=== PATIENT | male | born 1940 | race Caucasian/White ===

== ENCOUNTER 2023-01-06 08:43 | Emergency (ER) | payer MEDICARE, OTHER, SELFPAY ==
[2023-01-06 08:49] VITALS: BP 135/84; PULSE 101; RESP 18; TEMP 36.6; O2SAT 98; BMI 39.2
--- NOTE | 2023-01-06 08:53 | ED.MALEGU1 ---
HPI - Male Genitourinary General Chief complaint: Urogenital-Male Stated complaint: URINARY RETENTION Time Seen by Provider: 01/06/23 08:49 History of Present Illness HPI Narrative: 82-year-old male presents because he could not urinate. He hasn't urinated he states in two days. He has a history of prostate enlargement and has had to have a catheter previously. He has the urge to urinate but cannot. No fever or back pain or vomiting. Related Data Home Medications Medication Instructions Recorded Confirmed cefdinir 300 mg capsule 300 mg PO Q12H 01/06/23 01/06/23 lisinopril 20 1 tab PO Q24H 01/06/23 01/06/23 mg-hydrochlorothiazide 25 mg tablet simvastatin 40 mg tablet 40 mg PO Q24H 01/06/23 01/06/23 trospium 60 mg capsule,extended 60 mg PO Q24H 01/06/23 01/06/23 release 24 hr Previous Rx's Medication Instructions Recorded cefdinir 300 mg capsule 300 mg PO BID 10 days #20 caps 01/06/23 Allergies Allergy/AdvReac Type Severity Reaction Status Date / Time No Known Drug Allergies Allergy Verified 01/06/23 08:48 Review of Systems ROS Narrative A ten point review of systems is negative except as noted above. PFSH PFSH Social History Smoking status: Never smoker Exam Narrative Exam Narrative: Nurses note and vital signs reviewed and patient is not hypoxic. General: The patient sitting on the edge of the cart and he appears uncomfortable Skin: Warm, dry, no pallor noted. There is no rash noted. Head: Normocephalic, atraumatic Eye: Normal conjunctiva, no drainage Ears, Nose, Mouth, and Throat: oral mucosa is moist. Nares patent. Cardiovascular: Regular Rate and Rhythm Respiratory: Patient is in no distress, no accessory muscle use, lungs , no CVA tenderness bilaterally to percussion. GI: minimally tender on palpation Musculoskeletal: The patient has no evidence of calf tenderness, no pitting edema, symmetrical pulses noted bilaterally Neurological: A&O, normal speech, hard of hearing Psychiatric: Cooperative Constitutional Vital Signs, click to edit/add: Last Vital Signs Temp 97.8 F 01/06/23 08:49 Pulse 86 01/06/23 09:41 Resp 18 01/06/23 09:41 BP 130/80 01/06/23 09:41 Pulse Ox 96 01/06/23 09:41 O2 Del Method Room Air 01/06/23 08:49 Course Vital Signs Vital signs: Vital Signs Temperature 97.8 F 01/06/23 08:49 Pulse Rate 101 H 01/06/23 08:49 Respiratory Rate 18 01/06/23 08:49 Blood Pressure 135/84 01/06/23 08:49 Pulse Oximetry 98 01/06/23 08:49 Oxygen Delivery Method Room Air 01/06/23 08:49 Temperature 97.8 F 01/06/23 08:49 Pulse Rate 86 01/06/23 09:41 Respiratory Rate 18 01/06/23 09:41 Blood Pressure 130/80 01/06/23 09:41 Pulse Oximetry 96 01/06/23 09:41 Oxygen Delivery Method Room Air 01/06/23 08:49 MDM - Male Genitourinary MDM Narrative Medical decision making narrative: blood work and urinalysis are negative. He's been having trouble urinating at home and sees a urologist. We'll leave the catheter in place until he sees the urologist and was placed on subsequent antibiotic. Treatment diagnosis and follow-up were discussed with the patient. Differential Diagnosis Differential diagnosis: Likely urinary tract infection, acute retention of urine and other (enlarged prostate) Lab Data Attestation: I reviewed the patient's lab results. Labs: Lab Results 01/06/23 01/06/23 Range/Units 09:04 09:16 WBC 7.6 (4.0-11.0) 10^3/uL RBC 4.33 L (4.70-6.10) 10^6/uL Hgb 13.9 L (14.0-18.0) g/dL Hct 40.4 L (42.0-54.0) % MCV 93.3 (80.0-94.0) fL MCH 32.1 (25.9-34.0) pg MCHC 34.4 (29.9-35.2) g/dL RDW 13.7 (11.0-15.0) % Plt Count 306 (150-450) 10^3/uL MPV 9.4 L (9.5-13.5) fL Neut % (Auto) 69.4 (43.0-75.0) % Lymph % (Auto) 18.0 L (20.5-60.0) % [place] % (Auto) 10.1 (1.7-12.0) % Eos % (Auto) 0.9 (0.9-7.0) % Baso % (Auto) 0.4 (0.2-2.0) % Neut # (Auto) 5.3 (1.4-6.5) 10^3/uL Lymph # (Auto) 1.4 (1.2-3.8) 10^3/uL [place] # (Auto) 0.8 (0.3-0.8) 10^3/uL Eos # (Auto) 0.1 (0.0-0.7) 10^3/uL Baso # (Auto) 0.0 (0.0-0.1) 10^3/uL Abs Immat Gran (auto) 0.09 H (0.00-0.03) 10^3/uL Imm/Tot Granulo (auto) 1.2 H (0.0-0.5) % Sodium 126 L (136-145) mmol/L Potassium 3.4 L (3.5-5.1) mmol/L Chloride 90 L (98-107) mmol/L Carbon Dioxide 25.3 (21.0-32.0) mmol/L Anion Gap 14.1 BUN 8.0 (7.0-18.0) mg/dL Creatinine 0.81 (0.70-1.30) mg/dL Est GFR ( Amer) >60 (>=60) Est GFR (Non-Af Amer) >60 (>=60) BUN/Creatinine Ratio 9.9 Glucose 118 H (74-106) mg/dL Calcium 8.7 (8.5-10.1) mg/dL Urine Color Yellow (YELLOW) Urine Clarity Clear (CLEAR) Urine pH 6.0 (5.0-9.0) Ur Specific [place] 1.020 (1.005-1.025) Urine Protein Trace (NEG/TRACE) mg/dL Urine Glucose (UA) Negative (NEGATIVE) mg/dL Urine Ketones Trace A (NEGATIVE) mg/dL Urine Occult Blood Small A (NEGATIVE) Urine Nitrite Negative (NEGATIVE) Urine Bilirubin Negative (NEGATIVE) Urine Urobilinogen 0.2 (0.2-1.0) EU/dL Ur Leukocyte Esterase Negative (NEGATIVE) Urine RBC 2-5 A (0-2) #/HPF Urine WBC 0-2 A (NONE SEEN) #/HPF Ur Squamous Epith Cells Rare (NONE/RARE) #/LPF Urine Crystals None seen (None Seen) #/HPF Urine Bacteria None seen (NONE SEEN) #/HPF Urine Casts Seen A (NONE SEEN) #/LPF Hyaline Casts Rare Urine Mucus Trace A (NONE SEEN) Ur Culture Indicated? No Discharge Plan Discharge Chief Complaint: Urogenital-Male Clinical Impression: Difficulty urinating Patient Disposition: Home, Self-Care Time of Disposition Decision: 10:06 Condition: Good Mode of Transportation: Private Vehicle Prescriptions / Home Meds: New cefdinir 300 mg capsule 300 mg PO BID 10 Days Qty: 20 0RF No Action cefdinir 300 mg capsule 300 mg PO Q12H lisinopril-hydrochlorothiazide 20-25 mg tablet 1 tab PO Q24H simvastatin 40 mg tablet 40 mg PO Q24H trospium 60 mg capsule,extended release 24hr 60 mg PO Q24H Instructions: Enlarged Prostate (BPH) (ED), Urinary Urgency and Frequency (DC) Additional Instructions: Follow-up with your urologist in 2-3 days Stand Alone Forms: Portal Instructions Referrals: ALEX LYMAN [Primary Care Provider] - 1 week
[2023-01-06 09:15] LABS: Basophils Percent Auto 0.4 % (0.2-2.0); Eosinophils Absolute Auto 0.1 10^3/uL (0.0-0.7); Eosinophils Percent Auto 0.9 % (0.9-7.0); Hematocrit 40.4 % (42.0-54.0); Hemoglobin 13.9 g/dL (14.0-18.0); Immature Granulocytes Abs Auto 0.09 10^3/uL (0.00-0.03); Immature Granulocytes Pct Auto 1.2 % (0.0-0.5); Lymphocytes Absolute Auto 1.4 10^3/uL (1.2-3.8); Mean Corpuscular HGB Conc 34.4 g/dL (29.9-35.2); Mean Corpuscular Hemoglobin 32.1 pg (25.9-34.0); Mean Corpuscular Volume 93.3 fL (80.0-94.0); Mean Platelet Volume 9.4 fL (9.5-13.5); Monocytes Absolute Auto 0.8 10^3/uL (0.3-0.8); Monocytes Percent Auto 10.1 % (1.7-12.0); Neutrophils Absolute Auto 5.3 10^3/uL (1.4-6.5); Neutrophils Percent Auto 69.4 % (43.0-75.0); Platelet Count 306 10^3/uL (150-450); Red Blood Count 4.33 10^6/uL (4.70-6.10); Red Cell Distribution Width 13.7 % (11.0-15.0); White Blood Count 7.6 10^3/uL (4.0-11.0)
[2023-01-06] MEDS: LIDOCAINE 2% JELLY 10 ML UR (09:15)
[2023-01-06 09:27] LABS: Anion Gap 14.1; BUN Creatinine Ratio 9.9; Calcium 8.7 mg/dL (8.5-10.1); Carbon Dioxide 25.3 mmol/L (21.0-32.0); Chloride 90 mmol/L (98-107); Estimated GFR (African America >60 (>=60); Estimated GFR (Non-African Ame >60 (>=60); Glucose 118 mg/dL (74-106); Potassium 3.4 mmol/L (3.5-5.1); Sodium 126 mmol/L (136-145)
[2023-01-06 09:32] LABS: Bilirubin Urine NEGATIVE (NEGATIVE); Blood Urine SMALL (NEGATIVE); Clarity Urine CLEAR (CLEAR); Color Urine YELLOW (YELLOW); Glucose Urine UA NEGATIVE (NEGATIVE); Ketones Urine TRACE mg/dL (NEGATIVE); Leukocyte Esterase Urine NEGATIVE (NEGATIVE); Nitrite Urine NEGATIVE (NEGATIVE); Protein Urine TRACE mg/dL (NEG/TRACE); Urobilinogen Urine 0.2 EU/dL (0.2-1.0)
[2023-01-06 09:41] VITALS: BP 130/80; PULSE 86; RESP 18; O2SAT 96
[2023-01-06 09:43] LABS: Mucus Urine TRACE (NONE SEEN); Squamous Epithelial Cell Urine RARE #/LPF (NONE/RARE); WBC Urine 0-2 #/HPF (NONE SEEN)
[2023-01-06 09:44] LABS: Bacteria Urine NONE SEEN #/HPF (NONE SEEN); Cast Seen? SEEN #/LPF (NONE SEEN); Crystals Seen? None Seen #/HPF (None Seen); Hyaline Casts Urine RARE; Urine Culture Indicated NO
== END 2023-01-06 10:39 | disposition home or self-care (01) ==
PROVIDERS: Emergency Provider Emergency Medicine; PCP Internal Medicine
DX: R39.198 Other difficulties with micturition (principal); Z79.899 Other long term (current) drug therapy
CPT/HCPCS: 36415; 51702; 80048; 81001; 85025; 99284

== ENCOUNTER 2023-01-09 01:41 | Emergency (ER) | payer MEDICARE, OTHER, SELFPAY ==
[2023-01-09 01:50] VITALS: BP 140/80; PULSE 88; RESP 20; TEMP 36.9; O2SAT 97; BMI 39.2
--- NOTE | 2023-01-09 01:54 | ED_ITS ---
HPI - Male Genitourinary General Chief complaint: Urogenital-Male Stated complaint: bleeding Time Seen by Provider: 01/09/23 01:50 Source: patient Mode of arrival: walk-in History of Present Illness HPI Narrative: the patient presents with blood in his oh catheter bag. He came to the ED the other day for urinary retention and a oh cathter was placed. He is supposed to see the Urologist next week. He denied any trauma to the area - said that he woke up tonight and had the bleeding in the bag. He denied any suprapubic abdominal pain. He said that the oh is uncomfortable and he thinks it should be removed. He repeatedly says he sees Dr Baires in [place] - I believe he means the PA with the [facility] that includes Grace Flor, Juvenal, Nick. Related Data Home Medications Medication Instructions Recorded Confirmed cefdinir 300 mg capsule 300 mg PO Q12H 01/06/23 01/06/23 lisinopril 20 1 tab PO Q24H 01/06/23 01/06/23 mg-hydrochlorothiazide 25 mg tablet simvastatin 40 mg tablet 40 mg PO Q24H 01/06/23 01/06/23 trospium 60 mg capsule,extended 60 mg PO Q24H 01/06/23 01/06/23 release 24 hr Previous Rx's Medication Instructions Recorded cefdinir 300 mg capsule 300 mg PO BID 10 days #20 caps 01/06/23 hyoscyamine sulfate 0.125 mg 0.125 mg PO Q6H PRN bladder phillips 01/09/23 sublingual tablet (Levsin/SL) #20 tabs Allergies Allergy/AdvReac Type Severity Reaction Status Date / Time No Known Drug Allergies Allergy Verified 01/06/23 08:48 PFSH PFS Social History Smoking status: Never smoker Exam Narrative Exam Narrative: Nurses notes and vital signs reviewed and patient is not hypoxic. afebrile General: Well-appearing and in no apparent distress. Skin: Warm, dry, no pallor noted. No rash. Cardiovascular: Regular Rate and Rhythm without murmur, gallop or rub. Respiratory: No accessory muscle use or respiratory distress. Lungs are clear to auscultation, no wheezing, rales or rhonchi Chest Wall: no tenderness Back: No CVA tenderness Musculoskeletal: normal ROM GI: Abdomen is soft, non-distended. Normal bowel sounds. No masses appreciated. No tenderness to palpation. No rebound, guarding, or rigidity noted. genital: blood in the oh catheter bag. No blood at the urethral meatus. No leakage around the catheter. There is clear yellow urine in the catheter tubing Neurological: A&O x4. No cranial nerve dysfunction observed. No truncal ataxia. Moves all extremities. Sensation intact. Psychiatric: Cooperative and interactive. Normal mood and affect. Constitutional Vital Signs, click to edit/add: Last Vital Signs Temp 98.5 F 01/09/23 01:50 Pulse 88 01/09/23 01:50 Resp 20 01/09/23 01:50 BP 140/80 01/09/23 01:50 Pulse Ox 97 01/09/23 01:50 O2 Del Method Room Air 01/09/23 01:50 Course Vital Signs Vital signs: Vital Signs Temperature 98.5 F 01/09/23 01:50 Pulse Rate 88 01/09/23 01:50 Respiratory Rate 20 01/09/23 01:50 Blood Pressure 140/80 01/09/23 01:50 Pulse Oximetry 97 01/09/23 01:50 Oxygen Delivery Method Room Air 01/09/23 01:50 Temperature 98.5 F 01/09/23 01:50 Pulse Rate 88 01/09/23 01:50 Respiratory Rate 20 01/09/23 01:50 Blood Pressure 140/80 01/09/23 01:50 Pulse Oximetry 97 01/09/23 01:50 Oxygen Delivery Method Room Air 01/09/23 01:50 MDM - Male Genitourinary MDM Narrative Medical decision making narrative: Oh is draining clear yellow urine now. There is some blood-tinged/light red urine in the bag. No leakage. No suprapubic mass or tenderness. Oh was flushed by the ED nurse and he drained urine that was slightly cloudy and had a faint pink tinge but it was thin and flowed easily. Sample sent for urine culture. Patient given Levsin and discharged home with prescription for more. He is scheduled to be seen in the urology office next week - I told him to keep that appointment. I am not going to remove the catheter - he needs to see the urologist. Discharge Plan Discharge Chief Complaint: Urogenital-Male Clinical Impression: History of urinary retention, Hematuria, Complication of Oh catheter Patient Disposition: Home, Self-Care Time of Disposition Decision: 02:12 Prescriptions / Home Meds: New hyoscyamine sulfate [Levsin/SL] 0.125 mg tablet, sublingual 0.125 mg PO Q6H PRN (Reason: bladder phillips) Qty: 20 0RF No Action cefdinir 300 mg capsule 300 mg PO Q12H lisinopril-hydrochlorothiazide 20-25 mg tablet 1 tab PO Q24H simvastatin 40 mg tablet 40 mg PO Q24H trospium 60 mg capsule,extended release 24hr 60 mg PO Q24H cefdinir 300 mg capsule 300 mg PO BID 10 Days Qty: 20 0RF Instructions: Oh Catheter Placement and Care (ED), Hematuria (ED) Stand Alone Forms: Portal Instructions Referrals: Gianna Romero MD [Physician] - As soon as possible Discharge Date/Time: 01/09/23 03:05
--- NOTE | 2023-01-09 02:36 | PC.NURSE ---
Cornejo cath flushed at this time, no blood clots noted. Pt tolerated well.
[2023-01-09] MEDS: HYOSCYAMINE SULFATE 0.125 MG TAB.SUBL SL (02:42)
== END 2023-01-09 03:05 | disposition home or self-care (01) ==
PROVIDERS: Emergency Provider Emergency Medicine; PCP Internal Medicine
DX: R31.9 Hematuria, unspecified (principal); R33.9 Retention of urine, unspecified; T83.9XXA Unspecified complication of genitourinary prosthetic device, implant and graft, initial encounter; Z79.899 Other long term (current) drug therapy
CPT/HCPCS: 87086; 99283

== ENCOUNTER 2023-01-14 13:17 | Emergency (ER) | payer MEDICARE, OTHER, SELFPAY ==
[2023-01-14 13:23] VITALS: BP 138/71; PULSE 85; RESP 24; TEMP 36.4; O2SAT 98; BMI 40.7
--- NOTE | 2023-01-14 14:01 | ED.MALEGU1 ---
HPI - Male Genitourinary General Chief complaint: Urogenital-Male Stated complaint: URINARY RETENTION Time Seen by Provider: 01/14/23 13:20 Source: patient Mode of arrival: walk-in Limitations: no limitations History of Present Illness HPI Narrative: Patient wants his urinary catheter put back in. He had a catheter placed last week and then saw Dr Romero this morning around 1145am and had the catheter removed. he now comes to the ED with the sensation that his bladder is full and wants the catheter put back in. He has tried to urinate but can't. No other complaints. He said that he called the office and they told him to go to the ER and get another oh put in. Related Data Home Medications Medication Instructions Recorded Confirmed cefdinir 300 mg capsule 300 mg PO Q12H 01/06/23 01/06/23 lisinopril 20 1 tab PO Q24H 01/06/23 01/06/23 mg-hydrochlorothiazide 25 mg tablet simvastatin 40 mg tablet 40 mg PO Q24H 01/06/23 01/06/23 trospium 60 mg capsule,extended 60 mg PO Q24H 01/06/23 01/06/23 release 24 hr Previous Rx's Medication Instructions Recorded cefdinir 300 mg capsule 300 mg PO BID 10 days #20 caps 01/06/23 hyoscyamine sulfate 0.125 mg 0.125 mg PO Q6H PRN bladder phillips 01/09/23 sublingual tablet (Levsin/SL) #20 tabs Allergies Allergy/AdvReac Type Severity Reaction Status Date / Time No Known Drug Allergies Allergy Verified 01/06/23 08:48 PFSH PFSH Social History Smoking status: Never smoker Exam Narrative Exam Narrative: Nurses notes and vital signs reviewed and patient is not hypoxic. afebrile General: Well-appearing and in no apparent distress. Skin: Warm, dry, no pallor noted. Cardiovascular: Regular Rate and Rhythm without murmur, gallop or rub. Respiratory: No accessory muscle use or respiratory distress. Lungs are clear to auscultation, no wheezing, rales or rhonchi Back: No CVA tenderness Musculoskeletal: normal ROM GI: Abdomen is soft, non-distended. Normal bowel sounds. Suprapubic tenderness to palpation. No rebound, guarding, or rigidity noted. Neurological: A&O x4. No cranial nerve dysfunction observed. No truncal ataxia. Moves all extremities. Sensation intact. Psychiatric: Cooperative and interactive. Normal mood and affect. Constitutional Vital Signs, click to edit/add: Last Vital Signs Temp 97.6 F 01/14/23 13:23 Pulse 85 01/14/23 13:23 Resp 24 01/14/23 13:23 BP 138/71 01/14/23 13:23 Pulse Ox 98 01/14/23 13:23 O2 Del Method Room Air 01/14/23 13:23 Course Vital Signs Vital signs: Vital Signs Temperature 97.6 F 01/14/23 13:23 Pulse Rate 85 01/14/23 13:23 Respiratory Rate 24 01/14/23 13:23 Blood Pressure 138/71 01/14/23 13:23 Pulse Oximetry 98 01/14/23 13:23 Oxygen Delivery Method Room Air 01/14/23 13:23 Temperature 97.6 F 01/14/23 13:23 Pulse Rate 85 01/14/23 13:23 Respiratory Rate 24 01/14/23 13:23 Blood Pressure 138/71 01/14/23 13:23 Pulse Oximetry 98 01/14/23 13:23 Oxygen Delivery Method Room Air 01/14/23 13:23 MDM - Male Genitourinary MDM Narrative Medical decision making narrative: Bladder scanner showed only 15mL of urine. Patient vehement about being unable to urinate. ED nurse placed a urethral catheter. Patient referred back to his urologist for follow up Discharge Plan Discharge Chief Complaint: Urogenital-Male Clinical Impression: History of urinary retention, Difficulty urinating Patient Disposition: Home, Self-Care Time of Disposition Decision: 14:05 Prescriptions / Home Meds: No Action hyoscyamine sulfate [Levsin/SL] 0.125 mg tablet, sublingual 0.125 mg PO Q6H PRN (Reason: bladder phillips) Qty: 20 0RF cefdinir 300 mg capsule 300 mg PO Q12H lisinopril-hydrochlorothiazide 20-25 mg tablet 1 tab PO Q24H simvastatin 40 mg tablet 40 mg PO Q24H trospium 60 mg capsule,extended release 24hr 60 mg PO Q24H cefdinir 300 mg capsule 300 mg PO BID 10 Days Qty: 20 0RF Instructions: Urinary Retention in Men (ED) Stand Alone Forms: Portal Instructions Referrals: Gianna Romero MD [Physician] - As soon as possible
== END 2023-01-14 14:28 | disposition home or self-care (01) ==
PROVIDERS: Emergency Provider Emergency Medicine; PCP Internal Medicine
DX: R39.198 Other difficulties with micturition (principal); Z79.899 Other long term (current) drug therapy
CPT/HCPCS: 99284

== ENCOUNTER 2023-01-27 10:15 | Observation (INO) | payer MEDICARE, OTHER, SELFPAY ==
[2023-01-27 10:42] VITALS: BP 127/65; PULSE 56; RESP 22; TEMP 36.6; O2SAT 97; BMI 43.3
--- NOTE | 2023-01-27 12:11 | US_ITS ---
[address] [address] Patient Name: SALVADOR BARRIENTOS MRN: [id number] date: 1940 Sex: M Assigned Patient Location: ER Current Patient Location: ER Accession/Order Number: [id number] Exam Date: 01/27/2023 12:20 Report Date: 01/27/2023 13:10 At the request of: LAZARO ESCALERA Procedure: US scrotum SCROTAL ULTRASOUND: 01/27/2023 10:05 AM PST HISTORY: right testicular pain and mass. TECHNIQUE: Real-time sonography through the scrotum were performed. Color and spectral Doppler waveform analysis were used to evaluate vascularity of scrotal contents. Arterial blood inflow and venous blood outflow were evaluated. COMPARISON: CT abdomen/pelvis 04/01/2018 FINDINGS: RIGHT SCROTUM: RIGHT TESTICLE: Echogenicity: Homogeneous echotexture. No focal solid lesion. Measurements: 3.8 x 2.7 x 2.5 cm. Volume: 13.3 mL. Size: Normal. Hydrocele: Medium-sized septated hydrocele. Varicocele: No varicocele. Testicular vascular exam: Diffuse testicular hyperemia. Arterial and venous spectral waveforms are present. RIGHT EPIDIDYMIS: Diffuse hyperemia and diffuse increased size. LEFT SCROTUM: LEFT TESTICLE: Echogenicity: Homogeneous echotexture. No focal solid lesion. Measurements: 2.8 x 2.1 x 2.4 cm. Volume: 7.1 mL. Size: Normal. Hydrocele: No hydrocele. Varicocele: Present. Testicular vascular exam: Color Doppler and pulse Doppler exam demonstrates normal arterial blood inflow and venous outflow waveforms. LEFT EPIDIDYMIS: Normal in size and position. Color Doppler is normal. SCROTAL WALL: Thickening of the right scrotal wall. US/US scrotum IMPRESSION: Right-sided epididymoorchitis with reactive hydrocele. Electronically authenticated by: JAQUAN PEARSON Date: 01/27/2023 13:10
--- NOTE | 2023-01-27 12:13 | ED_ITS ---
HPI - Male Genitourinary General Chief complaint: Urogenital-Male Stated complaint: GROIN PAIN Time Seen by Provider: 01/27/23 12:03 Source: patient Mode of arrival: walk-in Limitations: no limitations History of Present Illness HPI Narrative: this patient's here complaining of pain in his groin area. He is an extremely poor historian. He does indicate that he's never had any problems with his prostate or procedures on the prostate. He thinks been developing over several days but less than a week. He says his drove him to the hospital and then went back home, she is not here to confirm this information. He's not had any trauma or injury. He says he's not been voiding very much recently. He denies any abdominal pain vomiting or diarrhea. Related Data Home Medications Medication Instructions Recorded Confirmed cefdinir 300 mg capsule 300 mg PO Q12H 01/06/23 01/06/23 lisinopril 20 1 tab PO Q24H 01/06/23 01/27/23 mg-hydrochlorothiazide 25 mg tablet simvastatin 40 mg tablet 40 mg PO Q24H 01/06/23 01/27/23 trospium 60 mg capsule,extended 60 mg PO Q24H 01/06/23 01/06/23 release 24 hr Previous Rx's Medication Instructions Recorded cefdinir 300 mg capsule 300 mg PO BID 10 days #20 caps 01/06/23 hyoscyamine sulfate 0.125 mg 0.125 mg PO Q6H PRN bladder phillips 01/09/23 sublingual tablet (Levsin/SL) #20 tabs Allergies Allergy/AdvReac Type Severity Reaction Status Date / Time No Known Drug Allergies Allergy Verified 01/27/23 10:42 PFSH PFSH Social History Smoking status: Never smoker Exam Narrative Exam Narrative: patient's awake and alert I enter the room he sitting in a chair at the bedside. He is here by himself. He states his brought him here but nurses could not confirm that follows all simple commands. His vital signs are as noted. He is afebrile this time. In the spine position I was able to examine him. The him the scrotum is erythematous and swollen bilaterally with more obvvious swelling of the right testicular area. The left testicle is nontender to palpation but he has some sensitivities palpation the right testicular area. There is no abscesses are noted in the skin but there is definite erythema and swelling of the both the penile skin and the scrotum skin. There is no drainage or purulence. The per irectal area is normal. Otherwise his skin and integument were normal with no petechia purpura. He's not clammy or diaphoretic. He has no respiratory distress his lungs are clear. Constitutional Vital Signs, click to edit/add: Last Vital Signs Temp 97.8 F 01/27/23 10:42 Pulse 56 L 01/27/23 10:42 Resp 22 01/27/23 10:42 BP 127/65 01/27/23 10:42 Pulse Ox 97 01/27/23 10:42 O2 Del Method Room Air 01/27/23 10:42 Course Vital Signs Vital signs: Vital Signs Temperature 97.8 F 01/27/23 10:42 Pulse Rate 56 L 01/27/23 10:42 Respiratory Rate 22 01/27/23 10:42 Blood Pressure 127/65 01/27/23 10:42 Pulse Oximetry 97 01/27/23 10:42 Oxygen Delivery Method Room Air 01/27/23 10:42 Temperature 97.8 F 01/27/23 10:42 Pulse Rate 56 L 01/27/23 10:42 Respiratory Rate 22 01/27/23 10:42 Blood Pressure 127/65 01/27/23 10:42 Pulse Oximetry 97 01/27/23 10:42 Oxygen Delivery Method Room Air 01/27/23 10:42 MDM - Male Genitourinary MDM Narrative Medical decision making narrative: a Corne[place] catheter was placed easily by the nursing staff with no resistance. The urinalysis does show 10-20 WBCs and a few rbc's. His white blood cell count is modestly elevated but there is a left shift. An ultrasound shows hydrocele of the right testicle but no abscess, mass and no evidence of torsion or compromised vascular flow. I believe he does have an infection of this area in his perineum. We will start him on antibiotics and I've discussed the case with the hospitalist for admission. Lab Data Labs: Lab Results 01/27/23 01/27/23 Range/Units 12:20 13:10 WBC 13.0 H (4.0-11.0) 10^3/uL RBC 3.88 L (4.70-6.10) 10^6/uL Hgb 12.4 L (14.0-18.0) g/dL Hct 37.6 L (42.0-54.0) % MCV 96.9 H (80.0-94.0) fL MCH 32.0 (25.9-34.0) pg MCHC 33.0 (29.9-35.2) g/dL RDW 14.5 (11.0-15.0) % Plt Count 335 (150-450) 10^3/uL MPV 9.7 (9.5-13.5) fL Neut % (Auto) 79.8 H (43.0-75.0) % Lymph % (Auto) 8.4 L (20.5-60.0) % [place] % (Auto) 9.6 (1.7-12.0) % Eos % (Auto) 0.9 (0.9-7.0) % Baso % (Auto) 0.3 (0.2-2.0) % Neut # (Auto) 10.3 H (1.4-6.5) 10^3/uL Lymph # (Auto) 1.1 L (1.2-3.8) 10^3/uL [place] # (Auto) 1.3 H (0.3-0.8) 10^3/uL Eos # (Auto) 0.1 (0.0-0.7) 10^3/uL Baso # (Auto) 0.0 (0.0-0.1) 10^3/uL Abs Immat Gran (auto) 0.13 H (0.00-0.03) 10^3/uL Imm/Tot Granulo (auto) 1.0 H (0.0-0.5) % Sodium 133 L (136-145) mmol/L Potassium 3.9 (3.5-5.1) mmol/L Chloride 96 L (98-107) mmol/L Carbon Dioxide 30.8 (21.0-32.0) mmol/L Anion Gap 10.1 BUN 11.0 (7.0-18.0) mg/dL Creatinine 0.90 (0.70-1.30) mg/dL Est GFR ( Amer) >60 (>=60) Est GFR (Non-Af Amer) >60 (>=60) BUN/Creatinine Ratio 12.2 Glucose 99 (74-106) mg/dL Calcium 8.7 (8.5-10.1) mg/dL Total Bilirubin 0.5 (0.2-1.0) mg/dL AST 17 (15-37) U/L ALT 27 (16-63) U/L Alkaline Phosphatase 82 (46-116) U/L NT-Pro-B Natriuret Pep 298.0 (<=1800.0) pg/mL Total Protein 7.0 (6.4-8.2) g/dL Albumin 2.9 L (3.4-5.0) g/dL Globulin 4.1 g/dL Albumin/Globulin Ratio 0.7 Urine Color Lt. yellow (YELLOW) Urine Clarity Clear (CLEAR) Urine pH 6.0 (5.0-9.0) Ur Specific [place] 1.020 (1.005-1.025) Urine Protein Trace (NEG/TRACE) mg/dL Urine Glucose (UA) Negative (NEGATIVE) mg/dL Urine Ketones Negative (NEGATIVE) mg/dL Urine Occult Blood Small A (NEGATIVE) Urine Nitrite Negative (NEGATIVE) Urine Bilirubin Negative (NEGATIVE) Urine Urobilinogen 0.2 (0.2-1.0) EU/dL Ur Leukocyte Esterase Small A (NEGATIVE) Urine RBC 2-5 A (0-2) #/HPF Urine WBC 10-20 A (NONE SEEN) #/HPF Ur Squamous Epith Cells Rare (NONE/RARE) #/LPF Urine Crystals None seen (None Seen) #/HPF Urine Bacteria Trace A (NONE SEEN) #/HPF Urine Casts None seen (NONE SEEN) #/LPF Urine Mucus Trace A (NONE SEEN) Ur Culture Indicated? Yes Discharge Plan Discharge Chief Complaint: Urogenital-Male Clinical Impression: Urinary tract infection Patient Disposition: Admitted as Observation Time of Disposition Decision: 14:51 Prescriptions / Home Meds: No Action hyoscyamine sulfate [Levsin/SL] 0.125 mg tablet, sublingual 0.125 mg PO Q6H PRN (Reason: bladder phillips) Qty: 20 0RF cefdinir 300 mg capsule 300 mg PO Q12H lisinopril-hydrochlorothiazide 20-25 mg tablet 1 tab PO Q24H simvastatin 40 mg tablet 40 mg PO Q24H trospium 60 mg capsule,extended release 24hr 60 mg PO Q24H cefdinir 300 mg capsule 300 mg PO BID 10 Days Qty: 20 0RF Referrals: ALEX LYMAN [Primary Care Provider] - 1 week
[2023-01-27 12:32] LABS: Bilirubin Urine NEGATIVE (NEGATIVE); Blood Urine SMALL (NEGATIVE); Clarity Urine CLEAR (CLEAR); Color Urine LT. YELLOW (YELLOW); Glucose Urine UA NEGATIVE (NEGATIVE); Ketones Urine NEGATIVE (NEGATIVE); Leukocyte Esterase Urine SMALL (NEGATIVE); Nitrite Urine NEGATIVE (NEGATIVE); Protein Urine TRACE mg/dL (NEG/TRACE); Urobilinogen Urine 0.2 EU/dL (0.2-1.0)
[2023-01-27 12:35] LABS: Urine Microscopic Indicated YES
[2023-01-27 12:45] LABS: Bacteria Urine TRACE #/HPF (NONE SEEN); Mucus Urine TRACE (NONE SEEN)
[2023-01-27 12:46] LABS: Cast Seen? NONE SEEN #/LPF (NONE SEEN); Crystals Seen? None Seen #/HPF (None Seen); Squamous Epithelial Cell Urine RARE #/LPF (NONE/RARE); Urine Culture Indicated YES
[2023-01-27 13:27] LABS: Basophils Percent Auto 0.3 % (0.2-2.0); Eosinophils Absolute Auto 0.1 10^3/uL (0.0-0.7); Eosinophils Percent Auto 0.9 % (0.9-7.0); Hematocrit 37.6 % (42.0-54.0); Hemoglobin 12.4 g/dL (14.0-18.0); Immature Granulocytes Abs Auto 0.13 10^3/uL (0.00-0.03); Lymphocytes Absolute Auto 1.1 10^3/uL (1.2-3.8); Lymphocytes Percent Auto 8.4 % (20.5-60.0); Mean Corpuscular Volume 96.9 fL (80.0-94.0); Mean Platelet Volume 9.7 fL (9.5-13.5); Monocytes Absolute Auto 1.3 10^3/uL (0.3-0.8); Monocytes Percent Auto 9.6 % (1.7-12.0); Neutrophils Absolute Auto 10.3 10^3/uL (1.4-6.5); Neutrophils Percent Auto 79.8 % (43.0-75.0); Platelet Count 335 10^3/uL (150-450); Red Blood Count 3.88 10^6/uL (4.70-6.10); Red Cell Distribution Width 14.5 % (11.0-15.0)
[2023-01-27 13:42] LABS: Alanine Aminotransferase 27 U/L (16-63); Albumin Globulin Ratio 0.7; Albumin Level 2.9 g/dL (3.4-5.0); Alkaline Phosphatase 82 U/L (46-116); Anion Gap 10.1; Aspartate Amino Transferase 17 U/L (15-37); BUN Creatinine Ratio 12.2; Bilirubin Total 0.5 mg/dL (0.2-1.0); Calcium 8.7 mg/dL (8.5-10.1); Carbon Dioxide 30.8 mmol/L (21.0-32.0); Chloride 96 mmol/L (98-107); Estimated GFR (African America >60 (>=60); Estimated GFR (Non-African Ame >60 (>=60); Globulin 4.1 g/dL; Glucose 99 mg/dL (74-106); Potassium 3.9 mmol/L (3.5-5.1); Sodium 133 mmol/L (136-145)
--- NOTE | 2023-01-27 15:14 | P.HP_ITS ---
Patient was not seen on 01/27 by me. Chart reviewed, clinical care/decision making d/w DENIS Etienne in detail. Agree with her findings and treatment plan Patient admitted for IV abx, scrotal swelling/pain associated mild dehydration. Associated UTI based on UA. F/u cultures. Scrotal support/elevation H&P: HPI History of Present Illness Chief complaint: GROIN PAIN Narrative: Date/time of exam: 01/27/23 1810 This is an 82-year-old male patient with a past medical history as outlined below including urinary retention recently placed on tamsulosin per urology, OAB, HTN, hyperlipidemia; who presented to the ED complaining of acute scrotal pain. The patient is a very poor historian and is unable to clearly describe when his pain began or any associated symptoms. Apparently onset of symptoms was 2 to 3 days ago without associated fever or difficulty urinating. He denies chest pain, N/V/D, abdominal pain or other acute symptoms. He does complain of mild shortness of breath that he associates with poor sleep but is not in any respiratory distress and his sats are stable in the ED. Work-up in the ED revealed leukocytosis, UTI, and epididymoorchitis per US of the scrotum. No abscess, mass, or torsion was noted on the US. The patient is being admitted to observation by the hospitalist service for IV antibiotic administration. At the time of my exam the patient is resting comfortably on the cart in the ED. He again is unable to clearly describe onset of his symptoms are give any clear history. He notes tenderness with examination of the scrotum but otherwise denies significant complaints. Review of Systems ROS Status of ROS 10 or more systems reviewed and unremarkable except as noted in history and below [facility] Medical History (Updated 01/27/23 @ 15:26 by Jaimie Nugent NP) Difficulty urinating ?R39.198 - Other difficulties with micturition (ICD-10) Hematuria ?R31.9 - Hematuria, unspecified (ICD-10) History of urinary retention ?Z87.898 - Personal history of other specified conditions (ICD-10) Hyperlipidemia ?E78.5 - Hyperlipidemia, unspecified (ICD-10) OAB (overactive bladder) ?N32.81 - Overactive bladder (ICD-10) Surgical History (Updated 01/27/23 @ 15:29 by Therese Cardenas LPN) History of knee surgery ?Z98.890 - Other specified postprocedural states (ICD-10) Social History (Updated 01/27/23 @ 15:30 by Therese Cardenas LPN) Smoking status: Never smoker Second hand tobacco smoke exposure: No Non-prescribed substance use: denies use 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 Known occupational exposures/hazards: No Highest level of school completed/degree received: high school graduate Do you want help with school or training: No Are you now , , , , never or living with a partner: In a typical week, how many times do you talk on the telephone with family, friends, or neighbors: twice per week How often do you get together with friends or relatives: twice per week How often do you attend jehovah's witness or druze services: never Do you belong to any clubs or organizations such as jehovah's witness groups unions, [employer] or athletic groups, or school groups: no Total score: 2 Score interpretation: A score of greater than or equal to 2 indicates the lowest level of social isolation. Little interest or pleasure in doing things: not at all Feeling down, depressed, or hopeless: not at all Feel stressed/tense/nervous/anxious/difficulty sleeping: not at all Due to disability, difficulty making decisions: No Do you think of yourself as: straight/heterosexual Gender Identity: male Meds Home Medications and Allergies Home Medications Medication Instructions Recorded Confirmed Type lisinopril 20 1 tab PO Q24H 01/06/23 01/27/23 History mg-hydrochlorothiazide 25 mg tablet simvastatin 40 mg tablet 40 mg PO Q24H 01/06/23 01/27/23 History trospium 60 mg capsule,extended 60 mg PO Q24H 01/06/23 01/27/23 History release 24 hr tamsulosin 0.4 mg capsule 0.4 mg PO Q24H 01/27/23 01/27/23 History Allergies Allergy/AdvReac Type Severity Reaction Status Date / Time No Known Drug Allergies Allergy Verified 01/27/23 10:42 Exam Constitutional Vital Signs, click to edit/add: Last Vital Signs Temp 97.8 F 01/27/23 10:42 Pulse 56 L 01/27/23 10:42 Resp 22 01/27/23 10:42 BP 127/65 01/27/23 10:42 Pulse Ox 97 01/27/23 10:42 O2 Del Method Room Air 01/27/23 10:42 Common normals: no apparent distress, oriented x3, alert and well nourished General appearance: cooperative Orientation/consciousness: Yes awake HENMT Common normals: normocephalic, head/scalp atraumatic, external nose normal and moist oral mucous membranes Other: Hard of hearing Eye Common normals: PERRL, EOMs intact bilaterally, conjunctivae normal and no scleral icterus Alignment: alignment normal Chest Common normals: inspection of chest normal Chest: symmetrical chest wall rise Respiratory Common normals: normal respiratory effort, no retractions, no use of accessory muscles and clear to auscultation bilaterally Effort & inspection: able to speak in complete sentences Cardio Common normals: no JVD, regular rate, regular rhythm, S1 normal heart sound, S2 normal heart sound, no gallops, no clicks, no murmurs, no rub and peripheral pulses 2+ throughout Heart sounds: other (Diminished HT) GI Common normals: Normal to inspection, nondistended, normoactive bowel sounds present, soft to palpation, non-tender, no hepatosplenomegaly, no masses and no bruits Bladder/kidney exam: bladder normal to palpation Scrotum: tenderness (w/ erythema, swelling. Greatest on R) Testes: testicular tenderness Testicular tenderness laterality: right Extremity Common normals: normal capillary refill and no pedal edema General: normal exam except as noted; no clubbing and no cyanosis Neuro Raúl Coma Scale: GCS not evaluated Common normals: oriented x3, CN's II-XII intact bilaterally, moves all e xtremities, no focal motor deficits and no sensory deficits noted Speech: speech normal Psych Common normals: mental status grossly normal, thought process normal, affect normal and activity/motor behavior normal Results Labs Labs: Short CBC 01/27/23 Range/Units 13:10 WBC 13.0 H (4.0-11.0) 10^3/uL Hgb 12.4 L (14.0-18.0) g/dL Hct 37.6 L (42.0-54.0) % Plt Count 335 (150-450) 10^3/uL BMP 01/27/23 13:10 Sodium 133 L Potassium 3.9 Chloride 96 L Carbon Dioxide 30.8 BUN 11.0 Creatinine 0.90 Glucose 99 Calcium 8.7 Liver Function 01/27/23 Range/Units 13:10 Total Bilirubin 0.5 (0.2-1.0) mg/dL AST 17 (15-37) U/L ALT 27 (16-63) U/L Alkaline Phosphatase 82 (46-116) U/L Albumin 2.9 L (3.4-5.0) g/dL Urine 01/27/23 Range/Units 12:20 Urine Color Lt. yellow (YELLOW) Urine Clarity Clear (CLEAR) Urine pH 6.0 (5.0-9.0) Ur Specific [place] 1.020 (1.005-1.025) Urine Protein Trace (NEG/TRACE) mg/dL Urine Glucose (UA) Negative (NEGATIVE) mg/dL Pulse Oximetry Attestation: I have reviewed the pertinent pulse oximetry results. Imaging US Scrotum: Attestation: I have reviewed the pertinent imaging results. Radiologist's impression: IMPRESSION: Right-sided epididymoorchitis with reactive hydrocele. Assessment and Plan Assessment and Plan (1) Acute epididymo-orchitis: Assessment and Plan: ACUTE * Adm observation * IVPB Levaquin for broad empiric coverage - Plan 10 day course, d/c on PO Levaquin * No evidence of abscess, mass, or torsion on US Scrotum * Leukocytosis but no clinical concern for sepsis at this time * Oh catheter placed in ED to ensure patency w/ significant edema/hydrocele * Consider urology consult pending clinical course * CBC daily (2) Urinary tract infection: Assessment and Plan: ACUTE * Levaquin as above * Urine cx pending (3) History of urinary retention: Assessment and Plan: CHRONIC * Continue home tamsulosin * Current oh catheter placed in ED (4) Hyperlipidemia: Assessment and Plan: CHRONIC * Continue home statin (5) OAB (overactive bladder): Assessment and Plan: CHRONIC * Hold home trospium for now
[2023-01-27 15:30] VITALS: BP 109/63; PULSE 69; RESP 20; TEMP 36.5; O2SAT 93; BMI 39.4
[2023-01-27] MEDS: CEFTRIAXONE 1,000 MG in 0.9 % SODIUM CHLORIDE 50 ML 100 MG IV (16:37)
[2023-01-27] MEDS: LEVOFLOXACIN IN DEXTROSE 5 % 750 MG/150 ML IV.SOLN 100 MG IV (16:38)
[2023-01-27] MEDS: 0.9 % SODIUM CHLORIDE 250 ML 10 ML IV (16:40)
[2023-01-27] MEDS: ENOXAPARIN SODIUM 40 MG/0.4 ML SYRINGE SUBQ (17:54)
[2023-01-27 20:00] VITALS: PULSE 56; RESP 20
[2023-01-27 21:59] VITALS: BP 102/58; PULSE 75; RESP 18; TEMP 36.8; O2SAT 91
[2023-01-28 05:38] LABS: Basophils Percent Auto 0.4 % (0.2-2.0); Eosinophils Absolute Auto 0.2 10^3/uL (0.0-0.7); Eosinophils Percent Auto 1.5 % (0.9-7.0); Hematocrit 35.2 % (42.0-54.0); Hemoglobin 11.4 g/dL (14.0-18.0); Immature Granulocytes Abs Auto 0.15 10^3/uL (0.00-0.03); Immature Granulocytes Pct Auto 1.5 % (0.0-0.5); Lymphocytes Absolute Auto 1.4 10^3/uL (1.2-3.8); Lymphocytes Percent Auto 14.5 % (20.5-60.0); Mean Corpuscular HGB Conc 32.4 g/dL (29.9-35.2); Mean Corpuscular Hemoglobin 31.3 pg (25.9-34.0); Mean Corpuscular Volume 96.7 fL (80.0-94.0); Mean Platelet Volume 9.9 fL (9.5-13.5); Monocytes Absolute Auto 1.3 10^3/uL (0.3-0.8); Monocytes Percent Auto 12.7 % (1.7-12.0); Neutrophils Absolute Auto 6.9 10^3/uL (1.4-6.5); Neutrophils Percent Auto 69.4 % (43.0-75.0); Platelet Count 328 10^3/uL (150-450); Red Blood Count 3.64 10^6/uL (4.70-6.10); Red Cell Distribution Width 14.4 % (11.0-15.0)
[2023-01-28 05:51] VITALS: BP 127/82; PULSE 74; RESP 18; TEMP 36.4; O2SAT 93
[2023-01-28 06:11] LABS: Alanine Aminotransferase 15 U/L (16-63); Albumin Globulin Ratio 0.7; Albumin Level 2.7 g/dL (3.4-5.0); Alkaline Phosphatase 71 U/L (46-116); Anion Gap 10.1; Aspartate Amino Transferase 16 U/L (15-37); BUN Creatinine Ratio 11.5; Bilirubin Total 0.4 mg/dL (0.2-1.0); Calcium 8.8 mg/dL (8.5-10.1); Carbon Dioxide 27.6 mmol/L (21.0-32.0); Chloride 97 mmol/L (98-107); Estimated GFR (African America >60 (>=60); Estimated GFR (Non-African Ame >60 (>=60); Globulin 3.9 g/dL; Glucose 96 mg/dL (74-106); Potassium 3.7 mmol/L (3.5-5.1); Sodium 131 mmol/L (136-145); Total Protein 6.6 g/dL (6.4-8.2)
--- NOTE | 2023-01-28 10:35 | P.DS_ITS ---
Seen and examine today. Chart reviewed. Case dw Jaimie. Agree with her findings, treatment plan. Exam: Laying in bed comfortable CTA b/l no wheezing NT, ND, Bowel sounds are audible. No hernia. Scrotal swelling improved, skin is still red and indurated but sig improved from before. Assessment and Plan UTI Epididymoorchitis. BPH Improved overnight with IV levaquin, scrotal elevation. Catheter removed. Patient voided w/o difficulty. Outpatient fu with urolgoy. Dc on oral Levaquin, c/w scrotal elevation/support. Outpatient f/u with PCP and Urology. Fu urine cx. DS: Providers Provider Date of admission: 01/27/23 15:00 Primary care physician: ALEX OAKLEY Consults: 01/27/23 14:45 Occupational Therapy Eval and Treat Routine Reason for consultation: Ambulatory dysfunction/weakness Physical Therapy Eval and Treat Routine Reason for consultation: Ambulatory dysfunction/weakness Discharging clinician: Jaimie Nugent DS: Diagnosis Discharge Diagnosis (1) Acute epididymo-orchitis: (2) Urinary tract infection: (3) History of urinary retention: (4) Hyperlipidemia: (5) OAB (overactive bladder): DS: Summary Hospital Course Hospital Course: The patient was admitted to observation with acute epididymoorchitis. He was treated with IVPB Levaquin and the localized tenderness, erythema, and swelling had all improved in 24 hours. A Cornejo catheter had been placed in the ED to ensure urethral patency due to significant swelling. This was discontinued on the day of discharge and the patient demonstrated he was able to urinate after Cornejo discontinuation. He is being discharged home in stable condition with a prescription for p.o. Levaquin to complete a 10-day course. The pt reports that he frequently develops severe diarrhea when on antibiotics. We recommend a short course of probiotics while on antibiotic therapy. He should follow-up with his PCP within 5 to [address] Romero, urologist, in 1 to 2 weeks. Status at Discharge Overall status at discharge: patient is progressing back to baseline Time Spent with Patient Time attestation: Total time spent providing and/or coordinating discharge services: Time spent: greater than 30 minutes Specific discharge activities: Physical exam, discussion of discharge plan, questions answered. Exam Constitutional Vital Signs, click to edit/add: Last Vital Signs Temp 97.5 F L 01/28/23 05:51 Pulse 74 01/28/23 05:51 Resp 18 01/28/23 05:51 BP 127/82 01/28/23 05:51 Pulse Ox 93 L 01/28/23 05:51 O2 Del Method Room Air 01/28/23 05:51 Common normals: no apparent distress and alert General appearance: cooperative Orientation/consciousness: Yes awake HENMT Common normals: normocephalic and head/scalp atraumatic General ear: hearing grossly impaired Eye Common normals: PERRL, EOMs intact bilaterally, conjunctivae normal and no scleral icterus Neck & C-Spine Common normals: no JVD Respiratory Common normals: normal respiratory effort and no use of accessory muscles Effort & inspection: able to speak in complete sentences and symmetric chest movement Auscultation: wheezes (Faint, scattered, EI on R) Cardio Common normals: no JVD, regular rate, S1 normal heart sound, S2 normal heart sound, no murmurs and peripheral pulses 2+ throughout Rhythm: abnormal rhythm with ectopic beats GI Common normals: Normal to inspection, nondistended, normoactive bowel sounds present, soft to palpation and non-tender Bladder/kidney exam: bladder normal to palpation Penis: edematous (Improving) Scrotum: tenderness (Resolving) and scrotal swelling (Mild, improving) Scrotal swelling laterality: right Scrotal swelling consistent with: hydrocele Extremity Common normals: normal to inspection, full ROM and normal capillary refill General: no clubbing and no cyanosis Neuro Common normals: moves all extremities, no focal motor deficits and no sensory deficits noted Psych Common normals: mental status grossly normal and activity/motor behavior normal Memory/cognition: memory grossly impaired Insight: fair Judgement: fair DS: Data Data Completed and Pending Labs on day of discharge: Labs from last 24 hours 01/28/23 01/27/23 01/27/23 04:29 13:10 12:20 WBC 10.0 13.0 H RBC 3.64 L 3.88 L Hgb 11.4 L 12.4 L Hct 35.2 L 37.6 L MCV 96.7 H 96.9 H MCH 31.3 32.0 MCHC 32.4 33.0 RDW 14.4 14.5 Plt Count 328 335 MPV 9.9 9.7 Neut % (Auto) 69.4 79.8 H Lymph % (Auto) 14.5 L 8.4 L [place] % (Auto) 12.7 H 9.6 Eos % (Auto) 1.5 0.9 Baso % (Auto) 0.4 0.3 Neut # (Auto) 6.9 H 10.3 H Lymph # (Auto) 1.4 1.1 L [place] # (Auto) 1.3 H 1.3 H Eos # (Auto) 0.2 0.1 Baso # (Auto) 0.0 0.0 Abs Immat Gran (auto) 0.15 H 0.13 H Imm/Tot Granulo (auto) 1.5 H 1.0 H Sodium 131 L 133 L Potassium 3.7 3.9 Chloride 97 L 96 L Carbon Dioxide 27.6 30.8 Anion Gap 10.1 10.1 BUN 10.0 11.0 Creatinine 0.87 0.90 Est GFR ( Amer) >60 >60 Est GFR (Non-Af Amer) >60 >60 BUN/Creatinine Ratio 11.5 12.2 Glucose 96 99 Calcium 8.8 8.7 Total Bilirubin 0.4 0.5 AST 16 17 ALT 15 L 27 Alkaline Phosphatase 71 82 NT-Pro-B Natriuret Pep 298.0 Total Protein 6.6 7.0 Albumin 2.7 L 2.9 L Globulin 3.9 4.1 Albumin/Globulin Ratio 0.7 0.7 Urine Color Lt. yellow Urine Clarity Clear Urine pH 6.0 Ur Specific [place] 1.020 Urine Protein Trace Urine Glucose (UA) Negative Urine Ketones Negative Urine Occult Blood Small A Urine Nitrite Negative Urine Bilirubin Negative Urine Urobilinogen 0.2 Ur Leukocyte Esterase Small A Urine RBC 2-5 A Urine WBC 10-20 A Ur Squamous Epith Cells Rare Urine Crystals None seen Urine Bacteria Trace A Urine Casts None seen Urine Mucus Trace A Ur Culture Indicated? Yes Discharge Plan Discharge Disposition: Home, Self-Care Discharge Medications: New levofloxacin 500 mg tablet 500 mg PO DAILY 9 Days Qty: 9 0RF L.acidoph,saliva-B.bif-S.therm [Acidophilus Probiotic Blend] 175 mg capsule 1 cap PO BID 15 Days Qty: 30 0RF Continued tamsulosin 0.4 mg capsule 0.4 mg PO Q24H lisinopril-hydrochlorothiazide 20-25 mg tablet 1 tab PO Q24H simvastatin 40 mg tablet 40 mg PO Q24H trospium 60 mg capsule,extended release 24hr 60 mg PO Q24H Activity: increase activity as tolerated Diet: advance to your usual diet Patient Instructions: Levofloxacin (By mouth), Probiotic (By mouth) (Acidophilus Probiotic Blend, Culturelle,..., Epididymo-Orchitis (GEN), Urinary Tract Infection in Men (GEN) Forms: Portal Instructions Follow Up Appointments: - Follow up appt. with Dr. Oakley on @ 11:30am Office #: [phone] - Follow up appt. with Dr. Romero on @ 9:30am [facility], [address] Soha Ozuna Office #: [phone]
[2023-01-28 10:47] VITALS: BP 133/68
[2023-01-28] MEDS: HYDROCHLOROTHIAZIDE 25 MG TABLET PO (10:47)
[2023-01-28] MEDS: LISINOPRIL 20 MG TABLET PO (10:47)
[2023-01-28] MEDS: TAMSULOSIN HCL 0.4 MG CAPSULE PO (10:47)
--- NOTE | 2023-01-28 11:09 | CM.NOTE ---
Medicare Outpatient Observation notice discussed with pt, pt verbalizes understanding and signs paper.
--- NOTE | 2023-01-28 11:18 | CM.NOTE ---
Rounding with Dr. Mitchell and Nurse Yulissa was asked to come to bedside. Dr. Mitchell wanted catheter removed to evaluate if patient can urinate after. Continue to eval for possible discharge needs. Pt. extremely hard of hearing.
== END 2023-01-28 13:45 | disposition home or self-care (01) ==
LOC: ER 14:51 → MS 15:02
PROVIDERS: Admitting Provider Internal Medicine; Emergency Provider Emergency Medicine Emergency Medical Services; PCP Internal Medicine; Visit Provider Internal Medicine
DX: N45.3 Epididymo-orchitis (principal); N39.0 Urinary tract infection, site not specified; N40.0 Benign prostatic hyperplasia without lower urinary tract symptoms; E86.0 Dehydration; I10 Essential (primary) hypertension; E78.5 Hyperlipidemia, unspecified; R06.02 Shortness of breath; N32.81 Overactive bladder; Z79.899 Other long term (current) drug therapy; Z87.898 Personal history of other specified conditions; Z98.890 Other specified postprocedural states
CPT/HCPCS: 36415; 51702; 76870; 80053; 81001; 83880; 85025; 87086; 96365; 96366; 96368; 96372; 99285; G0378

== ENCOUNTER 2023-09-15 22:29 | Emergency (ER) | payer MEDICARE, OTHER, SELFPAY ==
[2023-09-15 22:37] VITALS: BP 158/90; PULSE 97; TEMP 36.6; O2SAT 95; BMI 494.2
--- OUTSIDE RECORDS SUMMARY | 2023-09-15 22:41 | XMS_ITS ---
Patient Summarization (C-CDA 2.1 CCD) Created on: September 15, 2023 SALVADOR BARRIENTOS : 1940 Sex: Male Author Organization Sample organization Care Team Providers Care Hand Former Helper Name Role Phone PHYSICIAN, DEFAULT Unavailable Unavailable PHYSICIAN, DEFAULT Unavailable Unavailable PHYSICIAN, DEFAULT Unavailable Unavailable PHYSICIAN, DEFAULT Unavailable Unavailable ESMER, DR JOHNSON Primary Care Unavailable LALI, DR LAZARO Reyes Admitting Unavailabl e LALI, DR LAZARO Reyes Attending Unavailabl e LALI, DR LAZARO Reyes Consulting Unavailabl e DEANNA BRITO Consulting Unavailable ALEX OAKLEY Primary Care Physician [phone] HAIDER JAMA Attending Unavailable ALEX OAKLEY Attending Unavailable ALEX OAKLEY Attending Unavailable ALEX OAKLEY Attending Unavailable THERON, THERESE E Attending Unavailable THERON, THERESE E Admitting Unavailable Lue, Gianna M. Attending Unavailable THERON, THERESE E Attending Unavailable Lue, Gianna M. Attending Unavailable THERON, THERESE E Attending Unavailable Lue, Gianna M. Referring Unavailable Lue, Gianna M. Attending Unavailable THERON, THERESE E Attending Unavailable Lue, Gianna M. Admitting Unavailable Lue, Gianna M. Referring Unavailable Lue, Gianna M. Attending Unavailable Lue, Gianna M. Attending Unavailable Lue, Gianna M. Admitting Unavailable Lue, Gianna M. Attending Unavailable Lue, Gianna M. Attending Unavailable Lue, Gianna M. Referring Unavailable Lue, Gianna M. Admitting Unavailable Encounters Encounter Date Encounter Type Care Provider Facility Start: 09-30-2023 ambulatory Gianna M. Lue Facility:[facility] Start: 09-14-2023 ambulatory Gianna M. Lue Facility:[facility] Start: 09-14-2023 End: 09-14-2023 Patient encounter procedure Gianna Romero [facility] Start: 08-26-2023 End: 08-26-2023 ambulatory Gianna Carmelina. Lue [place] Start: 08-26-2023 End: 08-26-2023 Lab Drop off Gianna Romero [facility] Start: 08-26-2023 End: 08-26-2023 ambulatory Gianna Cosme. Lue Facility:[facility] Start: 08-26-2023 End: 08-26-2023 Patient encounter procedure Gianna Romero [facility] Start: 07-01-2023 End: 07-01-2023 ambulatory ALEX White OAKLEY Not Available Start: 06-15-2023 End: 06-15-2023 ambulatory ALEX B OAKLEY Not Available Start: 06-09-2023 End: 06-09-2023 ambulatory HAIDER A WILEY Not Available Start: 02-24-2023 End: 02-24-2023 ambulatory THERESE CRUMP Facility:[facility] Start: 02-24-2023 End: 02-24-2023 Patient encounter procedure THERESE WYLIERY [facility] Start: 02-11-2023 End: 02-11-2023 ambulatory ALEX B OAKLEY Not Available Start: 02-10-2023 End: 02-10-2023 ambulatory THERESE Armani THERON Facility:[facility] Start: 02-10-2023 End: 02-10-2023 Patient encounter procedure THERESE E THERON [facility] Start: 01-26-2023 End: 01-26-2023 ambulatory Gianna CarmelinaMarta Seemae [place] Start: 01-26-2023 End: 01-26-2023 Patient encounter procedure Gianna Cosme. Seemae [facility] Start: 01-21-2023 ambulatory Gianna Romero Facility:[facility] Start: 01-14-2023 End: 01-14-2023 ambulatory Gianna Cosme. Lue Facility:[facility] Start: 01-14-2023 End: 01-14-2023 Patient encounter procedure Gianna Romero [facility] Start: 12-23-2022 End: 12-23-2022 Lab Drop off THERESE CRUMP [facility] Start: 12-23-2022 End: 12-23-2022 ambulatory THERESE CRUMP [place] [place]: 12-23-2022 End: 12-23-2022 Patient encounter procedure THERESE CRUMP [facility] Start: 07-06-2022 End: 07-06-[address] ALEX OAKLEY Facility: Start: 08-25-2017 End: 08-26-2017 Ambulatory DEFAULT PHYSICIAN Facility:[facility] Start: 08-19-2017 End: 08-20-2017 Ambulatory DEFAULT PHYSICIAN Facility:[facility] Immunizations Immunization Date Immunization Notes Care Provider Fa cili 12-29-2022 influenza virus vaccine, unspecified formulation Gianna Romero [facility] 12-02-2021 influenza virus vaccine, unspecified formulation Gianna Nick [facility] 12-02-2021 SARS-CoV-2 (COVID-19 ) [id number] Gianna Romero [facility] 07-11-2021 zoster vaccine recombinant Gianna Nick [facility] 06-20-2021 SARS-CoV-2 mRNA (tujdawooqub-jgce-lkszc se) vaccine Gianna Lue [facility] 04-09-2021 zoster vaccine recombinant Gianna Lue [facility] 01-30-2021 influenza virus vaccine, unspecified formulation Gianna Lue [facility] 12-15-2020 SARS-CoV-2 (COVID-19 ) mRNA BNT-162b2 vax Gianna Lue [facility] Comment on above: Result Comment: 2022: [id number] 05-15-2020 SARS-CoV-2 (COVID-19 ) mRNA BNT-162b2 vax Gianna Lue [facility] Comment on above: Result Comment: 2022: [id number] 04-24-2020 SARS-CoV-2 (COVID-19 ) mRNA BNT-162b2 vax THERESE CRUMP [facility] 01-04-2020 influenza virus vaccine, unspecified formulation Gianna Lue [facility] 01-25-2019 influenza virus vaccine, unspecified formulation Gianna Lue [facility] 12-21-2018 influenza virus vaccine, live, attenuated, for intranasal use THERESE WYLIERY [facility] 01-11-2018 influenza virus vaccine, unspecified formulation Gianna Lue [facility] 12-11-2016 influenza virus vaccine, unspecified formulation Gianna Romero [facility] 05-24-2015 pneumococcal conjuga te vaccine, 13 valent Gianna Nick [facility] Medications Current Medications Medication Drug Class(es) Dates Sig (Normalized) Sig (Original) aspirin 81 mg oral tablet (9 sources) Platelet Aggregation Inhibitor, Nonsteroidal Anti-inflammatory Drug Start: 12-17-2018 take 81 mg by mouth once daily aspirin 81 mg, Oral, Daily, Refills(s) 0 Start Date: 12/17/18 Status: Ordered cefdinir 300 mg oral capsule (1 source) Cephalosporin Antibacterial Start: 01-14-2023 cefdinir 300 mg Cap Refills(s) 0 Start Date: 01/14/23 Status: Ordered ciprofloxacin 500 mg oral tablet (2 sources) Quinolone Antimicrobial Start: 08-26-2023 End: 08-29-2023 Cipro 500 mg Tab 500 mg = 1 tab(s), Oral, BID, start one day prior to procedure, X 3 day(s), # 6 tab(s), Refills(s) 0, Pharmacy: [facility]/pharmacy #[id number], 172, cm, 08/26/23 10:06:00 EDT, Height/Length Dosing, 120, kg, 08/26/23 10:06:00 EDT, Weight Dosing Start Date: 08/26/23 Stop Date: 08/29/23 Status: Ordered hydroCHLOROthiazide 25 mg / lisinopril 20 mg oral tablet (9 sources) Thiazide Diuretic, Angiotensin Converting Enzyme Inhibitor Start: 12-23-2022 hydrochlorothiaz troy-lisinopril 25 mg-20 mg Tab Refill(s) 0 Start Date: 12/23/22 Status: Ordered hyoscyamine sulfate 0.125 mg sublingual tablet (3 sources) Start: 01-14-2023 hyoscyamine 0.125 mg sublingual Tab Refills(s) 0 Start Date: 01/14/23 Status: Ordered levoFLOXacin 500 mg oral tablet (1 source) Quinolone Antimicrobial Start: 01-26-2023 End: 02-05-2023 take 1 tablet by mouth every twenty-four hours Levaquin 500 mg Tab 500 mg = 1 tab(s), Oral, q24hr, X 10 day(s), # 10 tab(s), Refills(s) 0, Pharmacy: [facility]/pharmacy #[id number], 172, cecil, 01/26/23 11:20:00 EST, Height/Length Dosing, 120, kg, 01/14/23 10:39:00 EDT, Weight Dosing Start Date: 01/26/23 Stop Date: 02/05/23 Status: Ordered Multi Vitamin+ (9 sources) Start: 03-29-2019 take 1 tablet by mouth once daily Multi Vitamin+ one tab, Oral, Daily, Refill(s) 0 Start Date: 03/29/19 Status: Ordered simvastatin 40 mg oral tablet (9 sources) HMG-CoA Reductase Inhibitor Start: 09-20-2013 take 1 tablet by mouth once daily at bedtime simvastatin 40 mg Tab 40 mg = 1 tab(s), Oral, Once a day (at bedtime), Refills(s) 0, High cholesterol Start Date: 09/20/13 Status: Ordered tamsulosin hydrochloride 0.4 mg oral capsule (3 sources) alpha-Adrenergic Richie Start: 01-14-2023 take 1 capsule by mouth once daily in the evening tamsulosin 0.4 mg Cap 0.4 mg = 1 cap(s), Oral, qPM, # 30 cap(s), Refills(s) 11, Pharmacy: [facility]/pharmacy #[id number], 172, cecil, 01/14/23 10:39:00 EDT, Height/Length Dosing, 120, kg, 01/14/23 10:39:00 EDT, Weight Dosing Start Date: 01/14/23 Status: Ordered 24 hr trospium chloride 60 mg extended release oral capsule (2 sources) Cholinergic Muscarinic Antagonist Start: 12-23-2022 End: 12-18-2023 take 1 capsule by mouth once daily in the morning trospium 60 mg oral capsule, extended release 60 mg = 1 cap(s), Oral, qAM, X 30 day(s), # 30 cap(s), Refills(s) 11, Pharmacy: [facility]/pharmacy #[id number], 172, cecil, 12/23/22 14:24:00 EDT, Height/Length Dosing, 120, kg, 12/23/22 14:24:00 EDT, Weight Dosing Start Date: 12/23/22 Stop Date: 12/18/23 Status: Ordered Payers Date Payer Category Payer Medicare [id number] 1959 Unknown [id number] 1940 Unknown [id number] 2.16.84 [id number] 1940 Unknown [id number] 2.16.84 0.1.876980.3.579.2.1259 1940 Unknown [id number] 2.16.84 0.1.813753.3.579.2.125 1940 Unknown [id number] 2.16.84 0.1.290760.3.579.2.1259 1940 Unknown [id number] 2.16.840 .1.783422.3.579.2.1258 1940 Unknown [id number] 2.16.8 40.1.406087.3.579.2.72 1940 Unknown [id number] 2.16.8 40.1.524329.3.579.2.72 1940 Unknown [id number] 2.16.8 40.1.647365.3.579.2.72 1940 Unknown [id number] 2.16.8 40.1.741841.3.579.2.72 1940 Unknown [id number] 2.16.8 40.1.114177.3.579.2.72 1940 Unknown [id number] 2.16.8 40.1.153531.3.579.2.72 1940 Unknown [id number] 2.16.8 40.1.356093.3.579.2.72 1940 Unknown [id number] 2.16.8 40.1.045131.3.579.2.72 1940 Unknown [id number] 2.16.8 40.1.824167.3.579.2.727 1940 Unknown [id number] 2.16.8 40.1.313574.3.579.2.727 1940 Unknown [id number] 2.16.8 40.1.036438.3.579.2.727 Unknown Problems Active Problems Problem Classification Problem Date Documented Date Episodic/Chronic Abdominal hernia (9 sources) Hernia of anterior abdominal wall 09-20-2013 Episodic Disorders of lipid metabolism (10 sources) Pure hypercholesterolemia, unspecified; Translations: [Hypercholesterolemia ] Onset: 07-08-2022 09-20-2013 Chronic Essential hypertension (10 sources) Essential (primary) hypertension; Translations: [Hypertensive disorder] Onset: 07-08-2022 09-20-2013 Chronic Genitourinary symptoms and ill-defined conditions (15 sources) Post-micturition incontinence ; Translations: [Urge incontinence of urine] 06-28-2019 Chronic Genitourinary symptoms and ill-defined conditions (20 sources) Microscopic hematuria; Translations: [Other microscopic hematuria] Onset: 12-22-2022 Episodic Hyperplasia of prostate (20 sources) Benign prostatic hypertrophy without outflow obstruction; Translations: [Benign prostatic hyperplasia without lower urinary tract symptoms] Onset: 12-23-2022 Chronic Inflammatory conditions of male genital organs (16 sources) Prostatitis; Translations: [Orchitis] Onset: 01-26-2023 03-27-2020 Episodic Osteoarthritis (1 source) Primary osteoarthritis, left wrist; Translations: [PRIMARY OSTEOARTHRITIS LEFT WRIST] Onset: 07-08-2022 Chronic Other aftercare (1 source) Other 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; Translations: [OTH HEARING SPECIALIST CURRENT DRUG THERAPY] Onset: 07-08-2022 Episodic Other diseases of bladder and urethra (2 sources) Detrusor overactivity; Translations: [Overactive bladder] Onset: 01-26-2023 Chronic Other injuries and conditions due to external causes (3 sources) Unspecified injury of left wrist, hand and finger(s), initial encounter; Translations: [UNS INJ LT WRIST HAND FINGERS INIT] Onset: 07-06-2022 Episodic Other male genital disorders (2 sources) Hydrocele of testis; Translations: [Hydrocele, unspecified] Onset: 02-24-2023 Episodic Other male genital disorders (4 sources) Disorder of male genital organ 02-24-2023 Episodic Other nutritional; endocrine; and metabolic disorders (9 sources) Body mass index 40+ - severely obese 10-26-2018 Chronic Residual codes; unclassified (9 sources) H/O: anticoagulant therapy 04-19-2019 Episodic Past or Other Problems Problem Classification Problem Date Documented Da te Episodic/Chronic Unclassified (9 sources) Entire ethmoid sinus (body structure) 09-20-2013 Comment on above: MASS OF Procedures Date Procedure Procedure Detail Performing Clinician Start: 01-26-2023 Transurethral cystoscopy THERESE CRUMP Start: 01-26-2023 Urodynamic studies CANDE CRUMP Start: 05-21-2020 Transurethral prostatectomy THERESE CRUMP Start: 04-05-2020 Cystourethroscopy wi th dilation of urethral stricture THERESE CRUMP Start: 05-25-2019 Transurethral prostatectomy THERESE CRUMP Start: 04-28-2019 Cystourethroscopy wi th dilation of urethral stricture THERESE CRUMP Start: 05-20-2018 Endoscopic transuret hral fulguration of prostate THERESE CRUMP Start: 04-15-2018 Cystoscopy THERESE Katey PATEL Start: 09-29-2013 Ethmoid sinusectomy NORMAN CRUMP Comment on above: Right anterior. Hernia repair THERESE CRUMP Comment on above: BILATERAL INGUINAL A ND REVISION WITH MESH, UMBILICAL AND VENTRAL REPAIRS Results Test Name Value Interpretation Reference Range Facility Consent for Procedure/Surger yon 09-14-2023 Consent for Procedure/Surgery [id number] TIFF Normal [facility] Consent for Treatmenton 08-22 Consent for Treatment [id number] IFF Normal [facility] Inpatient Patient Summaryon 09-14-2023 Inpatient Patient Summary [address] [address] Clinical Summary Person Information Name: SALVADOR BARRIENTOS Age: 83 Years : 1940 Sex: Male PCP: ALEX OAKLEY MD Marital Status: Race: White Ethnicity: Non- or Language: Mexican Visit Id: Visit Reason: NOCTURIA, OAB, BPH WITH URINARY OBSTRUCTION Speciality: Acuity: Enc Type: Outpatient Med Service: Surgery Arrival: 09/14/2023 08:54:46 Discharge: Dispo Type: Address: [address] [place] [address] [id number] Provider Notes: Diagnosis: BPH without obstruction/lower urinary tract symptoms; OAB (overactive bladder) Problems Active Hydrocele Epididymo-orchitis Retention of urine Gross hematuria Urinary retention UTI symptoms BPH without obstruction/lower urinary tract symptoms Nocturia Weak urine stream BPH with urinary obstruction Prostatitis Urinary frequency Urinary urgency Dysuria Post-void dribbling Hx of detention use of blood thinners Microhematuria BMI 40.0-44.9, adult Hernia, ventral Hypercholesterolemia Smoking Status: Functional Status: Sensory Deficits: History of Falls: Mobility Assistance Prior to Admission: ADLs: Current Level of Assistance for Self-Care/Mobility: Cognitive Status: Allergies No Known Allergies Laboratory or Other Results This Visit (last charted value for your 09/14/2023 visit) No Laboratory or Other Results This Visit Measurements: Height: 172 cm Weight: 120 kg Blood Pressure: Not Valued / Not Valued BMI: 40.56 kg/m2 Procedures No Procedures Documented Immunizations No Immunizations Documented This Visit Final Med List: aspirin 81 Milligram By Mouth every day. hydrochlorothiazide-lis inopril (hydrochlorothiazide-li sinopril 25 mg-20 mg Tab) multivitamin (Multi Vitamin+) one tab By Mouth every day. simvastatin (simvastatin 40 mg Tab) 1 Tablets By Mouth once a day (at bedtime). Care Team Members: Attending Physician: Gianna Romero MD Consulting Physician: Referring Physician: Gianna Romero MD Follow up: With: Address: When: Gianna Romero Comments: Office to schedule follow up in 2 weeks with PVR Patient Education Information: EU - Cystoscopy with Botox Injection Discharge Instructions (CUSTOM) [facility] IntraOperative Documentson 0 09-14-2023 IntraOperative Documents [id number] TIFF [facility] Main OR Intraoperative Recor don 09-14-2023 Main OR Intraoperative Record IntraOp Document Type FTURO Summary Primary Physician: Gianna Romero MD Finalized Date/Time: 09/14/23 10:53:09 Pt. Name: FLOYD SALVADOR Garcia/Sex: 1940 Male Med Rec #: [id number] Physician: Gianna Romero MD Financial #: [id number] Pt. Type: O Room/Bed: / Admit/Disch: 09/14/23 08:54:46 - Institution: Case Times FTURO Entry 1 Patient Times In Room 09/14/23 10:36:00 Out Room 09/14/23 10:52:00 Procedure Times Start 09/14/23 10:43:00 Stop 09/14/23 10:46:00 Anesthesia Times Last Modified By: Rowan Lino 09/14/23 10:52:32 General Comments: BOTOX EXP: AND LOT: [id number] 100 UNITS.CARL ALFARO. Case Attendance FTURO Entry 1 Entry 2 Entry 3 Case Attendee Gianna Romero MD, Kelsie E McClain CST, Kimberly A Role Performed Surgeon - Primary Industrial Engineering Technician - Primary Scrub - Primary Time In 09/14/23 10:36:00 09/14/23 10:36:00 09/14/23 10:36:00 Time Out 09/14/23 10:52:00 09/14/23 10:52:00 09/14/23 10:52:00 Procedure CYSTOSCOPY LOCAL BOTOX CYSTOSCOPY LOCAL BOTOX CYSTOSCOPY LOCAL BOTOX INJECTION(.) INJECTION(.) INJECTION(.) Comments Last Modified By: Rowan Lino Kelsie E Burgderfer, Kelsie E 09/14/23 10:52:33 09/14/23 10:52:33 09/14/23 10:52:33 Surgical Procedures FTURO Entry 1 Procedure Description Procedure CYSTOSCOPY LOCAL BOTOX Modifiers . INJECTION Surgeon Description CYSTO BOTOX 100 UNITS Primary Procedure Yes Primary Surgeon Gianna Romero MD Start 09/14/23 10:43:00 Stop 09/14/23 10:46:00 Anesthesia Type Local Surgical Service Urology Wound Class 2 - Clean-Contaminated Last Modified By: Rowan Lino 09/14/23 10:52:34 General Case Data FTURO Pre-Care Text: Classifies surgical wound, implements aseptic technique, initiates traffic control Entry 1 Case Information OR URO 1 FT Case Level None Wound Class 2 - Clean-Contaminated Specialty Urology Preop Diagnosis NOCTURIA, OAB, BPH WITH Postop Same As Preop Yes URINARY OBSTRUCTION Postop Diagnosis NOCTURIA, OAB, BPH WITH Outcomes Met? Yes URINARY OBSTRUCTION Last Modified By: Rowan Lino 09/14/23 10:34:12 Post-Care Text: The patient is free from signs and symptoms of infection EU IntraOp - FTURO Pre-Care Text: Implements protective measures prior to operative or invasive procedure, confirms identity before the operative or invasive procedure, verifies operative procedure, surgical site, and laterality Entry 1 EU Perioperative Protocols Procedure(s) CYSTOSCOPY LOCAL BOTOX Patient Identity Birthday, ID Band INJECTION(.) Verified (select at Check, Patient least 2): Participation Consents / H and P HandP, Surgery/Procedure Operative Site N/A Verified Consent Marking Verified Surgical Site Yes Laterality Verified n/a Verified Procedure Verified Yes Correct Patient Yes Position Verified Availability Equipment, Medication Time Out Gianna Romero MD, Verified (If Participants Rowan Lino, Applicable) Denise Jordan CST Time Out Complete 09/14/23 10:42:00 Allergies Reviewed? Yes Allergies Reviewed Self/Patient With Body Position Low Lithotomy Prep Area PENIS Prep Agents Betadine Solution Skin. Condition Unable to Visualize Description N/A Additional None Specimens Comment N/A Specimens Collected Vitals - EU Blood Pressure 190/85 Pulse 80 bpm Respirations 20 br/min SPO2 94 % EBL 0 IandO - EU Total Intake 0 mL Total Output 0 mL Outcomes Met? Yes Last Modified By: Rowan Lino 09/14/23 10:45:56 Post-Care Text: The patient is free from signs and symptoms of injury caused by extraneous objects Sign Out FTURO Entry 1 Before Patient Leaves OR Nurse verbally Yes Nurse verbally n/a confirms with the confirms with the team the name of team that the procedure(s) instrument, sponge, recorded and needle counts are correct (or N/A) Nurse verbally n/a Nurse verbally Yes confirms with the confirms with the team how the team whether there specimen is labeled are any equipment (including patient problems to be name), if applicable addressed Sign Out Complete 09/14/23 10:46:00 Last Modified By: Rowan Lino 09/14/23 10:46:58 Case Comments Finalized By: Rowan Lino Document Signatures Signed By: Rowan Lino 09/14/23 10:53 Rowan Lino 09/14/23 10:52 Rowan Lino 09/14/23 10:52 Rowan Lino 09/14/23 10:53 Normal [facility] Main OR Preoperative Recordo n 09-14-2023 Main OR Preoperative Record Holding Area Document Type FTURO Summary Primary Physician: Gianna Romero MD Finalized Date/Time: 09/14/23 10:27:41 Pt. Name: SALVADOR BARRIENTOS/Sex: 1940 Male Med Rec #: [id number] Physician: Gianna Romero MD Financial #: [id number] Pt. Type: O Room/Bed: / Admit/Disch: 09/14/23 08:54:46 - Institution: Case Times Holding FTURO Pre-Care Text: Verifies consent for planned procedure, identifies individual values and wishes concerning care, includes family members in perioperative teaching Secures patient's records' belongings, and valuables, maintains patient's dignity and privacy, and maintains patient confidentiality Entry 1 In Holding 09/14/23 09:46:00 Outcomes Met? Yes Last Modified By: Lisa Booth LPN 09/14/23 09:46:36 Post-Care Text: The patient participates in decisions affecting his or her perioperative plan of care The patient's right to privacy is maintained Surgery Checklist FTURO Entry 1 Patient Birthday, Patient Procedure History and Physical, Identification: Participation Verification: Surgical Consent, With Patient NPO after Midnight: n/a Personal Items: Dentures, Glasses Limitations: up ad laquita Complaints of Pain: No Skin Integrity Intact, Cartwright, Warm, & Dry Vitals - EU Blood Pressure 190/85 Pulse 80 bpm Respirations 20 br/min SPO2 94 % Additional Other (See Comment) Specimens Comment UA obtained Specimens Collected RN Reviewed Yes Last Modified By: Rowan Lino 09/14/23 10:27:37 Finalized By: Rowan Lino Document Signatures Signed By: Lisa Booth LPN 09/14/23 09:49 Rowan Lino 09/14/23 10:27 Rowan Lino 09/14/23 10:27 Normal [facility] Outpatient Surgery Discharge Instructionon 09-14-2023 Outpatient Surgery Discharge Instruction [place] [id number] Patient Discharge Instructions PERSON INFORMATION Name: SALVADOR BARRIENTOS Date of : 1940 Current Date: 09/14/2023 10:49:36 PHYSICIANS Admitting Physician: Gianna Romero MD Comment: Discharge Diagnosis: BPH without obstruction/lower urinary tract symptoms; OAB (overactive bladder) SALVADOR BARRIENTOS has been given the following list of follow-up instructions, prescriptions, and patient education materials: IF UNABLE TO CONTACT YOUR PHYSICIAN AND YOU FEEL IT IS AN EMERGENCY, GO TO THE NEAREST EMERGENCY ROOM OR CALL 911 Follow up: With: Address: When: Gianna Romero Comments: Office to schedule follow up in 2 weeks with PVR Comment: PATIENT EDUCATION INFORMATION Instructions: Cystoscopy with Botox injection ? Voiding after the procedure: there may be some pain, burning, urgency, frequency and blood tinged urine following the procedure. These symptoms usually resolve within 2-5 days. Drink the amount of fluid it takes to keep the urine pink to yellow or clear in color. Drinking enough water and fluids will help to ease any discomfort after your procedure. ? It may take a few days to a week to notice a gradual improvement in the overactive bladder symptoms. ? If you are having problems that seem out of the ordinary, please call. ? If unable to contact your physician and you feel it is an emergency, go to the nearest emergency room or call 911 ? Do not lift more than fifteen pounds for 1-2 days. If you see a lot of blood, you probably did too much. ? Diet ? you may resume your normal diet. ? Pain control ? You may take extra strength Tylenol or Motrin for discomfort. ? Call if you have a fever over 100 degrees. IFLOYD DAVID P, have received the attached patient education materials/instructions and have verbalized understanding: May we do a follow up call? Yes No I was present when discharge instructions were given Patient Signature Date Clinican/Nurse Signature _ Date You may receive a survey from Miranda Miller asking you to rate your care experience. Your feedback is important and will help us understand what we do well and how we can improve the quality of care we provide to you, your loved ones and our community. It?s an honor to serve you. Thank you for choosing [facility] Normal [facility] Outpatient Surgery Discharge Instruction [id number] TIFF Normal [facility] Progress Note-Physicianon Progress Note-Physician Patient: SALVADOR BARRIENTOS Age: 83 years Sex: Male : 1940 Associated Diagnoses: None Author: Nick VASQUEZ, Gianna Johnson Procedure Operative Information Details: Date/ Time: 09/14/2023 10:50:00. Pre-Op Dx: OAB (overactive bladder) ([id number] N32.81, Discharge, Medical). Post-Op Dx: Same. Anesthesia Type: Local. Procedure: Local Cystoscopy with botox injection. Complications: None. Risks/Benefits/Informed Consent: Surgical risks, benefits, details of the procedure have been explained to the patient, Full informed consent has been obtained. Intraoperative Information Prepped: Patient is brought back to the endoscopy suite, Male Prep (Patient is placed in supine position, 10 cc 2% Xylocaine Jelly is placed per Urethra, Straight cath inserted to obtain urine specimen, 60 cc 2% Xylocaine liquid inserted into bladder, 10 additional cc 2% Xylocaine Jelly is placed per Urethra, Penile clamp applied for 20 min dwell prior to procedure with patient in sitting position, Placed in modified dorso/lithotomy position for procedure), Urine Specimen Results Negative for infection, Patient prepped in the usual fashion with Betadine solution, After waiting several minutes the Cystoscope is introduced. Procedure: The trigone was identified and evaluated. The bladder was instilled with enough saline to achieve adequate visualization for the injections. The needle was inserted approximately 2 mm into the detrusor. A total of 11 injections with 1 ml volume was delivered at each site, total 100 units including 1 ml saline flush at the end, evenly spaced out throughout the bladder taking care to avoid the ureteral orficies. Difficulty injecting dome due to body habitus, 2 near trigone, away from UOs. There was excellent hemostasis at the end of the procedure. The cystoscope was removed and the patient tolerated the procedure well without immediate complications. . Postoperative Information Discharge: Patient is discharged home with antibiotic coverage, Follow up arranged, Follow up in 2 weeks with PVR. [facility] Comment on above: Result Comment: Elec tronically Signed By: Nick VASQUEZ, Gianna Johnson\.br\Date and Time Signed: 09/14/23 10:51 EDT C Urineon 08-28-2023 Bacteria identified Cx Nom (U) Microbiology PROCEDURE: Urine Culture [R1] SOURCE: U CleanCatch BODY SITE: COLLECTED DATE/TIME: 08/26/2023 11:55 EDT RECEIVED DATE/TIME: 08/26/2023 20:33 EDT START DATE/TIME: 08/26/2023 20:33 EDT FREE TEXT SOURCE: Nick VASQUEZ, Gianna Romero MD, Gianna Johnson FINAL REPORTS Final Report [] Verified Date/Time: 08/28/2023 13:04 EDT <10,000 cfu/ml Mixed skin contaminants Performing Locations R1: This test was performed at: [facility], [address] [place] [address], [facility] , , [facility] Comment on above: Performed By: #### [id number] #### [facility] [address] [place] [id number] Screenson 08-28-2023 Screens [id number] IFF [facility] Screens [id number] IFF [facility] Patient Educationon 08-26-19 Patient Education Urology Botulinum Toxin Bladder Injection A botulinum toxin bladder injection is a procedure to treat an overactive bladder. During the procedure, a drug called botulinum toxin is injected into the bladder through a long, thin needle. This drug relaxes the bladder muscles and reduces overactivity. You may need this procedure if your medicines are not working or you cannot take them. The procedure may be repeated as needed. The treatment is done once and it usually lasts for 6 months. Your health care provider will monitor you to see how well you respond. Tell a health care provider about: ? Any allergies you have. ? All medicines you are taking, including vitamins, herbs, eye drops, creams, and ghaf-hdw-hqfbnyr medicines. ? Any problems you or family members have had with anesthetic medicines. ? Any bleeding problems you have. ? Any surgeries you have had. ? Any medical conditions you have. ? Any previous reactions to a botulinum toxin injection. ? Any symptoms of urinary tract infection. These include chills, fever, a burning feeling when passing urine, and needing to pass urine often. ? Whether you are or may be . What are the risks? Generally this is a safe procedure. However, problems may occur, including: ? Not being able to pass urine. If this happens, you may need to have your bladder emptied with a thin tube (urinary catheter). ? Bleeding. ? Urinary tract infection. ? Allergic reaction to the botulinum toxin. ? Pain or burning when passing urine. ? Damage to nearby structures or organs. What happens before the procedure? When to stop eating and drinking Follow instructions from your health care provider about what you may eat and drink before your procedure. These may include: ? 8 hours before the procedure ? Stop eating most foods. Do not eat meat, fried foods, or fatty foods. ? Eat only light foods, such as toast or crackers. ? All liquids are okay except energy drinks and alcohol. ? 6 hours before the procedure ? Stop eating. ? Drink only clear liquids, such as water, clear fruit juice, black coffee, plain tea, and sports drinks. ? Do not drink energy drinks or alcohol. ? 2 hours before the procedure ? Stop drinking all liquids. ? You may be allowed to take medicines with small sips of water. If you do not follow your health care provider's instructions, your procedure may be delayed or canceled. Medicines Ask your health care provider about: ? Changing or stopping your regular medicines. This is especially important if you are taking diabetes medicines or blood thinners. ? Taking medicines such as aspirin and ibuprofen. These medicines can thin your blood. Do not take these medicines unless your health care provider tells you to take them. ? Taking fkrs-wlq-uuurnsj medicines, vitamins, herbs, and supplements. General instructions ? Ask your health care provider what steps will be taken to help prevent infection. These steps may include: ? Removing hair at the procedure site. ? Washing skin with a germ-killing soap. ? Taking antibiotic medicine. ? If you will be going home right after the procedure, plan to have a responsible adult: ? Take you home from the hospital or clinic. You will not be allowed to drive. ? Care for you for the time you are told. What happens during the procedure? ? You will be asked to empty your bladder. ? An IV will be inserted into one of your veins. ? You will be given one or more of the following: ? A medicine to help you relax (sedative). ? A medicine to numb the area (local anesthetic). ? A medicine to make you fall asleep (general anesthetic). ? A long, thin scope called a cystoscope will be passed into your bladder through the part of the body that carries urine from your bladder (urethra). ? The cystoscope will be used to fill your bladder with water. ? A long needle will be passed through the cystoscope and into the bladder. ? The botulinum toxin will be injected into your bladder. It may be injected into multiple areas of your bladder. ? The cystoscope will be removed and your bladder will be emptied with a urinary catheter. The procedure may vary among health care providers and hospitals. What can I expect after the procedure? After your procedure, it is common to have: ? Blood-tinged urine. ? Burning or soreness when you pass urine. Follow these instructions at home: Medicines ? Take ybvr-kbw-lngxfpr and prescription medicines only as told by your health care provider. ? If you were prescribed an antibiotic medicine, take it as told by your health care provider. Do not stop using the antibiotic even if you start to feel better. General instructions ? If you were given a sedative during the procedure, it can affect you for several hours. Do not drive or operate machinery until your health ca (more content not included)... [facility] Urology Office/Clinic Noteon 08-26-2023 Urology Office/Clinic Note Chief Complaint 6 month F/U with PVR HPI Staff Pt is here for 6 month F/U with PVR PVR last OV (22) Previous DX: BPH, Epididymo-orchitis Pt has been on Trospium or Tamsulosin but could not tolerate them IPSS 18 KRISTIE 4 PVR 45 Dysuria: _denies Incomplete bladder emptying: yes Hematuria: denies visible blood Frequency: every couple hours Urgency: denies Nocturia: 6-8 x nightly Stream: denies hesitation, normal stream Leaking: denies Post void dripping: denies Wearing pads/ Depends: denies Urge incontinence: denies Stress incontinence: denies Incontinence without Sensory Awareness: denies Abdominal pain: denies Flank pain: denies Sexual complaints: denies History of Present Illness Tests reviewed: reviewed UA, PVR I have reviewed the previous health record information and history for this patient from [facility]. I have reviewed and verified the staff HPI to be accurate for this encounter. Review of Systems PHQ Score Initial Depression Screen Score: 0 SCORE ROS - Provider Constitutional: denies weight loss, denies hot flashes. Eyes: denies eye problems. Gastrointestinal: denies nausea, denies vomiting. Cardiovascular: denies chest pain or angina. Integumentary: no dryness Musculoskeletal: denies musculoskeletal symptoms. ENMT: denies otolaryngeal symptoms. Respiratory: no shortness of breath. Heme/Lymph: denies easy bleeding tendency, denies easy bruising tendency. Psychiatric: no confusion, no anxiety. Genitourinary: See HPI. Physical Exam Vitals & Measurements T: 36.5 ?C(Temporal Artery) HR: 88(Peripheral) BP: 130/84 HT: 68 in HT: 172 cm WT: 120 kg WT: 264 lb BMI: 40.56 General Appearance: alert, no distress, well nourished, well developed male. Assessment/Plan KRISTIE 4. 1. OAB (overactive bladder) (N32.81: Overactive bladder) S/p Urodynamics 01/26/23 - Small bladder capacity at 100 cc, early sensations. Spasms during filling while undergoing cysto. PVR (cc): 12/23/22 - 01/14/23 - 75 02/24/23 - 08/26/23 - 45 Pt did not tolerate Trospium or Tamsulosin. Reports both gave him diarrhea, unsure if it improved urinary sxs. IPSS 18. Not currently taking any prostate or bladder meds. Gets up several times per night (not reported previously) but attributes this to fluid intake/beer. Voids q4hrs during the day. Does not feel daytime sxs are bothersome. Discussed pt is a candidate for Botox based on urodynamics testing. Risks/benefits/procedur al details discussed. Pt is hesitant in proceeding with Botox due to possibility of catheter placement -pt clearly understood this is a known risk. Assured pt Botox does not have to be repeated if he does not like the results. Pt feels benefits outweigh risks for Botox at this time. -Recommended pt to limit fluids 2hrs prior to bedtime. -Increase water intake during the day -Will schedule Botox under local. The procedural risks, benefits, details, and treatment alternatives have been discussed with the patient. These include bleeding, infection, continued problems with overactive bladder, inability to empty the bladder which could require an indwelling catheter or need for in/out catheterization to empty the bladder, and need for repeat procedures over time (usually lasts up to six months), as well as fatigue and insomnia, -Send UA for culture today. -Pre procedure abx sent Ordered: Urology Procedure Order 2. Nocturia (R35.1: Nocturia) See #1 -Recommended pt to limit fluids 2hrs prior to bedtime. Ordered: Urology Procedure Order 3. BPH with urinary obstruction (N40.1: Benign prostatic hyperplasia with lower urinary tract symptoms) S/p Rezum 05/20/[address] Ness. S/p TURP 05/25/19 and 05/21/[address] Ness. S/p Cysto 01/26/23 - unobstructed due to prior TURP/Rezum. Widely patent prostatic urethra and bladder neck. Catheter inflammation around posterior and inferior wall. Spasm while filling. PVR 45 See #1. Not in retention 4. Epididymo-orchitis (N45.3: Epididymo-orchitis) Presented to [facility] ER 01/27/23 due to pain in groin area. Pt was given cefdinir 300mg bid x10d due to having an infection as UA showed small blood and small leuks. Scrotal US 01/27/23 TB - thickening of R scrotal wall. R epididymoorchitis with reactive medium septated hydrocele. [1] No longer has pain or bother. -Cont sx monitoring 5. Hydrocele (N43.3: Hydrocele, unspecified) Scrotal US 01/27/23 TBH - R epididymoorchitis with reactive medium septated hydrocele. -Denies bother, cont sx monitoring 6. Microhematuria (R31.29: Other microscopic hematuria) S/p Cysto 01/26/23. UA today shows small blood. Denies gross hematuria. -Urine sample to be sent for cx for botox -Cont sx monitoring and routine UAs. Pt to notify the office if he were to experience gross hematuria or clots. Orders: ciprofloxacin, 500 mg = 1 tab(s), Oral, BID, start one day prior to procedure, X 3 day(s), # 6 tab(s), Refills(s) 0, Pharma (more content not included)... [facility] Comment on above: Result Comment: Elec tronically Signed By: Nick VASQUEZ, Gianna Johnson\.br\Date and Time Signed: 08/26/23 11:32 EDT\.br\Electronically Co-Signed By: Dot Oakley\.br\Date and Time Co-Signed: 08/26/23 11:15 EDT ED Note-Physicianon 02-26-20 23 ED Note-Physician [id number] IFF [facility] RAD - Ultrasound Reporton RAD - Ultrasound Report [id number]#1.00T IFF [facility] Ambulatory Visit Summaryon 1 04-27-2022 Ambulatory Visit Summary SALVADOR BARRIENTOS :1940 Visit Date:02/24/2023 Ambulatory Visit Instructions Your Diagnosis BPH with urinary obstruction Epididymo-orchitis Hydrocele Tests Performed Urnls Dip Stick Auto w/o Microscopy POC [id number] Your Care Team Attending Physician - THERON NASCIMENTO, THERESE Pardo Primary Care Physician - ESMER VASQUEZ, ALEX White This Is Your Medications List Contact prescribing physician if questions or concerns aspirin hydrochlorothiazide-lis inopril (hydrochlorothiazide-li sinopril 25 mg-20 mg Tab) multivitamin (Multi Vitamin+) simvastatin (simvastatin 40 mg Tab) Procedures Performed Cystoscopy (01/26/2023), Urodynamics (01/26/2023), TURP - Transurethral resection of prostate (05/21/2020), Cystourethroscopy with dilation of urethral stricture (04/05/2020), TURP - Transurethral resection of prostate (05/25/2019), Cystourethroscopy with dilation of urethral stricture (04/28/2019), Endoscopic transurethral electrovaporization of prostate (05/20/2018), Cystoscopy (04/15/2018), Ethmoidectomy (09/29/2013), Hernia repair. Discharge Vitals Heart Rate (Peripheral) 80 Blood Pressure 138/84 Height 172 cm Height 68 in Weight 120 kg Weight 264 lb BMI 40.56 What to do next Scheduled Follow-Up Appointments Thursday 10:00 AM EDT With: Gianna Romero MD Where: [facility] Patient Educationon 02-25-20 Patient Education Urology Benign Prostatic Hyperplasia Benign prostatic hyperplasia (BPH) is an enlarged prostate gland that is caused by the normal aging process. The prostate may get bigger as a man gets older. The condition is not caused by cancer. The prostate is a walnut-sized gland that is involved in the production of semen. It is located in front of the rectum and below the bladder. The bladder stores urine. The urethra carries stored urine out of the body. An enlarged prostate can press on the urethra. This can make it harder to pass urine. The buildup of urine in the bladder can cause infection. Back pressure and infection may progress to bladder damage and kidney (renal) failure. What are the causes? This condition is part of the normal aging process. However, not all men develop problems from this condition. If the prostate enlarges away from the urethra, urine flow will not be blocked. If it enlarges toward the urethra and compresses it, there will be problems passing urine. What increases the risk? This condition is more likely to develop in men older than 50 years. What are the signs or symptoms? Symptoms of this condition include: ? Getting up often during the night to urinate. ? Needing to urinate frequently during the day. ? Difficulty starting urine flow. ? Decrease in size and strength of your urine stream. ? Leaking (dribbling) after urinating. ? Inability to pass urine. This needs immediate treatment. ? Inability to completely empty your bladder. ? Pain when you pass urine. This is more common if there is also an infection. ? Urinary tract infection (UTI). How is this diagnosed? This condition is diagnosed based on your medical history, a physical exam, and your symptoms. Tests will also be done, such as: ? A post-void bladder scan. This measures any amount of urine that may remain in your bladder after you finish urinating. ? A digital rectal exam. In a rectal exam, your health care provider checks your prostate by putting a lubricated, gloved finger into your rectum to feel the back of your prostate gland. This exam detects the size of your gland and any abnormal lumps or growths. ? An exam of your urine (urinalysis). ? A prostate specific antigen (PSA) screening. This is a blood test used to screen for prostate cancer. ? An ultrasound. This test uses sound waves to electronically produce a picture of your prostate gland. Your health care provider may refer you to a specialist in kidney and prostate diseases (urologist). How is this treated? Once symptoms begin, your health care provider will monitor your condition (active surveillance or watchful waiting). Treatment for this condition will depend on the severity of your condition. Treatment may include: ? Observation and yearly exams. This may be the only treatment needed if your condition and symptoms are mild. ? Medicines to relieve your symptoms, including: ? Medicines to shrink the prostate. ? Medicines to relax the muscle of the prostate. ? Surgery in severe cases. Surgery may include: ? Prostatectomy. In this procedure, the prostate tissue is removed completely through an open incision or with a laparoscope or robotics. ? Transurethral resection of the prostate (TURP). In this procedure, a tool is inserted through the opening at the tip of the penis (urethra). It is used to cut away tissue of the inner core of the prostate. The pieces are removed through the same opening of the penis. This removes the blockage. ? Transurethral incision (TUIP). In this procedure, small cuts are made in the prostate. This lessens the prostate's pressure on the urethra. ? Transurethral microwave thermotherapy (TUMT). This procedure uses microwaves to create heat. The heat destroys and removes a small amount of prostate tissue. ? Transurethral needle ablation (TUNA). This procedure uses radio frequencies to destroy and remove a small amount of prostate tissue. ? Interstitial laser coagulation (ILC). This procedure uses a laser to destroy and remove a small amount of prostate tissue. ? Transurethral electrovaporization (TUVP). This procedure uses electrodes to destroy and remove a small amount of prostate tissue. ? Prostatic urethral lift. This procedure inserts an implant to push the lobes of the prostate away from the urethra. Follow these instructions at home: ? Take otmb-sxu-kgeafoi and prescription medicines only as told by your health care provider. ? Monitor your symptoms for any changes. Contact your health care provider with any changes. ? Avoid drinking large amounts of liquid before going to bed or out in public. ? Avoid or reduce how much caffeine or alcohol you drink. ? Give yourself time when you urinate. ? Keep all follow-up visits. This is important. Contact a health care provider if: ? You have unexplained back pain. ? Your symptoms do not get better with treatment. ? You develop side effects from the medicine (more content not included)... [facility] Urology Office/Clinic Noteon 02-24-2023 Urology Office/Clinic Note Chief Complaint 1m PVR HPI Staff KM pt S/P Cysto & Uro's 01/26/23 *Pt originally started on Trospium therapy, caused difficulty urinating & diarrhea. KML then switched him to Tamsulosin, pt called our office 01/29/23 c/o the med causing dizziness. Then called again on 02/19/23 c/o Tamsulosin causing diarrhea. Pt stated he was no longer going to it. At time of Cysto KML prescribed Levaquin [id number] due to orchitis. Denies pain/burning & blood. Feels empty after voiding. Denies frequency during the day. Does get up at night to void. Not sure how often. Stream is fine. [facility] ER 01/27/23 due to swollen testicle. Pt thinks it was the Rt side. PVR 22ml History of Present Illness staff HPI reviewed and agree. Review of Systems PHQ Score Initial Depression Screen Score: 0 SCORE no fever, chills, malaise, myalgia. no rash/lesions. no chest pain, palpitations, or SOB. no abdominal pain, nausea, vomiting. no unilateral calf swelling, redness, pain Physical Exam Vitals & Measurements HR: 80(Peripheral) BP: 138/84 HT: 68 in HT: 172 cm WT: 120 kg WT: 264 lb BMI: 40.56 General: nontoxic, NAD Mouth: moist mucosa Lungs: normal respiratory effort Cardio: regular rate, good distal perfusion Abdomen: nondistended, no suprapubic distention or tenderness, no CVA tenderness Neurologic: Grossly normal Skin: No rashes or suspicious lesions Assessment/Plan Dr. Romero pt 1. BPH with urinary obstruction (N40.1: Benign prostatic hyperplasia with lower urinary tract symptoms) S/p Rezum 05/20/[address] Ness. S/p TURP 05/25/19 and 05/21/[address] Ness. S/p Cysto 01/26/[address] Romero - unobstructed due to prior TURP/Rezum. Widely patent prostatic urethra and bladder neck. Catheter inflammation around posterior and inferior wall. Spasm while filling. Pt did not tolerate Trospium or Tamsulosin. PVR (cc): 12/23/22 - 38 01/14/23 - 02/24/23 - Honestly this is a confusing one... Pt repeatedly says I need my bladder fixed. But when you ask him what his bothersome sx are, he really can't say. He can hold his urine 2+ hrs during the day and doesn't get up over night. He has some urgency at times, but no leaking. Denies hesitancy, intermittency, straining. Reports weak stream but unobstructed on recent cysto. He seems mostly upset that when he gets the urge to void, only a small volume comes out. We talked about proper hydration - Reports he drinks 50-60oz of water per day. We talked about his good PVRs indicating that he empties well. He doesn't seem convinced. He seems to think there is something wrong w his bladder but again, I see no concrete sx to treat at this time so we will hold off on any changes and reassess in the spring. -6 mos w/ PVR 2. Epididymo-orchitis (N45.3: Epididymo-orchitis) Presented to [facility] ER 01/27/23 due to pain in groin area. Pt was given cefdinir 300mg bid x10d due to having an infection as UA showed small blood and small leuks. Scrotal US 01/27/23 TBH - thickening of R scrotal wall. R epididymoorchitis with reactive medium septated hydrocele. Reports the swelling has improved and is no longer bothersome. Denies scrotal pain. No indication for tx at this time. 3. Hydrocele (N43.3: Hydrocele, unspecified) See #2. Follow-up With When Contact Information Nick VASQUEZ, Gianna Johnson, URL, URO [address], [place] [address]- [phone] Additional Instructions: 6 mos w/ PVR Patient Education Benign Prostatic Hyperplasia Documentation recorded by the pearl Oakley accurately reflects the services(s) I performed and decisions made by me. Authenticated by Therese Crump PA-C on 02/24/2023 13:55:40. I, Dot Oakley, personally scribed for Therese Crump PA-C on 02/24/2023 13:32:18. . Problem List/Past Medical History Ongoing BMI 40.0-44.9, adult BPH with urinary obstruction BPH without obstruction/lower urinary tract symptoms Dysuria Epididymo-orchitis Gross hematuria Hernia, ventral Hx of detention use of blood thinners Hydrocele Hypercholesterolemia Microhematuria Nocturia Post-void dribbling Prostatitis Retention of urine Urge incontinence Urinary frequency Urinary retention Urinary urgency UTI symptoms Weak urine stream Historical Ethmoid sinus HTN - Hypertension Procedure/Surgical History Cystoscopy (01/26/2023), Urodynamics (01/26/2023), TURP - Transurethral resection of prostate (05/21/2020), Cystourethroscopy with dilation of urethral stricture (04/05/2020), TURP - Transurethral resection of prostate (05/25/2019), Cystourethroscopy with dilation of urethral stricture (04/28/2019), Endoscopic transurethral electrovaporization of prostate (05/20/2018), Cystoscopy (04/15/2018), Ethmoidectomy (09/29/2013), Hernia repair. Medications aspirin, 81 mg, Oral, Daily hydrochlorothiazide-lis inopril 25 mg-20 mg Tab Multi Vitamin+, one tab, Oral, Daily simvastatin 40 mg Tab, 40 mg= 1 tab(s), (more content not included)... Normal [facility] Comment on above: Result Comment: Elec tronically Signed By: THERESE CRUMP PA-C\.br\Date and Time Signed: 02/24/23 14:00 EST\.br\Electronically Co-Signed By: Dot Oakley\.br\Date and Time Co-Signed: 02/24/23 13:32 EST Consent for Procedure/Surger yon 01-26-2023 Consent for Procedure/Surgery [id number]#[id number] TIFF [facility] Consent for Treatmenton Consent for Treatment [id number] IFF [facility] Inpatient Patient Summaryon 01-26-2023 Inpatient Patient Summary [place] [id number] Clinical Summary Person Information Name: SALVADOR BARRIENTOS Age: 82 Years : 1940 Sex: Male PCP: ALEX OAKLEY MD Marital Status: Race: White Ethnicity: Non- or Language: Mexican Visit Id: Visit Reason: URINARY RETENTION, URINARY FREQUENCY, BPH WITH LUTS Speciality: Acuity: Enc Type: Outpatient Med Service: Surgery Arrival: 01/26/2023 09:27:18 Discharge: Dispo Type: Address: [address] [place] [address] [id number] Provider Notes: Diagnosis: Acute orchitis; OAB (overactive bladder) Problems Active Retention of urine Gross hematuria Urinary retention UTI symptoms BPH without obstruction/lower urinary tract symptoms Nocturia Weak urine stream BPH with urinary obstruction Prostatitis Urinary frequency Urinary urgency Dysuria Post-void dribbling 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 Microhematuria BMI 40.0-44.9, adult Urge incontinence Hernia, ventral Hypercholesterolemia Smoking Status: Functional Status: Sensory Deficits: History of Falls: Mobility Assistance Prior to Admission: ADLs: Current Level of Assistance for Self-Care/Mobility: Cognitive Status: Allergies No Known Allergies Laboratory or Other Results This Visit (last charted value for your 01/26/2023 visit) No Laboratory or Other Results This Visit Measurements: Height: 172 cm Weight: Blood Pressure: Not Valued / Not Valued BMI: Procedures No Procedures Documented Immunizations No Immunizations Documented This Visit Final Med List: aspirin 81 Milligram By Mouth every day. hydrochlorothiazide-lis inopril (hydrochlorothiazide-li sinopril 25 mg-20 mg Tab) hyoscyamine (hyoscyamine 0.125 mg sublingual Tab) levofloxacin (Levaquin 500 mg Tab) 1 Tablets By Mouth every 24 hours for 10 Days. Refills: 0. multivitamin (Multi Vitamin+) one tab By Mouth every day. simvastatin (simvastatin 40 mg Tab) 1 Tablets By Mouth once a day (at bedtime). tamsulosin (tamsulosin 0.4 mg Cap) 1 Capsules By Mouth once a day (in the evening). Refills: 11. Care Team Members: Attending Physician: Gianna Romero MD Consulting Physician: Referring Physician: Gianna Romero MD Follow up: With: Address: When: Gianna Romero Comments: Office schedule follow up in 2-3 weeks with PVR Type Location Start Finish State [place] [facility] [place] 02/24/2023 1:00 PM 02/24/2023 1:15 PM Confirmed Patient Education Information: EU - Cystoscopy Discharge Instructions (CUSTOM) [facility] IntraOperative Documentson 1 03-28-2022 IntraOperative Documents [id number]#[id number] TIFF [facility] Main OR Preoperative Recordo n 01-26-2023 Main OR Preoperative Record Holding Area Document Type FTURO Summary Primary Physician: Gianna Romero MD Finalized Date/Time: 01/26/23 11:57:44 Pt. Name: SALVADOR BARRIENTOS/Sex: 1940 Male Med Rec #: [id number] Physician: Gianna Romero MD Financial #: [id number] Pt. Type: O Room/Bed: / Admit/Disch: 01/26/23 09:27:18 - Institution: Case Times Holding FTURO Pre-Care Text: Verifies consent for planned procedure, identifies individual values and wishes concerning care, includes family members in perioperative teaching Secures patient's records' belongings, and valuables, maintains patient's dignity and privacy, and maintains patient confidentiality Entry 1 In Holding 01/26/23 11:11:00 Outcomes Met? Yes Last Modified By: Hilda Montilla LPN 01/26/23 11:11:05 Post-Care Text: The patient participates in decisions affecting his or her perioperative plan of care The patient's right to privacy is maintained Surgery Checklist FTURO Entry 1 Patient Birthday, ID Band Procedure History and Physical, Identification: Check, Patient Verification: Surgical Consent, With Participation Patient NPO after Midnight: n/a Date/Time: 01/26/23 11:11:00 Personal Items: Dentures, Glasses, Personal Items glasses, bilat lens Jewelry Comment: implants, upper and lower full dentures, wedding band Limitations: up ad laquita Complaints of Pain: No Skin Integrity Intact, Cartwright, Warm, & Dry Vitals - EU Blood Pressure 116/75 Pulse 98 bpm Respirations 24 br/min SPO2 98 % RN Reviewed Yes Last Modified By: JERED Fields RN, Ruthann 01/26/23 11:57:42 General Comments: Temp 36.4 , patient states he is having problems bleeding Finalized By: JERED Fields RN, Ruthann Document Signatures Signed By: Hilda Montilla LPN 01/26/23 11:17 JERED Fields RN, Ruthann 01/26/23 11:57 Normal [facility] Operative Reporton 3 Operative Report Patient: SALVADOR BARRIENTOS Age: 82 years Sex: Male : 1940 Associated Diagnoses: None Author: Gianna Romero MD Procedure Operative Information Details: Date/ Time: 01/26/2023 12:17:00. Pre-Op Dx: Feeling of incomplete bladder emptying (WVU56-EI R39.14, Billing Diagnosis, Medical), OAB (overactive bladder) (WNH61-VD N32.81, Discharge, Medical). Post-Op Dx: Same. Anesthesia Type: Local. Procedure: Local Cystoscopy. Complications: None. Risks/Benefits/Informed Consent: Surgical risks, benefits, details of the procedure have been explained to the patient, Full informed consent has been obtained. Intraoperative Information Prepped: Patient is brought back to the endoscopy suite, Patient is placed in supine position, Patient prepped in the usual fashion with Betadine solution, 2% Xylocaine Jelly is placed per Urethra, After waiting several minutes the Cystoscope is introduced. The Urethra is: Normal. The Prostatic Urethra is: Unobstructed, Prior TURP/Rezum defect, widely patent prostatic urethra and bladder neck. The Bladder is: Trabeculated Moderate (2), No bladder tumors, lesions, stones or foreign bodies. Catheter inflammation around posterior and inferior wall. , Spasming while filling . The ureteral orifices: Show efflux of clear urine. Devices Implanted: None. Removal: Cystoscope is removed, The patient tolerated it well. Postoperative Information Discharge: Follow up arranged, No evidence of outlet obstruction. See separate clinic note for further details. Patient has a difficult time understanding his overactive bladder without retention. Due to his prior trial of trospium and his anxiety that he is in retention, would not recommend a retrial at this time. Discussed how indwelling catheter is not needed given his lack of retention and now orchitis. -Timed voids every 3-4 hours. Present to the ER if he is unable to void after 6 hours (not 1 hour as he did in the past with only urine output of 15 mL) -Follow-up in 2 to 3 weeks after orchitis treatment to ensure resolved. . Normal [facility] Comment on above: Result Comment: Elec tronically Signed By: Nick VASQUEZ, Gianna Johnson\.raisa\Date and Time Signed: 01/26/23 12:23 EST Outpatient Surgery Discharge Instructionon 01-26-2023 Outpatient Surgery Discharge Instruction [place] [id number] Patient Discharge Instructions PERSON INFORMATION Name: SALVADOR BARRIENTOS Date of : 1940 Current Date: 01/26/2023 12:14:27 PHYSICIANS Admitting Physician: Gianna Romero MD Comment: Discharge Diagnosis: Acute orchitis; OAB (overactive bladder) SALVADOR BARRIENTOS has been given the following list of follow-up instructions, prescriptions, and patient education materials: IF UNABLE TO CONTACT YOUR PHYSICIAN AND YOU FEEL IT IS AN EMERGENCY, GO TO THE NEAREST EMERGENCY ROOM OR CALL 911 Follow up: With: Address: When: Gianna Romero Comments: Office schedule follow up in 2-3 weeks with PVR Type Location Start [facility] Office Visit [facility] 02/24/2023 1:00 PM 02/24/2023 1:15 PM Confirmed Comment: PATIENT EDUCATION INFORMATION Instructions: Cystoscopy ? Voiding after the procedure: there may be some pain, burning, urgency, frequency and blood tinged urine following the procedure. These symptoms usually resolve within 2-5 days. Drink the amount of fluid it takes to keep the urine pink to yellow or clear in color. Drinking enough water and fluids will help to ease any discomfort after your procedure. ? If you are having problems that seem out of the ordinary, please call. ? If unable to contact your physician and you feel it is an emergency, go to the nearest emergency room or call 911 ? Diet ? you may resume your normal diet. ? Activity ? you may resume your normal activities ? Call if you have a fever over 100 degrees. IFLOYD DAVID P, have received the attached patient education materials/instructions and have verbalized understanding: May we do a follow up call? Yes No I was present when discharge instructions were given Patient Signature Date Clinican/Nurse Signature _ Date You may receive a survey from [employer] asking you to rate your care experience. Your feedback is important and will help us understand what we do well and how we can improve the quality of care we provide to you, your loved ones and our community. It?s an honor to serve you. Thank you for choosing [facility] Normal [facility] Outpatient Surgery Discharge Instruction [id number]#[id number] TIFF Normal [facility] Progress Note-Physicianon Progress Note-Physician Patient: SALVADOR BARRIENTOS Age: 82 years Sex: Male : 1940 Associated Diagnoses: None Author: Nick VASQUEZ, Gianna Johnson Health Status Allergies: Allergic Reactions (Selected) No Known Allergies, Allergies (1) Active Reaction No Known Allergies None Documented Current medications: (Selected) Prescriptions Prescribed Levaquin 500 mg Tab: 500 mg = 1 tab(s), Oral, q24hr, X 10 day(s), # 10 tab(s), Refills(s) 0, Pharmacy: [facility]/pharmacy #[id number], 172, cm, 01/26/23 11:20:00 EST, Height/Length Dosing, 120, kg, 01/14/23 10:39:00 EDT, Weight Dosing tamsulosin 0.4 mg Cap: 0.4 mg = 1 cap(s), Oral, qPM, # 30 cap(s), Refills(s) 11, Pharmacy: [facility]/pharmacy #[id number], 172, cm, 01/14/23 10:39:00 EDT, Height/Length Dosing, 120, kg, 01/14/23 10:39:00 EDT, Weight Dosing Documented Medications Documented Multi Vitamin+: one tab, Oral, Daily, Refill(s) 0 aspirin: 81 mg, Oral, Daily, Refills(s) 0 hydrochlorothiazide-lis inopril 25 mg-20 mg Tab: Refill(s) 0 hyoscyamine 0.125 mg sublingual Tab: Refills(s) 0 simvastatin 40 mg Tab: 40 mg = 1 tab(s), Oral, Once a day (at bedtime), Refills(s) 0, High cholesterol Results Review Urodynamics 01/30/2023 -patient with severe detrusor overactivity, early sensations at 23 mL, and endorsed sensation every 20 ml. Capacity of 100 ml. No leakage. Able to void in toilet. Unable to do so with UDS machine Impression and Plan Assessment and Plan: Diagnosis: Acute orchitis ([id number]-GW N45.2, Discharge, Medical), Feeling of incomplete bladder emptying (VCC84-PD R39.14, Billing Diagnosis, Medical), OAB (overactive bladder) (DWC52-ZL N32.81, Discharge, Medical). [address] Ness pt for hx BPH with LUTS here for follow up after urinary retention, found to have feeling of a healing bladder emptying, overactive bladder and acute orchitis S/p Rezum 05/20/[address] Ness. S/p TURP 05/25/19 and 05/21/[address] Ness. Last visit-successful voiding trial, PVR 75 mL. Went to the ER due to inability to void however only 15 mL output. Discussed that patient has overactive bladder and how he has very small amounts to void, does not need catheter. He feels safer with this. Again tried to thoroughly discussed the disconnect between his sensation and retention. He has a hard time comprehending this. Discussed how he is voiding and has been able to empty his bladder, despite his sensation. Trospium made the sensation worse and he therefore went to the ER. There is no evidence of obstruction today from the prostatic urethra. Patient also notes acute right orchitis that started with swelling and pain today. Right testicle is swollen, firm, mildly tender to palpation. Left testicle unremarkable. Scrotum is mildly erythematous, soft. Discussed how this was likely caused by catheter being in place. Again discussed how he has not been in retention does not need this catheter. Discussed risk and benefits of treatment for orchitis. He insisted on going to the ER for IV antibiotics because he has a history of diarrhea with antibiotics however discussed with patient this may not be needed if he takes his oral antibiotics outpatient, Levaquin has a low risk of diarrhea. Of course if he develops fever, chills or worsening of the swelling he should present to the ER. -Timed voids every 3 hours. Patient to present to the ER if he cannot void after 6 hours, not 1 hour like he has in the past. -Levaquin for 10 days prescribed to pharmacy on file for orchitis. Scrotal support, anti-inflammatories. -Follow-up in 2 to 3 weeks for recheck. 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 Risk of retention given his inappropriate sensations. [facility] Comment on above: Result Comment: Elec tronically Signed By: Nick VASQUEZ, Gianna Mustafa.br\Date and Time Signed: 01/26/23 12:31 EST ED Note-Physicianon 01-22-20 ED Note-Physician [id number]#1.00T IFF [facility] Consultation Noteon 01-16-20 Consultation Note [id number]#1.0 0TIFF [facility] Screenson 01-15-2023 Screens [id number]#1.00TI FF [facility] Screens [id number]#1.0 0TIFF [facility] ED Note-Physicianon 01-15-20 ED Note-Physician [id number]#1.00T IFF [facility] Lab Reportson 01-14-2023 Lab Reports [id number]#1.00T IFF [facility] Urology Office/Clinic Noteon 01-14-2023 Urology Office/Clinic Note Chief Complaint ER F/U HPI Staff Former DLS pt was last seen IO by NAVEEN on 12/23/22 due to Urinary Frequency, BPH, and Microhematuria. Pt was to start Trospium 60mg ER qAM per prior OV. Pt states this medication caused him diarrhea and that is when he started experiencing difficulty urinating. +UACS sent at time of last encounter 12/23/22 *0.3 RBC's & 50k Pseudomonas Pt was given Cefdinir 300mg BID [id number]. Pt is a poor historian. Unsure what medications he has taken/finished. Several messages in pt's chart stating that pt had called c/o inability to Urinate Pt then went to [facility] ER visit on 01/06/23 due to difficulty urinating, pt stated he had not been able to void for 2 days, cath was placed. BUN 8, Crea 0.81. Pt then returned to [facility] ER 01/09/23 due to blood in oh bag. Catheter was flushed. NEG C&S 01/09/23. Pt DC'd home with Levsin. Thanks there may have been a speck of blood in catheter bag since last ER visit. Denies current pain. S/P Rezum 05/20/18 & S/P TURP 05/25/19 & 05/21/20 Last Cysto 04/11/20 Last PSA 10/31/22- 1.16 History of Present Illness Tests reviewed: reviewed UA and External Records. I have reviewed the previous health record information and history for this patient from Therese Crump PA-C and External Provider. I have reviewed and verified the staff HPI to be accurate for this encounter. There have been no associated fever, chills, flank pain, or blood in the urine. Review of Systems PHQ Score Initial Depression Screen Score: 0 ROS - Provider Constitutional: denies weight loss, denies hot flashes. Eyes: denies eye problems. Gastrointestinal: denies nausea, denies vomiting. Cardiovascular: denies chest pain or angina. Integumentary: no dryness Musculoskeletal: denies musculoskeletal symptoms. ENMT: denies otolaryngeal symptoms. Respiratory: no shortness of breath. Heme/Lymph: denies easy bleeding tendency, denies easy bruising tendency. Psychiatric: no confusion, no anxiety. Genitourinary: See HPI. Physical Exam Vitals & Measurements HR: 68(Peripheral) RR: 16 BP: 130/80 HT: 68 in HT: 172 cm WT: 120 kg WT: 264 lb BMI: 40.56 General Appearance: alert, no distress, well nourished, well developed male. Obese, excess suprapubic fat pad, buried phallus, easily retractible foreskin Assessment/Plan [address] Ness pt for hx BPH with LUTS here for follow up after urinary retention 1. Retention of urine (R33.9: Retention of urine, unspecified) Several messages in pt's chart stating that pt had called c/o inability to Urinate after starting trospium Pt then went to [facility] ER visit on 01/06/23 due to difficulty urinating, pt stated he had not been able to void for 2 days, cath was placed, BUN 8, Crea 0.81. (output unknown). Pt then returned to [facility] ER 01/09/23 due to blood in oh bag, Catheter was flushed, NEG C&S 01/09/23, Pt DC'd home with Levsin. Thinks there may have been a speck of blood in catheter bag since last ER visit. Retention secondary to trospium +/- UTI. -Fill/pull voiding trial today, 300cc filled, PVR 75 ml. -Stay off trospium -Start tamsulosin. Risks/benefits discussed -Follow up 1-2 weeks for nursing visit for PVR 2. Urinary frequency (R35.0: Frequency of micturition) States he voids at least every hour. Denies drinking any caffeinated drinks, mostly water. No tea or coffee or dark zina. Does have occasional beer, maybe 2-3 at a time, a few times per week. Denies taking any diuretics. PVR was 38mL. Pt was to begin Trospium 60mg ER. Pt states this medication caused him diarrhea and that is when he started experiencing difficulty urinating. Advised pt to not start the Trospium again b/c this is what could have been causing his urinary sxs listed in #2. -D/c Trospium -Timed voids 3. BPH without obstruction/lower urinary tract symptoms (N40.0: Benign prostatic hyperplasia without lower urinary tract symptoms) S/p Rezum 05/20/[address] Ness. S/p TURP 05/25/19 and 05/21/[address] Ness. IPSS 34(27). Not currently taking any BPH medications. UTI last visit, started on trospium Pt states that after his previous OV, he was able to void regularly, and then after a couple days, he could not void anymore. Advised pt that since he has stopped taking the Trospium, he should be able to void properly on his own. Pt states that he has spams every time he voids. Advised pt that we could do a fill and pull today to determine if he can void on his own. Pt states that he had no urinary sxs after he healed from his second TURP. Pt denies any perineal pain or burning while voiding. Discussed starting Tamsulosin 0.4mg QD if he has a hard time voiding after the fill and pull today. Stopped checking PSA due to stability and advancing age. Most recent PSA done 10/31/22 is 1.16 (per PCP). All questions/concerns were discussed. Pt to call the office if he encounters any issues prior. Pt acknowledges understanding. -See #1 -Start tamsulosin -Timed voids. -PVR 1- (more content not included)... Normal [facility] Comment on above: Result Comment: Elec tronically Signed By: Gianna Romero MD\.br\Date and Time Signed: 01/14/23 12:23 EDT\.br\Electronically Co-Signed By: Rupa Soto\.br\Date and Time Co-Signed: 01/14/23 11:29 EDT C Urineon 12-27-2022 Bacteria identified Cx Nom (U) Microbiology PROCEDURE: Urine Culture [R1] SOURCE: U CleanCatch BODY SITE: COLLECTED DATE/TIME: 12/23/2022 14:55 EDT RECEIVED DATE/TIME: 12/24/2022 07:00 EDT START DATE/TIME: 12/24/2022 07:00 EDT FREE TEXT SOURCE: THERESE CRUMP PA-C, PA-C, JENNIFER E FINAL REPORTS Final Report [] Verified Date/Time: 12/27/2022 09:26 EDT 50,000 cfu/ml Pseudomonas aeruginosa 25,000 cfu/ml Mixed skin contaminants Mixed jo (multiple species present) SUSCEPTIBILITY RESULTS ____ LEGEND: S=Susceptible, N/R=Not Reported, Blank=Data not available, or drug not advisable or tested, I=Intermediate, ESBL=Extended spectrum beta-lactamase, R=Resistant, TFG=Thymidine-dependent strain, ROSALBA=Beta-lactamase positive, ROBERT=mcg/m;(mg/L), S*=Predicted susceptible interp, R*=Predicted resistant interp ___ PA Antibiotic ROBERT Dilutn ROBERT Interp Amikacin <=16 S Aztreonam 8 S Cefepime 8 S Ceftazidime 4 S Ceftazidime/ <=8 S Avibactam Ciprofloxacin 2 I Gentamicin <=4 S Levofloxacin 4 I Meropenem <=1 S Piperacillin/ <=16 S Tazobactam Tobramycin <=4 S Performing Locations R1: This test was performed at: [facility], [address] [place] [address], [id number]- , , [facility] Comment on above: Performed By: #### [id number] #### [facility] [address] [place] [id number] Lab Reportson 12-24-2022 Lab Reports [id number]#1.00 CD:127 Normal [facility] Lab Reports [id number]#1.00 CD:127 Normal [facility] Screenson 12-24-2022 Screens [id number] D:127 Normal [facility] Ambulatory Visit Summaryon 1 Ambulatory Visit Summary SALVADOR BARRIENTOS :1940 Visit Date:12/23/2022 Ambulatory Visit Instructions Your Diagnosis Urinary frequency BPH without obstruction/lower urinary tract symptoms Microhematuria Tests Performed Urnls Dip Stick Auto w/o Microscopy POC [id number] Your Care Team Attending Physician - THERESE CRUMP PA-C Primary Care Physician - ALEX OAKLEY MD This Is Your Medications List trospium (trospium 60 mg oral capsule, extended release) Contact prescribing physician if questions or concerns aspirin hydrochlorothiazide-lis inopril (hydrochlorothiazide-li sinopril 25 mg-20 mg Tab) multivitamin (Multi Vitamin+) simvastatin (simvastatin 40 mg Tab) Procedures Performed TURP - Transurethral resection of prostate (05/21/2020), TURP - Transurethral resection of prostate (05/25/2019), Endoscopic transurethral electrovaporization of prostate (05/20/2018), Cystoscopy (04/15/2018), Ethmoidectomy (09/29/2013), Hernia repair. Discharge Vitals Heart Rate (Peripheral) 69 Respiratory Rate 16 Blood Pressure 128/79 Height 172 cm Height 68 in Weight 120 kg Weight 264 lb BMI 40.56 What to do next Scheduled Follow-Up Appointments Thursday 1:00 PM EST With: THERESE CRUMP PA-C Where: [facility] Patient Educationon 12-24-19 23 Patient Education Urology Urinary Frequency, Adult Urinary frequency means urinating more often than usual. You may urinate every 1?2 hours even though you drink a normal amount of fluid and do not have a bladder infection or condition. Although you urinate more often than normal, the total amount of urine produced in a day is normal. With urinary frequency, you may have an urgent need to urinate often. The stress and anxiety of needing to find a bathroom quickly can make this urge worse. This condition may go away on its own, or you may need treatment at home. Home treatment may include bladder training, exercises, taking medicines, or making changes to your diet. Follow these instructions at home: Bladder health Your health care provider will tell you what to do to improve bladder health. You may be told to: ? Keep a bladder diary. Keep track of: ? What you eat and drink. ? How often you urinate. ? How much you urinate. ? Follow a bladder training program. This may include: ? Learning to delay going to the bathroom. ? Double urinating, also called voiding. This helps if you are not completely emptying your bladder. ? Scheduled voiding. ? Do Kegel exercises. Kegel exercises strengthen the muscles that help control urination, which may help the condition. Eating and drinking Follow instructions from your health care provider about eating or drinking restrictions. You may be told to: ? Avoid caffeine. ? Drink fewer fluids, especially alcohol. ? Avoid drinking in the evening. ? Avoid foods or drinks that may irritate the bladder. These include coffee, tea, soda, artificial sweeteners, citrus, tomato-based foods, and chocolate. ? Eat foods that help prevent or treat constipation. Constipation can make urinary frequency worse. You may need to take these actions to prevent or treat constipation: ? Drink enough fluid to keep your urine pale yellow. ? Take ganz-dtv-tvuonor or prescription medicines. ? Eat foods that are high in fiber, such as beans, whole grains, and fresh fruits and vegetables. ? Limit foods that are high in fat and processed sugars, such as fried or sweet foods. General instructions ? Take wokk-ozw-klfhina and prescription medicines only as told by your health care provider. ? Keep all follow-up visits. This is important. Contact a health care provider if: ? You start urinating more often. ? You feel pain or irritation when you urinate. ? You notice blood in your urine. ? Your urine looks cloudy. ? You develop a fever. ? You begin vomiting. Get help right away if: ? You are unable to urinate. Summary ? Urinary frequency means urinating more often than usual. With urinary frequency, you may urinate every 1?2 hours even though you drink a normal amount of fluid and do not have a bladder infection or other bladder condition. ? Your health care provider may recommend that you keep a bladder diary, follow a bladder training program, or make dietary changes. ? If told by your health care provider, do Kegel exercises to strengthen the muscles that help control urination. ? Take ladd-lgk-txkyayc and prescription medicines only as told by your health care provider. ? Contact a health care provider if your symptoms do not improve or get worse. This information is not intended to replace advice given to you by your health care provider. Make sure you discuss any questions you have with your health care provider. Document Revised: 10/12/2020 Document Reviewed: 10/12/2020 [employer] Patient Education ? 2022 [employer] Normal [facility] URINALYSISOrdered By: Jhon Flores on 12-23-2022 Bacteria LM Ql (Urine sed) Trace /HPF Normal Trace/HPF [facility] UA Auto SS Bilirubin Ql (U) Negative (12/23/22 2:54 PM) Normal Negative [facility] UA Auto SS Clarity (U) Clear (12/23/22 2:54 PM) Normal Clear [facility] UA Auto SS Color (U) Yellow (12/23/22 2:54 PM) Normal Yellow [facility] UA Auto SS Epithelial cells.squamous LM.HPF (Urine sed) [#/Area] 0-2 /HPF Normal 0-2/HPF [facility] UA Auto SS Glucose Test strip (U) [Mass/Vol] Negative (12/23/22 2:54 PM) Normal Negative [facility] UA Auto SS Hemoglobin Ql (U) Trace *ABN* (12/23/22 2:54 PM) Invalid Interpretation Code Negative [facility] UA Auto SS Ketones (U) [Mass/Vol] Negative (12/23/22 2:54 PM) Normal Negative [facility] UA Auto SS [place].plasma/Lithiu m.RBC (Bld) [Mass ratio] 0-3 /HPF Normal 0-3/HPF [facility] UA Auto SS Nitrite Ql (U) Positive *ABN* (12/23/22 2:54 PM) Invalid Interpretation Code Negative [facility] UA Auto SS pH (U) 7.0 *NA* (12/23/22 2:54 PM) Invalid Interpretation Code 5.0 - 9.0 [facility] [place] Auto SS Protein (U) [Mass/Vol] Negative (12/23/22 2:54 PM) Normal Negative [facility] [place] Auto SS Specific gravity (U) [Rel density] 1.010 *NA* (12/23/22 2:54 PM) Invalid Interpretation Code 1.005 - 1.030 [facility] [place] Auto SS UA Spec Desc Random Urine (12/23/22 2:54 PM) Normal [facility] Auto SS Urobilinogen Qn (U) [id number] {Pb'U}/dL Normal 0.0 - 1.0 EU/dL [facility] Auto SS WBC Auto Ql (U) Negative (12/23/22 2:54 PM) Normal Negative [facility] Auto SS WBC LM.HPF (Urine sed) [#/Area] 0-5 /HPF Normal 0-5/HPF [facility] [place] Auto SS Urinalysison 12-23-2022 Bacteria LM Ql (Urine sed) TRACE Normal Trace [facility] Comment on above: Performed By: #### 1 [id number] ####[facility] [address] [place] [address] Bilirubin Ql (U) Negative Normal Negative [facility] Comment on above: Performed By: #### 1 [id number] ####[facility] [address] [place] [address] Clarity (U) CLEAR Normal Clear [facility] Comment on above: Performed By: #### 1 [id number] ####[facility] [address] [place] [address] Color (U) YELLOW Normal Yellow [facility] Comment on above: Performed By: #### 1 [id number] ####[facility] [address] [place] [address] Epithelial cells.squamous LM.HPF (Urine sed) [#/Area] 0-2 Normal 0-2 [facility] Comment on above: Performed By: #### 1 [id number] ####[facility] [address] [place] [address] Glucose Test strip (U) [Mass/Vol] Negative Normal Negative [facility] Comment on above: Performed By: #### 1 [id number] ####[facility] [address] [place] [address] Hemoglobin Ql (U) TRACE Abnormal Negative [facility] Comment on above: Performed By: #### 1 [id number] ####[facility] [address] [place] [address] Ketones (U) [Mass/Vol] Negative Normal Negative [facility] Comment on above: Performed By: #### 1 [id number] ####[facility] [address] [place] [address] [place].plasma/Lithiu m.RBC (Bld) [Mass ratio] 0-3 Normal 0-3 [facility] Comment on above: Performed By: #### 1 [id number] ####[address] [address] Nitrite Ql (U) Positive Abnormal Negative [facility] Comment on above: Performed By: #### 1 [id number] ####[address] [address] pH (U) 7.0 [pH] Invalid Interpretation Code 5.0-9.0 [facility] Comment on above: Performed By: #### 1 [id number] ####[address] [address] Protein (U) [Mass/Vol] Negative Normal Negative [facility] Comment on above: Performed By: #### 1 [id number] ####[address] [address] Specific gravity (U) [Rel density] 1.010 Invalid Interpretation Code 1.005-1.030 [facility] Comment on above: Performed By: #### 1 [id number] ####[address] [address] Type of Urine collection method Random Urine Normal [facility] Comment on above: Performed By: #### 1 [id number] ####[address] [address] Urobilinogen Qn (U) 0.2 {Pb'U}/dL Normal 0.0-1.0 [facility] Comment on above: Performed By: #### 1 [id number] ####[facility] [address] [place] [address] WBC Auto Ql (U) Negative Normal Negative [facility] Comment on above: Performed By: #### 1 [id number] ####[facility] [address] [place] [address] WBC LM.HPF (Urine sed) [#/Area] 0-5 Normal 0-5 [facility] Comment on above: Performed By: #### 1 [id number] ####[facility] [address] [place] [address] Urology Office/Clinic Noteon 12-23-2022 Urology Office/Clinic Note Chief Complaint 2yr PVR HPI Staff 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 Plan was to return in 1yr w/PVR, Office RS'd 3x, then pt cancelled appt. S/P TURP 06/06/20 & 05/25/19 & Rezum 05/20/18 Per last encounter will no longer check PSA due to PSA stability & advancing age. PSA 08/21/14- 3.01 PSA 05/24/19- 2.300 PSA 07/16/20- 1.740 Last PSA (ordered by PCP) 10/31/22- 1.16 CMP 10/31/22 Pt is here today due to Frequency. (No longer taking water pill) Little amounts at a time. Voiding [id number]. Getting up q1hr through the night. No trouble getting stream started, denies slow stream, just concerned with the little amount of urine. Denies pain/burning and visible blood in urine. Moderate urgency. Denies leaking. PVR 38ml History of Present Illness staff HPI reviewed and agree. Review of Systems PHQ Score Initial Depression Screen Score: 0 no fever, chills, malaise, myalgia. no rash/lesions. no chest pain, palpitations, or SOB. no abdominal pain, nausea, vomiting. no unilateral calf swelling, redness, pain Physical Exam Vitals & Measurements HR: 69(Peripheral) RR: 16 BP: 128/79 HT: 68 in HT: 172 cm WT: 120 kg WT: 264 lb BMI: 40.56 General: nontoxic, NAD Mouth: moist mucosa Lungs: normal respiratory effort Cardio: regular rate, good distal perfusion Abdomen: nondistended, no suprapubic distention or tenderness, no CVA tenderness Neurologic: Grossly normal Skin: No rashes or suspicious lesions Assessment/Plan Salvador is a [address] Ness pt here for frequency. CMP 10/31/22 - Cr 0.74, eGFR 60, BUN 12. 1. Urinary frequency (R35.0: Frequency of micturition) States he voids at least every hour. Denies drinking any caffeinated drinks, mostly water. No tea or coffee or dark zina. Does have occasional beer, maybe 2-3 at a time, a few times per week. Denies taking any diuretics. PVR today 38mL. Discussed tx options for bothersome urinary sx including oral medications, Botox, SNM. Medication management includes anticholinergics and beta-3 agonists. Beta-3's (Myrbetriq/Gemtesa) are often preferable due to lower side effect profile, but most insurances won't cover without trying anticholinergics first. Therefore we will start with Sanctura/trospium. Pt will start with lowest daily dose and slowly titrate up as pt tolerates. I explained the most common side effects are dry mouth, dry eyes, and constipation. We discussed OTC options to help with these side effects. Pt will stop medication and call office if side effects become intolerable. We did discuss that there is a documented potential side effect of mental status changes/confusion in the elderly, but that this risk is quite low. Pt and I agree that potential benefit outweigh risk at this time. If fails Sanctura/trospium, we can try a second anticholinergic or consider Mrybetriq. If fails Myrbetriq, we cannot get it covered, or we get it covered but it's a cost-prohibitive co-pay then we will consider next steps which could include cysto, urodynamics, Botox, SNM. Brief discussion today regarding Botox/SNM but did not go into elaborate detail, would address full risks/benefits/details of procedure prior to scheduling. -Pt begin Trospium 60mg ER. Discussed the medication side effects, and the patient will monitor closely for these, as well as for symptom improvement. If severe side effects occur, the medication should be stopped and the office notified. Ordered: E&M of Est. Patient Moderate 30-39 Min 25527 Urinalysis Urine Culture 2. BPH without obstruction/lower urinary tract symptoms (N40.0: Benign prostatic hyperplasia without lower urinary tract symptoms) S/p Rezum 05/20/[address] Ness. S/p TURP 05/25/19 and 05/21/[address] Ness. IPSS 27. Not currently taking any BPH medications. biggest complaints are frequency, urgency, and nocturia. much less bothered by obstructive sx. will start w above plan. may need to repeat cysto if no major improvements w anticholinergic or if PVR increases. Stopped checking PSA due to stability and advancing age. Most recent PSA done 10/31/22 is 1.16 (per PCP). Ordered: E&M of Est. Patient Moderate 30-39 Min 96972 3. Microhematuria (R31.29: Other microscopic hematuria) UA today shows trace-intact blood and trace leukocytes. Denies dysuria or gross hematuria. if shows significant microhematuria and completely negative cx, then we will need to proceed with hematuria eval. hematuria eval components were not discussed in depth during today's visit. if + will need phone call or o.v. to discuss at length. if micro negative then no additional action needed at this time - pt aware that no news is good news in this regard. -Urine sent for micro and culture Orders: trospium, 60 mg = 1 cap(s), Oral, qAM, X 30 day(s), # 30 cap(s), Refills(s) 11, Pharmacy: [facility]/pharmacy #[id number], 172, cm, 12/23/22 14:24:00 EDT, Height/Length Dosing, 120, kg, 12/23/22 14:24:00 EDT, Weight (more content not included)... Normal [facility] Comment on above: Result Comment: Elec tronically Signed By: THERON NASCIMENTO, THERESE Pardo\.br\Date and Time Signed: 12/23/22 15:03 EDT\.br\Electronically Co-Signed By: Dot Oakley\.raisa\Date and Time Co-Signed: 12/23/22 14:57 EDT Social History Date Type Detail Facility Start: 12-23-2022 End: 08-26-2023 Tobacco smoking status Never smoked tobacco (finding) [facility] Tobacco smoking status Never [facility] Sex Assigned At Male [facility] Vital Signs Date Time Vital Sign Value Performing Clinician Facmichelle litradha 08-26-2023 10:05-0400 Blood Pressure Location Gianna Lue [facility] 08-26-2023 10:05-0400 Body temperature 97.7 [degF] Gianna Lue [facility] 08-26-2023 10:05-0400 Diastolic blood pressure 84 mm[Hg] Gianna Lue [facility] 08-26-2023 10:05-0400 Heart rate 88 /min Gianna Lue [facility] 08-26-2023 10:05-0400 Systolic blood pressure 130 mm[Hg] Gianna Lue [facility] 02-24-2023 12:51-0500 Blood Pressure Location THERESE THERON [facility] 02-24-2023 12:51-0500 Diastolic blood pressure 84 mm[Hg] THERESE THERON [facility] 02-24-2023 12:51-0500 Heart rate 80 /min THERESE THERON [facility] 02-24-2023 12:51-0500 Systolic blood pressure 138 mm[Hg] THERESE THERON [facility] 01-14-2023 10:37-0400 Blood Pressure Location Gianna Lue [facility] 01-14-2023 10:37-0400 Diastolic blood pressure 80 mm[Hg] Gianna Lue [facility] 01-14-2023 10:37-0400 Heart rate 68 /min Gianna Lue [facility] 01-14-2023 10:37-0400 Respiratory rate 16 /min Gianna Lue [facility] 01-14-2023 10:37-0400 Systolic blood pressure 130 mm[Hg] Gianna Lue [facility] 12-23-2022 14:21-0400 Blood Pressure Location THERSEE THERON [facility] 12-23-2022 14:21-0400 Diastolic blood pressure 79 mm[Hg] THERESE THERON [facility] 12-23-2022 14:21-0400 Heart rate 69 /min THERESE THERON [facility] 12-23-2022 14:21-0400 Respiratory rate 16 /min THERESE THERON [facility] 12-23-2022 14:21-0400 Systolic blood pressure 128 mm[Hg] THERESE THERON [facility] Functional Status Date Assessment Result Facility 09-14-2023 Functional Status N/A [facility] 08-26-2023 Functional Status N/A [facility] 02-24-2023 Functional Status N/A [facility] 01-26-2023 Functional Status N/A [facility] 01-14-2023 Functional Status N/A [facility] 12-23-2022 Functional Status N/A [facility] Clinical Notes 07-06-2022 to 09-14-2023 Note Date & Type Note Facility 09-14-2023 Hospital Discharge instructions Patient Education 09/14/2023 10:49:34 [facility] - Cystoscopy with Botox Injection Discharge Instructions (CUSTOM) Cystoscopy with Botox injection Voiding after the procedure: there may be some pain, burning, urgency, frequency and blood tinged urine following the procedure. These symptoms usually resolve within 2-5 days. Drink the amount of fluid it takes to keep the urine pink to yellow or clear in color. Drinking enough water and fluids will help to ease any discomfort after your procedure. It may take a few days to a week to notice a gradual improvement in the overactive bladder symptoms. If you are having problems that seem out of the ordinary, please call. If unable to contact your physician and you feel it is an emergency, go to the nearest emergency room or call 911 Do not lift more than fifteen pounds for 1-2 days. If you see a lot of blood, you probably did too much. Diet you may resume your normal diet. Pain control You may take extra strength Tylenol or Motrin for discomfort. Call if you have a fever over 100 degrees. Follow Up Care 08/26/2023 11:22:19 With:Gianna Romero Address:Unknown When: Unknown Comments:Office to schedule follow up in 2 weeks with PVR [facility] 09-14-2023 Note [id number] [facility] 09-14-2023 Note Cystoscopy with Boto x injection ? Voiding after the procedure: there may be some pain, burning, urgency, frequency and blood tinged urine following the procedure. These symptoms usually resolve within 2-5 days. Drink the amount of fluid it takes to keep the urine pink to yellow or clear in color. Drinking enough water and fluids will help to ease any discomfort after your procedure. ? It may take a few days to a week to notice a gradual improvement in the overactive bladder symptoms. ? If you are having problems that seem out of the ordinary, please call. ? If unable to contact your physician and you feel it is an emergency, go to the nearest emergency room or call 911 ? Do not lift more than fifteen pounds for 1-2 days. If you see a lot of blood, you probably did too much. ? Diet ? you may resume your normal diet. ? Pain control ? You may take extra strength Tylenol or Motrin for discomfort. ? Call if you have a fever over 100 degrees. [facility] 08-26-2023 Hospital Discharge instructions Patient Education 08/26/2023 11:13:23 Botulinum Toxin Bladder Injection Botulinum Toxin Bladder Injection A botulinum toxin bladder injection is a procedure to treat an overactive bladder. During the procedure, a drug called botulinum toxin is injected into the bladder through a long, thin needle. This drug relaxes the bladder muscles and reduces overactivity. You may need this procedure if your medicines are not working or you cannot take them. The procedure may be repeated as needed. The treatment is done once and it usually lasts for 6 months. Your health care provider will monitor you to see how well you respond. Tell a health care provider about: Any allergies you have. All medicines you are taking, including vitamins, herbs, eye drops, creams, and rkky-kad-smvtlvi medicines. Any problems you or family members have had with anesthetic medicines. Any bleeding problems you have. Any surgeries you have had. Any medical conditions you have. Any previous reactions to a botulinum toxin injection. Any symptoms of urinary tract infection. These include chills, fever, a burning feeling when passing urine, and needing to pass urine often. Whether you are or may be . What are the risks? Generally this is a safe procedure. However, problems may occur, including: Not being able to pass urine. If this happens, you may need to have your bladder emptied with a thin tube (urinary catheter). Bleeding. Urinary tract infection. Allergic reaction to the botulinum toxin. Pain or burning when passing urine. Damage to nearby structures or organs. What happens before the procedure? When to stop eating and drinking Follow instructions from your health care provider about what you may eat and drink before your procedure. These may include: 8 hours before the procedure ?Stop eating most foods. Do not eat meat, fried foods, or fatty foods. ?Eat only light foods, such as toast or crackers. ?All liquids are okay except energy drinks and alcohol. 6 hours before the procedure ?Stop eating. ?Drink only clear liquids, such as water, clear fruit juice, black coffee, plain tea, and sports drinks. ?Do not drink energy drinks or alcohol. 2 hours before the procedure ?Stop drinking all liquids. ?You may be allowed to take medicines with small sips of water. If you do not follow your health care provider's instructions, your procedure may be delayed or canceled. Medicines Ask your health care provider about: Changing or stopping your regular medicines. This is especially important if you are taking diabetes medicines or blood thinners. Taking medicines such as aspirin and ibuprofen. These medicines can thin your blood. Do not take these medicines unless your health care provider tells you to take them. Taking gaqj-xag-wtfcpfy medicines, vitamins, herbs, and supplements. General instructions Ask your health care provider what steps will be taken to help prevent infection. These steps may include: ?Removing hair at the procedure site. ?Washing skin with a germ-killing soap. ?Taking antibiotic medicine. If you will be going home right after the procedure, plan to have a responsible adult: ?Take you home from the hospital or clinic. You will not be allowed to drive. ?Care for you for the time you are told. What happens during the procedure? You will be asked to empty your bladder. An IV will be inserted into one of your veins. You will be given one or more of the following: ?A medicine to help you relax (sedative). ?A medicine to numb the area (local anesthetic). ?A medicine to make you fall asleep (general anesthetic). A long, thin scope called a cystoscope will be passed into your bladder through the part of the body that carries urine from your bladder (urethra). The cystoscope will be used to fill your bladder with water. A long needle will be passed through the cystoscope and into the bladder. The botulinum toxin will be injected into your bladder. It may be injected into multiple areas of your bladder. The cystoscope will be removed and your bladder will be emptied with a urinary catheter. The procedure may vary among health care providers and hospitals. What can I expect after the procedure? After your procedure, it is common to have: Blood-tinged urine. Burning or soreness when you pass urine. Follow these instructions at home: Medicines Take cvzh-nrw-pwyvymn and prescription medicines only as told by your health care provider. If you were prescribed an antibiotic medicine, take it as told by your health care provider. Do not stop using the antibiotic even if you start to feel better. General instructions If you were given a sedative during the procedure, it can affect you for several hours. Do not drive or operate machinery until your health care provider says that it is safe. Drink enough fluid to keep your urine pale yellow. Return to your normal activities as told by your health care provider. Ask your health care provider what activities are safe for you. Keep all follow-up visits. Contact a health care provider if you have: A fever or chills. Blood-tinged urine for more than one day after your procedure. Worsening pain or burning when you pass urine. Pain or burning when passing urine for more than two days after your procedure. Trouble emptying your bladder. Get help right away if you: Have bright red blood in your urine. Are unable to pass urine. Summary A botulinum toxin bladder injection is a procedure to treat an overactive bladder. This is generally a safe procedure. However, problems may occur, including not being able to pass urine, bleeding, infection, pain, and an allergic reaction to the botulinum toxin. You will be told when to stop eating and drinking, and what medicines to change or stop. Follow instructions carefully. After the procedure, it is common to have blood in your urine and to have soreness or burning when passing urine. Contact a health care provider if you have a fever, blood in your urine for more than a few days, or trouble passing urine. Get help right away if you have bright red blood in your urine, or if you are unable to pass urine. This information is not intended to replace advice given to you by your health care provider. Make sure you discuss any questions you have with your health care provider. Document Revised: 09/13/2021 Document Reviewed: 09/13/2021 [employer] Patient Education 2022 [employer]. Follow Up Care 02/24/2023 13:31:49 With:Gianna Romero MD, URL, URO Address: [address] [place] [address] [phone] When: Unknown [facility] [email or web address] 02-25-2023 Note [id number] [facility] 02-24-2023 Hospital Discharge instructions Patient Education 02/24/2023 13:25:26 Benign Prostatic Hyperplasia Benign Prostatic Hyperplasia Benign prostatic hyperplasia (BPH) is an enlarged prostate gland that is caused by the normal aging process. The prostate may get bigger as a man gets older. The condition is not caused by cancer. The prostate is a walnut-sized gland that is involved in the production of semen. It is located in front of the rectum and below the bladder. The bladder stores urine. The urethra carries stored urine out of the body. An enlarged prostate can press on the urethra. This can make it harder to pass urine. The buildup of urine in the bladder can cause infection. Back pressure and infection may progress to bladder damage and kidney (renal) failure. What are the causes? This condition is part of the normal aging process. However, not all men develop problems from this condition. If the prostate enlarges away from the urethra, urine flow will not be blocked. If it enlarges toward the urethra and compresses it, there will be problems passing urine. What increases the risk? This condition is more likely to develop in men older than 50 years. What are the signs or symptoms? Symptoms of this condition include: Getting up often during the night to urinate. Needing to urinate frequently during the day. Difficulty starting urine flow. Decrease in size and strength of your urine stream. Leaking (dribbling) after urinating. Inability to pass urine. This needs immediate treatment. Inability to completely empty your bladder. Pain when you pass urine. This is more common if there is also an infection. Urinary tract infection (UTI). How is this diagnosed? This condition is diagnosed based on your medical history, a physical exam, and your symptoms. Tests will also be done, such as: A post-void bladder scan. This measures any amount of urine that may remain in your bladder after you finish urinating. A digital rectal exam. In a rectal exam, your health care provider checks your prostate by putting a lubricated, gloved finger into your rectum to feel the back of your prostate gland. This exam detects the size of your gland and any abnormal lumps or growths. An exam of your urine (urinalysis). A prostate specific antigen (PSA) screening. This is a blood test used to screen for prostate cancer. An ultrasound. This test uses sound waves to electronically produce a picture of your prostate gland. Your health care provider may refer you to a specialist in kidney and prostate diseases (urologist). How is this treated? Once symptoms begin, your health care provider will monitor your condition (active surveillance or watchful waiting). Treatment for this condition will depend on the severity of your condition. Treatment may include: Observation and yearly exams. This may be the only treatment needed if your condition and symptoms are mild. Medicines to relieve your symptoms, including: ?Medicines to shrink the prostate. ?Medicines to relax the muscle of the prostate. Surgery in severe cases. Surgery may include: ?Prostatectomy. In this procedure, the prostate tissue is removed completely through an open incision or with a laparoscope or robotics. ?Transurethral resection of the prostate (TURP). In this procedure, a tool is inserted through the opening at the tip of the penis (urethra). It is used to cut away tissue of the inner core of the prostate. The pieces are removed through the same opening of the penis. This removes the blockage. ?Transurethral incision (TUIP). In this procedure, small cuts are made in the prostate. This lessens the prostate's pressure on the urethra. ?Transurethral microwave thermotherapy (TUMT). This procedure uses microwaves to create heat. The heat destroys and removes a small amount of prostate tissue. ?Transurethral needle ablation (TUNA). This procedure uses radio frequencies to destroy and remove a small amount of prostate tissue. ?Interstitial laser coagulation (ILC). This procedure uses a laser to destroy and remove a small amount of prostate tissue. ?Transurethral electrovaporization (TUVP). This procedure uses electrodes to destroy and remove a small amount of prostate tissue. ?Prostatic urethral lift. This procedure inserts an implant to push the lobes of the prostate away from the urethra. Follow these instructions at home: Take nhwc-cph-coxvxtk and prescription medicines only as told by your health care provider. Monitor your symptoms for any changes. Contact your health care provider with any changes. Avoid drinking large amounts of liquid before going to bed or out in public. Avoid or reduce how much caffeine or alcohol you drink. Give yourself time when you urinate. Keep all follow-up visits. This is important. Contact a health care provider if: You have unexplained back pain. Your symptoms do not get better with treatment. You develop side effects from the medicine you are taking. Your urine becomes very dark or has a bad smell. Your lower abdomen becomes distended and you have trouble passing urine. Get help right away if: You have a fever or chills. You suddenly cannot urinate. You feel light-headed or very dizzy, or you faint. There are large amounts of blood or clots in your urine. Your urinary problems become hard to manage. You develop moderate to severe low back or flank pain. The flank is the side of your body between the ribs and the hip. These symptoms may be an emergency. Get help right away. Call 911. Do not wait to see if the symptoms will go away. Do not drive yourself to the hospital. Summary Benign prostatic hyperplasia (BPH) is an enlarged prostate that is caused by the normal aging process. It is not caused by cancer. An enlarged prostate can press on the urethra. This can make it hard to pass urine. This condition is more likely to develop in men older than 50 years. Get help right away if you suddenly cannot urinate. This information is not intended to replace advice given to you by your health care provider. Make sure you discuss any questions you have with your health care provider. Document Revised: 09/25/2021 Document Reviewed: 09/25/2021 [employer] Patient Education 2022 [employer]. Follow Up Care 12/23/2022 14:53:34 With:Nick VASQUEZ, BLANK Garza, URO Address: [address] [place] [phone] When: Unknown Comments:6 mos w/ PVR [facility] 01-26-2023 Hospital Discharge instructions Patient Education 01/26/2023 12:14:26 EU - Cystoscopy Discharge Instructions (CUSTOM) Cystoscopy Voiding after the procedure: there may be some pain, burning, urgency, frequency and blood tinged urine following the procedure. These symptoms usually resolve within 2-5 days. Drink the amount of fluid it takes to keep the urine pink to yellow or clear in color. Drinking enough water and fluids will help to ease any discomfort after your procedure. If you are having problems that seem out of the ordinary, please call. If unable to contact your physician and you feel it is an emergency, go to the nearest emergency room or call 911 Diet you may resume your normal diet. Activity you may resume your normal activities Call if you have a fever over 100 degrees. Follow Up Care 01/21/2023 11:18:28 With:Gianna Romero Address:Unknown When: Unknown Comments:Office schedule follow up in 2-3 weeks with PVR [facility] 01-26-2023 Evaluation + Plan note Extrac tomy from: Title:EU - Clinic HOPD Note Author:Gianna Romero MD. Date:01/26/23 Impression and Plan Assessment and Plan: Diagnosis: Acute orchitis ([id number] N45.2, Discharge, Medical), Feeling of incomplete bladder emptying ([id number] R39.14, Billing Diagnosis, Medical), OAB (overactive bladder) ([id number] N32.81, Discharge, Medical). [address] Ness pt for hx BPH with LUTS here for follow up after urinary retention, found to have feeling of a healing bladder emptying, overactive bladder and acute orchitis S/p Rezum 05/20/[address] Ness. S/p TURP 05/25/19 and 05/21/[address] Ness. Last visit-successful voiding trial, PVR 75 mL. Went to the ER due to inability to void however only 15 mL output. Discussed that patient has overactive bladder and how he has very small amounts to void, does not need catheter. He feels safer with this. Again tried to thoroughly discussed the disconnect between his sensation and retention. He has a hard time comprehending this. Discussed how he is voiding and has been able to empty his bladder, despite his sensation. Trospium made the sensation worse and he therefore went to the ER. There is no evidence of obstruction today from the prostatic urethra. Patient also notes acute right orchitis that started with swelling and pain today. Right testicle is swollen, firm, mildly tender to palpation. Left testicle unremarkable. Scrotum is mildly erythematous, soft. Discussed how this was likely caused by catheter being in place. Again discussed how he has not been in retention does not need this catheter. Discussed risk and benefits of treatment for orchitis. He insisted on going to the ER for IV antibiotics because he has a history of diarrhea with antibiotics however discussed with patient this may not be needed if he takes his oral antibiotics outpatient, Levaquin has a low risk of diarrhea. Of course if he develops fever, chills or worsening of the swelling he should present to the ER. -Timed voids every 3 hours. Patient to present to the ER if he cannot void after 6 hours, not 1 hour like he has in the past. -Levaquin for 10 days prescribed to pharmacy on file for orchitis. Scrotal support, anti-inflammatories. -Follow-up in 2 to 3 weeks for recheck. 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 Risk of retention given his inappropriate sensations. Future Appointments Appointment Date:02/10/2023 09:30:00 AM Scheduled Provider:THERESE CRUMP PA-C Location:[facility] Appointment Type:URO Office Visit Appointment Date:02/24/2023 01:00:00 PM Scheduled Provider:THERESE CRUMP PA-C Location:[facility] Appointment Type:URO Office Visit [facility]11-06-2023 Note [id number] 01-26-2023 NoteCystoscopy ? Voiding after the procedure: there may be some pain, burning, urgency, frequency and blood tingedurine following the procedure. These symptoms usually resolve within 2-5 days. Drink the amount of fluid it takes to keep the urine pink to yellow or clear in color. Drinking enough water and fluids will help to ease any discomfort after your procedure. ? If you are having problems that seem out of the ordinary, please call. ? If unable to contact your physician and you feel it is an emergency, go to the nearest emergency room or call 911 ? Diet ? you may resume your normal diet. ? Activity ? you may resume your normal activities ? Call if you have a fever over 100 degrees.[facility] 01-07-2023 Hospital Discharge instructions Follow Up Care 01/07/2023 08:28:45 With:Nick VASQUEZ, BLANK Garza, URO Address: When:Within 1 Month(s) Comments:pending fill and pull.f/u with KMAdelaide or NAVEEN [facility] [place] 10-03-2023 Hospital Discharge instructions Patient Education 12/23/2022 14:57:18 Urinary Frequency, Adult Urinary Frequency, Adult Urinary frequency means urinating more often than usual. You may urinate every 1 2 hours even though you drink a normal amount of fluid and do not have a bladder infection or condition. Although you urinate more often than normal, the total amount of urine produced in a day is normal. With urinary frequency, you may have an urgent need to urinate often. The stress and anxiety of needing to find a bathroom quickly can make this urge worse. This condition may go away on its own, or you may need treatment at home. Home treatment may include bladder training, exercises, taking medicines, or making changes to your diet. Follow these instructions at home: Bladder health Your health care provider will tell you what to do to improve bladder health. You may be told to: Keep a bladder diary. Keep track of: ?What you eat and drink. ?How often you urinate. ?How much you urinate. Follow a bladder training program. This may include: ?Learning to delay going to the bathroom. ?Double urinating, also called voiding. This helps if you are not completely emptying your bladder. ?Scheduled voiding. Do Kegel exercises. Kegel exercises strengthen the muscles that help control urination, which may help the condition. Eating and drinking Follow instructions from your health care provider about eating or drinking restrictions. You may be told to: Avoid caffeine. Drink fewer fluids, especially alcohol. Avoid drinking in the evening. Avoid foods or drinks that may irritate the bladder. These include coffee, tea, soda, artificial sweeteners, citrus, tomato-based foods, and chocolate. Eat foods that help prevent or treat constipation. Constipation can make urinary frequency worse. You may need to take these actions to prevent or treat constipation: ?Drink enough fluid to keep your urine pale yellow. ?Take erap-sgo-wbwsihu or prescription medicines. ?Eat foods that are high in fiber, such as beans, whole grains, and fresh fruits and vegetables. ?Limit foods that are high in fat and processed sugars, such as fried or sweet foods. General instructions Take zdot-xdb-menovxr and prescription medicines only as told by your health care provider. Keep all follow-up visits. This is important. Contact a health care provider if: You start urinating more often. You feel pain or irritation when you urinate. You notice blood in your urine. Your urine looks cloudy. You develop a fever. You begin vomiting. Get help right away if: You are unable to urinate. Summary Urinary frequency means urinating more often than usual. With urinary frequency, you may urinate every 1 2 hours even though you drink a normal amount of fluid and do not have a bladder infection or other bladder condition. Your health care provider may recommend that you keep a bladder diary, follow a bladder training program, or make dietary changes. If told by your health care provider, do Kegel exercises to strengthen the muscles that help control urination. Take hepn-lnt-awbwtiy and prescription medicines only as told by your health care provider. Contact a health care provider if your symptoms do not improve or get worse. This information is not intended to replace advice given to you by your health care provider. Make sure you discuss any questions you have with your health care provider. Document Revised: 10/12/2020 Document Reviewed: 10/12/2020 [employer] Patient Education 2022 [employer]. Follow Up Care 12/15/2022 09:46:05 With:THERESE CRUMP PA-C, URL Address: [address] [place] [address] [phone] When: Unknown [facility] 04-16-2023 NotePROCEDURE: XR WRIST LT MIN 3 V DATE: 07/06/2022 8:54 AM CDT COMPARISONS: None CLINICAL INDICATION: Traumatic injury FINDINGS: There is no evidence of fractures or other acute osseous abnormalities. There is bone demineralization. There is marked first carpometacarpal degenerative change. There is moderate carpal-carpal degenerative change radial aspect of the wrist. There are scattered cystic changes of the carpal bones. Soft tissue swelling is noted about the wrist. IMPRESSION: 1. No acute osseous abnormalities 2. Prominent degenerative changes as discussed above.. Electronically authenticated by: DEANNA BRITO Date: 2022-07-06 10:44[facility]ments Appointment Date:02/24/2023 01:00:00 PM Scheduled Provider:THERESE CRUMP PA-C Location:[facility] Appointment Type:URO Office Visit [facility] evaluation + Plan note Future Appointments Appointment Date:02/24/2023 01:00:00 PM Scheduled Provider:THERESE CRUMP PA-C Location:[facility] Appointment Type:URO Office Visit Diagnostic Tests Pending * [facility] App[facility]ments Appointment Date:01/21/2023 11:00:00 AM Scheduled Provider: Location:[facility] Appointment Type:URO Nurse Visit Appointment Date:02/24/2023 01:00:00 PM Scheduled Provider:THERESE CRUMP PA-C Location:[facility] Appointment Type:URO Office Visit [facility] evaluation + Plan note Future Appointments Appointment Date:08/26/2023 10:00:00 AM Scheduled Provider:Gianna Romero MD Location:[facility] Appointment Type:URO Office Visit [facility] evaluation + Plan note Future Appointments Appointment Date:09/10/2023 10:30:00 AM Scheduled Provider: Location:[facility] Appointment Type:Urology CALL PAT FT Appointment Date:09/14/2023 11:15:00 AM Scheduled Provider: Location:[facility] Appointment Type:Urology FT [facility] evaluation + Plan note Future Appointments Appointment Date:09/10/2023 10:30:00 AM Scheduled Provider: Location:[facility] Appointment Type:Urology CALL PAT FT Appointment Date:09/14/2023 11:15:00 AM Scheduled Provider: Location:[facility] Appointment Type:Urology FT Diagnostic Tests Pending * [facility] Future App[facility]ments Appointment Date:09/30/2023 09:30:00 AM Scheduled Provider:Gianna Romero MD Location:[facility]ment [facility]O [facility] Narrative No data available for this section [facility] Hospital Discharge instructions No data available for this section [facility] No data available for this section [facility] Summary Purpose Family History No Family History Records FoundNo Family History Records Found No data available for this section No data available for this section No data available for this section No data available for this section No data available for this section No data available for this section No Family History Records Found No data available for this section No data available for this section No Family History Records FoundNo Family History Records FoundNo Family History Records Found No data available for this section Advance Directives No Advanced Directives Records FoundNo Advanced Directives Records FoundNo Advanced Directives Records FoundNo Advanced Directives Records FoundNo Advanced Directives Records FoundNo Advanced Directives Records Found Additional Source Comments (unrecognized sect ion and content) No Status Records FoundNo Status Records FoundNo Status Records FoundNo Status Records FoundNo Status Records FoundNo Status Records Found INFORMATION SOURCE (unrecogn ized section and content) DATE CREATED AUTHOR 09/08/2017 [facility] DATE CREATED AUTHOR AUTHOR'S ORGANIZ ATION 07/09/2022 [facility] DATE CREATED AUTHOR AUTHOR'S ORGANIZ ATION 07/02/2023 [facility] DATE CREATED AUTHOR AUTHOR'S ORGANIZ ATION 08/30/2023 [facility] DATE CREATED AUTHOR AUTHOR'S ORGANIZ ATION 09/14/2023 [facility] Patient Care team informatio n (unrecognized section and content) Personnel Name: ALEX OAKLEY MD Address: Address: [address] [place] [address] Personnel Name: ALEX OAKLEY MD Address: Address: [address] [place] [address] Personnel Name: ALEX OAKLEY MD Address: Address: [address] [place] [address] Personnel Name: ALEX OAKLEY MD Address: Address: [address] [place] [address] Personnel Name: ALEX OAKLEY MD Address: Address: [address] [place] [address] Personnel Name: ALEX OAKLEY MD Address: Address: [address] [place] [address] Personnel Name: ALEX OAKLEY MD Address: Address: [address] [place] [address] Personnel Name: ALEX OAKLEY MD Address: Address: [address] [place] [address] Personnel Name: ALEX OAKLEY MD Address: Address: [address] [place] [address] FOR RECORDS PERTAINING TO PATIENTS WHO ARE OR HAVE BEEN ENROLLED IN A CHEMICAL DEPENDENCY/SUBSTANCEABUSE PROGRAM, SOME INFORMATION MAY BE OMITTED. This clinical summary was aggregated from multiple sources. Caution should be exercised in using it in the provision of clinical care. This summary normalizes information from multiple sources, and as a consequence, information in this document may materially change the coding, format and clinical context of patient data. In addition, data may be omitted in some cases. CLINICAL DECISIONS SHOULD BE BASED ON THE PRIMARY CLINICAL RECORDS. [employer] [facility]. provides no warranty or guarantee of the accuracy or completeness of information in this document.
--- NOTE | 2023-09-15 22:52 | PC.NURSE ---
Patient reports having urological procedure done yesterday and has not been able to void since 400 PM today. Denies any discomfort or feeling urge to void. Bladder scan performed with result of ml.
--- NOTE | 2023-09-15 22:58 | ED_ITS ---
HPI - Male Genitourinary General Chief complaint: Urogenital-Male Stated complaint: I cannot pee Time Seen by Provider: 09/15/23 22:31 Source: patient Mode of arrival: walk-in Limitations: no limitations History of Present Illness HPI Narrative: This 83-year-old male with a history of urinary retention requiring indwelling Cornejo catheters in the past who underwent a cystoscopy and Botox procedure with Dr. Jang at [facility] yesterday morning presents for evaluation of urinary retention. The patient states he was urinating fine until around 4 PM and has not been able to urinate since that time. He denies any abdominal pain or back pain. He states he has been drinking plenty of water but has not urinated. He denies any constipation of stool stating he had a bowel movement prior to coming to the emergency department. He has not had any fever and when he was last urinating there was no blood or dysuria. Related Data Home Medications ?Medication ?Instructions ?Recorded ?Confirmed lisinopril 20 1 tab PO Q24H 01/06/23 09/15/23 mg-hydrochlorothiazide 25 mg tablet simvastatin 40 mg tablet 40 mg PO Q24H 01/06/23 09/15/23 trospium 60 mg capsule,extended 60 mg PO Q24H 01/06/23 01/27/23 release 24 hr tamsulosin 0.4 mg capsule 0.4 mg PO Q24H 01/27/23 01/27/23 Previous Rx's ?Medication ?Instructions ?Recorded L.acidophil,salivari-Bifido 1 cap PO BID 15 days #30 caps 01/28/23 bifidum-Strep thermoph 175 mg capsule (Acidophilus Probiotic Blend) levofloxacin 500 mg tablet 500 mg PO DAILY 9 days #9 tabs 01/28/23 Allergies Allergy/AdvReac Type Severity Reaction Status Date / Time No Known Drug Allergies Allergy Verified 09/15/23 22:36 Review of Systems ROS Status of ROS 10 or more systems reviewed and unremark able except as noted in history and below [facility] Medical History (Updated 09/16/23 @ 00:23 by Christel Mcclain MD) OAB (overactive bladder) ?N32.81 - Overactive bladder (ICD-10) Hyperlipidemia ?E78.5 - Hyperlipidemia, unspecified (ICD-10) Hematuria ?R31.9 - Hematuria, unspecified (ICD-10) History of urinary retention ?Z87.898 - Personal history of other specified conditions (ICD-10) Difficulty urinating ?R39.198 - Other difficulties with micturition (ICD-10) Surgical History (Updated 01/27/23 @ 15:29 by Therese Cardenas LPN) History of knee surgery ?Z98.890 - Other specified postprocedural states (ICD-10) Social History (Updated 01/27/23 @ 15:30 by Therese Cardenas LPN) Smoking status: Never smoker Second hand tobacco smoke exposure: No Non-prescribed substance use: denies use 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 Known occupational exposures/hazards: No Highest level of school completed/degree received: high school graduate Do you want help with school or training: No Are you now , , , , never or living with a partner: In a typical week, how many times do you talk on the telephone with family, friends, or neighbors: twice per week How often do you get together with friends or relatives: twice per week How often do you attend jainism or baptism services: never Do you belong to any clubs or organizations such as jainism groups unions, [employer] or athletic groups, or school groups: no Total score: 2 Score interpretation: A score of greater than or equal to 2 indicates the lowest level of social isolation. Little interest or pleasure in doing things: not at all Feeling down, depressed, or hopeless: not at all Feel stressed/tense/nervous/anxious/difficulty sleeping: not at all Due to disability, difficulty making decisions: No Do you think of yourself as: straight/heterosexual Gender Identity: male Exam Narrative Exam Narrative: Vital signs and Nursing Notes reviewed: Patient is afebrile with a normal pulse, blood pressure is elevated 158/90, he is not hypoxic with pulse ox of 95% on room air General: Awake, alert, oriented, no acute distress, obese elderly male lying comfortably on the stretcher, no respiratory distress HEENT: Normocephalic atraumatic, mucous membranes are moist and pink, eyes are clear, normal conjunctiva, vision is grossly intact Chest: Lungs are clear to auscultation with good air entry, there is no wheezing rhonchi or rales appreciated no accessory muscle use, patient is speaking in complete sentences-no chest wall tenderness to palpation CVS: Regular rate and rhythm S1-S2, no murmurs rubs or gallops, pulses are brisk and equal bilaterally ABD: Obese, soft, nondistended, nontender, no rebound guarding or rigidity, bladder scan showed 10 cc of retained urine in the bladder Extremities: Moving all extremities, no lower extremity tenderness or swelling noted, negative Homans' sign, pulses are brisk and equal bilaterally Skin: Normal in appearance without rash,pallor, petechiae or purpura Neuro: No focal deficits Constitutional Vital Signs, click to edit/add: Last Vital Signs Temp 97.8 F 09/15/23 22:37 Pulse 97 H 09/15/23 22:37 Resp 18 09/15/23 22:37 BP 158/90 H 09/15/23 22:37 Pulse Ox 95 09/15/23 22:37 O2 Del Method Room Air 09/15/23 22:37 Course Vital Signs Vital signs: Vital Signs Temperature 97.8 F 09/15/23 22:37 Pulse Rate 97 H 09/15/23 22:37 Respiratory Rate 18 09/15/23 22:37 Blood Pressure 158/90 H 09/15/23 22:37 Pulse Oximetry 95 09/15/23 22:37 Oxygen Delivery Method Room Air 09/15/23 22:37 Temperature 97.8 F 09/15/23 22:37 Pulse Rate 97 H 09/15/23 22:37 Respiratory Rate 18 09/15/23 22:37 Blood Pressure 158/90 H 09/15/23 22:37 Pulse Oximetry 95 09/15/23 22:37 Oxygen Delivery Method Room Air 09/15/23 22:37 MDM - Male Genitourinary MDM Narrative Medical decision making narrative: This 83-year-old male who had a cystoscopy yesterday with Botox injection with Dr. Jang at [facility] presents for evaluation of urinary retention. He states he has been drinking plenty of water but has not been able to urinate since 4 PM. He did have a bowel movement earlier in the evening. He denies the possibility that he forgot that he urinated however there is only 10 cc of urine in his bladder upon arrival. He was given oral fluids and was able to urinate twice. The urine was sent to the lab. There is blood but no sign of active infection. Patient is feeling better knowing that he is able to pass urine and will be discharged home at this time. He does not require a Cornejo catheter or straight cath for obtaining urine or passing urine. Lab Data Labs: Lab Results 09/15/23 Range/Units 23:40 Urine Color Lt. yellow (YELLOW) Urine Clarity Clear (CLEAR) Urine pH 6.5 (5.0-9.0) Ur Specific [place] 1.025 (1.005-1.025) Urine Protein Negative (NEG/TRACE) mg/dL Urine Glucose (UA) Negative (NEGATIVE) mg/dL Urine Ketones Negative (NEGATIVE) mg/dL Urine Occult Blood Large A (NEGATIVE) Urine Nitrite Negative (NEGATIVE) Urine Bilirubin Negative (NEGATIVE) Urine Urobilinogen 0.2 (0.2-1.0) EU/dL Ur Leukocyte Esterase Negative (NEGATIVE) Urine RBC 10-20 A (0-2) #/HPF Urine WBC 0-2 A (NONE SEEN) #/HPF Ur Squamous Epith Cells Few A (NONE/RARE) #/LPF Urine Crystals None seen (None Seen) #/HPF Urine Bacteria Small A (NONE SEEN) #/HPF Urine Casts None seen (NONE SEEN) #/LPF Urine Mucus Small A (NONE SEEN) Ur Culture Indicated? Yes Discharge Plan Discharge Stand Alone Forms: Portal Instructions Chief Complaint: Urogenital-Male Clinical Impression: Difficulty urinating Patient Disposition: Home, Self-Care Time of Disposition Decision: 00:23 Condition: Good Prescriptions / Home Meds: No Action tamsulosin 0.4 mg capsule 0.4 mg PO Q24H levofloxacin 500 mg tablet 500 mg PO DAILY 9 Days Qty: 9 0RF L.acidoph,saliva-B.bif-S.therm [Acidophilus Probiotic Blend] 175 mg capsule 1 cap PO BID 15 Days Qty: 30 0RF lisinopril-hydrochlorothiazide 20-25 mg tablet 1 tab PO Q24H simvastatin 40 mg tablet 40 mg PO Q24H trospium 60 mg capsule,extended release 24hr 60 mg PO Q24H Print Language: Tamazight Instructions: Urinary Urgency and Frequency (DC) Referrals: ALEX LYMAN [Primary Care Provider] - 1 week
[2023-09-15 23:50] LABS: Bilirubin Urine NEGATIVE (NEGATIVE); Blood Urine LARGE (NEGATIVE); Clarity Urine CLEAR (CLEAR); Color Urine LT. YELLOW (YELLOW); Glucose Urine UA NEGATIVE (NEGATIVE); Ketones Urine NEGATIVE (NEGATIVE); Leukocyte Esterase Urine NEGATIVE (NEGATIVE); Nitrite Urine NEGATIVE (NEGATIVE); Protein Urine NEGATIVE (NEG/TRACE); Specific Gravity Urine 1.025 (1.005-1.025); Urobilinogen Urine 0.2 EU/dL (0.2-1.0); pH Urine 6.5 (5.0-9.0)
[2023-09-15 23:56] LABS: Bacteria Urine SMALL #/HPF (NONE SEEN); Cast Seen? NONE SEEN #/LPF (NONE SEEN); Crystals Seen? None Seen #/HPF (None Seen); Mucus Urine SMALL (NONE SEEN); Squamous Epithelial Cell Urine FEW #/LPF (NONE/RARE); Urine Culture Indicated YES; WBC Urine 0-2 #/HPF (NONE SEEN)
== END 2023-09-16 00:47 | disposition home or self-care (01) ==
PROVIDERS: Emergency Provider Emergency Medicine; PCP Internal Medicine
DX: R39.198 Other difficulties with micturition (principal)
CPT/HCPCS: 81001; 87086; 99283

== ENCOUNTER 2023-10-20 03:18 | Inpatient (IN) | payer MEDICARE, OTHER, SELFPAY ==
[2023-10-20] VITALS (19 sets, daily range): BP systolic 121–180; BP diastolic 70–112; PULSE 65–106; TEMP 36.4–36.6; O2SAT 90–97; BMI 41.1; BMI 40.6
--- OUTSIDE RECORDS SUMMARY | 2023-10-20 03:24 | XMS_ITS | CCD ---
Author Organization [facility] CliniSymi Care Team Providers Care Supervisor Sheet Manufacturing Name Role Phone PHYSICIAN, DEFAULT Unavailable Unavailable PHYSICIAN, DEFAULT Unavailable Unavailable PHYSICIAN, DEFAULT Unavailable Unavailable PHYSICIAN, DEFAULT Unavailable Unavailable ESMER, DR JOHNSON Primary Care Unavailable LALI, DR LAZARO Reyes Admitting Unavailabl e LALI, DR LAZARO Reyes Attending Unavailabl e LALI, DR LAZARO Reyes Consulting Unavailabl e DEANNA BRITO Consulting Unavailable ALEX OAKLEY Primary Care Physician [phone] HAIDER JAMA Attending Unavailable ALEX OAKLEY Attending Unavailable ALEX OAKLEY Attending Unavailable ALEX OAKLEY Attending Unavailable THERON, THERESE E Attending Unavailable THERON THERESE E Admitting Unavailable Lue, Gianna M. [...] Attending Unavailable Lue, Gianna M. Referring Unavailable Medications Current Medications Medication Drug Class(es) Dates Sig (Normalized) Sig (Original) aspirin 81 mg oral tablet (11 sources) Platelet Aggregation Inhibitor, Nonsteroidal Anti-inflammatory Drug [...] day(s), # 6 tab(s), Refills(s) 0, Pharmacy: [facility]/pharmacy #[id number], 172, cm, 08/26/23 10:06:00 EDT, Height/Length Dosing, 120, kg, 08/26/23 10:06:00 EDT, Weight Dosing Start Date: 08/26/23 Stop Date: 08/29/23 Status: Ordered hydroCHLOROthiazide 25 mg / lisinopril 20 mg oral tablet (11 sources) Thiazide Diuretic, Angiotensin Converting Enzyme Inhibitor [...] day(s), # 10 tab(s), Refills(s) 0, Pharmacy: [facility]/pharmacy #[id number], 172, cm, 01/26/23 11:20:00 EST, Height/Length Dosing, 120, kg, 01/14/23 10:39:00 EDT, Weight Dosing Start Date: 01/26/23 Stop Date: 02/05/23 Status: Ordered Multi Vitamin+ (11 sources) Start: 03-29-2019 take 1 tablet by mouth once daily Multi Vitamin+ one tab, Oral, Daily, Refill(s) 0 Start Date: 03/29/19 Status: Ordered simvastatin 40 mg oral tablet (11 sources) HMG-CoA Reductase Inhibitor Start: 09-20-2013 take [...] qPM, # 30 cap(s), Refills(s) 11, Pharmacy: [facility]/pharmacy #[id number], 172, cm, 01/14/23 10:39:00 EDT, Height/Length [...] day(s), # 30 cap(s), Refills(s) 11, Pharmacy: [facility]/pharmacy #[id number], 172, cm, 12/23/22 14:24:00 EDT, Height/Length Dosing, 120, kg, 12/23/22 14:24:00 EDT, Weight Dosing Start Date: 12/23/22 Stop Date: 12/18/23 Status: Ordered Problems Active Problems Problem Classification Problem Date Documented Date Episodic/Chronic Abdominal hernia (11 sources) Hernia of anterior abdominal wall 09-20-2013 Episodic Disorders of lipid metabolism (12 sources) Pure hypercholesterolemia, unspecified; Translations: [Hypercholesterolemia ] Onset: 07-08-2022 09-20-2013 Chronic Essential hypertension (12 sources) Essential (primary) hypertension; Translations: [Hypertensive disorder] Onset: 07-08-2022 09-20-2013 Chronic Genitourinary symptoms and ill-defined conditions (17 sources) Post-micturition incontinence ; Translations: [Urge incontinence of urine] 06-28-2019 Chronic Genitourinary symptoms and ill-defined conditions (20 sources) Microscopic hematuria; Translations: [Other microscopic hematuria] Onset: 12-22-2022 Episodic Hyperplasia of prostate (20 sources) Benign prostatic hypertrophy without outflow obstruction; Translations: [Benign prostatic hyperplasia without lower urinary tract symptoms] Onset: 12-23-2022 Chronic Inflammatory conditions of male genital organs (20 sources) Prostatitis; Translations: [Orchitis] Onset: 01-26-2023 03-27-2020 Episodic Osteoarthritis (1 source) Primary osteoarthritis, left wrist; Translations: [PRIMARY OSTEOARTHRITIS LEFT WRIST] Onset: 07-08-2022 Chronic Other aftercare (1 source) Other care home (current) drug therapy; Translations: [OTH GRAVE CLEANER CURRENT DRUG THERAPY] Onset: 07-08-2022 Episodic Other diseases of bladder and urethra (3 sources) Detrusor overactivity; Translations: [Overactive bladder] Onset: 01-26-2023 Chronic Other diseases of bladder and urethra (1 source) Overactive bladder 10-01-2023 Chronic Other injuries and conditions due to external causes (3 sources) Unspecified injury of left wrist, hand and finger(s), initial encounter; Translations: [UNS INJ LT WRIST HAND FINGERS INIT] Onset: 07-06-2022 Episodic Other male genital disorders (3 sources) Hydrocele of testis; Translations: [Hydrocele, unspecified] Onset: 02-24-2023 Episodic Other male genital disorders (6 sources) Disorder of male genital organ 02-24-2023 Episodic Other nutritional; endocrine; and metabolic disorders (11 sources) Body mass index 40+ - severely obese 10-26-2018 Chronic Residual codes; unclassified (11 sources) H/O: anticoagulant therapy 04-19-2019 Episodic Past or Other Problems Problem Classification Problem Date Documented Da te Episodic/Chronic Unclassified (11 sources) Entire ethmoid sinus (body structure) 09-20-2013 Comment on above: MASS OF Results Test Name Value Interpretation Reference Range Facility Coding Summary.on 09-15-2023 Coding Summary. XCJCYavx91MPk8lQj+PG hlY WQ+IR8PBKKlP44uyALqtD7v P1VSRKzUDabkGUMLZIiEXsM lpdTtFK5jnBDwAFJc IC8+OS0aHQBlWkrmxTBcb1T 5eDQ2Y14fsd5dTOptwDX8MK OyAtTaysqlm4lykAq6BKvzV mluOyBt HJPglK86DTF4bC62Uh21eVJ etHCsc0yipYp7XyYuXMUkPY O7oNgnLQwxe8RvZRLcR81tt JLhk9T5 EDHobZiohRPrQzLilLE7iE8 zAEybifaow3spfpddCgf2ac 99xIAlr2D9cDL9M9TbfaV3E GJvbGQg GizafPTWnT1vzlbav1jubju kDzGuZROfPOi9OVp4QFKhsY rqEnKgPT78JJR1JEBpwaLxW 2FsLWFs dJpsRmE3p5F7Wq0MT3LNAwu uQ6BRXVCLUUamwYA+PC90cj 54X6LfOgcjCcj5ECTrXQN8h BI2uI3g DCPkYVhvo3G1rBL5P4CoymJ vca3if7mzTJOcEUzrK14xpN Btt0X2MIBcpHV9WXEcyMnhK iBzaG93 Oyc+SPSdtAhfz2HjDjzew1n rw9xhmZp1ZftdIYQzhjFiaC zpVIA7n8NuFr2yKSTtbJD9a FW2yI7b DrSwDwE3TWijU907OmFqyDK pNmxnW59aA9LfmNN+PHRyPj x4OOGyuPxkMN5bW0LjZKWgc mctbGVm bUelTW7eZVQdqeefKSYndJ1 xAPRzB7n3CeDxHyP3TJxaB2 IiBAPnurzvTa64fH3iWjGdW xQ2FOqk C4VwcfN7RGWijHYaTHhjIHW 1F24gg5R7EDTlCCAsBKE3lD Z8yA7twYavirjgkCVerNluk mVydGlj NLpkVGdhK657KDRvaWxfZpV vZGluZyBEYXRlOiAgMDYvMj UvMjAyNDwvdGQ+JLYtGCL9i WxlPSAn sTDvOMkvGk1onGkisGsnLE5 wIZUlrgxfXEQvzT1dPIDojJ GkeMtpDA7wYWHgtfzle648Z iAxMHB0 KBIfzNOiJ2GoiG7eTkWwGUO aTBDmE0CtlVFlIPbvP164RH hiXrY5YJYdmeHvZ4CeLVLav WduOiB0 o9M7In1Vb3OpfvdkN8HedDR zLyYdDojnODu2L2QtMxbqsW I+OE02QUYxMN63TOj6AOF9y WxlPSdi VNDyV5VxrH0wCoBbNXTtPHH kOyc+PHRhYmxlIHdpZHRoPS ogBMMtYgNleGorFW1sNl1jM GVyLWNv qHjllSVbUnZgb7jlPJQnZYz yFO5glWveO5JpfCE9XQCvs7 a0Zb44R77jW1ThrBT+PGNvb PU8nKO8 jY7nSrViMsH5XPqbR017WzO ywAFaZfvkc2tzm3oxkTj1Hv Y8BGOolmVfkOgyJQW6k3TgH x05C97m IHdpZHRoPSIxNSUiIHZhbGl zyk3mjE8oNm7+ZMIizPC6vC E6oB5bKvVcBkG6EBlaE989I nRvcCIv Wgghu5thl9lnrGp0MgClSJH tkkMuwDitETH3z6HtFm28D3 IvjOone2NzMde4ii61cQDvd 2M8tJR2 Q6NoNUGcrtkwxQDaxDmuXN3 uNFOjznqyKVByhF7uQUSrO2 e9EsPfCnS3SXqrN3UbhtR1K GJvbGQg TSKunOHVyF0hcsjad9ffmcn vDpPgHSOuGCf7LDl8LOEsjL poAiSzLTG0DkD9POX8uDOil W7vrWpk rvbroS1eGal+XIM2mJBfoZP DUL4vQjlxoCI+NSYfKRD7oN iaRIyfXOKeeW8oAHOqD3j4Z iAwLjA1 XLndZ8GxlxI6FRVoaAZhPBX lyPTCpQ0fepxjc5mdynqnHj GsSYBbHIy8FHv8CACbxZhaX iBsZWZ0 LvO5ZNB3gXDoeW9nkOwuyfs pfK0tMkq+OyejnKvzBAL4VO o2W0IdGri6PAIfoBdzYS7fn GFkZGlu Qy8kmCflnYumNF5qQAMzyma zt926OyLwc3kbIMExsTBxDF wbTPQ9I78hh8W5FWIlQSRbD PK0tUX5 rH5xzWtdvggfdDNnhUclufL goSirCDqqWLjbE521GRGqwC ydYaXgFGa0M0ViNec7QLBwv VroZJ4b gOIhAPhqKf5tjJtrtAvwBA7 qRUGqgqfpb329HwAnc1bgAY BpxQKoNIzgLGD8B03xr6P9B CMwMDAw TSB4tJJ5mS0gjIedqtxbfSS mdDsgdmVydGljYWwtYWxpZ2 48ICZizChaHtXofPg1I1VqV io2UJGz iIyoNB7tkJThVAfzYz1asYh juLjqRQ8eFHWndkipr877Dl Xlv9arNGHxiBVbBUeiZIX2Y 60zp8Y3 USZeXCTpKLK3qRT7kG1vsNk nbjogbGVmdDsgdmVydGljYW inYQvrZ624NYDnkVbrPkEdx GllbnQg GJfdMBo7X5DgCnpfoYT+PC9 9EAQlGD97xTMmvCGgs0shnY b8XdHzPYYdJOF8oQjmKNuqs 3JkZXIt W98vdESgj2J4KETxfCqhzSZ dXsHlyVM0wW4hOGenfwlxe6 klvlhaImnyj5cssc11qC34Z 29sIHdp ZHRoPSIzMCUiIHZhbGlnbj0 gaF9sJm4+MZXmnHN4oEU5fM 2bFDLeCqG2ELnlN810DvVbb CIvPjxj i1tkl2dygDq3LwA6YQUoddF lqEbcWWG5u5NaBl55K12sMX dpZHRoPSIyMCUiIHZhbGlnb d5dlV4a Ii8+KDHvjOR3zKA4jJ0aXhK zOkK9GIiyI259BfEjoPEbQw ezA06zQ9ThmQT+XKEuSuo5M CBzdHls GU7mjSPgMVnwTq5gPUW7UkL rZxInKCfdS6HoMROintazxc aytXL9MSUxVCFgvL99Ip6xa DogMTBw cFRToO1dyksno5uxdyquNdN lRPLzBZj3AZk7TUIgcGycIe KxITT8RfV9YQX0yDFvzW7ya Glnbjog gE1uT4BkQYQftfhgFn31wM3 sZwNlBhB0SRoeYbr+TEVHRy wgREFWSUQgUDwvdGQ+PHRkI KM9jYfh OEsaCIPxpK5eAOLpC4h1WeR yXaM7KWedY4LkWWTtvoejYg 60aZ7eRwUiMrN4FNmsH3Dpx dN0TNLn lWBiMNnoXYZ1G02qr2O5XQE qHWBrNDV0sOQ3tA6rxYggev ogbGVmdDsgdmVydGljYWwtY RgyK883 RCDxrEbwIvJ0IwM6ExX4HSF 1Z4ImTvd9LNVdhEtrVB2ssK HnLEfuAu7zoHjtjLjuKM3qV TBpbjtw WIPkvB1tEOIivUKvhHxkAG9 qXVXkvogmr315EjQgALD7FU IweCSuS7PipC3jCzEcZXFuO IWeX1Ei zFYzAWofL900WBdsBnD4JAT aykIuP6YjQTXukZexCcV8d8 X6Of92LpYORQYuwgdspFL+P HRkIHN0 vSjyTAgpSUFdnZ9mALVfH2n 0PwLuZsF0YLswV6ZsKMNgok puEl64uY1lObRqCbJ3ZUooL 4UenqJ8 PEIvaDYbHKbqQSJ4W92jz6V 6VZVtKWVsOGY0jVA4aD7amK lnbjogbGVmdDsgdmVydGljY WwtYWxp O888IFTahShcXt6taOO6D3O oDna0ZIBnuKwoDD2qjUTeWC ieKz7rrIjnkLofNA5cMZCbc jtwYWRk bY1hFSSmvFBvgKbrOW4nJHU kvfxkt074KrPkXRB2FKSjzS KfK6CwdW4hFnVeXHRiZPAdL 3RleHQt QOfuV075DBwqHuP6RGHpztA eP1YfEEEemHdqNbW9n9H8Wv 9OtRHvILVmVH54ZL52NT11S 3RyPjwv dGFibGU+PHRhYmxlIHdpZHR vZJrbKAOgPlDeqFanAE8xQj 9yZGVyLWNvbGxhcHNlOiBjb 2xsYXBz IThiBR2xhOypZ0XzkXN8ROE rp5z7Lf21B92sW6WpsBC+PG ZipPP9sPM0tM9pPgMrXaL4K BtbS741 XfTnrHExWkkze6nam4kqfWw 5ZvWaNFItqcBehFokYKM3q4 MyVm84W27pBJirCGFoQOHsE CUiIHZh uHvzcb9ofH4nHw0+PGNvbCB 8fKK9oC8cDaLoSkT9FAkoP6 92PjRkmUMyMbobQ59sL0Ikf XA+PHRy Eeo2RIEjuQhoPU6kpDCgBWs xXa4tPFV3IwXiYvRoXFvuT3 SlIBHogjtbhlucnKA8YORgI DUwaW47 Zb8yjMurIn8gUWWkWCO1PKO xuYLoS5SunE7qBsSqLTEeYU LpY5MdaOVpPQztM554QAefJ mD7FAFx kcQyP0NnSVImlQpsAoU9b2U 0Xb3TsPiqbBSlMM8zHtYzSR h7S6SxVpq3KRUpaZpbDR8gd GFkZGlu Cf6yhOmpdZkzNI8qJVChkur nf018ObKsq8ynXQCzcDIcAD gcKMF4R46je4G8MSKsYGGoN FJ6jHA6 pN5pfOxaknlqdICgvWhbozF klGgyJOcwJHlpL283IACarG uqRnJULck2D1LmMup2KQAxb QcmNC6b nBVjKAuaIa5cbKxcmWjkQF3 lXOEzdibvr024NwUmj4cyKX SvqJZiYMxfPVO3O01tc9E0I CMwMDAw NPD2wFN8bB3vvOcvuqjroDF mdDsgdmVydGljYWwtYWxpZ2 49QVDftJvmSd5IBbt5U7DsK en5UPYv mKatQE9pqMFzRWshYc4dfAm qxGvkLE9jDPClezsfe670Eq Agi3phTIJuhTOcUOkeXUP4Y 13ne9S3 XMCvNKCeZCC1vDI8dW9epMk nbjogbGVmdDsgdmVydGljYW dbZNvgE579ZGTylRuoCbZgn WVyOjwv dGQ+CV50xc17L6UkKjviXup 2TUHxREP9iNS0lD6iARKsCF zmr2W8zEU6S8PapuEltx9yl 2xsYXBz ELloZ69buJUhf (more content not included)... Normal [facility] Consent for Procedure/Surger yon 09-14-2023 Consent for Procedure/Surgery [id number]#1.00 TIFF Normal [facility] Consent for Treatmenton 08-22 Consent for Treatment [id number]#1.00T IFF Normal [facility] Inpatient Patient Summaryon 09-14-2023 Inpatient Patient Summary [place] [id number] Clinical Summary Person Information Name: SALVADOR BARRIENTOS Age: 83 Years : 1940 Sex: Male PCP: ALEX OAKLEY MD Marital Status: Race: White Ethnicity: Non- or Language: Sri Lankan Visit Id: Visit Reason: NOCTURIA, OAB, BPH WITH URINARY OBSTRUCTION Speciality: Acuity: Enc Type: Outpatient Med Service: Surgery Arrival: 09/14/2023 08:54:46 Discharge: Dispo Type: Address: [address] [place] [address] [phone] Provider Notes: Diagnosis: BPH without obstruction/lower urinary tract symptoms; OAB (overactive bladder) Problems Active Hydrocele Epididymo-orchitis Retention of urine Gross hematuria Urinary retention UTI symptoms BPH without obstruction/lower urinary tract symptoms Nocturia Weak urine stream BPH with urinary obstruction Prostatitis Urinary frequency Urinary urgency Dysuria Post-void dribbling Hx of care home use of blood thinners Microhematuria BMI 40.0-44.9, [...] Cystoscopy with Botox Injection Discharge Instructions (CUSTOM) [facility] IntraOperative Documentson 0 09-14-2023 IntraOperative Documents [id number]#[id number] TIFF [facility] Main OR Intraoperative Recor don 09-14-2023 Main OR Intraoperative Record IntraOp Document Type FTURO Summary Primary Physician: Gianna Romero MD Finalized Date/Time: 09/14/23 10:53:09 Pt. Name: SALVADOR BARRIENTOS Katey Garcia/Sex: 1940 Male Med Rec #: [id number] Physician: Gianna Romero MD Financial #: [id number] Pt. Type: O Room/Bed: / Admit/Disch: 09/14/23 08:54:46 - Institution: Case Times FTURO Entry 1 Patient Times In Room 09/14/23 10:36:00 Out Room 09/14/23 10:52:00 Procedure Times Start 09/14/23 10:43:00 Stop 09/14/23 10:46:00 Anesthesia Times Last Modified By: Rowan Lino 09/14/23 10:52:32 General Comments: BOTOX EXP: AND LOT: [id number] 100 UNITS.CARL ALFARO. Case Attendance FTURO Entry 1 Entry 2 Entry 3 Case Attendee Gianna Romero MD, Kelsie E McClain [facility] Role Performed Surgeon - Primary Lining Closer - Primary Scrub - Primary Time In 09/14/23 10:36:00 06/24/24 10:36:00 09/14/23 10:36:00 Time Out 09/14/23 10:52:00 [...] 09/14/23 10:52 Rowan Lino 09/14/23 10:53 Normal [facility] Main OR Preoperative Recordo n 09-14-2023 Main OR Preoperative Record Holding Area Document Type FTURO Summary Primary Physician: Gianna Romero MD Finalized Date/Time: 09/14/23 10:27:41 Pt. Name: SALVADOR BARRIENTOS/Sex: 1940 Male Med Rec #: [id number] Physician: Gianna Romero MD Financial #: [id number] Pt. Type: O Room/Bed: / Admit/Disch: 09/14/23 [...] Complaints of Pain: No Skin Integrity Intact, [place], Warm, & Dry Vitals - EU Blood Pressure 190/85 Pulse 80 bpm Respirations 20 br/min SPO2 94 % Additional Other (See Comment) Specimens Comment UA obtained Specimens Collected RN Reviewed Yes Last Modified By: Rowan Lino 09/14/23 10:27:37 Finalized By: Rowan Lino Document Signatures Signed By: Lisa Booth LPN 09/14/23 09:49 Rowan Lino 09/14/23 10:27 Rowan Lino 09/14/23 10:27 Normal [facility] Outpatient Surgery Discharge Instructionon 09-14-2023 Outpatient Surgery Discharge Instruction [id number] TIFF Normal [facility] Outpatient Surgery Discharge Instruction [address] [address] Patient Discharge Instructions PERSON INFORMATION Name: SALVADOR BARRIENTOS Date of : 1940 Current Date: 09/14/2023 10:49:36 PHYSICIANS Admitting Physician: Nick VASQUEZ, Gianna Johnson Comment: Discharge Diagnosis: BPH without obstruction/lower urinary [...] Date You may receive a survey from [email or web address] asking you to rate your care experience. Your feedback is important and will help us understand what we do well and how we can improve the quality of care we provide to you, your loved ones and our community. It?s an honor to serve you. Thank you for choosing [facility] Normal [facility] Progress Note-Physicianon Progress Note-Physician Patient: SALVADOR BARRIENTOS Age: 83 years Sex: Male : 1940 Associated Diagnoses: None Author: Nick VASQUEZ, Gianna Johnson Procedure Operative Information Details: Date/ Time: 09/14/2023 10:50:00. Pre-Op Dx: OAB (overactive bladder) (UEJ58-BJ N32.81, Discharge, Medical). Post-Op Dx: Same. Anesthesia [...] Follow up in 2 weeks with PVR. [facility] Comment on above: Result Comment: Elec tronically [...] Locations R1: This test was performed at: [facility], [address] [place] [address], [address] , , [facility] Comment on above: Performed By: #### [id number] #### [facility] [address] [place] [id number] Performed By: #### [id number] ####[facility] [address] [place] [address] [place]enson 08-28-2023 Screens [id number]#1.00T IFF Normal [facility] Screens [id number]#1.00T IFF Normal [facility] Patient Educationon 08-26-19 24 Patient Education Urology Botulinum Toxin Bladder Injection [...] including vitamins, herbs, eye drops, creams, and dgsl-cxy-mvktlkg medicines. ? Any problems you or family [...] tells you to take them. ? Taking xbfp-ijo-iyxrofy medicines, vitamins, herbs, and supplements. General instructions [...] these instructions at home: Medicines ? Take efzo-esr-dhqnqoh and prescription medicines only as told by [...] ca (more content not included)... Normal [facility] Urology Office/Clinic Noteon 08-26-2023 Urology Office/Clinic Note [...] while undergoing cysto. PVR (cc): 12/23/22 - 38 01/14/23 - 75 02/24/23 - 08/26/23 - [...] retention 4. Epididymo-orchitis (N45.3: Epididymo-orchitis) Presented to [facility] ER 01/27/23 due to pain in groin area. Pt was given cefdinir 300mg bid x10d due to having an infection as UA showed small blood and small leuks. Scrotal US 01/27/23 [facility] - thickening of R scrotal wall. R epididymoorchitis with reactive medium septated hydrocele. [1] No longer has pain or bother. -Cont sx monitoring 5. Hydrocele (N43.3: Hydrocele, unspecified) Scrotal US 01/27/23 [facility] - R epididymoorchitis with reactive medium septated [...] 0, Pharma (more content not included)... Normal [facility] Comment on above: Result Comment: Elec tronically Signed By: Gianna Romero MD\.br\Date and Time Signed: 08/26/23 11:32 EDT\.br\Electronically Co-Signed By: Dot Oakley\.br\Date and Time Co-Signed: 08/26/23 11:15 EDT ED Note-Physicianon 02-26-20 ED Note-Physician [id number]#1.00T IFF Normal [facility] RAD - Ultrasound Reporton RAD - Ultrasound Report [id number]#1.00T IFF Normal [facility] Ambulatory Visit Summaryon 1 04-27-2022 Ambulatory Visit Summary SALVADOR BARRIENTOS :1940 Visit Date:02/24/2023 Ambulatory Visit Instructions Your Diagnosis BPH with urinary obstruction Epididymo-orchitis Hydrocele Tests Performed Urnls Dip Stick Auto w/o Microscopy POC [id number] Your Care Team Attending Physician - THERESE CRUMP PA-C Primary Care Physician - ALEX OAKLEY MD This Is Your Medications List Contact prescribing [...] Follow-Up Appointments Thursday 10:00 AM EDT With: Nick VASQUEZ, Gianna Johnson Where: [facility] Patient Education 02-25-20 Patient Education Urology Benign Prostatic Hyperplasia [...] Follow these instructions at home: ? Take uwxv-pzh-bhdhnzn and prescription medicines only as told by [...] the medicine (more content not included)... Normal [facility] Urology Office/Clinic Noteon 02-24-2023 Urology Office/Clinic Note Chief Complaint 1m PVR HPI Staff KML pt S/P Cysto & Uro's 01/26/23 *Pt originally started on Trospium therapy, caused difficulty urinating & diarrhea. KMAdelaide then switched him to Tamsulosin, pt called our office 01/29/23 c/o the med causing dizziness. Then called again on 02/19/23 c/o Tamsulosin causing diarrhea. Pt stated he was no longer going to it. At time of Cysto KML prescribed Levaquin [id number] due to orchitis. Denies pain/burning & blood. Feels empty after voiding. Denies frequency during the day. Does get up at night to void. Not sure how often. Stream is fine. [facility] ER 01/27/23 due to swollen testicle. Pt [...] PVR (cc): 12/23/22 - 38 01/14/23 - 75 02/24/23 - Honestly this is a confusing [...] PVR 2. Epididymo-orchitis (N45.3: Epididymo-orchitis) Presented to [facility] ER 01/27/23 due to pain in groin area. Pt was given cefdinir 300mg bid x10d due to having an infection as UA showed small blood and small leuks. Scrotal US 01/27/23 [facility] - thickening of R scrotal wall. R epididymoorchitis with reactive medium septated hydrocele. Reports the swelling has improved and is no longer bothersome. Denies scrotal pain. No indication for tx at this time. 3. Hydrocele (N43.3: Hydrocele, unspecified) See #2. 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 Normal [facility] Comment on above: Result Comment: Elec tronically Signed By: THERESE CRUMP PA-C\.br\Date and Time Signed: 02/24/23 14:00 EST\.br\Electronically Co-Signed By: Dot Oakley\.br\Date and Time Co-Signed: 02/24/23 13:32 EST Consent for Procedure/Surger yon 01-26-2023 Consent for Procedure/Surgery [id number]#1.00 TIFF [facility] Consent for Treatmenton Consent for Treatment [id number]#1.00T IFF [facility] Inpatient Patient Summaryon 01-26-2023 Inpatient Patient Summary [place] [id number] Clinical Summary Person Information Name: SALVADOR BARRIENTOS Age: 82 Years : 1940 Sex: Male PCP: ALEX OAKLEY MD Marital Status: Race: White Ethnicity: Non- or Language: [place]an Visit Id: Visit Reason: URINARY RETENTION, URINARY FREQUENCY, BPH WITH LUTS Speciality: Acuity: Enc Type: Outpatient Med Service: Surgery Arrival: 01/26/2023 09:27:18 Discharge: Dispo Type: Address: [address] [place] [phone] Provider Notes: Diagnosis: Acute orchitis; OAB (overactive bladder) Problems Active Retention of urine Gross hematuria Urinary retention UTI symptoms BPH without obstruction/lower urinary tract symptoms Nocturia Weak urine stream BPH with urinary obstruction Prostatitis Urinary frequency Urinary urgency Dysuria Post-void dribbling Hx of care home use of blood thinners Microhematuria BMI 40.0-44.9, [...] Location Start Finish State [facility]00 PM 02/24/2023 1:15 PM Confirmed Patient Education Information: EU - Cystoscopy Discharge Instructions (CUSTOM) [facility] IntraOperative Documentson 1 03-28-2022 IntraOperative Documents [id number] TIFF Devyn Melara [facility] Main OR Preoperative Recordo n 01-26-2023 Main OR Preoperative Record Holding Area Document Type FTURO Summary Primary Physician: Gianna Romero MD Finalized Date/Time: 01/26/23 11:57:44 Pt. Name: SALVADOR BARRIENTOS Katey Garcia/Sex: 1940 Male Med Rec #: [id number] Physician: Gianna Romero MD Financial #: [id number] Pt. Type: O Room/Bed: / Admit/Disch: 01/26/23 [...] Complaints of Pain: No Skin Integrity Intact, [place], Warm, & Dry Vitals - EU Blood Pressure 116/75 Pulse 98 bpm Respirations 24 br/min SPO2 98 % RN Reviewed Yes Last Modified By: JERED Fields RN, Ruthann 01/26/23 11:57:42 General Comments: Temp 36.4 , patient states he is having problems bleeding Finalized By: JERED Fields RN, Ruthann Document Signatures Signed By: Hilda Montilla LPN 01/26/23 11:17 JERED Fields RN, Ruthann 01/26/23 11:57 [facility] Operative Reporton 3 Operative Report Patient: SALVADOR BARREINTOS Age: 82 years Sex: Male : 1940 Associated Diagnoses: None Author: Gianna Romero MD Procedure Operative Information Details: Date/ Time: 01/26/2023 12:17:00. Pre-Op Dx: Feeling of incomplete bladder emptying ([id number] R39.14, Billing Diagnosis, Medical), OAB (overactive bladder) (PSZ37-UK N32.81, Discharge, Medical). Post-Op Dx: Same. Anesthesia [...] orchitis treatment to ensure resolved. . Normal [facility] Comment on above: Result Comment: Elec tronically Signed By: Gianna Romero MD\.br\Date and Time Signed: 01/26/23 12:23 EST Outpatient Surgery Discharge Instructionon 01-26-2023 Outpatient Surgery Discharge Instruction [id number] TIFF Normal [facility] Outpatient Surgery Discharge Instruction [place] [id number] Patient Discharge Instructions PERSON INFORMATION Name: SALVADOR BARRIENTOS Date of : 1940 Current Date: 01/26/2023 12:14:27 PHYSICIANS Admitting Physician: Gianna Romero MD Comment: Discharge Diagnosis: Acute orchitis; OAB (overactive bladder) SALVADOR BARRIENOTS has been given the following list of follow-up instructions, prescriptions, and patient education materials: IF UNABLE TO CONTACT YOUR PHYSICIAN AND YOU FEEL IT IS AN EMERGENCY, GO TO THE NEAREST EMERGENCY ROOM OR CALL 911 Follow up: With: Address: When: Gianna Romero Comments: Office schedule follow up in 2-3 weeks with PVR Type Location Start [facility] URO Office Visit [facility] [place] 02/24/2023 1:00 PM 02/24/2023 1:15 PM Confirmed [...] Date You may receive a survey from [email or web address] asking you to rate your care experience. Your feedback is important and will help us understand what we do well and how we can improve the quality of care we provide to you, your loved ones and our community. It?s an honor to serve you. Thank you for choosing [facility] Normal [facility] Progress Note-Physicianon Progress Note-Physician Patient: SALVADOR BARRIENTOS [...] day(s), # 10 tab(s), Refills(s) 0, Pharmacy: [facility]/pharmacy #[id number], 172, cm, 01/26/23 11:20:00 EST, Height/Length Dosing, 120, kg, 01/14/23 10:39:00 EDT, Weight Dosing tamsulosin 0.4 mg Cap: 0.4 mg = 1 cap(s), Oral, qPM, # 30 cap(s), Refills(s) 11, Pharmacy: [facility]/pharmacy #[id number], 172, cm, 01/14/23 10:39:00 EDT, Height/Length [...] Plan Assessment and Plan: Diagnosis: Acute orchitis (HFT74-FC N45.2, Discharge, Medical), Feeling of incomplete bladder emptying (MVO05-VP R39.14, Billing Diagnosis, Medical), OAB (overactive bladder) (IBZ30-HZ N32.81, Discharge, Medical). 82 yo M prior [...] Risk of retention given his inappropriate sensations. Normal [facility] Comment on above: Result Comment: Elec tronically Signed By: Nick VASQUEZ, Gianna Mustafa.br\Date and Time Signed: 01/26/23 12:31 EST ED Note-Physicianon 01-22-20 ED Note-Physician [id number]#1.00T IFF Normal [facility] Consultation Noteon 01-16-20 Consultation Note [id number]#1.0 0TIFF [facility] Screenson 01-15-2023 Screens [id number]#1.0 0TIFF [facility] Screens [id number]#1.00TI FF Normal [facility] ED Note-Physicianon 01-15-20 ED Note-Physician [id number]#1.00T IFF Normal [facility] Lab Reportson 01-14-2023 Lab Reports [id number]#1.00T IFF Normal [facility] Urology Office/Clinic Noteon 01-14-2023 Urology Office/Clinic Note [...] Pseudomonas Pt was given Cefdinir 300mg BID g02hrmh. Pt is a poor historian. Unsure what medications he has taken/finished. Several messages in pt's chart stating that pt had called c/o inability to Urinate Pt then went to [facility] ER visit on 01/06/23 due to difficulty urinating, pt stated he had not been able to void for 2 days, cath was placed. BUN 8, Crea 0.81. Pt then returned to [facility] ER 01/09/23 due to blood in [place] [...] after starting trospium Pt then went to [facility] ER visit on 01/06/23 due to difficulty urinating, pt stated he had not been able to void for 2 days, cath was placed, BUN 8, Crea 0.81. (output unknown). Pt then returned to [facility] ER 01/09/23 due to blood in [place] [...] -PVR 1- (more content not included)... Normal [facility] Comment on above: Result Comment: Elec tronically [...] DATE/TIME: 12/24/2022 07:00 EDT FREE TEXT SOURCE: THERON NASCIMENTO, THERESE CRUMP PA-C, THERESE Pardo FINAL REPORTS Final Report [] Verified Date/Time: [...] performed at: [facility], [address] [place] [address], [address] , [place], [facility] Comment on above: Performed By: #### 2 [id number] #### [facility] [address] [place] [address] Lab Reportson 12-24-2022 Lab Reports [id number]#1.00 CD:127 [facility] Lab Reports [id number]#1.00 CD:127 [facility] Screenson 12-24-2022 Screens [id number]#1.00C D:127 [facility] Ambulatory Visit Summaryon 1 Ambulatory Visit Summary YAELSALVADOR Reyes Katey :1940 Visit Date:12/23/2022 Ambulatory Visit Instructions Your Diagnosis Urinary frequency BPH without obstruction/lower urinary tract symptoms Microhematuria Tests Performed Urnls Dip Stick Auto w/o Microscopy POC [id number] Your Care Team Attending Physician - THERESE [...] Follow-Up Appointments Thursday 1:00 PM EST With: THERON NASCIMENTO, THERESE Pardo Where: [facility] [place] Normal [facility] Patient Educationon 12-24-19 23 Patient Education Urology [...] keep your urine pale yellow. ? Take roqb-grq-yyhpleq or prescription medicines. ? Eat foods that are high in fiber, such as beans, whole grains, and fresh fruits and vegetables. ? Limit foods that are high in fat and processed sugars, such as fried or sweet foods. General instructions ? Take ozrc-qto-wrcjjaq and prescription medicines only as told by [...] muscles that help control urination. ? Take ugnt-kij-ldtlurg and prescription medicines only as told by your health care provider. ? Contact a health care provider if your symptoms do not improve or get worse. This information is not intended to replace advice given to you by your health care provider. Make sure you discuss any questions you have with your health care provider. Document Revised: 10/12/2020 Document Reviewed: 10/12/2020 [employer] Patient Education ? 2022 [employer] Normal [facility] URINALYSISOrdered By: Jhon Flores on 12-23-2022 Bacteria [...] PM) Normal Negative [facility] UA Auto SS [place].plasma/Lithiu m.RBC (Bld) [Mass ratio] 0-3 /HPF Normal 0-3/HPF FT UA Auto SS Nitrite Ql (U) Positive *ABN* (12/23/22 2:54 PM) Invalid Interpretation Code Negative [facility] UA Auto SS pH (U) 7.0 *NA* (12/23/22 2:54 PM) Invalid Interpretation Code 5.0 - 9.0 [facility] UA Auto SS Protein (U) [Mass/Vol] Negative (12/23/22 2:54 PM) Normal Negative [facility] UA Auto SS Specific gravity (U) [Rel density] 1.010 *NA* (12/23/22 2:54 PM) Invalid Interpretation Code 1.005 - 1.030 [facility] UA Auto SS UA Spec Desc Random Urine (12/23/22 2:54 PM) Normal [facility] UA Auto SS Urobilinogen Qn (U) 0.3563556 {Pb'U}/dL Normal 0.0 - 1.0 EU/dL [facility] UA Auto SS WBC Auto Ql (U) Negative (12/23/22 2:54 PM) Normal Negative [facility] UA Auto SS WBC LM.HPF (Urine sed) [#/Area] 0-5 /HPF Normal 0-5/HPF [facility] UA Auto SS Urinalysison 12-23-2022 Bacteria LM Ql (Urine sed) TRACE Normal Trace [facility] Comment on above: Performed By: #### 1 [id number] ####[facility] [address] [place] [address] Bilirubin Ql (U) Negative Normal Negative [facility] Comment on above: Performed By: #### 1 [id number] ####[facility] [address] [place] [address] Clarity (U) CLEAR Normal Clear [facility] Comment on above: Performed By: #### 1 [id number] ####[facility] [address] [place] [address] Color (U) YELLOW Normal Yellow [facility] Comment on above: Performed By: #### 1 [id number] ####[facility] [address] [place] [address] Epithelial cells.squamous LM.HPF (Urine sed) [#/Area] 0-2 Normal 0-2 [facility] Comment on above: Performed By: #### 1 [id number] ####[facility] [address] [place] [address] Glucose Test strip (U) [Mass/Vol] Negative Normal Negative [facility] Comment on above: Performed By: #### 1 [id number] ####[facility] [address] [place] [address] Hemoglobin Ql (U) TRACE Abnormal Negative [facility] Comment on above: Performed By: #### 1 [id number] ####[address] [address] Ketones (U) [Mass/Vol] Negative Normal Negative [facility] Comment on above: Performed By: #### 1 [id number] ####[facility] [address] [place] [address] [place].plasma/Lithiu m.RBC (Bld) [Mass ratio] 0-3 Normal 0-3 [facility] Comment on above: Performed By: #### 1 [id number] ####[facility] [address] [place] [address] Nitrite Ql (U) Positive Abnormal Negative [facility] Comment on above: Performed By: #### 1 [id number] ####[facility] [address] [place] [address] pH (U) 7.0 [pH] Invalid Interpretation Code 5.0-9.0 [facility] Comment on above: Performed By: #### 1 [id number] ####[facility] [address] [place] [address] Protein (U) [Mass/Vol] Negative Normal Negative [facility] Comment on above: Performed By: #### 1 [id number] ####[address] [address] Specific gravity (U) [Rel density] 1.010 Invalid Interpretation Code 1.005-1.030 [facility] Comment on above: Performed By: #### 1 [id number] ####[facility] [address] [place] [address] Type of Urine collection method Random Urine Normal [facility] Comment on above: Performed By: #### 1 [id number] ####[facility] [address] [place] [id number] Urobilinogen Qn (U) 0.2 {Pb'U}/dL Normal 0.0-1.0 [facility] Comment on above: Performed By: #### 1 [id number] ####[facility] [address] [place] [address] WBC Auto Ql (U) Negative Normal Negative [facility] Comment on above: Performed By: #### 1 [id number] ####[place] [id number] WBC LM.HPF (Urine sed) [#/Area] 0-5 Normal 0-5 [facility] Comment on above: Performed By: #### 1 [id number] ####[place] [id number] Urology Office/Clinic Noteon 12-23-2022 Urology Office/Clinic Note [...] pill) Little amounts at a time. Voiding h13-14joq. Getting up q1hr through the night. No [...] E&M of Est. Patient Moderate 30-39 Min 00165 Urinalysis Urine Culture 2. BPH without obstruction/lower [...] E&M of Est. Patient Moderate 30-39 Min 32020 3. Microhematuria (R31.29: Other microscopic hematuria) UA [...] day(s), # 30 cap(s), Refills(s) 11, Pharmacy: [facility]/pharmacy #[id number], 172, cm, 12/23/22 14:24:00 EDT, Height/Length Dosing, 120, kg, 12/23/22 14:24:00 EDT, Weight (more content not included)... Normal [facility] Comment on above: Result Comment: Elec tronically Signed By: THERESE CRUMP PA-C\.br\Date and Time Signed: 12/23/22 15:03 EDT\.br\Electronically Co-Signed By: Dot Oakley\.br\Date and Time Co-Signed: 12/23/22 14:57 EDT Vital Signs Date Time Vital Sign Value Performing Clinician Facility 10-01-2023 13:14-0400 Blood Pressure Location [place] [facility] 10-01-2023 13:14-0400 Body temperature 97.88 [degF] Janay Orzech [facility] 10-01-2023 13:14-0400 Diastolic blood pressure 88 mm[Hg] Janay Orzech [facility] 10-01-2023 13:14-0400 Heart rate 83 /min [email or web address] [facility] 10-01-2023 13:14-0400 Respiratory rate 16 /min Janay Orzech [facility] 10-01-2023 13:14-0400 Systolic blood pressure 160 mm[Hg] Janay Orzech [facility] 08-26-2023 10:05-0400 Blood Pressure Location Gianna Romero [facility] 08-26-2023 10:05-0400 Body temperature 97.7 [degF] Gianna Lue [facility] 08-26-2023 10:05-0400 Diastolic blood pressure 84 mm[Hg] Gianna Lue [facility] 08-26-2023 10:05-0400 Heart rate 88 /min Gianna Lue [facility] 08-26-2023 10:05-0400 Systolic blood pressure 130 mm[Hg] Gianna Lue [facility] 02-24-2023 12:51-0500 Blood Pressure Location THERESE THERON [facility] 02-24-2023 12:51-0500 Diastolic blood pressure 84 mm[Hg] THERESE THERON [facility] 02-24-2023 12:51-0500 Heart rate 80 /min THERESE THERON [facility] 02-24-2023 12:51-0500 Systolic blood pressure 138 mm[Hg] THERESE THERON [facility] 01-14-2023 10:37-0400 Blood Pressure Location Gianna Lue [facility] 01-14-2023 10:37-0400 Diastolic blood pressure 80 mm[Hg] Gianna Lue [facility] 01-14-2023 10:37-0400 Heart rate 68 /min Gianna Lue [facility] 01-14-2023 10:37-0400 Respiratory rate 16 /min Gianna Lue [facility] 01-14-2023 10:37-0400 Systolic blood pressure 130 mm[Hg] Gianna Lue [facility] 12-23-2022 14:21-0400 Blood Pressure Location THERESE THERON [facility] 12-23-2022 14:21-0400 Diastolic blood pressure 79 mm[Hg] THERESE THERON [facility] 12-23-2022 14:21-0400 Heart rate 69 /min THERESE THERON [facility] 12-23-2022 14:21-0400 Respiratory rate 16 /min THERESE THERON [facility] 12-23-2022 14:21-0400 Systolic blood pressure 128 mm[Hg] THERESE THERON [facility] Encounters Encounter Date Encounter Type Care Provider Facility Start: 10-01-2023 End: 10-01-2023 Patient encounter procedure Janay X Orzech [facility] Ti Start: 09-30-2023 ambulatory Gianna Romero Facility:[facility] Start: 09-30-2023 End: 09-30-2023 Patient encounter procedure Gianna Romero [facility] Start: 09-14-2023 End: 09-14-2023 ambulatory Gianna Romero Facility:[facility] Start: 09-14-2023 End: 09-14-2023 Patient encounter procedure Gianna Romero [facility] Start: 08-26-2023 End: 08-26-2023 ambulatory Gianna Romero Facility:[facility] Start: 08-26-2023 End: 08-26-2023 Lab Drop off Gianna Romero [facility] Start: 08-26-2023 End: 08-26-2023 ambulatory Gianna Romero Facility:[facility] Start: 08-26-2023 End: 08-26-2023 Patient encounter procedure Gianna Romero [facility] Start: 07-01-2023 End: 07-01-2023 ambulatory ALEX B OAKLEY Not Available Start: 06-15-2023 End: 06-15-2023 ambulatory ALEX B OAKLEY Not Available Start: 06-09-2023 End: 06-09-2023 ambulatory HAIDER A WILEY Not Available Start: 02-24-2023 End: 02-24-2023 ambulatory THERESE CRUMP Facility:[facility] Start: 02-24-2023 End: 02-24-2023 Patient encounter procedure THERESE CRUMP [facility] Start: 02-11-2023 End: 02-11-2023 ambulatory ALEX B OAKLEY Not Available Start: 02-10-2023 End: 02-10-2023 ambulatory THEREES CRUMP Facility:[facility] Start: 02-10-2023 End: 02-10-2023 Patient encounter procedure THERESE CRUMP [facility] Start: 01-26-2023 End: 01-26-2023 ambulatory Gianna Johnson Lue Facility:[facility] Start: 01-26-2023 End: 01-26-2023 Patient encounter procedure Gianna Romero [facility] Start: 01-21-2023 ambulatory Gianna M. Lue Facility:[facility] [place] Start: 01-14-2023 End: 01-14-2023 ambulatory Gianna M. Lue Facility:[facility] [place] Start: 01-14-2023 End: 01-14-2023 Patient encounter procedure [facility] Cosme. Nick [facility] Start: 12-23-2022 End: 12-23-2022 Lab Drop off THERESE CRUMP [facility] Start: 12-23-2022 End: 12-23-2022 ambulatory THERESE CRUMP Facility:[facility] Start: 12-23-2022 End: 12-23-2022 Patient encounter procedure THERESE CRUMP [facility] Start: 07-06-2022 End: 07-06-[address] ALEX OAKLEY Facility: Start: 08-25-2017 End: 08-26-2017 Ambulatory DEFAULT PHYSICIAN Facility:[facility] Start: 08-19-2017 End: 08-20-2017 Ambulatory DEFAULT PHYSICIAN Facility:[facility] Procedures Date Procedure Procedure Detail Performing Clinician Start: 01-26-2023 Transurethral cystoscopy Gianna Romero Start: 01-26-2023 Transurethral cystoscopy THERESE CRUMP Start: 01-26-2023 Urodynamic studies CANDE CRUMP Start: 05-21-2020 Transurethral prostatectomy THERESE CRUMP Start: 04-05-2020 Cystourethroscopy wi th dilation of urethral stricture THERESE CRUMP Start: 05-25-2019 Transurethral prostatectomy THERESE CRUMP Start: 04-28-2019 Cystourethroscopy wi th dilation of urethral stricture Gianna Romero Start: 04-28-2019 Cystourethroscopy wi th dilation of urethral stricture THERESE CRUMP Start: 05-20-2018 Endoscopic transuret hral fulguration of prostate THERESE CRUMP Start: 04-15-2018 Cystoscopy THERESE PATEL Start: 09-29-2013 Ethmoid sinusectomy NORMAN CRUMP Comment on above: Right anterior. Hernia repair THERESE CRUMP Comment on above: BILATERAL INGUINAL A ND REVISION WITH MESH, UMBILICAL AND VENTRAL REPAIRS Immunizations Immunization Date Immunization Notes Care Provider Neda shepard 12-29-2022 influenza virus vaccine, unspecified formulation Gianna Romero [facility] 12-02-2021 influenza virus vaccine, unspecified formulation Gianna Romero [facility] 12-02-2021 SARS-CoV-2 (COVID-19 ) [id number] Gianna Romero [facility] 07-11-2021 zoster vaccine recombinant Gianna Romero [facility] 06-20-2021 SARS-CoV-2 mRNA (wgefvnqvyce-ktmi-sgegm se) vaccine Gianna Romero [facility] 04-09-2021 zoster vaccine recombinant Gianna Lue [facility] 01-30-2021 influenza virus vaccine, unspecified formulation Gianna Lue [facility] 12-15-2020 SARS-CoV-2 (COVID-19 ) mRNA BNT-162b2 vax Gianna Lue [facility] Comment on above: Result Comment: 2022: [id number] 05-15-2020 SARS-CoV-2 (COVID-19 ) mRNA BNT-162b2 vax Gianna Lue [facility] Comment on above: Result Comment: 2022: [id number] 04-24-2020 SARS-CoV-2 (COVID-19 ) mRNA BNT-162b2 vax THERESE CRUMP [facility] 01-04-2020 influenza virus vaccine, unspecified formulation Gianna Lue [facility] 01-25-2019 influenza virus vaccine, unspecified formulation Gianna Lue [facility] 12-21-2018 influenza virus vaccine, live, attenuated, for intranasal use THERESE WYLIERY [facility] 01-11-2018 influenza virus vaccine, unspecified formulation Gianna Lue [facility] 12-11-2016 influenza virus vaccine, unspecified formulation Gianna Lue [facility] 05-24-2015 pneumococcal conjuga te vaccine, 13 valent Gianna Seemaarmani [facility] Payers Date Payer Category Payer Medicare [id number] 1959 Unknown [id number] 1940 Unknown [id number] 2.16.84 [id number] 1940 Unknown [id number] 2.16.84 0.1.664208.3.579.2.1259 1940 Unknown [id number] 2.16.84 0.1.207750.3.579.2.125 1940 Unknown [id number] 2.16.84 0.1.915296.3.579.2.1259 1940 Unknown [id number] 2.16.840 .1.225034.3.579.2.125 1940 Unknown [id number] 2.16.8 40.1.835426.3.579.2.727 1940 Unknown [id number] 2.16.8 40.1.662700.3.579.2.727 1940 Unknown [id number] 2.16.8 40.1.367141.3.579.2.727 1940 Unknown [id number] 2.16.8 40.1.354723.3.579.2.727 1940 Unknown [id number] 2.16.8 40.1.456332.3.579.2.727 1940 Unknown [id number] 2.16.8 40.1.188085.3.579.2.72 1940 Unknown [id number] 2.16.8 40.1.362851.3.579.2.727 1940 Unknown [id number] 2.16.8 40.1.279826.3.579.2.72 1940 Unknown [id number] 2.16.8 40.1.765000.3.579.2.727 1940 Unknown [id number] 2.16.8 40.1.323684.3.579.2.727 1940 Unknown [id number] 2.16.8 40.1.110298.3.579.2.727 Unknown Social History Date Type Detail Facility Start: 12-23-2022 End: 10-01-2023 Tobacco smoking status Never smoked tobacco (finding) [facility] Tobacco smoking status Never [facility] Sex Assigned At Male [facility] Functional Status Date Assessment Result Facility 10-01-2023 Functional Status N/A [facility] 09-14-2023 Functional Status N/A [facility] 08-26-2023 Functional Status N/A [facility] 02-24-2023 Functional Status N/A [facility] 01-26-2023 Functional Status N/A [facility] 01-14-2023 Functional Status N/A [facility] 12-23-2022 Functional Status N/A [facility] Clinical Notes 07-06-2022 to 10-01-2023 Note Date & Type Note Facility 10-01-2023 Hospital Discharge instructions Patient Education 10/01/2023 14:20:31 Overactive Bladder, Adult Overactive Bladder, Adult Overactive bladder is a condition in which a person has a sudden and frequent need to urinate. A person might also leak urine if he or she cannot get to the bathroom fast enough (urinary incontinence). Sometimes, symptoms can interfere with work or social activities. What are the causes? Overactive bladder is associated with poor nerve signals between your bladder and your brain. Your bladder may get the signal to empty before it is full. You may also have very sensitive muscles that make your bladder squeeze too soon. This condition may also be caused by other factors, such as: Medical conditions: ?Urinary tract infection. ?Infection of nearby tissues. ?Prostate enlargement. ?Bladder stones, inflammation, or tumors. ?Diabetes. ?Muscle or nerve weakness, especially from these conditions: ?A spinal cord injury. ?Stroke. ?Multiple sclerosis. ?Parkinson's disease. Other causes: ?Surgery on the uterus or urethra. ?Drinking too much caffeine or alcohol. ?Certain medicines, especially those that eliminate extra fluid in the body (diuretics). ?Constipation. What increases the risk? You may be at greater risk for overactive bladder if you: Are an older adult. Smoke. Are going through menopause. Have prostate problems. Have a neurological disease, such as stroke, dementia, Parkinson's disease, or multiple sclerosis (MS). Eat or drink alcohol, spicy food, caffeine, and other things that irritate the bladder. Are overweight or obese. What are the signs or symptoms? Symptoms of this condition include a sudden, strong urge to urinate. Other symptoms include: Leaking urine. Urinating 8 or more times a day. Waking up to urinate 2 or more times overnight. How is this diagnosed? This condition may be diagnosed based on: Your symptoms and medical history. A physical exam. Blood or urine tests to check for possible causes, such as infection. You may also need to see a health care provider who specializes in urinary tract problems. This is called a urologist. How is this treated? Treatment for overactive bladder depends on the cause of your condition and whether it is mild or severe. Treatment may include: Bladder training, such as: ?Learning to control the urge to urinate by following a schedule to urinate at regular intervals. ?Doing Kegel exercises to strengthen the pelvic floor muscles that support your bladder. Special devices, such as: ?Biofeedback. This uses sensors to help you become aware of your body's signals. ?Electrical stimulation. This uses electrodes placed inside the body (implanted) or outside the body. These electrodes send gentle pulses of electricity to strengthen the nerves or muscles that control the bladder. ?Women may use a plastic device, called a pessary, that fits into the vagina and supports the bladder. Medicines, such as: ?Antibiotics to treat bladder infection. ?Antispasmodics to stop the bladder from releasing urine at the wrong time. ?Tricyclic antidepressants to relax bladder muscles. ?Injections of botulinum toxin type A directly into the bladder tissue to relax bladder muscles. Surgery, such as: ?A device may be implanted to help manage the nerve signals that control urination. ?An electrode may be implanted to stimulate electrical signals in the bladder. ?A procedure may be done to change the shape of the bladder. This is done only in very severe cases. Follow these instructions at home: Eating and drinking Make diet or lifestyle changes recommended by your health care provider. These may include: ?Drinking fluids throughout the day and not only with meals. ?Cutting down on caffeine or alcohol. ?Eating a healthy and balanced diet to prevent constipation. This may include: ?Choosing foods that are high in fiber, such as beans, whole grains, and fresh fruits and vegetables. ?Limiting foods that are high in fat and processed sugars, such as fried and sweet foods. Lifestyle Lose weight if needed. Do not use any products that contain nicotine or tobacco. These include cigarettes, chewing tobacco, and vaping devices, such as e-cigarettes. If you need help quitting, ask your health care provider. General instructions Take ouxa-rmh-tplemnl and prescription medicines only as told by your health care provider. If you were prescribed an antibiotic medicine, take it as told by your health care provider. Do not stop taking the antibiotic even if you start to feel better. Use any implants or pessary as told by your health care provider. If needed, wear pads to absorb urine leakage. Keep a log to track how much and when you drink, and when you need to urinate. This will help your health care provider monitor your condition. Keep all follow-up visits. This is important. Contact a health care provider if: You have a fever or chills. Your symptoms do not get better with treatment. Your pain and discomfort get worse. You have more frequent urges to urinate. Get help right away if: You are not able to control your bladder. Summary Overactive bladder refers to a condition in which a person has a sudden and frequent need to urinate. Several conditions may lead to an overactive bladder. Treatment for overactive bladder depends on the cause and severity of your condition. Making lifestyle changes, doing Kegel exercises, keeping a log, and taking medicines can help with this condition. This information is not intended to replace advice given to you by your health care provider. Make sure you discuss any questions you have with your health care provider. Document Revised: 11/26/2020 Document Reviewed: 11/26/2020 [employer] Patient Education 2022 [employer]. Follow Up Care 09/30/2023 08:22:37 With:ROMULO Vera APRN, ADAN Chou, URL Address: When: Unknown [facility] 09-14-2023 Hospital Discharge instructions Patient Education 09/14/2023 [...] follow up in 2 weeks with [facility] 09-14-2023 Note [id number]#[id number] [facility] 09-14-2023 Note Cystoscopy with Boto x injection [...] you have a fever over 100 degrees. [facility] 08-26-2023 Hospital Discharge instructions Patient Education 08/26/2023 [...] including vitamins, herbs, eye drops, creams, and rojv-vbd-qvwyebu medicines. Any problems you or family members [...] provider tells you to take them. Taking kxoy-mdd-gpzwxbq medicines, vitamins, herbs, and supplements. General instructions [...] Follow these instructions at home: Medicines Take qcjm-hom-nxozxil and prescription medicines only as told by [...] provider. Document Revised: 09/13/2021 Document Reviewed: 09/13/2021 [employer] Patient Education 2022 [employer]. Follow Up Care 02/24/2023 13:31:49 With:Nick VASQUEZ, BLANK Garza, URO Address: [address] [place] [address] [phone] When: Unknown [facility] 02-25-2023 Note [id number]#[id number] [facility] 02-24-2023 Hospital Discharge instructions Patient Education 02/24/2023 [...] urethra. Follow these instructions at home: Take nvvy-dve-rposxhy and prescription medicines only as told by [...] provider. Document Revised: 09/25/2021 Document Reviewed: 09/25/2021 [employer] Patient Education 2022 [employer]. Follow Up Care 12/23/2022 14:53:34 With:Nick VASQUEZ, BLANK Garza, URO Address: [address] [place] [address]- [phone] When: Unknown Comments:6 mos w/ [facility] 01-26-2023 Hospital Discharge instructions Patient Education 01/26/2023 [...] follow up in 2-3 weeks with [facility] 01-26-2023 Evaluation + Plan note Extrac tomy from: Title:[facility] Note Author:Nick VASQUEZ, Gianna oCsme. Date:01/26/23 Impression and Plan Assessment and Plan: Diagnosis: Acute orchitis (WVQ18-ET N45.2, Discharge, Medical), Feeling of incomplete bladder emptying ([id number] R39.14, Billing Diagnosis, Medical), OAB (overactive bladder) (IAX62-MB N32.81, Discharge, Medical). 82 yo M prior [...] Date:02/10/2023 09:30:00 AM Scheduled Provider:THERESE CRUMP PA-C Location:[facility] Appointment Type:URO Office Visit Appointment Date:02/24/2023 01:00:00 PM Scheduled Provider:THERESE CRUMP PA-C Location:[facility] Appointment Type:URO Office Visit [facility]11-06-2023 Note [id number]#[facility].00[facility] NoteCystoscopy ? Voiding after the procedure: [...] if you have a fever over 100 degrees.[facility] 01-07-2023 Hospital Discharge instructions Follow Up Care 01/07/2023 08:28:45 With:Nick VASQUEZ, Gianna M., URL, URO Address: When:Within 1 Month(s) Comments:pending fill and pull.f/u with WILBERTO or NAVEEN [facility] 10-03-2023 Hospital Discharge instructions Patient Education 12/23/2022 [...] to keep your urine pale yellow. ?Take phxs-uep-ujtepov or prescription medicines. ?Eat foods that are high in fiber, such as beans, whole grains, and fresh fruits and vegetables. ?Limit foods that are high in fat and processed sugars, such as fried or sweet foods. General instructions Take yprx-wsj-kuhsbmt and prescription medicines only as told by [...] the muscles that help control urination. Take fwth-cwg-pmnmqaz and prescription medicines only as told by your health care provider. Contact a health care provider if your symptoms do not improve or get worse. This information is not intended to replace advice given to you by your health care provider. Make sure you discuss any questions you have with your health care provider. Document Revised: 10/12/2020 Document Reviewed: 10/12/2020 [employer] Patient Education 2022 [employer]. Follow Up Care 12/15/2022 09:46:05 With:THERESE CRUMP PA-C, URL Address: [address] [place] [address] [address] [place] [place] [address] [phone] When: Unknown [facility] 04-16-2023 NotePROCEDURE: XR WRIST LT MIN 3 [...] Electronically authenticated by: DEANNA BRITO Date: 2022-07-06 10:44[facility] Future App[facility]ments Appointment Date:02/24/2023 01:00:00 PM Scheduled Provider:THERESE CRUMP PA-C Location:[facility] Appointment Type:URO Office Visit [facility] evaluation + Plan note Future Appointments Appointment Date:02/24/2023 01:00:00 PM Scheduled Provider:THERESE CRUMP PA-C Location:[facility] Appointment Type:URO Office Visit Diagnostic Tests Pending * Urine [facility]ments Appointment Date:01/21/2023 11:00:00 AM Scheduled Provider: Location:[facility] Appointment Type:URO Nurse Visit Appointment Date:02/24/2023 01:00:00 PM Scheduled Provider:THERESE CRUMP PA-C Location:[facility] Appointment Type:URO Office Visit [facility] evaluation + Plan note Future Appointments Appointment Date:08/26/2023 10:00:00 AM Scheduled Provider:Gianna Romero MD Location:[facility] Appointment Type:URO Office Visit [facility] evaluation + Plan note Future Appointments Appointment Date:09/10/2023 10:30:00 AM Scheduled Provider: Location:[facility] Appointment Type:Urology CALL PAT FT Appointment Date:09/14/2023 11:15:00 AM Scheduled Provider: Location:[facility] Appointment Type:Urology FT [facility] evaluation + Plan note Future Appointments Appointment Date:09/10/2023 10:30:00 AM Scheduled Provider: Location:[facility] Appointment Type:Urology CALL PAT FT Appointment Date:09/14/2023 11:15:00 AM Scheduled Provider: Location:[facility] Appointment Type:Urology FT Diagnostic Tests Pending * Urine Culture [facility] Appointment Date:09/30/2023 09:30:00 AM Scheduled Provider:Gianna Romero MD Location:[facility] App[facility]ments Appointment Date:10/01/2023 01:00:00 PM Scheduled Provider:ROMULO Vera APRN, [place] X Location:[facility] Appointment Type:URO Office Visit [facility] Hospital course Narrative No data available for this section [facility] Hospital Discharge instructions No data available for this section [facility] No data available for this section [facility] Summary Purpose Family History No Family History [...] section No data available for this section Advance [...] section and content) DATE CREATED AUTHOR 09/08/2017 [facility] DATE CREATED AUTHOR AUTHOR'S ORGANIZ ATION [facility]/20[facility] DATE CREATED AUTHOR AUTHOR'S ORGANIZ ATION [facility]/02/2023 [facility] DATE CREATED AUTHOR AUTHOR'S ORGANIZ ATION 08/30/2023 [facility] DATE CREATED AUTHOR AUTHOR'S ORGANIZ ATION 09/28/2023 [facility] Patient Care team informatio n (unrecognized section and content) Personnel Name: ALEX OAKLEY MD Address: Address: [address] [place] [address] Personnel Name: ALEX OAKLEY MD Address: Address: [address] [place] [address] Personnel Name: ALEX OAKLEY MD Address: Address: [address] [place] [address] Personnel Name: ALEX OAKLEY MD Address: Address: [address] [place] [address] Personnel Name: ALEX OAKLEY MD Address: Address: [address] [place] [address] Personnel Name: ALEX OAKLEY MD Address: Address: [address] [place] [address] Personnel Name: ALEX OAKLEY MD Address: Address: [address] [place] [address] Personnel Name: ALEX OAKLEY MD Address: Address: [address] [place] [address] Personnel Name: ALEX OAKLEY MD Address: Address: [address] [place] [address] Personnel Name: ALEX OAKLEY MD Address: Address: [address] [place] [address] Personnel Name: ALEX OAKLEY MD Address: Address: [address] [place] [address] FOR RECORDS PERTAINING TO PATIENTS WHO ARE [...] BE BASED ON THE PRIMARY CLINICAL RECORDS. [employer] provides no warranty or guarantee of the accuracy or completeness of information in this document.
--- NOTE | 2023-10-20 03:31 | ECG_ITS ---
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
--- NOTE | 2023-10-20 03:31 | XR_ITS ---
The [address] [address] Patient Name: SALVADOR BARRIENTOS MRN: [id number] date: 1940 Sex: M Assigned Patient Location: ER Current Patient Location: ED.MAIN Accession/Order Number: [id number] Exam Date: 10/20/2023 04:10 Report Date: 10/20/2023 05:19 At the request of: PITO PLEITEZ Procedure: XR chest 1V EXAMINATION: XR chest 1V HISTORY: SOB COMPARISON: XR chest 07/06/2022 FINDINGS: LUNGS: Opacities within left lung base obscuring the heart and diaphragm margin. VASCULATURE: No increased pulmonary vasculature. PLEURA: No pneumothorax, effusion, or pleural thickening. CARDIAC: No cardiomegaly or cardiac silhouette abnormality. MEDIASTINUM: No visible mass or adenopathy. BONES: No fracture or visible bone lesion. OTHER: Negative. XR/XR chest 1V IMPRESSION: 1. Suspect mild to moderate left basilar infiltrates versus atelectasis obscuring the heart and diaphragm margin. Evaluation is slightly limited due to patient positioning and AP portable technique. Electronically authenticated by: JAZIEL HEART Date: 10/20/2023 05:19
--- NOTE | 2023-10-20 03:32 | ED_ITS ---
HPI HPI - General Adult General Chief complaint: Shortness of Breath/Dyspnea Stated complaint: COUGH/SOB Time Seen by Provider: 10/20/23 03:20 Source: patient Mode of arrival: walk-in Limitations: no limitations History of Present Illness HPI narrative: 83-year-old male presents for cough and shortness of breath. He has been coughing up a small amount of yellow phlegm. He has not had a fever and has had the symptoms for a few days. He is not complaining to me of chest pain. Related Data Home Medications ?Medication ?Instructions ?Recorded ?Confirmed lisinopril 20 1 tab PO Q24H 01/06/23 10/20/23 mg-hydrochlorothiazide 25 mg tablet simvastatin 40 mg tablet 40 mg PO Q24H 01/06/23 10/20/23 trospium 60 mg capsule,extended 60 mg PO Q24H 01/06/23 01/27/23 release 24 hr tamsulosin 0.4 mg capsule 0.4 mg PO Q24H 01/27/23 01/27/23 Previous Rx's ?Medication ?Instructions ?Recorded L.acidophil,salivari-Bifido 1 cap PO BID 15 days #30 caps 01/28/23 bifidum-Strep thermoph 175 mg capsule (Acidophilus Probiotic Blend) levofloxacin 500 mg tablet 500 mg PO DAILY 9 days #9 tabs 01/28/23 Allergies Allergy/AdvReac Type Severity Reaction Status Date / Time No Known Drug Allergies Allergy Verified 10/20/23 03:23 Opioid HPI Opioid Management Most Recent Opioid Data: Last Pain Scale 3 01/14/23 13:57 Review of Systems ROS Narrative A ten point review of systems is negative except as noted above. [facility] Medical History (Updated 10/20/23 @ 04:36 by Etienne Palomino MD) OAB (overactive bladder) ?N32.81 - Overactive bladder (ICD-10) Hyperlipidemia ?E78.5 - Hyperlipidemia, unspecified (ICD-10) Hematuria ?R31.9 - Hematuria, unspecified (ICD-10) History of urinary retention ?Z87.898 - Personal history of other specified conditions (ICD-10) Difficulty urinating ?R39.198 - Other difficulties with micturition (ICD-10) Surgical History (Updated 01/27/23 @ 15:29 by Therese Cardenas LPN) History of knee surgery ?Z98.890 - Other specified postprocedural states (ICD-10) Social History (Updated 01/27/23 @ 15:30 by Therese Cardenas LPN) Smoking status: Never smoker Second hand tobacco smoke exposure: No Non-prescribed substance use: denies use 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 Known occupational exposures/hazards: No Highest level of school completed/degree received: high school graduate Do you want help with school or training: No Are you now , , , , never or living with a partner: In a typical week, how many times do you talk on the telephone with family, friends, or neighbors: twice per week How often do you get together with friends or relatives: twice per week How often do you attend catholic or caodaism services: never Do you belong to any clubs or organizations such as catholic groups unions, fraternal or athletic groups, or school groups: no Total score: 2 Score interpretation: A score of greater than or equal to 2 indicates the lowest level of social isolation. Little interest or pleasure in doing things: not at all Feeling down, depressed, or hopeless: not at all Feel stressed/tense/nervous/anxious/difficulty sleeping: not at all Due to disability, difficulty making decisions: No Do you think of yourself as: straight/heterosexual Gender Identity: male Exam Narrative Exam Narrative: Nurses note and vital signs reviewed and patient is not hypoxic. General: The patient appears in no acute distress. He coughs from time to time. Skin: Warm, dry, no pallor noted. There is no rash noted. Head: Normocephalic, atraumatic Eye: Normal conjunctiva, no drainage Ears, Nose, Mouth, and Throat: oral mucosa is moist. Nares patent. Cardiovascular: Regular Rate and Rhythm Respiratory: A few rhonchi are present. He coughs from time to time. Occasionally he seems to have some stridor. Back: non-tender GI: Obese and nontender Musculoskeletal: No calf tenderness Neurological: A&O, normal speech Psychiatric: Cooperative Constitutional Vital Signs, click to edit/add: Last Vital Signs Temp 97.8 F 10/20/23 04:20 Pulse 80 10/20/23 04:20 Resp 20 10/20/23 04:20 BP 150/88 H 10/20/23 04:00 Pulse Ox 92 L 10/20/23 04:20 O2 Del Method Nasal Cannula 10/20/23 04:20 O2 Flow Rate 2 10/20/23 04:20 Course Vital Signs Vital signs: Vital Signs Pulse Rate 95 H 10/20/23 03:23 Respiratory Rate 22 H 10/20/23 03:23 Blood Pressure 180/112 H 10/20/23 03:23 Pulse Oximetry 93 L 10/20/23 03:23 Oxygen Delivery Method Room Air 10/20/23 03:23 Temperature 97.8 F 10/20/23 04:20 Pulse Rate 80 10/20/23 04:20 Respiratory Rate 20 10/20/23 04:20 Blood Pressure 150/88 H 10/20/23 04:00 Pulse Oximetry 92 L 10/20/23 04:20 Oxygen Delivery Method Nasal Cannula 10/20/23 04:20 Oxygen Delivery Flow Rate 2 10/20/23 04:20 Medical Decision Making MDM Narrative Medical decision making narrative: The patient was given an aerosol treatment and he feels much better. Chest x- ray my interpretation shows no infiltrates and COVID was negative. His sodium however is 121 and he is being admitted. Treatment diagnosis and disposition were discussed with the patient. Differential Diagnosis Differential Diagnosis: Pneumonia, CHF, COVID Lab Data Lab results reviewed: Yes I reviewed the patient's lab results Labs: Lab Results 10/20/23 10/20/23 Range/Units 03:30 03:31 WBC 8.5 (4.0-11.0) 10^3/uL RBC 4.59 L (4.70-6.10) 10^6/uL Hgb 14.7 (14.0-18.0) g/dL Hct 43.3 (42.0-54.0) % MCV 94.3 H (80.0-94.0) fL MCH 32.0 (25.9-34.0) pg MCHC 33.9 (29.9-35.2) g/dL RDW 13.9 (11.0-15.0) % Plt Count 284 (150-450) 10^3/uL MPV 9.6 (9.5-13.5) fL Neut % (Auto) 57.2 (43.0-75.0) % Lymph % (Auto) 24.7 (20.5-60.0) % [place] % (Auto) 14.7 H (1.7-12.0) % Eos % (Auto) 2.5 (0.9-7.0) % Baso % (Auto) 0.4 (0.2-2.0) % Neut # (Auto) 4.9 (1.4-6.5) 10^3/uL Lymph # (Auto) 2.1 (1.2-3.8) 10^3/uL [place] # (Auto) 1.3 H (0.3-0.8) 10^3/uL Eos # (Auto) 0.2 (0.0-0.7) 10^3/uL Baso # (Auto) 0.0 (0.0-0.1) 10^3/uL Abs Immat Gran (auto) 0.04 H (0.00-0.03) 10^3/uL Imm/Tot Granulo (auto) 0.5 (0.0-0.5) % Sodium 121 L* (136-145) mmol/L Potassium 4.3 (3.5-5.1) mmol/L Chloride 86 L (98-107) mmol/L Carbon Dioxide 27.8 (21.0-32.0) mmol/L Anion Gap 11.5 BUN 10.0 (7.0-18.0) mg/dL Creatinine 0.79 (0.70-1.30) mg/dL Est GFR ( Amer) >60 (>=60) Est GFR (Non-Af Amer) >60 (>=60) BUN/Creatinine Ratio 12.7 Glucose 137 H (74-106) mg/dL Calcium 9.2 (8.5-10.1) mg/dL Troponin I High Sens 8.7 (4.0-76.1) pg/mL SARS-CoV-2 Ag (CV2AG) Negative (NEGATIVE) Imaging Data Chest x-ray: My impression: No acute finding ECG Data Attestation: I personally reviewed and interpreted this ECG as follows: (EKG on my interpretation shows no acute findings, right bundle branch block) Discharge Plan Discharge Chief Complaint: Shortness of Breath/Dyspnea Clinical Impression: Hyponatremia Patient Disposition: Admitted As Inpatient Time of Disposition Decision: 04:36 Condition: Fair
[2023-10-20 03:40] LABS: Basophils Percent Auto 0.4 % (0.2-2.0); Eosinophils Absolute Auto 0.2 10^3/uL (0.0-0.7); Eosinophils Percent Auto 2.5 % (0.9-7.0); Hematocrit 43.3 % (42.0-54.0); Hemoglobin 14.7 g/dL (14.0-18.0); Immature Granulocytes Abs Auto 0.04 10^3/uL (0.00-0.03); Immature Granulocytes Pct Auto 0.5 % (0.0-0.5); Lymphocytes Absolute Auto 2.1 10^3/uL (1.2-3.8); Lymphocytes Percent Auto 24.7 % (20.5-60.0); Mean Corpuscular HGB Conc 33.9 g/dL (29.9-35.2); Mean Corpuscular Volume 94.3 fL (80.0-94.0); Mean Platelet Volume 9.6 fL (9.5-13.5); Monocytes Absolute Auto 1.3 10^3/uL (0.3-0.8); Monocytes Percent Auto 14.7 % (1.7-12.0); Neutrophils Absolute Auto 4.9 10^3/uL (1.4-6.5); Neutrophils Percent Auto 57.2 % (43.0-75.0); Platelet Count 284 10^3/uL (150-450); Red Blood Count 4.59 10^6/uL (4.70-6.10); Red Cell Distribution Width 13.9 % (11.0-15.0); White Blood Count 8.5 10^3/uL (4.0-11.0)
[2023-10-20] MEDS: ALBUTEROL SULFATE 2.5 MG/3 ML VIAL NEB IH (03:47)
[2023-10-20 03:52] LABS: Internal Control Within Normal Limits; SARS-CoV-2 Ag NEGATIVE (NEGATIVE)
[2023-10-20 03:58] LABS: Anion Gap 11.5; BUN Creatinine Ratio 12.7; Calcium 9.2 mg/dL (8.5-10.1); Carbon Dioxide 27.8 mmol/L (21.0-32.0); Chloride 86 mmol/L (98-107); Estimated GFR (African America >60 (>=60); Estimated GFR (Non-African Ame >60 (>=60); Glucose 137 mg/dL (74-106); Potassium 4.3 mmol/L (3.5-5.1); Troponin I High Sensitivity 8.7 pg/mL (4.0-76.1)
[2023-10-20 04:00] LABS: Sodium 121 mmol/L (136-145)
--- OUTSIDE RECORDS SUMMARY | 2023-10-20 06:00 | XMS_ITS | CCD ---
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 Name Role Phone PHYSICIAN, DEFAULT Unavailable Unavailable PHYSICIAN, DEFAULT Unavailable Unavailable PHYSICIAN, DEFAULT Unavailable Unavailable PHYSICIAN, DEFAULT Unavailable Unavailable ESMER, DR JOHNSON Primary Care Unavailable LALI, DR LAZARO Reyes Admitting Unavailabl e LALI, DR LAZARO Reyes Attending Unavailabl e LALI, DR LAZARO Reyes Consulting Unavailabl e DEANNA BRITO Consulting Unavailable ALEX OAKLEY Primary Care Physician HAIDER JAMA Attending Unavailable ALEX OAKLEY Attending [...] day(s), # 6 tab(s), Refills(s) 0, Pharmacy: [facility]/pharmacy #[id number], 172, cm, 08/26/23 10:06:00 [...] day(s), # 10 tab(s), Refills(s) 0, Pharmacy: [facility]/pharmacy #[id number], 172, cm, 01/26/23 11:20:00 [...] qPM, # 30 cap(s), Refills(s) 11, Pharmacy: [facility]/pharmacy #[id number], 172, cm, 01/14/23 10:39:00 [...] day(s), # 30 cap(s), Refills(s) 11, Pharmacy: [facility]/pharmacy #[id number], 172, cm, 12/23/22 14:24:00 EDT, Height/Length [...] 07-08-2022 Chronic Other aftercare (1 source) Other mcc (current) drug therapy; 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 AXUWSqmu26LUb7rIx+PG hlY WQ+IO9NIJSfP54utQSbxI0t Q5ZMKBpCPdaeJGRMTGqNAqC aklBmJB7zcTUgAOTr IC8+ND0qFHHtKbdenAKyt6T 0lXK4Z14yuk5zOXmbmJH0OK AuVhYadzxdj5bchCr3FOrsF mluOyBt ZTIzsF15QTB1aQ80Mu27xWD ndMNcd5iyjTf6EiRhSQUzDZ F0gGvbOLqhr9XdIVSzA97mz BHsd1C4 KUHthZlssUUxPfWloUR9pQ5 hADgvjwumx8zelnhvUhd3ln 90rBWih5R2iSI6G1JkkiW1D GJvbGQg GlqafFPBmW0ltdllm6ncgvl rSjJpBISxQCh4BXg7TOLtzY shRhCxZV99GAN3HTUdlrLiV 2FsLWFs qIvlQwA0n9J2Gr7JQ8KRIyz jK6RBNIDFIOclcMH+PC90cj 20S5DrYoxrKtv6TDOdNTR3o JJ3fK1w ZKUwPFrgg1Q6uTG5C2CwxjR fvw1zc0wuRRBwNEcmR61erX Ohy0P5HGJsaVN4QDIhbMzdI iBzaG93 Oyc+ASXanEpef8RkQemff6i im4tfwZy0LpklLMOuxyHqmP grEJU7d4BfEg7cTZZcbQG8c BO0qE0y JvWnWcW3WQalC842HaFlhKE lCuljV71pP3RybSJ+PHRyPj y3QDPafZubPE5oA8MoKUVew mctbGVm nFqzGR8aPFBppvocENMzkU2 rSHBeC4d0PcAgLhQ6PLbeD4 YoLZVgneioGz12nP6bQdVyT bU5AQok R8PxjxI4NOAtcIZmTWxePMI 7J23rk5E3ERLhEPGzGIL1xM J8pT1wqPjinplfyCImhStkz mVydGlj IEkqZPqjJ592TEUnpBzcLcI vZGluZyBEYXRlOiAgMDYvMj UvMjAyNDwvdGQ+UIPhYHL4t WxlPSAn kOCyDNhaZd2ahHkmqCizJO9 xXOBouykvWLNqdC6xXLMrlE VyyVucZT1mGIKkmvgrm331M iAxMHB0 GDAatUIhQ0AllN3gWkFxUMX jEBAkU7WilWMwFVmlT279VL rmAeD2LRAuykOtM1KfMSAvu WduOiB0 e0Y3Wg1Cj2IycaezV8XsqKS zHaYuHotlDTj1E2ZuDcohkG I+NI02RLNrCW80EKp0BDA7n WxlPSdi FETmJ7HumH0wCmFhZEXpOWD kOyc+PHRhYmxlIHdpZHRoPS qnUBVvZdEmsGzjLO1tKz2dP GVyLWNv oOcuoZIpIwDpf7njZCXwXBn rDO6kmRmtB3RvdNI5TEEao9 o1Jp98X42lL4DedEC+PGNvb VE6lDE9 xT5hDzGwShK9RWyqQ543HaL yqZGwPnsyn2oar5xixFi4Xm J4HIKuatEtxGwvROW7w3KkO m99M87j IHdpZHRoPSIxNSUiIHZhbGl lqp3jqO9jRr5+NKHnfWI4uH B3tN1dMrFbQeX8YZvqI997E nRvcCIv Ltiut7tkz5swcLi7ThLeZPT ldcTviPlzNAT3a1HeNo58J1 SmuVzsz3TgXqd2bd17lVMhh 1Q3aLD7 R9PjNLTadcktoWZjePqzYE4 iQAMqgjrsKQKhvS5mOZJlH6 s3SvZvUcF6XAbuA2OboaC0X GJvbGQg SVEwoJCRrL2nniimy7scbdb zMnFzCPTcBWk5EIw0IIOmnX taNgSxUSA8HkF2PLH9zYDnh J3odJxb nehfzF4sIwm+EFQ9oHMeqWL IYQ2zJhrmvHR+OHPiOJZ0kR ohGAvcBMYorP0jUVZmG9t5T iAwLjA1 RUsdV8FmrlM5OMUdzDGsYVK uaDSYkR0docbwb6tpagihDh OvRLAbXDd2ADa6CFGcbQpgK iBsZWZ0 GvA1QUU3uURhtK8btWlkjia ebO6pGkh+JwtqoQzsWPD5EF l5M5PyLlk5PADnoXhxBW0co GFkZGlu Og7hkTperWfoFH3oTAOltlv jm550TnHsq3bsMANciMKcYY jgMLC1H26vk4O4EQJdEQQfR PO9kUU1 vA0fzWcuvzekgUXirTbgipE biUwbGDppZZyvH767PKPcgU ogPjXaKEc8L6YjQcq9XDMri VpzYX1n mZYfAVdrDp6psYagfJhdZF0 iWXKbzpgpy688EfCbh4ygJP QxwDFrCClmDOT4O21eq6B8D CMwMDAw ZYD9pDY3oA4qgPewapsubYZ mdDsgdmVydGljYWwtYWxpZ2 31PKJmcYiqLoPafPs1T8VzC ip6RHZw mXihUJ8viTUlCZbxWs8rdIe iwWvtOW4bVMOvlmxax807Zr Twu0tdMXKmzAUxDBpvAGT5I 19pm1N0 IUQuRSMjLEO3gAW6lD0azRi nbjogbGVmdDsgdmVydGljYW obHNrjN694NWHsyBqjPeBsj GllbnQg ITejWSp1O4JxTfgbaRU+PC9 3JMStZD38lQQboMYlz2devJ c2ElEsJEWnIOH8iNyhNDwlo 3JkZXIt Q94uhTKrl8B6WJOowQnajKM jWlBjoAO2mY0qOIzwlpmyj1 fxrelfNccmt3vdat74tC62G 29sIHdp ZHRoPSIzMCUiIHZhbGlnbj0 ekH6pTt2+PXGalEH0fFA0cW 0lFOFvXzA3CUeyO429UdRgq CIvPjxj h7mqo5ljxOs6DcR7XAZbuhK vbHoxJJB3c5SkVv05B82tHO dpZHRoPSIyMCUiIHZhbGlnb g8dpK6h Ii8+CZTwfFN0bDG4mA2vWfX tGtC0JLooZ357ZmEwfAHgGw liT84oK7BdmHZ+VFPkThs2O CBzdHls OT8yeMItCCsdQy8jWXL9InR eBuLrCBddK8GaQWTmkqlncu qhcLO3UWPqKRUbtP99Qi0ip DogMTBw lLTHaW4ctqhng1ucnardGxL pXYPhBZc6HYn2CCOizZsnWx SuEHY9QfM3WKZ6dTGfkS7vr Glnbjog bE1hR6ZjKKFuefwcYa57fT7 jShDsPqG9UZboNqe+TEVHRy wgREFWSUQgUDwvdGQ+PHRkI BW7tPfh RJjwYNRtsC8wEZJtI3i8LqC dXoJ2SUfkX0CnPSZbkbpqQt 49sB2eDiTnHaN7BYwqS5Ffj gK6TVOe mZFuBGifLNJ2Q62ca1O4SCG pTMMsUJV5uHX9tF4erRbapq ogbGVmdDsgdmVydGljYWwtY NqcC621 NMTabZjxNvM0NbD7SpO2TNS 1K7HcMox1GTUmsEmmHJ2xlH KiEWsiVk4mfVxtiHnpTY8bK TBpbjtw ORYxwJ2sGDJkuWNedGxoWS2 iDWNrdupkh342HeQmYHU5IL EtdPZdP5AffE8lXjQzZFXkM SStF0Bu mIMiJRblU002LDueHuO2DAB zraYlJ7UnTPYkgLteOzA2c3 P0Hh72KyNFRVLuipqqqNG+P HRkIHN0 kIucPHxpJNUfkL4dFQYtF3n 9XlGuMeU9NBiqW7ThHFOaba xrCu83qP0mVqZhNsC7JDlkE 3DlztZ5 SXBflDVcCIabMYS5L44ed1G 0OGGbGWCiWSI3pBE6aO3blA lnbjogbGVmdDsgdmVydGljY WwtYWxp E291KGMplQpeLp4awEV5V1O fInr2TDWvzEluSY7zeAAzKH bwTc0waAlvoCmfCG3eHWCno jtwYWRk aD5eRYYitBCgiMmtAR1eWZW nlgyts340LiUaEZG7RJXluK AnR9XhgK3sCgDkXTCcBCRzY 3RleHQt MBqhE843NMqcAaF1RRGsmtI zF3KfWWXykLamHsT6x1I2Pb 4QyFRcEWYfHF93JO80WO67K 3RyPjwv dGFibGU+PHRhYmxlIHdpZHR kPEfwYZNoEjBjcMnyWH9zJe 9yZGVyLWNvbGxhcHNlOiBjb 2xsYXBz QBvvND1nmPvuA4JthHB9JMW qi2c7Zs16K93xK1JvmMX+PG OjvFF0uOW5aO1sCjZaIvB5L HluI429 BaDxzREaXzrmk6dwi9rxyZt 4UnKtAZAnwkJriZywFXK1i0 VnEm46E05kREmaZNHtMLDpA CUiIHZh kEauue7ytH7jQo9+PGNvbCB 0vIF4yE5nXzTcDnG5NVjyH2 34UwWhjRIeGprlM94eD5Rhm XA+PHRy Kpw8OUSdvYirKY4xtYQkZDs lBc0eRFH2NoGvVpOjSXacP8 LoXWWfnvpffrkqlUI4MFFnH DUwaW47 Ss1miPozRy5aRUFdUVV8FWU xvHKsO6DtnL4bSvXiTPIvPG TrB6OcsVEoXMetD255CPefC lE3ZSWb umZxE9XvBARjpKclOrL3j5G 2Ir6PsPdagYNwJC1jDrViPS d6V8UpLgy5PDSzkBcsWK6qs GFkZGlu Xr5cxOvqdBgzKW8yRRNvwdn gl861GlFyf4dyZKGfuEZoXL qzTFQ3K40xv7E0WGNrBEUjI ZD2tGN0 tY7wpCozmnmvtDKevGhzwzV ejOnyNFgcYPseU525EWAdtT lwRfKQQwo5N1PmMqi7YNSbc MhvGP4a dJAfHLmfYg0nxOmqeUmuMF5 vIVCqgpjqq261PrZga1lgUK WkyTYvKIytRXX5J43sb0I8F CMwMDAw MJO3fKF3pK8mbGxmjzxxsRZ mdDsgdmVydGljYWwtYWxpZ2 50EPKijQdsQj6UTwt4E9OlQ sc3ZTYx nRccOO4qfCWhEUphXg1fdBj oqQwmCT4dWQYynhtzy372Tu Ysg9deYKIvuINdFNssNSD4E 04pj4H9 ZBNvXGXyJOW0rTZ2zM9zaUx nbjogbGVmdDsgdmVydGljYW ksKUlfP701DXTivChtPfCkv WVyOjwv dGQ+JW73xp00O0UgBobwAjb 9CMMoDWZ2kGI0iW9eWIEzUX rvb5D7vYE8S9TifoHmoe0fm 2xsYXBz RPerW37eqIBft (more content not included)... Normal [facility] Consent for Procedure/Surger yon 09-14-2023 Consent for Procedure/Surgery [id number]#1.00 TIFF Normal [facility] Consent for Treatmenton 08-22 Consent for Treatment [id number]#1.00T IFF Normal 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 symptoms; OAB (overactive bladder) Problems Active Hydrocele Epididymo-orchitis Retention of urine Gross hematuria Urinary retention UTI symptoms BPH without obstruction/lower urinary tract symptoms Nocturia Weak urine stream BPH with urinary obstruction Prostatitis Urinary frequency Urinary urgency Dysuria Post-void dribbling Hx of mcc use of blood thinners Microhematuria BMI 40.0-44.9, [...] Cystoscopy with Botox Injection Discharge Instructions (CUSTOM) [facility] IntraOperative Documentson 0 09-14-2023 IntraOperative Documents [id number]#1.00 TIFF [facility] Main OR Intraoperative Recor don 09-14-2023 Main OR Intraoperative Record IntraOp Document Type FTURO Summary Primary Physician: Gianna Romero MD Finalized Date/Time: 09/14/23 10:53:09 Pt. Name: SALVADOR BARRIENTOS Katey Garcia/Sex: 1940 Male Med Rec #: [id number] Physician: Gianna Romero MD Financial #: [id number] Pt. Type: O Room/Bed: / Admit/Disch: 09/14/23 08:54:46 - Institution: Case Times FTURO Entry 1 Patient Times In Room 09/14/23 10:36:00 Out Room 09/14/23 10:52:00 Procedure Times Start 09/14/23 10:43:00 Stop 09/14/23 10:46:00 Anesthesia Times Last Modified By: Rowan Lino 09/14/23 10:52:32 General Comments: BOTOX EXP: AND LOT: [id number] 100 UNITS.CARL ALFARO. Case Attendance FTURO Entry 1 Entry 2 Entry 3 Case Attendee Gianna Romero MD, Kelsie E McClain [facility] Role Performed Surgeon - Primary Electronics Engineering Manager - Primary Scrub - Primary Time In [...] 09/14/23 10:52 Rowan Lino 09/14/23 10:[address] [facility] Main OR Preoperative Recordo n 09-14-2023 Main OR Preoperative Record Holding Area Document Type FTURO Summary Primary Physician: Gianna Romero MD Finalized Date/Time: 09/14/23 10:27:41 Pt. Name: SALVADOR BARRIENTOS/Sex: 1940 Male Med Rec #: [id number] Physician: Gianna Romero MD Financial #: [id number] Pt. Type: O Room/Bed: / Admit/Disch: 09/14/23 [...] Complaints of Pain: No Skin Integrity Intact, [place], Warm, & Dry Vitals - EU Blood Pressure 190/85 Pulse 80 bpm Respirations 20 br/min SPO2 94 % Additional Other (See Comment) Specimens Comment UA obtained Specimens Collected RN Reviewed Yes Last Modified By: Rowan Lino 09/14/23 10:27:37 Finalized By: Rowan Lino Document Signatures Signed By: Lisa Booth LPN 09/14/23 09:49 Rowan Lino 09/14/23 10:27 Rowan Lino 09/14/23 10:[address] [facility] Outpatient Surgery Discharge Instructionon 09-14-2023 Outpatient Surgery Discharge Instruction [id number]#1.00 TIFF Normal [facility] Outpatient Surgery Discharge Instruction [address] [address] Patient Discharge Instructions PERSON INFORMATION [...] Date You may receive a survey from [employer] asking you to rate your care experience. Your feedback is important and will help us understand what we do well and how we can improve the quality of care we provide to you, your loved ones and our community. It?s an honor to serve you. Thank you for choosing [facility] Normal [facility] Progress Note-Physicianon Progress Note-Physician Patient: SALVADOR BARRIENTOS Age: 83 years Sex: Male : 1940 Associated Diagnoses: None Author: Nick VASQUEZ, Gianna Johnson Procedure Operative Information Details: Date/ Time: 09/14/2023 10:50:00. Pre-Op Dx: OAB (overactive bladder) ([id number]-BW N32.81, Discharge, Medical). Post-Op Dx: Same. Anesthesia [...] Follow up in 2 weeks with PVR. [facility] Comment on above: Result Comment: Elec [...] Locations R1: This test was performed at: [facility], [address] [place] [address], [address]- , , [facility] Comment on above: Performed By: #### [id number] #### [facility] Laboratory [address] [place] [address] Performed By: #### [id number] ####[facility] [address] [place] [address] [place] 08-28-2023 Screens [id number]#1.00T IFF Normal [facility] Screens [id number]#1.00T IFF Normal [place] [facility] Patient Educationon 08-26-19 24 Patient Education Urology [...] including vitamins, herbs, eye drops, creams, and urjp-hsx-viiwaxp medicines. ? Any problems you or family [...] tells you to take them. ? Taking cmbj-qpe-djumijf medicines, vitamins, herbs, and supplements. General instructions [...] these instructions at home: Medicines ? Take xrjg-rmd-oiapuxq and prescription medicines only as told by [...] ca (more content not included)... Normal [place] Urology Office/Clinic Noteon 08-26-2023 Urology Office/Clinic Note [...] retention 4. Epididymo-orchitis (N45.3: Epididymo-orchitis) Presented to [facility] ER 01/27/23 due to pain in groin area. Pt was given cefdinir 300mg bid x10d due to having an infection as UA showed small blood and small leuks. Scrotal US 01/27/23 [facility] - thickening of R scrotal wall. R epididymoorchitis with reactive medium septated hydrocele. [1] No longer has pain or bother. -Cont sx monitoring 5. Hydrocele (N43.3: Hydrocele, unspecified) Scrotal US 01/27/23 [facility] - R epididymoorchitis with reactive medium septated [...] 0, Pharma (more content not included)... Normal [facility] Comment on above: Result Comment: Elec tronically Signed By: Gianna Romero MD\.br\Date and Time Signed: 08/26/23 11:32 EDT\.br\Electronically Co-Signed By: Dot Oakley\.br\Date and Time Co-Signed: 08/26/23 11:15 EDT ED Note-Physicianon 02-26-20 ED Note-Physician [id number]#1.00T IFF Normal [facility] RAD - Ultrasound Reporton RAD - Ultrasound Report [id number]#1.00T IFF Normal [facility] Ambulatory Visit Summaryon 1 04-27-2022 Ambulatory Visit Summary SALVADOR BARRIENTOS :1940 Visit Date:02/24/2023 Ambulatory Visit Instructions Your Diagnosis BPH with urinary obstruction Epididymo-orchitis Hydrocele Tests Performed Urnls Dip Stick Auto w/o Microscopy POC [id number] Your Care Team Attending Physician - THERESE [...] VASQUEZ, Gianna Johnson Where: [facility] Patient Education 02-25-20 Patient Education Urology [...] Follow these instructions at home: ? Take ciao-zwr-hrsxtbu and prescription medicines only as told by [...] the medicine (more content not included)... Normal [facility] Urology Office/Clinic Noteon 02-24-2023 Urology [...] At time of Cysto KML prescribed Levaquin n55oqtl due to orchitis. Denies pain/burning & blood. [...] PVR 2. Epididymo-orchitis (N45.3: Epididymo-orchitis) Presented to [facility] ER 01/27/23 due to pain in groin area. Pt was given cefdinir 300mg bid x10d due to having an infection as UA showed small blood and small leuks. Scrotal US 01/27/23 [facility] - thickening of R scrotal wall. R epididymoorchitis with reactive medium septated hydrocele. Reports the swelling has improved and is no longer bothersome. Denies scrotal pain. No indication for tx at this time. 3. Hydrocele (N43.3: Hydrocele, unspecified) See #2. 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 Normal [facility] Comment on above: Result Comment: Elec tronically Signed By: THERESE CRUMP PA-C\.br\Date and Time Signed: 02/24/23 14:00 EST\.br\Electronically Co-Signed By: Dot Oakley\.br\Date and Time Co-Signed: 02/24/23 13:32 EST Consent for Procedure/Surger yon 01-26-2023 Consent for Procedure/Surgery [id number]#1.00 TIFF [facility] Consent for Treatmenton Consent for Treatment [id number]#1.00T IFF [facility] Inpatient Patient Summaryon 01-26-2023 Inpatient Patient Summary [place] [address] Clinical Summary Person Information Name: SALVADOR BARRIENTOS Age: 82 Years : 1940 Sex: Male PCP: ALEX OAKLEY MD Marital Status: Race: White Ethnicity: Non- or Language: Burundian Visit Id: Visit Reason: URINARY RETENTION, URINARY FREQUENCY, BPH WITH LUTS Speciality: Acuity: Enc Type: Outpatient Med Service: Surgery Arrival: 01/26/2023 09:27:18 Discharge: Dispo Type: Address: [address] [place] [phone] Provider Notes: Diagnosis: Acute orchitis; OAB (overactive bladder) Problems Active Retention of urine Gross hematuria Urinary retention UTI symptoms BPH without obstruction/lower urinary tract symptoms Nocturia Weak urine stream BPH with urinary obstruction Prostatitis Urinary frequency Urinary urgency Dysuria Post-void dribbling Hx of mcc use of blood thinners Microhematuria BMI 40.0-44.9, [...] Location Start [place] [facility]:00 PM 02/24/2023 1:15 PM Confirmed Patient Education Information: EU - Cystoscopy Discharge Instructions (CUSTOM) [facility] IntraOperative Documentson 1 03-28-2022 IntraOperative Documents [id number]#1.00 TIFF Devyn Melara [facility] Main OR Preoperative Recordo n 01-26-2023 Main OR Preoperative Record Holding Area Document Type FTURO Summary Primary Physician: Gianna Romero MD Finalized Date/Time: 01/26/23 11:57:44 Pt. Name: SALVADOR BARRIENTOS Katey Garcia/Sex: 1940 Male Med Rec #: [id number] Physician: Gianna Romero MD Financial #: [id number] Pt. Type: O Room/Bed: / Admit/Disch: 01/26/23 [...] Complaints of Pain: No Skin Integrity Intact, [place], Warm, & Dry Vitals - EU Blood Pressure 116/75 Pulse 98 bpm Respirations 24 br/min SPO2 98 % RN Reviewed Yes Last Modified By: JERED Fields RN, Ruthann 01/26/23 11:57:42 General Comments: Temp 36.4 , patient states he is having problems bleeding Finalized By: JERED Fields RN, Ruthann Document Signatures Signed By: Hilda Montilla LPN 01/26/23 11:17 JERED Fields RN, Ruthann 01/26/23 11:57 [facility] Operative Reporton 3 Operative Report Patient: SALVADOR BARRIENTOS Age: 82 years Sex: Male : 1940 Associated Diagnoses: None Author: Gianna Romero MD Procedure Operative Information Details: Date/ Time: 01/26/2023 12:17:00. Pre-Op Dx: Feeling of incomplete bladder emptying ([id number]-XJ R39.14, Billing Diagnosis, Medical), OAB (overactive bladder) (TZS61-BN N32.81, Discharge, Medical). Post-Op Dx: Same. Anesthesia [...] orchitis treatment to ensure resolved. . Normal [facility] Comment on above: Result Comment: Elec tronically Signed By: Gianna Romero MD\.br\Date and Time Signed: 01/26/23 12:23 EST Outpatient Surgery Discharge Instructionon 01-26-2023 Outpatient Surgery Discharge Instruction [id number]#1.00 TIFF Normal [facility] Outpatient Surgery Discharge Instruction [place] [id number] Patient Discharge Instructions PERSON INFORMATION Name: SALVADOR [...] 2-3 weeks with PVR Type Location Start [facility] [place] [facility] [place] 02/24/2023 1:00 PM 02/24/2023 1:15 PM Confirmed [...] Date You may receive a survey from [employer] asking you to rate your care experience. Your feedback is important and will help us understand what we do well and how we can improve the quality of care we provide to you, your loved ones and our community. It?s an honor to serve you. Thank you for choosing [facility] Normal [facility] Progress Note-Physicianon Progress Note-Physician Patient: [...] day(s), # 10 tab(s), Refills(s) 0, Pharmacy: [facility]/pharmacy #[id number], 172, cm, 01/26/23 11:20:00 EST, Height/Length Dosing, 120, kg, 01/14/23 10:39:00 EDT, Weight Dosing tamsulosin 0.4 mg Cap: 0.4 mg = 1 cap(s), Oral, qPM, # 30 cap(s), Refills(s) 11, Pharmacy: [facility]/pharmacy #[id number], 172, cm, 01/14/23 10:39:00 [...] Plan Assessment and Plan: Diagnosis: Acute orchitis (RRF63-SP N45.2, Discharge, Medical), Feeling of incomplete bladder emptying (DJW95-MQ R39.14, Billing Diagnosis, Medical), OAB (overactive bladder) (VWM87-ON N32.81, Discharge, Medical). 82 yo M prior [...] of retention given his inappropriate sensations. Normal [facility] Comment on above: Result Comment: Elec tronically Signed By: Nick VASQUEZ, Gianna Mustafa.br\Date and Time Signed: 01/26/23 12:31 EST ED Note-Physicianon 01-22-20 ED Note-Physician [id number]#1.00T IFF Normal [facility] Consultation Noteon 01-16-20 Consultation Note [id number]#1.0 0TIFF [facility] Screenson 01-15-2023 Screens [id number] 004 [id number]#1.0 0TIFF [facility] Screens [id number]#1.00TI FF Normal [facility] ED Note-Physicianon 01-15-20 ED Note-Physician [id number] 002 [id number]#1.00T IFF Normal [facility] Lab Reportson 01-14-2023 Lab Reports [id number] 002 [id number]#1.00T IFF Normal [facility] Urology Office/Clinic Noteon 01-14-2023 Urology [...] Pseudomonas Pt was given Cefdinir 300mg BID [id number]. Pt is a poor historian. Unsure what medications he has taken/finished. Several messages in pt's chart stating that pt had called c/o inability to Urinate Pt then went to [facility] ER visit on 01/06/23 due to difficulty urinating, pt stated he had not been able to void for 2 days, cath was placed. BUN 8, Crea 0.81. Pt then returned to [facility] ER 01/09/23 due to blood in [...] after starting trospium Pt then went to [facility] ER visit on 01/06/23 due to difficulty urinating, pt stated he had not been able to void for 2 days, cath was placed, BUN 8, Crea 0.81. (output unknown). Pt then returned to [facility] ER 01/09/23 due to blood in [...] -PVR 1- (more content not included)... Normal [facility] Comment on above: Result Comment: [...] Locations R1: This test was performed at: [facility], [address] [place] [address], [id number] , [place], [facility] Comment on above: Performed By: #### 2 [id number] #### [facility] [address] [place] [address] Lab Reportson 12-24-2022 Lab Reports [id number]#1.00 CD:127 [facility] Lab Reports [id number]#1.00 CD:127 [facility] Screenson 12-24-2022 Screens [id number]#1.00C D:127 [facility] Ambulatory Visit Summaryon 1 Ambulatory Visit Summary YAELSALVADOR Reyes Katey :1940 Visit Date:12/23/2022 Ambulatory Visit Instructions Your Diagnosis Urinary frequency BPH without obstruction/lower urinary tract symptoms Microhematuria Tests Performed Urnls Dip Stick Auto w/o Microscopy POC 29452 Your Care Team Attending Physician - THERESE [...] NASCIMENTO, THERESE Pardo Where: [facility] Sulma Normal [facility] Patient Educationon 12-24-19 23 Patient [...] keep your urine pale yellow. ? Take ggpt-xok-hzetkeo or prescription medicines. ? Eat foods that are high in fiber, such as beans, whole grains, and fresh fruits and vegetables. ? Limit foods that are high in fat and processed sugars, such as fried or sweet foods. General instructions ? Take apzf-pod-fhxvdmn and prescription medicines only as told by [...] muscles that help control urination. ? Take mmfm-wag-xuevxia and prescription medicines only as told by your health care provider. ? Contact a health care provider if your symptoms do not improve or get worse. This information is not intended to replace advice given to you by your health care provider. Make sure you discuss any questions you have with your health care provider. Document Revised: 10/12/2020 Document Reviewed: 10/12/2020 [employer] Patient Education ? 2022 [employer] Normal [facility] URINALYSISOrdered By: Jhon Flores on [...] PM) Normal Negative [facility] UA Auto SS [place].plasma/Lithiu m.RBC (Bld) [Mass ratio] 0-3 /HPF Normal [...] Random Urine (12/23/22 2:54 PM) Normal [facility] [place] Auto SS Urobilinogen Qn (U) 0.6378178 {Pb'U}/dL Normal 0.0 - 1.0 EU/dL FT UA Auto SS WBC Auto Ql (U) Negative (12/23/22 2:54 PM) Normal Negative FT UA Auto SS WBC LM.HPF (Urine sed) [#/Area] 0-5 /HPF Normal 0-5/HPF [facility] [place] Auto SS Urinalysison 12-23-2022 Bacteria LM Ql (Urine sed) TRACE Normal Trace [facility] Comment on above: Performed By: #### 1 [id number] ####[facility] [address] [place] [address] Bilirubin Ql (U) Negative Normal Negative [facility] Comment on above: Performed By: #### 1 [id number] ####[facility] [address] [place] [address] Clarity (U) CLEAR Normal Clear [facility] Comment on above: Performed By: #### 1 [id number] ####[facility] [address] [place] [address] Color (U) YELLOW Normal Yellow [facility] Comment on above: Performed By: #### 1 [id number] ####[facility] [address] [place] [address] Epithelial cells.squamous LM.HPF (Urine sed) [#/Area] 0-2 Normal 0-[address] [facility] Comment on above: Performed By: #### 1 [id number] ####[facility] [address] [place] [address] Glucose Test strip (U) [Mass/Vol] Negative Normal Negative [facility] Comment on above: Performed By: #### 1 [id number] ####[facility] [address] [place] [address] Hemoglobin Ql (U) TRACE Abnormal Negative [facility] Comment on above: Performed By: #### 1 [id number] ####[address] [address] Ketones (U) [Mass/Vol] Negative Normal Negative [facility] Comment on above: Performed By: #### 1 [id number] ####[facility] [address] [place] [address] [place].plasma/Lithiu m.RBC (Bld) [Mass ratio] 0-3 Normal 0-[address] [facility] Comment on above: Performed By: #### 1 [id number] ####[facility] [address] [place] [address] Nitrite Ql (U) Positive Abnormal Negative [facility] Comment on above: Performed By: #### 1 [id number] ####[facility] [address] [place] [address] pH (U) 7.0 [pH] Invalid Interpretation Code 5.0-9.[address] [facility] Comment on above: Performed By: #### 1 [id number] ####[facility] [address] [place] [address] Protein (U) [Mass/Vol] Negative Normal Negative [facility] Comment on above: Performed By: #### 1 [id number] ####[address] [address] Specific gravity (U) [Rel density] 1.010 Invalid Interpretation Code 1.005-1.[address] [facility] Comment on above: Performed By: #### 1 [id number] ####[facility] [address] [place] [address] Type of Urine collection method Random Urine Normal [facility] Comment on above: Performed By: #### 1 [id number] ####[facility] [address] [place] [id number] Urobilinogen Qn (U) 0.2 {Pb'U}/dL Normal 0.0-1.[address] [facility] Comment on above: Performed By: #### 1 [id number] ####[facility] [address] [place] [address] WBC Auto Ql (U) Negative Normal Negative [facility] Comment on above: Performed By: #### 1 [id number] ####[place] [id number] WBC LM.HPF (Urine sed) [#/Area] 0-5 Normal 0-[address] [facility] Comment on above: Performed By: #### 1 [id number] ####[place] [id number] Urology Office/Clinic Noteon 12-23-2022 Urology Office/Clinic Note [...] pill) Little amounts at a time. Voiding [id number]. Getting up q1hr through the night. No [...] E&M of Est. Patient Moderate 30-39 Min 08560 Urinalysis Urine Culture 2. BPH without obstruction/lower [...] E&M of Est. Patient Moderate 30-39 Min 20219 3. Microhematuria (R31.29: Other microscopic hematuria) UA [...] day(s), # 30 cap(s), Refills(s) 11, Pharmacy: [facility]/pharmacy #[id number], 172, cm, 12/23/22 14:24:00 EDT, Height/Length Dosing, 120, kg, 12/23/22 14:24:00 EDT, Weight (more content not included)... Normal [facility] Comment on above: Result Comment: Elec tronically Signed By: THERESE CRUMP PA-C\.br\Date and Time Signed: 12/23/22 15:03 EDT\.br\Electronically Co-Signed By: Dot Oakley\.br\Date and Time Co-Signed: 12/23/22 14:57 EDT Vital Signs Date Time Vital Sign Value Performing Clinician Facility 10-01-2023 13:14-0400 Blood Pressure Location [facility] 10-01-2023 13:14-0400 Body temperature 97.88 [degF] Janay Orzech [facility] 10-01-2023 13:14-0400 Diastolic blood pressure 88 mm[Hg] Janay Orzech [facility] 10-01-2023 13:14-0400 Heart rate 83 /min [employer] [facility] 10-01-2023 13:14-0400 Respiratory rate 16 /min Janay Orzech [facility] 10-01-2023 13:14-0400 Systolic blood pressure 160 mm[Hg] Janay Orzech [facility] 08-26-2023 10:05-0400 Blood Pressure Location Gianna Romero [facility] 08-26-2023 10:05-0400 Body temperature 97.7 [degF] Gianna Lue [facility] 08-26-2023 10:05-0400 Diastolic blood pressure 84 mm[Hg] Gianna Lue [facility] 08-26-2023 10:05-0400 Heart rate 88 /min Gianna Lue [facility] 08-26-2023 10:05-0400 Systolic blood pressure 130 mm[Hg] Gianna Lue [facility] 02-24-2023 12:51-0500 Blood Pressure Location THERESE THERON [facility] 02-24-2023 12:51-0500 Diastolic blood pressure 84 mm[Hg] THERESE THERON [facility] 02-24-2023 12:51-0500 Heart rate 80 /min THERESE THERON [facility] 02-24-2023 12:51-0500 Systolic blood pressure 138 mm[Hg] THERESE THERON [facility] 01-14-2023 10:37-0400 Blood Pressure Location Gianna Lue [facility] 01-14-2023 10:37-0400 Diastolic blood pressure 80 mm[Hg] Gianna Lue [facility] 01-14-2023 10:37-0400 Heart rate 68 /min Gianna Lue [facility] 01-14-2023 10:37-0400 Respiratory rate 16 /min Gianna Lue [facility] 01-14-2023 10:37-0400 Systolic blood pressure 130 mm[Hg] Gianna Lue [facility] 12-23-2022 14:21-0400 Blood Pressure Location THERESE THERON [facility] 12-23-2022 14:21-0400 Diastolic blood pressure 79 mm[Hg] THERESE THERON [facility] 12-23-2022 14:21-0400 Heart rate 69 /min THERESE THERON [facility] 12-23-2022 14:21-0400 Respiratory rate 16 /min THERESE THERON [facility] 12-23-2022 14:21-0400 Systolic blood pressure 128 mm[Hg] THERESE THERON [facility] Encounters Encounter Date Encounter Type Care Provider Facility Start: 10-01-2023 End: 10-01-2023 Patient encounter procedure Janay X Orzech [facility] Start: 09-30-2023 ambulatory Gianna Romero Facility:[facility] Start: 09-30-2023 End: 09-30-2023 Patient encounter procedure Gianna Romero [facility] Start: 09-14-2023 End: 09-14-2023 ambulatory Gianna Romero [place] Start: 09-14-2023 End: 09-14-2023 Patient encounter procedure Gianna Romero [facility] Start: 08-26-2023 End: 08-26-2023 ambulatory Gianna Romero [place] Start: 08-26-2023 End: 08-26-2023 Lab Drop off Gianna Romero [facility] Start: 08-26-2023 End: 08-26-2023 ambulatory Gianna Romero Facility:[facility] Start: 08-26-2023 End: 08-26-2023 Patient encounter procedure Gianna Romero [facility] Start: 07-01-2023 End: 07-01-2023 ambulatory ALEX B OAKLEY Not Available Start: 06-15-2023 End: 06-15-2023 ambulatory ALEX B OAKLEY Not Available Start: 06-09-2023 End: 06-09-2023 ambulatory HAIDER A WILEY Not Available Start: 02-24-2023 End: 02-24-2023 ambulatory THEREES CRUMP Facility:[facility] Start: 02-24-2023 End: 02-24-2023 Patient encounter procedure THERESE CRUMP [facility] Start: 02-11-2023 End: 02-11-2023 ambulatory ALEX B OAKLEY Not Available Start: 02-10-2023 End: 02-10-2023 ambulatory THERESE CRUMP Facility:[facility] Start: 02-10-2023 End: 02-10-2023 Patient encounter procedure THERESE CRUMP [facility] Start: 01-26-2023 End: 01-26-2023 ambulatory Gianna Johnson Lue [place] Start: 01-26-2023 End: 01-26-2023 Patient encounter procedure Gianna Romero [facility] Start: 01-21-2023 ambulatory Gianna M. Lue Facility:[facility] Start: 01-14-2023 End: 01-14-2023 ambulatory Gianna M. Lue Facility:[facility] Start: 01-14-2023 End: 01-14-2023 Patient encounter procedure [facility] Cosme. [facility] Start: 12-23-2022 End: 12-23-2022 Lab Drop off THERESE CRUMP [facility] Start: 12-23-2022 End: 12-23-2022 ambulatory THERESE CRUMP [place] Start: 12-23-2022 End: 12-23-2022 Patient encounter procedure THERESE CRUMP [facility] Start: 07-06-2022 End: 07-06-[address] ALEX OAKLEY Facility: Start: 08-25-2017 End: 08-26-2017 Ambulatory DEFAULT PHYSICIAN Facility:[facility] Start: 08-19-2017 End: 08-20-2017 Ambulatory DEFAULT PHYSICIAN Facility:[facility] Procedures Date Procedure Procedure Detail Performing Clinician Start: 01-26-2023 Transurethral cystoscopy Gianna Romero Start: 01-26-2023 Transurethral cystoscopy THERESE CRUMP Start: 01-26-2023 Urodynamic studies CANED CRUMP Start: 05-21-2020 Transurethral prostatectomy THERESE CRUMP [...] unspecified formulation Gianna Romero [facility] 12-02-2021 influenza virus vaccine, unspecified formulation Gianna Romero [facility] 12-02-2021 SARS-CoV-2 (COVID-19 ) [id number] Gianna Romero [facility] 07-11-2021 zoster vaccine recombinant Gianna Romero [facility] 06-20-2021 SARS-CoV-2 mRNA (htgqtpbefjb-ksyn-klvdd se) vaccine Gianna Romero [facility] 04-09-2021 zoster vaccine recombinant Gianna Lue [facility] 01-30-2021 influenza virus vaccine, unspecified formulation Gianna Lue [facility] 12-15-2020 SARS-CoV-2 (COVID-19 ) mRNA BNT-162b2 vax Gianna Lue [facility] Comment on above: Result Comment: 2022: [id number] 05-15-2020 SARS-CoV-2 (COVID-19 ) mRNA BNT-162b2 vax Gianna Lue [facility] Comment on above: Result Comment: 2022: [id number] 04-24-2020 SARS-CoV-2 (COVID-19 ) mRNA BNT-162b2 vax THERESE CRUMP [facility] 01-04-2020 influenza virus vaccine, unspecified formulation Gianna Lue [facility] 01-25-2019 influenza virus vaccine, unspecified formulation Gianna Lue [facility] 12-21-2018 influenza virus vaccine, live, attenuated, for intranasal use THERESE WYLIERY [facility] 01-11-2018 influenza virus vaccine, unspecified formulation Gianna Lue [facility] 12-11-2016 influenza virus vaccine, unspecified formulation Gianna Lue [facility] 05-24-2015 pneumococcal conjuga te vaccine, 13 valent Gianna Seemaarmani [facility] Payers Date Payer Category Payer Medicare [id number] 1959 Unknown [id number] 1940 Unknown [id number] 2.16.84 0.1.231550.3.579.2.593 1940 Unknown [id number] 2.16.84 0.1.666450.3.579.2.1259 1940 Unknown [id number] 2.16.84 0.1.483907.3.579.2.125 1940 Unknown [id number] 2.16.84 0.1.523966.3.579.2.1259 1940 Unknown [id number] 2.16.840 .1.665895.3.579.2.125 1940 Unknown [id number] 2.16.8 40.1.492392.3.579.2.727 1940 Unknown [id number] 2.16.8 40.1.378721.3.579.2.727 1940 Unknown [id number] 2.16.8 40.1.713064.3.579.2.727 1940 Unknown [id number] 2.16.8 40.1.814515.3.579.2.727 1940 Unknown [id number] 2.16.8 40.1.628915.3.579.2.727 1940 Unknown [id number] 2.16.8 40.1.021192.3.579.2.72 1940 Unknown [id number] 2.16.8 40.1.476284.3.579.2.727 1940 Unknown [id number] 2.16.8 40.1.239515.3.579.2.72 1940 Unknown [id number] 2.16.8 40.1.786339.3.579.2.727 1940 Unknown [id number] 2.16.8 40.1.044740.3.579.2.727 1940 Unknown [id number] 2.16.8 40.1.364616.3.579.2.727 Unknown Social History Date Type Detail Facility Start: 12-23-2022 End: 10-01-2023 Tobacco smoking status Never smoked tobacco (finding) [facility] Tobacco smoking status Never [facility] Sex Assigned At Male [facility] Functional Status Date Assessment Result Facility 10-01-2023 Functional Status N/A [facility] 09-14-2023 Functional Status N/A [facility] 08-26-2023 Functional Status N/A [facility] 02-24-2023 Functional Status N/A [facility] 01-26-2023 Functional Status N/A [facility] 01-14-2023 Functional Status N/A [facility] 12-23-2022 Functional Status N/A [facility] Clinical Notes 07-06-2022 to 10-01-2023 Note [...] your health care provider. General instructions Take pbdu-jfw-wmahlqh and prescription medicines only as told by [...] provider. Document Revised: 11/26/2020 Document Reviewed: 11/26/2020 [employer] Patient Education 2022 [employer] Follow Up Care 09/30/2023 08:22:37 With:ROMULO Vera APRN, ADAN Chou, URL Address: When: Unknown [facility] Ti 09-14-2023 Hospital Discharge instructions Patient [...] follow up in 2 weeks with P[facility] 09-14-2023 Note [id number]#1.00TIFF [facility] 09-14-2023 Note Cystoscopy with Boto [...] you have a fever over [address] [facility] 08-26-2023 Hospital Discharge instructions Patient [...] including vitamins, herbs, eye drops, creams, and vftb-zre-qjuyjkv medicines. Any problems you or family members [...] provider tells you to take them. Taking zxnl-byl-yobebou medicines, vitamins, herbs, and supplements. General instructions [...] Follow these instructions at home: Medicines Take vfak-wpv-zymyluo and prescription medicines only as told by [...] provider. Document Revised: 09/13/2021 Document Reviewed: 09/13/2021 [employer] Patient Education 2022 [employer]. Follow Up Care 02/24/2023 13:31:49 With:Nick VASQUEZ, BLANK Garza, URO Address: [address] [place] [phone] When: Unknown [facility] 02-25-2023 Note [id number]#1.00TICOF [facility] 02-24-2023 Hospital Discharge instructions Patient [...] urethra. Follow these instructions at home: Take nvpt-ghu-evrqwac and prescription medicines only as told by [...] provider. Document Revised: 09/25/2021 Document Reviewed: 09/25/2021 [employer] Patient Education 2022 [employer]. Follow Up Care 12/23/2022 14:53:34 With:Nick VASQUEZ, BLANK Garza, URO Address: [address] [place] [phone] When: Unknown Comments:6 mos w/ PVR [facility] 01-26-2023 Hospital Discharge instructions Patient Education [...] follow up in 2-3 weeks with [facility] 01-26-2023 Evaluation + Plan note Extrac tomy from: Title:[facility] - Clinic HOPD Note Author:Nick VASQUEZ, Gianna Cosme. Date:01/26/23 Impression and Plan Assessment and Plan: Diagnosis: Acute orchitis (PMS43-XO N45.2, Discharge, Medical), Feeling of incomplete bladder emptying (POH40-UM R39.14, Billing Diagnosis, Medical), OAB (overactive bladder) ([id number] N32.81, Discharge, Medical). 82 yo M prior [...] Date:02/10/2023 09:30:00 AM Scheduled Provider:THERESE CRUMP PA-C Location:[facility] Appointment Type:URO Office Visit Appointment Date:02/24/2023 01:00:00 PM Scheduled Provider:THERESE CRUMP PA-C Location:[facility] Appointment Type:URO Office Visit [facility]11-06-2023 Note [id number][facility] NoteCystoscopy ? Voiding after the procedure: [...] if you have a fever over [address] 01-07-2023 Hospital Discharge instructions Follow Up Care 01/07/2023 08:28:45 With:Nick VASQUEZ, Gianna M., URL, URO Address: When:Within 1 Month(s) Comments:pending fill and pull.f/u with WILBERTO or NAVEEN [facility] 10-03-2023 Hospital Discharge instructions Patient Education [...] to keep your urine pale yellow. ?Take hufa-dos-zfoekee or prescription medicines. ?Eat foods that are high in fiber, such as beans, whole grains, and fresh fruits and vegetables. ?Limit foods that are high in fat and processed sugars, such as fried or sweet foods. General instructions Take wywi-piu-poagsbi and prescription medicines only as told by [...] the muscles that help control urination. Take xwcd-shz-ksboxmi and prescription medicines only as told by your health care provider. Contact a health care provider if your symptoms do not improve or get worse. This information is not intended to replace advice given to you by your health care provider. Make sure you discuss any questions you have with your health care provider. Document Revised: 10/12/2020 Document Reviewed: 10/12/2020 [employer] Patient Education 2022 [employer]. Follow Up Care 12/15/2022 09:46:05 With:THERESE CRUMP PA-C, URL Address: [address] [place] [address] [address] [place] [address] [phone] When: Unknown [facility] 04-16-2023 NotePROCEDURE: XR WRIST LT MIN [...] Electronically authenticated by: DEANNA BRITO Date: 2022-07-06 [facility] App[facility]ments Appointment Date:02/24/2023 01:00:00 PM Scheduled Provider:THERESE CRUMP PA-C Location:[facility] Appointment Type:URO Office Visit [facility] evaluation + Plan note Future Appointments Appointment Date:02/24/2023 01:00:00 PM Scheduled Provider:THERESE CRUMP PA-C Location:[facility] Appointment Type:URO Office Visit Diagnostic Tests Pending * [facility] App[facility]ments Appointment Date:01/21/2023 11:00:00 AM Scheduled Provider: Location:[facility] Appointment Type:URO Nurse Visit Appointment Date:02/24/2023 01:00:00 PM Scheduled Provider:THERESE CRUMP PA-C Location:[facility] Appointment Type:URO Office Visit [facility] evaluation + Plan note Future Appointments Appointment Date:08/26/2023 10:00:00 AM Scheduled Provider:Gianna Romero MD Location:[facility] Appointment Type:URO Office Visit [facility] evaluation + Plan note Future Appointments Appointment Date:09/10/2023 10:30:00 AM Scheduled Provider: Location:[facility] Appointment Type:Urology CALL PAT FT Appointment Date:09/14/2023 11:15:00 AM Scheduled Provider: Location:[facility] Appointment Type:Urology FT [facility] evaluation + Plan note Future Appointments Appointment Date:09/10/2023 10:30:00 AM Scheduled Provider: Location:[facility] Appointment Type:Urology CALL PAT FT Appointment Date:09/14/2023 11:15:00 AM Scheduled Provider: Location:[facility] Appointment Type:Urology FT Diagnostic Tests Pending * [facility]rine [facility] Future App[facility]ments Appointment Date:09/30/2023 09:30:00 AM Scheduled Provider:Gianna Romero MD Location:[facility] Appointment Type:[facility]O [facility] Future Appointments Appointment Date:10/01/2023 01:00:00 PM Scheduled Provider:ROMULO Vera APRN, [place] X Location:[facility] Appointment Type:URO Office Visit [facility] Hospital course Narrative No data available for this section [facility] Hospital Discharge instructions No data available for this section [facility] No data available for this section [facility] Summary Purpose Family History No Family [...] section and content) DATE CREATED AUTHOR 09/08/2017 [facility] DATE CREATED AUTHOR AUTHOR'S ORGANIZ ATION [facility] DATE CREATED AUTHOR AUTHOR'S ORGANIZ ATION 07/02/2023 [facility] DATE CREATED AUTHOR AUTHOR'S ORGANIZ ATION 08/30/2023 [facility] DATE CREATED AUTHOR AUTHOR'S ORGANIZ ATION 09/28/2023 [facility] Patient Care team informatio n (unrecognized section and content) Personnel Name: ALEX OAKLEY MD Address: Address: [address] [place] [address] Personnel Name: ALEX OAKLEY MD Address: Address: [address] [place] [address] Personnel Name: ALEX OAKLEY MD Address: Address: [address] [place] [address] Personnel Name: ALEX OAKLEY MD Address: Address: [address] [place] [address] Personnel Name: ALEX OAKLEY MD Address: Address: [address] [place] [address] Personnel Name: ALEX OAKLEY MD Address: Address: [address] [place] [address] Personnel Name: ALEX OAKLEY MD Address: Address: [address] [place] [address] Personnel Name: ALEX OAKLEY MD Address: Address: [address] [place] [address] Personnel Name: ALEX OAKLEY MD Address: Address: [address] [place] [address] Personnel Name: ALEX OAKLEY MD Address: Address: [address] [place] [address] Personnel Name: ALEX OAKLEY MD Address: Address: [address] [place] [address] FOR RECORDS PERTAINING TO PATIENTS WHO ARE [...] BE BASED ON THE PRIMARY CLINICAL RECORDS. [employer] provides no warranty or guarantee of the accuracy or completeness of information in this document.
[2023-10-20 06:49] LABS: Basophils Percent Auto 0.2 % (0.2-2.0); Eosinophils Absolute Auto 0.1 10^3/uL (0.0-0.7); Eosinophils Percent Auto 1.1 % (0.9-7.0); Hematocrit 41.8 % (42.0-54.0); Hemoglobin 14.2 g/dL (14.0-18.0); Immature Granulocytes Abs Auto 0.05 10^3/uL (0.00-0.03); Immature Granulocytes Pct Auto 0.5 % (0.0-0.5); Lymphocytes Absolute Auto 0.9 10^3/uL (1.2-3.8); Lymphocytes Percent Auto 9.1 % (20.5-60.0); Mean Corpuscular Hemoglobin 32.3 pg (25.9-34.0); Mean Platelet Volume 9.5 fL (9.5-13.5); Monocytes Absolute Auto 1.1 10^3/uL (0.3-0.8); Monocytes Percent Auto 11.6 % (1.7-12.0); Neutrophils Absolute Auto 7.2 10^3/uL (1.4-6.5); Neutrophils Percent Auto 77.5 % (43.0-75.0); Platelet Count 255 10^3/uL (150-450); Red Cell Distribution Width 13.9 % (11.0-15.0); White Blood Count 9.3 10^3/uL (4.0-11.0)
[2023-10-20 06:58] LABS: INR 0.97; Prothrombin Time 10.3 sec (9.0-11.6)
[2023-10-20 07:02] LABS: Alanine Aminotransferase 24 U/L (16-63); Albumin Globulin Ratio 1.1; Albumin Level 3.8 g/dL (3.4-5.0); Alkaline Phosphatase 78 U/L (46-116); Aspartate Amino Transferase 17 U/L (15-37); BUN Creatinine Ratio 11.2; Bilirubin Total 0.6 mg/dL (0.2-1.0); Calcium 9.2 mg/dL (8.5-10.1); Chloride 87 mmol/L (98-107); Estimated GFR (African America >60 (>=60); Estimated GFR (Non-African Ame >60 (>=60); Globulin 3.5 g/dL; Glucose 129 mg/dL (74-106); Magnesium 1.6 mg/dL (1.8-2.4); Phosphorus 3.4 mg/dL (2.6-4.7); Potassium 4.2 mmol/L (3.5-5.1); Sodium 125 mmol/L (136-145); Total Protein 7.3 g/dL (6.4-8.2)
[2023-10-20 07:09] LABS: Anion Gap 10.9; Carbon Dioxide 31.3 mmol/L (21.0-32.0)
--- NOTE | 2023-10-20 10:43 | CM.NOTE ---
Rounds made with Dr. Mitchell. Dr. Micthell explains plan of care and need to adjust/change BP medications. Mr. Das in agreement.
[2023-10-20 10:54] LABS: Thyroid Stimulating Hormone 3.406 uIU/mL (0.358-3.740)
--- NOTE | 2023-10-20 10:56 | P.HP_ITS ---
HPI H&P: HPI History of Present Illness Chief complaint: COUGH/SOB Narrative: 83-year-old male presented to ER last night with cough, chest congestion and phlegm in his throat. He denies fever, shortness of breath, chest pain, fatigue, malaise. Upon workup, he was found to have severe hyponatremia with serum sodium of 121. Workup also revealed left basilar infiltrate. He has no evidence of respiratory distress and is comfortable on room air. He however has audible wheezing and productive cough was also noted during physical exam. Patient is currently on hydrochlorothiazide for high blood pressure and previously had low serum sodium last year. Patient was admitted overnight for inpatient treatment of community-acquired pneumonia and severe hyponatremia as he will require close neurological monitoring and treatment of hyponatremia. He is anticipated to stay for more than 2 midnights as serum sodium cannot be corrected by more than 8 mEq over 24 hours. Patient reports feeling the same as he presented to ER last night and has not noticed any improvement in his cough or chest congestion. Opioid HPI Opioid Management Most Recent Pain and Opioid Data: Last Pain Scale 3 01/14/23 13:57 Last Pain Assessment 10/20/23 10:24 Last ORT Total Score 0 10/20/23 06:32 Last ORT Risk Category Low Risk 10/20/23 06:32 Review of Systems ROS Status of ROS 10 or more systems reviewed and unremark able except as noted in history and below [facility] Medical History (Updated 10/20/23 @ 11:02 by Shaikh Stephen MD) HTN (hypertension) ?I10 - Essential (primary) hypertension (ICD-10) OAB (overactive bladder) ?N32.81 - Overactive bladder (ICD-10) Hyperlipidemia ?E78.5 - Hyperlipidemia, unspecified (ICD-10) Hematuria ?R31.9 - Hematuria, unspecified (ICD-10) History of urinary retention ?Z87.898 - Personal history of other specified conditions (ICD-10) Difficulty urinating ?R39.198 - Other difficulties with micturition (ICD-10) Surgical History (Updated 01/27/23 @ 15:29 by Therese Cardenas LPN) History of knee surgery ?Z98.890 - Other specified postprocedural states (ICD-10) Social History (Updated 01/27/23 @ 15:30 by Therese Cardenas LPN) Smoking status: Never smoker Second hand tobacco smoke exposure: No Non-prescribed substance use: denies use 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 Known occupational exposures/hazards: No Highest level of school completed/degree received: high school graduate Do you want help with school or training: No Are you now , , , , never or living with a partner: In a typical week, how many times do you talk on the telephone with family, friends, or neighbors: twice per week How often do you get together with friends or relatives: twice per week How often do you attend pentecostalism or temple services: never Do you belong to any clubs or organizations such as pentecostalism groups unions, [employer] or athletic groups, or school groups: no Total score: 2 Score interpretation: A score of greater than or equal to 2 indicates the lowest level of social isolation. Little interest or pleasure in doing things: not at all Feeling down, depressed, or hopeless: not at all Feel stressed/tense/nervous/anxious/difficulty sleeping: not at all Due to disability, difficulty making decisions: No Do you think of yourself as: straight/heterosexual Gender Identity: male Meds Home Medications and Allergies Home Medications ?Medication ?Instructions ?Recorded ?Confirmed ?Type lisinopril 20 1 tab PO Q24H 01/06/23 10/20/23 History mg-hydrochlorothiazide 25 mg tablet simvastatin 40 mg tablet 40 mg PO Q24H 01/06/23 10/20/23 History Allergies Allergy/AdvReac Type Severity Reaction Status Date / Time No Known Drug Allergies Allergy Verified 10/20/23 03:23 Exam Constitutional Vital Signs, click to edit/add: Last Vital Signs Temp 97.9 F 10/20/23 08:00 Pulse 78 10/20/23 08:00 Resp 18 10/20/23 08:00 BP 150/78 H 10/20/23 08:00 Pulse Ox 91 L 10/20/23 08:00 O2 Del Method Room Air 10/20/23 08:00 O2 Flow Rate 2 10/20/23 04:20 Documenting provider has reviewed patient's vital signs: yes Common normals: no apparent distress and oriented x3 General appearance: cooperative Respiratory Common normals: normal respiratory effort and no use of accessory muscles Effort & inspection: able to speak in complete sentences Auscultation: wheezes expiratory wheezes and throughout Cardio Common normals: regular rate, S1 normal heart sound and S2 normal heart sound Rate: regular rate Heart sounds: S1 normal and S2 normal GI Common normals: Normal to inspection, nondistended, normoactive bowel sounds present, soft to palpation, non-tender and no hepatosplenomegaly Palpation: soft and no hepatosplenomegaly Extremity Common normals: no clubbing, cyanosis or edema Neuro Common normals: oriented x3, moves all extremities and no focal motor deficits Psych Common normals: mental status grossly normal, denies hallucinations, denies homicidal ideation and denies suicidal ideation Results Labs Labs: Short CBC 10/20/23 10/20/23 Range/Units 03:30 06:35 WBC 8.5 9.3 (4.0-11.0) 10^3/uL Hgb 14.7 14.2 (14.0-18.0) g/dL Hct 43.3 41.8 L (42.0-54.0) % Plt Count 284 255 (150-450) 10^3/uL BMP 10/20/23 10/20/23 03:30 06:35 Sodium 121 L* 125 L Potassium 4.3 4.2 Chloride 86 L 87 L Carbon Dioxide 27.8 31.3 BUN 10.0 9.0 Creatinine 0.79 0.80 Glucose 137 H 129 H Calcium 9.2 9.2 Liver Function 10/20/23 Range/Units 06:35 Total Bilirubin 0.6 (0.2-1.0) mg/dL AST 17 (15-37) U/L ALT 24 (16-63) U/L Alkaline Phosphatase 78 (46-116) U/L Albumin 3.8 (3.4-5.0) g/dL Assessment and Plan Assessment and Plan (1) Hyponatremia: Assessment and Plan: Presented with serum sodium of 121. Likely because of hydrochlorothiazide. On gentle IV hydration. Currently on normal saline at 75/h. Check BMP at noon. Ordered urine creatinine, urine osmolarity, urine sodium. Check TSH. Hold hydrochlorothiazide. (2) HTN (hypertension): Assessment and Plan: Continue with lisinopril. Hold hydrochlorothiazide. He might need different antihypertensive based on his blood pressure readings in the hospital. Monitor blood pressure for now. IV hydralazine as needed. Qualifiers: Hypertension type: primary hypertension Qualified Code(s): I10 - Essential (primary) hypertension (3) CAP (community acquired pneumonia): Assessment and Plan: Left lower lobe infiltrate with cough, wheezing. Will start patient on IV Rocephin and azithromycin. He will also benefit from inhaled bronchodilators. Added Mucinex to help with chest congestion. Will also add oral prednisone to help with bronchospasm and wheezing. Qualifiers: Laterality: left Lung location: lower lobe of lung Qualified Code(s): J18.9 - Pneumonia, unspecified organism (4) Hyperlipidemia: Assessment and Plan: Continue with statin. Monitor LFTs. Qualifiers: Hyperlipidemia type: other hyperlipidemia Qualified Code(s): E78.49 - Other hyperlipidemia
[2023-10-20] MEDS: CEFTRIAXONE 1,000 MG in 0.9 % SODIUM CHLORIDE 50 ML 100 MG IV (11:16)
[2023-10-20] MEDS: LISINOPRIL 20 MG TABLET PO (11:16)
[2023-10-20] MEDS: IPRATROPIUM/ALBUTEROL SULFATE 3 ML AMPUL.NEB IH ×3 (11:16→23:20)
[2023-10-20] MEDS: AZITHROMYCIN 250 MG TABLET 500 MG PO (11:16)
[2023-10-20] MEDS: PREDNISONE 20 MG TABLET 40 MG PO (11:16)
[2023-10-20] MEDS: 0.9 % SODIUM CHLORIDE 1,000 ML 75 ML IV (11:16)
[2023-10-20] MEDS: GUAIFENESIN 600 MG TAB.ER.12H PO ×2 (11:16→20:45)
--- NOTE | 2023-10-20 12:00 | SWNOTE1 ---
SW met with pt to discuss dc needs. Pt lives at home with his . Pt is independent in the room and is independent with ADL's. Pt does still drive and go to the grocery store. Pt has no anticipated discharge needs. SW to follow as needed. Important Message from Medicare reviewed and discussed with patient. Pt. verbalized understanding and signed the form. Original given to patient and copy placed in patient?s chart.
[2023-10-20 12:20] LABS: Anion Gap 12.1; BUN Creatinine Ratio 13.9; Calcium 9.1 mg/dL (8.5-10.1); Carbon Dioxide 29.5 mmol/L (21.0-32.0); Chloride 88 mmol/L (98-107); Estimated GFR (African America >60 (>=60); Estimated GFR (Non-African Ame >60 (>=60); Glucose 118 mg/dL (74-106); Potassium 4.6 mmol/L (3.5-5.1); Sodium 125 mmol/L (136-145)
[2023-10-20 17:38] LABS: Anion Gap 10.6; BUN Creatinine Ratio 15.7; Chloride 87 mmol/L (98-107); Estimated GFR (African America >60 (>=60); Estimated GFR (Non-African Ame >60 (>=60); Glucose 141 mg/dL (74-106); Potassium 4.6 mmol/L (3.5-5.1)
[2023-10-20 18:28] LABS: Sodium 120 mmol/L (136-145)
[2023-10-20] MEDS: ATORVASTATIN CALCIUM 20 MG TABLET PO (20:45)
[2023-10-21] VITALS (8 sets, daily range): BP systolic 104–143; BP diastolic 63–74; PULSE 71–93; TEMP 36.3–36.8; O2SAT 89–95
[2023-10-21] MEDS: 0.9 % SODIUM CHLORIDE 1,000 ML 75 ML IV (01:20)
[2023-10-21] MEDS: IPRATROPIUM/ALBUTEROL SULFATE 3 ML AMPUL.NEB IH ×4 (04:05→22:34)
[2023-10-21 06:19] LABS: Hematocrit 38.1 % (42.0-54.0); Hemoglobin 12.8 g/dL (14.0-18.0); Mean Corpuscular HGB Conc 33.6 g/dL (29.9-35.2); Mean Corpuscular Hemoglobin 31.7 pg (25.9-34.0); Mean Corpuscular Volume 94.3 fL (80.0-94.0); Mean Platelet Volume 9.8 fL (9.5-13.5); Platelet Count 271 10^3/uL (150-450); Red Blood Count 4.04 10^6/uL (4.70-6.10); Red Cell Distribution Width 13.8 % (11.0-15.0); White Blood Count 7.9 10^3/uL (4.0-11.0)
[2023-10-21 06:31] LABS: Alanine Aminotransferase 19 U/L (16-63); Albumin Globulin Ratio 0.9; Albumin Level 3.2 g/dL (3.4-5.0); Alkaline Phosphatase 66 U/L (46-116); Anion Gap 8.7; Aspartate Amino Transferase 14 U/L (15-37); BUN Creatinine Ratio 18.8; Bilirubin Total 0.5 mg/dL (0.2-1.0); Calcium 8.8 mg/dL (8.5-10.1); Carbon Dioxide 28.3 mmol/L (21.0-32.0); Chloride 90 mmol/L (98-107); Estimated GFR (African America >60 (>=60); Estimated GFR (Non-African Ame >60 (>=60); Globulin 3.4 g/dL; Glucose 119 mg/dL (74-106); Total Protein 6.6 g/dL (6.4-8.2)
[2023-10-21 06:39] LABS: Sodium 123 mmol/L (136-145)
[2023-10-21 07:29] LABS: Lymphocytes Absolute Manual 1.73 10^3/uL (1.20-3.80); Monocytes Absolute Manual 1.58 10^3/uL (0.30-0.80); Segmented Neut Absolute Manual 4.58 10^3/uL (1.4-6.5)
[2023-10-21] MEDS: AZITHROMYCIN 250 MG TABLET 500 MG PO (09:42)
[2023-10-21] MEDS: LISINOPRIL 20 MG TABLET PO (09:42)
[2023-10-21] MEDS: PREDNISONE 20 MG TABLET 40 MG PO (09:42)
[2023-10-21] MEDS: GUAIFENESIN 600 MG TAB.ER.12H PO ×2 (09:42→20:59)
[2023-10-21] MEDS: ATORVASTATIN CALCIUM 20 MG TABLET PO (09:43)
[2023-10-21] MEDS: CEFTRIAXONE 1,000 MG in 0.9 % SODIUM CHLORIDE 50 ML 100 MG IV (09:43)
--- NOTE | 2023-10-21 10:15 | P.IMPN_ITS ---
Progress Note: A&P Assessment and Plan (1) Hyponatremia: Assessment and Plan: No improvement. Urine studies pending. Stop IVF. Ordered oral NaCl and fluid restriction. Closely monitor Serum sodium. (2) HTN (hypertension): Assessment and Plan: BP at goal with lisinopril. C/w same. Hold HCTZ. Qualifiers: Hypertension type: primary hypertension Qualified Code(s): I10 - Essential (primary) hypertension (3) CAP (community acquired pneumonia): Assessment and Plan: Doing well and feel better than yesterday. C/w Abx. Qualifiers: Laterality: left Lung location: lower lobe of lung Qualified Code(s): J18.9 - Pneumonia, unspecified organism (4) Hyperlipidemia: Assessment and Plan: C/w statin Qualifiers: Hyperlipidemia type: other hyperlipidemia Qualified Code(s): E78.49 - Other hyperlipidemia Plan Monitor serum sodium closely. Monitor urine chemistries. Needs continued inp atient treatment/monitoring for severe hyponatremia. Internal Medicine - PN: Subj Subjective Interval history: Seen and examined. Doing well. Cough and chest congestion has improved. Serum sodium is still quite low and not improved much Exam Constitutional Vital Signs, click to edit/add: Last Vital Signs Temp 98.1 F 10/21/23 07:45 Pulse 71 10/21/23 07:45 Resp 18 10/21/23 07:45 BP 127/72 10/21/23 07:45 Pulse Ox 89 L 10/21/23 07:45 O2 Del Method Room Air 10/21/23 07:45 O2 Flow Rate 2 10/20/23 04:20 Documenting provider has reviewed patient's vital signs: yes Common normals: no apparent distress and oriented x3 General appearance: cooperative Respiratory Common normals: normal respiratory effort, no use of accessory muscles and clear to auscultation bilaterally Effort & inspection: able to speak in complete sentences Cardio Common normals: regular rate, S1 normal heart sound and S2 normal heart sound Rate: regular rate Heart sounds: S1 normal and S2 normal Extremity Common normals: no clubbing, cyanosis or edema Neuro Common normals: oriented x3, moves all extremities and no focal motor deficits Psych Common normals: mental status grossly normal, denies hallucinations, denies homicidal ideation and denies suicidal ideation Internal Medicine - PN: Obj Da Labs Labs: Laboratory Results - last 24 hr 10/20/23 10/20/23 10/20/23 03:30 11:45 17:06 WBC RBC Hgb Hct MCV MCH MCHC RDW Plt Count MPV Seg Neuts % (Manual) Lymphocytes % (Manual) Monocytes % (Manual) Eosinophils % (Manual) Basophils % (Manual) Neutrophils # (Manual) Lymphocytes # (Manual) Monocytes # (Manual) Eosinophils # (Manual) Basophils # (Manual) Sodium 125 L 120 L* Potassium 4.6 4.6 Chloride 88 L 87 L Carbon Dioxide 29.5 27.0 Anion Gap 12.1 10.6 BUN 10.0 11.0 Creatinine 0.72 0.70 Est GFR ( Amer) >60 >60 Est GFR (Non-Af Amer) >60 >60 BUN/Creatinine Ratio 13.9 15.7 Glucose 118 H 141 H Calcium 9.1 9.0 Total Bilirubin AST ALT Alkaline Phosphatase Total Protein Albumin Globulin Albumin/Globulin Ratio TSH 3.406 10/21/23 05:13 WBC 7.9 RBC 4.04 L Hgb 12.8 L Hct 38.1 L MCV 94.3 H MCH 31.7 MCHC 33.6 RDW 13.8 Plt Count 271 MPV 9.8 Seg Neuts % (Manual) 58.0 Lymphocytes % (Manual) 22.0 Monocytes % (Manual) 20.0 H Eosinophils % (Manual) 0.0 L Basophils % (Manual) 0.0 L Neutrophils # (Manual) 4.58 Lymphocytes # (Manual) 1.73 Monocytes # (Manual) 1.58 H Eosinophils # (Manual) 0.00 Basophils # (Manual) 0.00 Sodium 123 L* Potassium 4.0 Chloride 90 L Carbon Dioxide 28.3 Anion Gap 8.7 BUN 15.0 Creatinine 0.80 Est GFR ( Amer) >60 Est GFR (Non-Af Amer) >60 BUN/Creatinine Ratio 18.8 Glucose 119 H Calcium 8.8 Total Bilirubin 0.5 AST 14 L ALT 19 Alkaline Phosphatase 66 Total Protein 6.6 Albumin 3.2 L Globulin 3.4 Albumin/Globulin Ratio 0.9 TSH
--- NOTE | 2023-10-21 10:30 | CM.NOTE ---
Rounds made with Dr. Mitchell. Dr. Mitchell discussed plan of care and not ready for discharge yet due to continued low sodium. Lance verbalized understanding. No discharge today.
[2023-10-21 11:31] LABS: Creatinine Urine Random 101.35 mg/dL (20.00-300.00); Sodium Urine Random 29 mmol/L (30-90)
[2023-10-21] MEDS: SODIUM CHLORIDE 1,000 MG TABLET 1000 MG PO ×2 (13:57→21:00)
[2023-10-21 18:19] LABS: Anion Gap 15.6; BUN Creatinine Ratio 17.9; Calcium 8.8 mg/dL (8.5-10.1); Chloride 92 mmol/L (98-107); Estimated GFR (African America >60 (>=60); Estimated GFR (Non-African Ame >60 (>=60); Glucose 197 mg/dL (74-106); Potassium 4.6 mmol/L (3.5-5.1); Sodium 127 mmol/L (136-145)
[2023-10-22 04:45] VITALS: PULSE 81; O2SAT 92
[2023-10-22] MEDS: IPRATROPIUM/ALBUTEROL SULFATE 3 ML AMPUL.NEB IH (04:45)
[2023-10-22 04:54] VITALS: BP 144/86; PULSE 81; TEMP 36.7; O2SAT 92
[2023-10-22] MEDS: SODIUM CHLORIDE 1,000 MG TABLET 1000 MG PO (05:39)
[2023-10-22 06:07] LABS: Basophils Percent Auto 0.1 % (0.2-2.0); Eosinophils Percent Auto 0.2 % (0.9-7.0); Hematocrit 37.7 % (42.0-54.0); Hemoglobin 12.7 g/dL (14.0-18.0); Immature Granulocytes Abs Auto 0.05 10^3/uL (0.00-0.03); Immature Granulocytes Pct Auto 0.6 % (0.0-0.5); Lymphocytes Absolute Auto 1.2 10^3/uL (1.2-3.8); Lymphocytes Percent Auto 14.6 % (20.5-60.0); Mean Corpuscular HGB Conc 33.7 g/dL (29.9-35.2); Mean Corpuscular Hemoglobin 31.9 pg (25.9-34.0); Mean Corpuscular Volume 94.7 fL (80.0-94.0); Mean Platelet Volume 9.7 fL (9.5-13.5); Monocytes Absolute Auto 1.2 10^3/uL (0.3-0.8); Monocytes Percent Auto 14.5 % (1.7-12.0); Neutrophils Absolute Auto 5.7 10^3/uL (1.4-6.5); Platelet Count 285 10^3/uL (150-450); Red Blood Count 3.98 10^6/uL (4.70-6.10); White Blood Count 8.2 10^3/uL (4.0-11.0)
[2023-10-22 06:23] LABS: Alanine Aminotransferase 21 U/L (16-63); Albumin Level 3.2 g/dL (3.4-5.0); Alkaline Phosphatase 58 U/L (46-116); Anion Gap 10.6; Aspartate Amino Transferase 17 U/L (15-37); BUN Creatinine Ratio 16.4; Bilirubin Total 0.4 mg/dL (0.2-1.0); Calcium 8.7 mg/dL (8.5-10.1); Carbon Dioxide 30.5 mmol/L (21.0-32.0); Chloride 94 mmol/L (98-107); Estimated GFR (African America >60 (>=60); Estimated GFR (Non-African Ame >60 (>=60); Globulin 3.1 g/dL; Glucose 114 mg/dL (74-106); Potassium 4.1 mmol/L (3.5-5.1); Sodium 131 mmol/L (136-145); Total Protein 6.3 g/dL (6.4-8.2)
[2023-10-22] MEDS: PREDNISONE 20 MG TABLET 40 MG PO (08:00)
[2023-10-22] MEDS: ATORVASTATIN CALCIUM 20 MG TABLET PO (08:00)
[2023-10-22] MEDS: LISINOPRIL 20 MG TABLET PO (08:00)
[2023-10-22] MEDS: CEFTRIAXONE 1,000 MG in 0.9 % SODIUM CHLORIDE 50 ML 100 MG IV (08:00)
[2023-10-22] MEDS: GUAIFENESIN 600 MG TAB.ER.12H PO (08:00)
[2023-10-22] MEDS: AZITHROMYCIN 250 MG TABLET 500 MG PO (08:00)
--- NOTE | 2023-10-22 09:56 | PM.DS1 ---
DS: Providers Provider Date of admission: 10/20/23 05:58 Primary care physician: ALEX LYMAN Admitting clinician: Shaikh Stephen Attending physician on admission: Shaikh Stephen Consults: 10/20/23 10:23 Occupational Therapy Eval and Treat Routine Reason for consultation: Ambulatory dysfunction/weakness Physical Therapy Eval and Treat Routine Reason for consultation: Ambulatory dysfunction/weakness Attending physician on discharge: Shaikh Stephen Discharging clinician: Shaikh Stephen Anticipated date of discharge: 10/22/23 DS: Diagnosis Discharge Diagnosis (1) Hyponatremia: Assessment and plan: close to normal now with fluid restriction/oral salt tablets. Likely due to HCTZ and possibly SIADH Will discharge on oral salt tabs, fluid restriction 1500 ml/day (2) HTN (hypertension): Assessment and plan: At goal. C/w lisinopril. Hold HCTZ. Monitor and follow up as outpatient. Qualifiers: Hypertension type: primary hypertension Qualified Code(s): I10 - Essential (primary) hypertension (3) CAP (community acquired pneumonia): Assessment and plan: Will discharge on oral Levaquin x 5 days Qualifiers: Laterality: left Lung location: lower lobe of lung Qualified Code(s): J18.9 - Pneumonia, unspecified organism (4) Hyperlipidemia: Assessment and plan: C/w statin Qualifiers: Hyperlipidemia type: other hyperlipidemia Qualified Code(s): E78.49 - Other hyperlipidemia DS: Summary Hospital Course Hospital Course: 83-year-old male presented to ER with cough, chest congestion and phlegm in his throat. Upon workup, he was found to have severe hyponatremia with serum sodium of 121. Workup also revealed left basilar infiltrate. Patient was on hydrochlorothiazide for high blood pressure and previously had low serum sodium last year. Patient was admitted for treatment for PNA and hyponatremia. His HCTZ was withheld. He was treated with normal saline for hyponatremia with no improvement in his serum sodium. Fluids were then stopped, he was placed on fluid restriction and salt tablets. He had gradual improvement in his serum sodium and today its 131 (almost normal). Patient was instructed to stop using HCTZ. C/w fluid restriction and salt tablets. For his pneumonia, he was treated with rocephin/azithromycin. Patient is stable for discharge medically. Will need f/u BMP in 3 days. Instructed to f/u with PCP in 1-2 weeks. Status at Discharge Functional status at discharge: independent ambulation Overall status at discharge: patient is back to baseline Time Spent with Patient Time attestation: Total time spent providing and/or coordinating discharge services: Time spent: greater than 30 minutes Exam Constitutional Vital Signs, click to edit/add: Last Vital Signs Temp 98.1 F 10/22/23 04:54 Pulse 81 10/22/23 04:54 Resp 18 10/22/23 04:54 BP 144/86 H 10/22/23 04:54 Pulse Ox 92 L 10/22/23 04:54 O2 Del Method Room Air 10/22/23 04:54 O2 Flow Rate 2 10/20/23 04:20 Documenting provider has reviewed patient's vital signs: yes Common normals: no apparent distress and oriented x3 General appearance: cooperative Respiratory Common normals: normal respiratory effort, no use of accessory muscles and clear to auscultation bilaterally Effort & inspection: able to speak in complete sentences Cardio Common normals: regular rate, S1 normal heart sound and S2 normal heart sound Rate: regular rate Heart sounds: S1 normal and S2 normal Extremity Common normals: no clubbing, cyanosis or edema Neuro Common normals: oriented x3, moves all extremities and no focal motor deficits Psych Common normals: mental status grossly normal, denies hallucinations, denies homicidal ideation and denies suicidal ideation DS: Data Data Completed and Pending Labs on day of discharge: Labs from last 24 hours 10/22/23 10/21/23 10/21/23 05:39 18:00 10:52 WBC 8.2 RBC 3.98 L Hgb 12.7 L Hct 37.7 L MCV 94.7 H MCH 31.9 MCHC 33.7 RDW 14.0 Plt Count 285 MPV 9.7 Neut % (Auto) 70.0 Lymph % (Auto) 14.6 L [place] % (Auto) 14.5 H Eos % (Auto) 0.2 L Baso % (Auto) 0.1 L Neut # (Auto) 5.7 Lymph # (Auto) 1.2 [place] # (Auto) 1.2 H Eos # (Auto) 0.0 Baso # (Auto) 0.0 Abs Immat Gran (auto) 0.05 H Imm/Tot Granulo (auto) 0.6 H Sodium 131 L 127 L Potassium 4.1 4.6 Chloride 94 L 92 L Carbon Dioxide 30.5 24.0 Anion Gap 10.6 15.6 BUN 12.0 17.0 Creatinine 0.73 0.95 Est GFR ( Amer) >60 >60 Est GFR (Non-Af Amer) >60 >60 BUN/Creatinine Ratio 16.4 17.9 Glucose 114 H 197 H Calcium 8.7 8.8 Total Bilirubin 0.4 AST 17 ALT 21 Alkaline Phosphatase 58 Total Protein 6.3 L Albumin 3.2 L Globulin 3.1 Albumin/Globulin Ratio 1.0 Ur Random Creatinine 101.35 Ur Random Sodium 29 L Discharge Plan Discharge Disposition: Home, Self-Care Condition: Fair Discharge Medications: New lisinopril 20 mg tablet 20 mg PO DAILY Qty: 30 0RF sodium chloride 1,000 mg tablet,soluble 1,000 mg PO TID Qty: 90 0RF Continued simvastatin 40 mg tablet 40 mg PO Q24H Discontinued lisinopril-hydrochlorothiazide 20-25 mg tablet 1 tab PO Q24H Activity: increase activity as tolerated Diet: advance to your usual diet Print Language: Kazakh Patient Instructions: Pneumonia (DC) Forms: Portal Instructions Follow Up Appointments: Follow up Dr Lyman/ Alyssa Lopez N.P. Oct 25@ 11:30
--- NOTE | 2023-10-22 10:18 | CM.NOTE ---
Rounds made with Dr. Mitchell. Plan for discharge to home today. New scripts to be called to [facility]. Mr. Das verbalizes understanding.
[2023-10-23 00:07] LABS: Osmolality, Urine 532 mOsmol/kg (.)
--- NOTE | 2023-10-26 13:24 | CM.DCFOLLOWU ---
Person spoke with: patient How are you feeling? well How is your pain? none Did you understand your discharge instructions? yes Do you have any questions about your discharge instructions? no Were you given any prescriptions at discharge? yes Were you able to get your prescriptions filled? yes Do you understand how to take your medications as ordered? yes Do you have any questions about your follow up appointment and do you plan to keep your follow up appointment? no questions, follow up was today Is there anything else that you would like to discuss? no Questions/Comments/Concerns/Other: none
== END 2023-10-22 10:49 | disposition home or self-care (01) | DRG 640 ==
LOC: ER 04:36 → MS 05:59
PROVIDERS: Registered Nurse; Admitting Provider Internal Medicine; Emergency Provider Emergency Medicine; PCP Internal Medicine; Visit Provider Internal Medicine
DX: E87.1 Hypo-osmolality and hyponatremia (principal); J18.9 Pneumonia, unspecified organism; I10 Essential (primary) hypertension; E78.49 Other hyperlipidemia; T50.2X5A Adverse effect of carbonic-anhydrase inhibitors, benzothiadiazides and other diuretics, initial encounter
CPT/HCPCS: 36415; 71045; 80048; 80053; 82570; 83735; 83880; 83935; 84100; 84300; 84443; 84484; 85007; 85025; 85027; 85610; 85730; 87040; 87811; 93005; 94640; 94667; 94668; 94761; 96365; 96366; 97165; 99285; J0696; J7512

== ENCOUNTER 2023-10-23 10:27 | Outpatient (OUT) | payer MEDICARE, OTHER, SELFPAY ==
--- OUTSIDE RECORDS SUMMARY | 2023-10-23 10:40 | XMS_ITS | CCD ---
Author Organization [facility] Care Team Providers Care Pet Caretaker Name Role Phone PHYSICIAN, DEFAULT Unavailable Unavailable PHYSICIAN, DEFAULT Unavailable Unavailable PHYSICIAN, DEFAULT Unavailable Unavailable PHYSICIAN, DEFAULT Unavailable Unavailable ESMER, DR JOHNSON Primary Care Unavailable LALI, DR LAZARO Reyes Admitting Unavailabl e LALI, DR LAZARO Reyes Attending Unavailabl e LALI, DR LAZARO Reyes Consulting Unavailabl e DEANNA BRITO Consulting Unavailable ALEX OAKLEY Primary Care Physician [phone] HAIDER JAMA Attending Unavailable ALEX OAKLEY Attending [...] day(s), # 6 tab(s), Refills(s) 0, Pharmacy: [facility]/pharmacy #[id number], 172, cm, 08/26/23 10:06:00 EDT, [...] day(s), # 10 tab(s), Refills(s) 0, Pharmacy: [facility]/pharmacy #[id number], 172, cm, 01/26/23 11:20:00 EST, [...] qPM, # 30 cap(s), Refills(s) 11, Pharmacy: [facility]/pharmacy #[id number], 172, cm, 01/14/23 10:39:00 EDT, [...] day(s), # 30 cap(s), Refills(s) 11, Pharmacy: [facility]/pharmacy #[id number], 172, cm, 12/23/22 14:24:00 EDT, [...] 07-08-2022 Chronic Other aftercare (1 source) Other penitentiary (current) drug therapy; Translations: [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 IPMBYitl33MKa0vBc+PG hlY WQ+RD7VOXIgK61fuGWyiW3m G8KWDOkUJazcDIUICKnJPiQ qbzUlDS5elFZaEMKe IC8+DW2mVEErYsxffQDam7Q 4yXC4K00zgd7eQTguoVL1IR VtYrVpevepa1osaHq3XSpwG mluOyBt WWPrtU19AFH3lR06Qr03fUU ucCCuh1yakIm1PuGhWUGqZF G9xJbnNEnya4EtPUHtG72gu UVtu1Z7 RBEjpQeqeILiFgXohHD8zN6 wRJumtnqmi7eqmkaxJrb5ah 29uLFfj8L9tDX4H6QdwwC6H GJvbGQg WcxzjLXYsG2glqeja8eyjwi aRfYrQZSbVTq6HPb7MUVbeI dvSdTrQA73TLY5UYEyheIkN 2FsLWFs zTlsIcL3u4I0Ou5CR5ZCKxu rB3NKXDFLHWqmdFW+PC90cj 40E0JiLqpsPfr6MWDoIMJ9p WC0jL0w MZIoIEpgi1V6gFB4K0JmhnH edv0ex1zdQRScJJccU08hzX Jew8W3BOMrcUE5SCPjsVahI iBzaG93 Oyc+YAVfeFgup1IgPwxcb4a za5bpfUw6PympGZWzidOdaY iqTQU7a5PtIj0uLFWyvOL4g DI1dO9d BdUvRzK1NDktT664MiUcbJU kRokaC08cZ1DszMC+PHRyPj i4NGFetWobPJ0bU8MiOMVpi mctbGVm lPpjYT5xMNUeealdLKCtdD2 oZYLsX3o7JnYyHcX0LKnuA5 QdJGYmeeoqJi43dU7sKqIlX cU2VOnd W7VyyhB1BIEkjWOgSHegZUQ 3J64jd7I3VIOcOSPjDHB9hC O6lU1ogWlhjndctRAxxHfxr mVydGlj DHydCRquL669WIBcpYumIrP vZGluZyBEYXRlOiAgMDYvMj UvMjAyNDwvdGQ+EXGqENM5b WxlPSAn jKTePJxtFp5lkZtijEjgMZ7 xLRNrppdaLHZbiB8yPHRvdT EulRenHN0lSEBlcswzx119Y iAxMHB0 TMDnnWMuP7KggT1hZsRdDXT kFMJaD3SiuDPiLHyeR904JI kbTiN3UEPeltCyC3KxXMAeg WduOiB0 y7F8Dr1Kg1SqwexwM2OnqGC pOuPrMlgiIGk6Y5QbIbzrjU I+HA76YQSwVP27KZv6SCD2h WxlPSdi ZWQlW9IdyB5jUcHyZQUuCMO kOyc+PHRhYmxlIHdpZHRoPS zlYROmRuBmrIkyIF5tLs8uB GVyLWNv qVvcvMLsUfClf2tpINTuQYz cBU7yeVmoJ1DjmON2MATjd1 y6Xt51Z66iM4JoxEA+PGNvb ZW5uLL5 eQ9kBuWsHwJ3DDvaZ626DeL xuPPgLtrri7fqb9matBn9Iq Q3DUOvtgAlvRrbCTC3d3BoM j46J57m IHdpZHRoPSIxNSUiIHZhbGl mjm9qxA0rNa7+VKMatKF5xM K6zK7dWsYiYtD4GNteB483F nRvcCIv Ngubx4fne0kxiIw6RzFsNTH chqRrxJozJBT1c7RqSp28D7 DnfFqzx7MmYvx1zw00lRAse 6B2kBC5 O2OlWJJogeipgQYyaMppCI3 uTOCmuwdbXUMckG7yMORuQ0 e4LoQmCoT7MZumJ0UqfvP8K GJvbGQg VNPqxNNXnR1ycohvf6uzwlt fCmXaXWEuNKl1XUp5ZNBgjR moWkTyNHL5HnQ7YAD2yHQhj U5twBtc maqesU7vJck+MRB2zXQhwSJ IUA2aHilulJQ+DGGpNHE5cQ svBWxqFGQfaC7lPBRfY4t4Q iAwLjA1 TTquZ0KienW0DYEiaENnZMR jgZQSzN6zboydh3ehquvmTb BgSKXtEFf5RCd4KEEvwIlfZ iBsZWZ0 DaA9NWA4sMTxfA7ptRnyult sdY0uWiq+RsumaDknMXZ6BL n9S9TmExr0PMClkDzxIJ9ke GFkZGlu Vl6tqPkoqEzmOL7yZFXqyvt gs247VoQyi3qkIRBukGTjQW qhKMU2Z00of3D5YKHmYIGiZ AG2hDB1 eP3rkPijnpwwaKVmmNarbcX uyMndEDmsHDxbO822AKZtsU pxRgRgVTf2Q0MtUip8YTPxz YfaGZ7t vVJqWKszVj5emVkwlLeoBX8 pYOXrubfkp774TcRmy0meKY CxwBWoWFkjZQK7G23lg1P8F CMwMDAw BUD4nZQ7qQ4jbOkdjcrdvKZ mdDsgdmVydGljYWwtYWxpZ2 19JKPjjRknIfAbcCz9K4XoC ev9IQMh bSybQL6hkWDaRKkpNw6brUl ukVzhFZ4wHTQimpxxj116Oh Yfn7jgRJNstARmGAvrPBZ6T 96dh3K4 KVRaRTPcVEG9pCZ6bM4xwGj nbjogbGVmdDsgdmVydGljYW djLWvsB154PAJzuYfvRzMzz GllbnQg ABjlSCy0G9OsIntwtHF+PC9 2TGFsXG34qULmgLXgq5iceU p8ImXlITQcAWQ3aTblWWnop 3JkZXIt R81diLVbn8C4WFMumBbqoOE bGiSdzRR2rG4iZWriqeneh2 lciacqOraxe5pkwu58nN95C 29sIHdp ZHRoPSIzMCUiIHZhbGlnbj0 mkK0bIa2+DDYqyBU0xXL2mS 7zTPToBbG3JExkF624OaSnt CIvPjxj o5ttz3yxxGi5SkZ1HSDajaE nyYkqAJK5q1ToJr33D78xNH dpZHRoPSIyMCUiIHZhbGlnb u9zvY6u Ii8+QVIpkTW6tDT4vV6tBnO dVeQ8QRkpW159QwGajFVcRj wnJ62wE0UxtNC+AGKlInx7U CBzdHls KN0eoTQgXNhqDe2hGWM7FuO kUeHyYVfjD0PcUHYihzfbpw wgtMM1SUChDILwaU60Bo4ql DogMTBw sAIViH9nznwba2hyziizSrC fQQGsUPn2QPa0GLBdwMsdZv WuBOE9ZuA1EQY0cQDjvJ2cp Glnbjog sJ7aB9LcTGQgtfwcId36dF5 dDaKxMxQ1RYkaZzn+TEVHRy wgREFWSUQgUDwvdGQ+PHRkI ZR9dJkq EVpbRSHmdG7nQTWdG6n9TwF dDgV4THyoX6TwOEPinedsNc 32zS3oCpExEkG8YGleS4Oxw bY9GRYm hIMyXVdxBCK2R87uh5T2PQC jPJLcLLF2hZN7eK3edOekiw ogbGVmdDsgdmVydGljYWwtY LsyO371 LWAohEofFqS4DkC8XeT2ISW 1I4BqRgs0CBVwwVvqSW8nmL RgUMvxIj6czIzpaJezDS3oJ TBpbjtw CSYoqT3tHYNhfXWicJiuKA6 yQKMimfvqu071VcIrETT2RI RilQKcJ1TbuA8nIsIzVRDiB ZYwI4Sb uHMdOTpaI505HJhoVrU7RYY ejvDrE6DaSLYgfLpzFkI6w3 M7Kq32YeJSCXVuthyjaNV+P HRkIHN0 cWliICpnAUFduF6vLRIuR1y 7YaLaQdY1JYztH3PzQDWqbs keRl76bM9vOqMuXnN9XHucY 8TzqzF9 TUNjhQWmQRpbJBJ4E94ka7B 1KIYvCNRxLTA8iBV3oJ9trQ lnbjogbGVmdDsgdmVydGljY WwtYWxp J768WVUmjHnzPu9edUR3W2D oJie0GRNflUxaKS5yjHNeLX qrMa8biIjyoBepZH7hTJWdb jtwYWRk uV0cDEGhvBIlvMduKI5tKUP ksjzls035MfCwJRL7SAYenU GxF8MpgQ8tVuLaRWEyZFFeE 3RleHQt BQqiU904EHqqTkR5BMWdrrO iF9HiSIEmxCldXyX0q8G3Ju 0FiGOdYVZdKW44LK78YB95N 3RyPjwv dGFibGU+PHRhYmxlIHdpZHR pXQupRPXqVjJbqXabSA5nEg 9yZGVyLWNvbGxhcHNlOiBjb 2xsYXBz DGosRN6kwFkoR9UidUV8HTC yg5i2Ux35E38uE6JeqHX+PG GsiFA1cDT0kI9vFpItJuZ3V JcrA321 XfJytJJcImgah7sja3vnhCu 9YcTcLCXjihFjiFklYRG6u7 JdAy50J85gDVglODBaKPLtD CUiIHZh dDddic2ogM8sPu9+PGNvbCB 5gAR6zK7jRcDhTlM1FZzfU9 78JaWzuJVmAexlI04bY0Bpk XA+PHRy Nto3PYVijPjfVB0hyVKzQOo cWm5nABX2RgWhKqAoDLchU4 IlIHXvrkxxntcbzDT6ISJyY DUwaW47 Yv4dsSunTx0wQONpGAO7CZU rfXFcV3IxiT1cBjUpPKEwXX MwW6NucCFyJLveH797HYneR xA0PJGj uqBkI3WwUJLzjZyiQmV5i5N 0Ii8BbXvxhHIpLB5dZjYoPW n4B7NuBvr1WZGnfTuuQW2om GFkZGlu Tz4ytGfcaActRZ3vGFDngpx cm161PgFzj1vzEXSiiUIvBM ueBLM7H86od3T3QFQoAAIjZ EL3lSY8 kS0jlGmxjdzvrYAwpLbozhP cgWgjSSyjZRelU329MKBucV egPcXNPvi9P4JhFbu1HFCkj BwgHG1l eTSwZLllWj4sbHuyqNfwRZ9 yRXUukzwmb313XwWfy9oqXF GvaCRdPMrxIOQ3E11pu5A8B CMwMDAw DKL3sDU0gH1uhEtpvxjprFU mdDsgdmVydGljYWwtYWxpZ2 85AOOtyDulBs1ETyl0J2JfK nn2QBMc tIeiGJ7yfYIgPKixCl8qkYi nwQbzIT6kMZXjngbds161Fo Kxx2ptNODbqPKrVZejHEM6R 07rs0N3 PBWtLVFnQGD5dPA0pU3vkMb nbjogbGVmdDsgdmVydGljYW goRLdjG041FQOssQwrQyYqo WVyOjwv dGQ+CU70fs22K6KgHnyvKsy 7WIPxPFQ9gBC3bR9cDDGsYY ixe1C3dJK3D3JwctQrkp6lf 2xsYXBz TXkrX21khBUgz (more content not included)... Normal [facility] Consent for Procedure/Surger yon 09-14-2023 Consent for Procedure/Surgery [id number]#1.00 TIFF Normal [facility] Consent for Treatmenton 08-22 Consent for Treatment [id number]#1.00T IFF Normal [facility] Inpatient Patient Summaryon 09-14-2023 Inpatient Patient Summary [place] [id number] Clinical Summary Person Information Name: SALVADOR BARRIENTOS Age: 83 Years : 1940 Sex: Male PCP: ALEX OAKLEY MD Marital Status: Race: White Ethnicity: Non- or Language: Venezuelan Visit Id: Visit Reason: NOCTURIA, OAB, BPH WITH URINARY OBSTRUCTION Speciality: Acuity: Enc Type: Outpatient Med Service: Surgery Arrival: 09/14/2023 08:54:46 Discharge: Dispo Type: Address: [address] [place] [phone] Provider Notes: Diagnosis: BPH without obstruction/lower urinary tract symptoms; OAB (overactive bladder) Problems Active Hydrocele Epididymo-orchitis Retention of urine Gross hematuria Urinary retention UTI symptoms BPH without obstruction/lower urinary tract symptoms Nocturia Weak urine stream BPH with urinary obstruction Prostatitis Urinary frequency Urinary urgency Dysuria Post-void dribbling 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 Name: SALVADOR BARRIENTOS Katey Garcia/Sex: 1940 Male Med Rec #: [id number] Physician: Gianna Romero MD Financial #: [id number] Pt. Type: O Room/Bed: / Admit/Disch: 09/14/23 08:54:46 - Institution: Case Times FTURO Entry 1 Patient Times In Room 09/14/23 10:36:00 Out Room 09/14/23 10:52:00 Procedure Times Start 09/14/23 10:43:00 Stop 09/14/23 10:46:00 Anesthesia Times Last Modified By: Rowan Lino 09/14/23 10:52:32 General Comments: BOTOX EXP: AND LOT: [id number] 100 UNITS.CARL ALFARO. Case Attendance FTURO Entry 1 Entry 2 Entry 3 Case Attendee Gianna Romero MD, Kelsie E McClain [facility] Role Performed Surgeon - Primary Neuroscience Specialist - Primary Scrub - Primary Time In [...] 2 - Clean-Contaminated Last Modified By: Rowan iLno 09/14/23 10:52:34 General Case Data FTURO Pre-Care [...] 09/14/23 10:52 Rowan Lino 09/14/23 10:53 Normal [facility] Main OR Preoperative Recordo n 09-14-2023 Main OR Preoperative Record Holding Area Document Type FTURO Summary Primary Physician: Gianna Romero MD Finalized Date/Time: 09/14/23 10:27:41 Pt. Name: SALVADOR BARRIENTOS/Sex: 1940 Male Med Rec #: [id number] Physician: Gianna Romero MD Financial #: [id number] Pt. Type: O Room/Bed: / Admit/Disch: 09/14/23 [...] Complaints of Pain: No Skin Integrity Intact, [place], Warm, & Dry Vitals - EU Blood Pressure 190/85 Pulse 80 bpm Respirations 20 br/min SPO2 94 % Additional Other (See Comment) Specimens Comment UA obtained Specimens Collected RN Reviewed Yes Last Modified By: Rowan Lino 09/14/23 10:27:37 Finalized By: Rowan Lino Document Signatures Signed By: Lisa Booth LPN 09/14/23 09:49 Rowan Lino 09/14/23 10:27 Rowan Lino 09/14/23 10:27 Normal [facility] Outpatient Surgery Discharge Instructionon 09-14-2023 Outpatient Surgery Discharge Instruction [id number]#1.00 TIFF Normal [facility] Outpatient Surgery Discharge Instruction [address] [address] Patient Discharge Instructions PERSON INFORMATION [...] Date You may receive a survey from [employer] asking you to rate your care experience. Your feedback is important and will help us understand what we do well and how we can improve the quality of care we provide to you, your loved ones and our community. It?s an honor to serve you. Thank you for choosing [facility] Normal [facility] Progress Note-Physicianon Progress Note-Physician Patient: SALVADOR BARRIENTOS Age: 83 years Sex: Male : 1940 Associated Diagnoses: None Author: Nick VASQUEZ, Gianna Johnson Procedure Operative Information Details: Date/ Time: 09/14/2023 10:50:00. Pre-Op Dx: OAB (overactive bladder) (ARP04-KG N32.81, Discharge, Medical). Post-Op Dx: Same. Anesthesia [...] Follow up in 2 weeks with PVR. [facility] [place] Comment on above: Result Comment: Elec tronically [...] Locations R1: This test was performed at: [facility], [address] [place] [address], [address]- , , [facility] [place] Comment on above: Performed By: #### [id number] #### [facility] [address] [place] [address] Performed By: #### 2 [id number] ####[facility] [address] [place] [address] Screenson 08-28-2023 Screens [id number]#1.00T IFF Normal [facility] Screens [id number]#1.00T IFF Normal [facility] Patient Educationon 08-26-19 24 Patient Education Urology [...] including vitamins, herbs, eye drops, creams, and xddr-yhb-uhybnjj medicines. ? Any problems you or family [...] tells you to take them. ? Taking wqmp-ijx-tyshdad medicines, vitamins, herbs, and supplements. General instructions [...] these instructions at home: Medicines ? Take icwg-pgc-bzxkdzb and prescription medicines only as told by [...] ca (more content not included)... Normal [facility] Urology Office/Clinic Noteon 08-26-2023 Urology Office/Clinic [...] retention 4. Epididymo-orchitis (N45.3: Epididymo-orchitis) Presented to [facility] ER 01/27/23 due to pain in groin area. Pt was given cefdinir 300mg bid x10d due to having an infection as UA showed small blood and small leuks. Scrotal US 01/27/23 [facility] - thickening of R scrotal wall. R epididymoorchitis with reactive medium septated hydrocele. [1] No longer has pain or bother. -Cont sx monitoring 5. Hydrocele (N43.3: Hydrocele, unspecified) Scrotal US 01/27/23 [facility] - R epididymoorchitis with reactive medium septated [...] 0, Pharma (more content not included)... Normal [facility] Comment on above: Result Comment: Elec tronically Signed By: Gianna Romero MD\.br\Date and Time Signed: 08/26/23 11:32 EDT\.br\Electronically Co-Signed By: Dot Oakley\.br\Date and Time Co-Signed: 08/26/23 11:15 EDT ED Note-Physicianon 02-26-20 ED Note-Physician [id number]#1.00T IFF Normal [facility] RAD - Ultrasound Reporton RAD - Ultrasound Report [id number]#1.00T IFF Normal [facility] Ambulatory Visit Summaryon 1 04-27-2022 Ambulatory Visit Summary SALVADOR BARRIENTOS :1940 Visit Date:02/24/2023 Ambulatory Visit Instructions Your Diagnosis BPH with urinary obstruction Epididymo-orchitis Hydrocele Tests Performed Urnls Dip Stick Auto w/o Microscopy POC [id number] Your Care Team Attending Physician - THERESE [...] VASQUEZ, Gianna Johnson Where: [facility] Patient Education 02-25-20 Patient Education [...] Follow these instructions at home: ? Take nuuk-akz-ilidfyd and prescription medicines only as told by [...] the medicine (more content not included)... Normal [facility] Urology Office/Clinic Noteon 02-24-2023 Urology Office/Clinic [...] At time of Cysto KML prescribed Levaquin r87pnmq due to orchitis. Denies pain/burning & blood. [...] PVR 2. Epididymo-orchitis (N45.3: Epididymo-orchitis) Presented to [facility] ER 01/27/23 due to pain in groin area. Pt was given cefdinir 300mg bid x10d due to having an infection as UA showed small blood and small leuks. Scrotal US 01/27/23 [facility] - thickening of R scrotal wall. R epididymoorchitis with reactive medium septated hydrocele. Reports the swelling has improved and is no longer bothersome. Denies scrotal pain. No indication for tx at this time. 3. Hydrocele (N43.3: Hydrocele, unspecified) See #2. 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 Normal [facility] Comment on above: Result Comment: Elec tronically Signed By: THERESE CRUMP PA-C\.br\Date and Time Signed: 02/24/23 14:00 EST\.br\Electronically Co-Signed By: Dot Oakley\.br\Date and Time Co-Signed: 02/24/23 13:32 EST Consent for Procedure/Surger yon 01-26-2023 Consent for Procedure/Surgery [id number]#1.00 TIFF [facility] [place] Consent for Treatmenton Consent for Treatment [id number]#1.00T IFF [facility] [place] Inpatient Patient Summaryon 01-26-2023 Inpatient Patient Summary [place] [id number] Clinical Summary Person Information Name: SALVADOR BARRIENTOS Age: 82 Years : 1940 Sex: Male PCP: ALEX OAKLEY MD Marital Status: Race: White Ethnicity: Non- or Language: Venezuelan Visit Id: Visit Reason: URINARY RETENTION, URINARY FREQUENCY, BPH WITH LUTS Speciality: Acuity: Enc Type: Outpatient Med Service: Surgery Arrival: 01/26/2023 09:27:18 Discharge: Dispo Type: Address: [address] [place] [phone] Provider Notes: Diagnosis: Acute orchitis; OAB (overactive bladder) Problems Active Retention of urine Gross hematuria Urinary retention UTI symptoms BPH without obstruction/lower urinary tract symptoms Nocturia Weak urine stream BPH with urinary obstruction Prostatitis Urinary frequency Urinary urgency Dysuria Post-void dribbling 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 Microhematuria BMI 40.0-44.9, [...] Location Start [place] [place] [facility] PM 02/24/2023 1:15 PM Confirmed Patient Education Information: EU - Cystoscopy Discharge Instructions (CUSTOM) [facility] [place] IntraOperative Documentson 1 03-28-2022 IntraOperative Documents [id number]#1.00 TIFF [facility] Main OR Preoperative Recordo n 01-26-2023 Main OR Preoperative Record Holding Area Document Type FTURO Summary Primary Physician: Gianna Romero MD Finalized Date/Time: 01/26/23 11:57:44 Pt. Name: SALVADOR BARRIENTOS Katey Garcia/Sex: 1940 Male Med Rec #: [id number] Physician: Gianna Romero MD Financial #: [id number] Pt. Type: O Room/Bed: / Admit/Disch: 01/26/23 [...] Complaints of Pain: No Skin Integrity Intact, [place], Warm, & Dry Vitals - EU Blood Pressure 116/75 Pulse 98 bpm Respirations 24 br/min SPO2 98 % RN Reviewed Yes Last Modified By: JERED Fields RN, Ruthann 01/26/23 11:57:42 General Comments: Temp 36.4 , patient states he is having problems bleeding Finalized By: JERED Fields RN, Ruthann Document Signatures Signed By: Hilda Montilla LPN 01/26/23 11:17 JERED Fields RN, Ruthann 01/26/23 11:57 [facility] [place] Operative Reporton 3 Operative Report Patient: SALVADOR BARRIENTOS Age: 82 years Sex: Male : 1940 Associated Diagnoses: None Author: Gianna Romero MD Procedure Operative Information Details: Date/ Time: 01/26/2023 12:17:00. Pre-Op Dx: Feeling of incomplete bladder emptying (FYV31-NI R39.14, Billing Diagnosis, Medical), OAB (overactive bladder) (EJE01-CY N32.81, Discharge, Medical). Post-Op Dx: Same. Anesthesia [...] orchitis treatment to ensure resolved. . Normal [facility] Comment on above: Result Comment: Elec tronically Signed By: Gianna Romero MD\.br\Date and Time Signed: 01/26/23 12:23 EST Outpatient Surgery Discharge Instructionon 01-26-2023 Outpatient Surgery Discharge Instruction [id number]#1.00 TIFF Normal [facility] Outpatient Surgery Discharge Instruction [place] [id number] Patient Discharge Instructions PERSON INFORMATION Name: SALVADOR [...] 2-3 weeks with PVR Type Location Start [facility] Office Visit [facility] [place] 02/24/2023 1:00 PM 02/24/2023 1:15 PM Confirmed [...] Date You may receive a survey from [employer] asking you to rate your care experience. Your feedback is important and will help us understand what we do well and how we can improve the quality of care we provide to you, your loved ones and our community. It?s an honor to serve you. Thank you for choosing [facility] Normal [facility] Progress Note-Physicianon Progress Note-Physician Patient: SALVADOR [...] day(s), # 10 tab(s), Refills(s) 0, Pharmacy: [facility]/pharmacy #[id number], 172, cm, 01/26/23 11:20:00 EST, Height/Length Dosing, 120, kg, 01/14/23 10:39:00 EDT, Weight Dosing tamsulosin 0.4 mg Cap: 0.4 mg = 1 cap(s), Oral, qPM, # 30 cap(s), Refills(s) 11, Pharmacy: [facility]/pharmacy #[id number], 172, cm, 01/14/23 10:39:00 EDT, [...] Plan Assessment and Plan: Diagnosis: Acute orchitis (IWS73-VL N45.2, Discharge, Medical), Feeling of incomplete bladder emptying (XFP28-ND R39.14, Billing Diagnosis, Medical), OAB (overactive bladder) (KLL50-GE N32.81, Discharge, Medical). 82 yo M prior [...] of retention given his inappropriate sensations. Normal [facility] Comment on above: Result Comment: Elec tronically Signed By: Nick VASQUEZ, Gianna Mustafa.br\Date and Time Signed: 01/26/23 12:31 EST ED Note-Physicianon 01-22-20 ED Note-Physician [id number]#1.00T IFF Normal [facility] Consultation Noteon 01-16-20 Consultation Note [id number]#1.0 0TIFF [facility] [place] [facility] 01-15-2023 Screens [id number]#1.0 0TIFF [facility] [place] Screens [id number]#1.00TI FF Normal [facility] ED Note-Physicianon 01-15-20 ED Note-Physician [id number]#1.00T IFF Normal [facility] Lab Reportson 01-14-2023 Lab Reports [id number]#1.00T IFF Normal [facility] Urology Office/Clinic Noteon 01-14-2023 Urology Office/Clinic [...] Pseudomonas Pt was given Cefdinir 300mg BID [id number]. Pt is a poor historian. Unsure what medications he has taken/finished. Several messages in pt's chart stating that pt had called c/o inability to Urinate Pt then went to [facility] ER visit on 01/06/23 due to difficulty urinating, pt stated he had not been able to void for 2 days, cath was placed. BUN 8, Crea 0.81. Pt then returned to [facility] ER 01/09/23 due to blood in [place] [...] after starting trospium Pt then went to [facility] ER visit on 01/06/23 due to difficulty urinating, pt stated he had not been able to void for 2 days, cath was placed, BUN 8, Crea 0.81. (output unknown). Pt then returned to [facility] ER 01/09/23 due to blood in [place] [...] -PVR 1- (more content not included)... Normal [facility] Comment on above: Result Comment: Elec [...] Locations R1: This test was performed at: [facility], [address] [place] [address], [id number] , [place], [facility] [place] Comment on above: Performed By: #### 2 [id number] #### [facility] [address] [place] [address] Lab Reportson 12-24-2022 Lab Reports [id number]#1.00 CD:127 [facility] [place] Lab Reports [id number]#1.00 CD:127 [facility] [place] [facility] 12-24-2022 Screens [id number]#1.00C D:127 [facility] [place] Ambulatory Visit Summaryon 1 Ambulatory Visit Summary YAELSALVADOR Reyes Katey :1940 Visit Date:12/23/2022 Ambulatory Visit Instructions Your Diagnosis Urinary frequency BPH without obstruction/lower urinary tract symptoms Microhematuria Tests Performed Urnls Dip Stick Auto w/o Microscopy POC [id number] Your Care Team Attending Physician - THERESE [...] NASCIMENTO, THERESE Pardo Where: [facility] Normal [facility] Patient Educationon 12-24-19 23 Patient Education [...] keep your urine pale yellow. ? Take jkdd-mjs-vbuijap or prescription medicines. ? Eat foods that are high in fiber, such as beans, whole grains, and fresh fruits and vegetables. ? Limit foods that are high in fat and processed sugars, such as fried or sweet foods. General instructions ? Take npdu-iko-mujernf and prescription medicines only as told by [...] muscles that help control urination. ? Take cpmu-dwu-nnkhsyu and prescription medicines only as told by your health care provider. ? Contact a health care provider if your symptoms do not improve or get worse. This information is not intended to replace advice given to you by your health care provider. Make sure you discuss any questions you have with your health care provider. Document Revised: 10/12/2020 Document Reviewed: 10/12/2020 [employer] Patient Education ? 2022 [employer] Normal [facility] URINALYSISOrdered By: Jhon Flores on 12-23-2022 [...] PM) Normal Negative [facility] UA Auto SS [place].plasma/Lithiu m.RBC (Bld) [Mass ratio] 0-3 /HPF Normal [...] Desc Random Urine (12/23/22 2:54 PM) Normal [facility] UA Auto SS Urobilinogen Qn (U) 0.0973474 {Pb'U}/dL Normal 0.0 - 1.0 EU/dL FT UA Auto SS WBC Auto Ql (U) Negative (12/23/22 2:54 PM) Normal Negative FT UA Auto SS WBC LM.HPF (Urine sed) [#/Area] 0-5 /HPF Normal 0-5/HPF [facility] UA Auto SS Urinalysison 12-23-2022 Bacteria LM Ql (Urine sed) TRACE Normal Trace [facility] Comment on above: Performed By: #### 1 [id number] ####[facility] [address] [place] [address] Bilirubin Ql (U) Negative Normal Negative [facility] Comment on above: Performed By: #### 1 [id number] ####[facility] [address] [place] [address] Clarity (U) CLEAR Normal Clear [facility] Comment on above: Performed By: #### 1 [id number] ####[facility] [address] [place] [address] Color (U) YELLOW Normal Yellow [facility] Comment on above: Performed By: #### 1 [id number] ####[facility] [address] [place] [address] Epithelial cells.squamous LM.HPF (Urine sed) [#/Area] 0-2 Normal 0-2 [facility] Comment on above: Performed By: #### 1 [id number] ####[facility] [address] [place] [address] Glucose Test strip (U) [Mass/Vol] Negative Normal Negative [facility] Comment on above: Performed By: #### 1 [id number] ####[facility] [address] [place] [address] Hemoglobin Ql (U) TRACE Abnormal Negative [facility] Comment on above: Performed By: #### 1 [id number] ####[address] [address] Ketones (U) [Mass/Vol] Negative Normal Negative [facility] Comment on above: Performed By: #### 1 [id number] ####[facility] [address] [place] [address] [place].plasma/Lithiu m.RBC (Bld) [Mass ratio] 0-3 Normal 0-3 [facility] Comment on above: Performed By: #### 1 [id number] ####[facility] [address] [place] [address] Nitrite Ql (U) Positive Abnormal Negative [facility] Comment on above: Performed By: #### 1 [id number] ####[facility] [address] [place] [address] pH (U) 7.0 [pH] Invalid Interpretation Code 5.0-9.0 [facility] Comment on above: Performed By: #### 1 [id number] ####[facility] [address] [place] [address] Protein (U) [Mass/Vol] Negative Normal Negative [facility] Comment on above: Performed By: #### 1 [id number] ####[address] [address] Specific gravity (U) [Rel density] 1.010 Invalid Interpretation Code 1.005-1.030 [facility] Comment on above: Performed By: #### 1 [id number] ####[facility] [address] [place] [address] Type of Urine collection method Random Urine Normal [facility] Comment on above: Performed By: #### 1 [id number] ####[facility] [address] [place] [id number] Urobilinogen Qn (U) 0.2 {Pb'U}/dL Normal 0.0-1.0 [facility] Comment on above: Performed By: #### 1 [id number] ####[facility] [address] [place] [address] WBC Auto Ql (U) Negative Normal Negative [facility] Comment on above: Performed By: #### 1 [id number] ####[place] [id number] WBC LM.HPF (Urine sed) [#/Area] 0-5 Normal 0-5 [facility] Comment on above: Performed By: #### 1 [id number] ####[place] [id number] Urology Office/Clinic Noteon 12-23-2022 Urology Office/Clinic Note [...] pill) Little amounts at a time. Voiding [id number]. Getting up q1hr through the night. No [...] E&M of Est. Patient Moderate 30-39 Min 99585 Urinalysis Urine Culture 2. BPH without obstruction/lower [...] E&M of Est. Patient Moderate 30-39 Min 99203 3. Microhematuria (R31.29: Other microscopic hematuria) UA [...] day(s), # 30 cap(s), Refills(s) 11, Pharmacy: [facility]/pharmacy #[id number], 172, cm, 12/23/22 14:24:00 EDT, Height/Length Dosing, 120, kg, 12/23/22 14:24:00 EDT, Weight (more content not included)... Normal [facility] Comment on above: Result Comment: Elec tronically Signed By: THERESE CRUMP PA-C\.br\Date and Time Signed: 12/23/22 15:03 EDT\.br\Electronically Co-Signed By: Dot Oakley\.br\Date and Time Co-Signed: 12/23/22 14:57 EDT Vital Signs Date Time Vital Sign Value Performing Clinician Facility 10-01-2023 13:14-0400 Blood Pressure Location [employer] [facility] 10-01-2023 13:14-0400 Body temperature 97.88 [degF] Janay Orzech [facility] 10-01-2023 13:14-0400 Diastolic blood pressure 88 mm[Hg] Janay Orzech [facility] 10-01-2023 13:14-0400 Heart rate 83 /min [employer] [facility] 10-01-2023 13:14-0400 Respiratory rate 16 /min Janay Orzech [facility] 10-01-2023 13:14-0400 Systolic blood pressure 160 mm[Hg] Janay Orzech [facility] 08-26-2023 10:05-0400 Blood Pressure Location Gianna Romero [facility] 08-26-2023 10:05-0400 Body temperature 97.7 [degF] Gianna Lue [facility] 08-26-2023 10:05-0400 Diastolic blood pressure 84 mm[Hg] Gianna Lue [facility] 08-26-2023 10:05-0400 Heart rate 88 /min Gianna Lue [facility] 08-26-2023 10:05-0400 Systolic blood pressure 130 mm[Hg] Gianna Lue [facility] 02-24-2023 12:51-0500 Blood Pressure Location THERESE THERON [facility] 02-24-2023 12:51-0500 Diastolic blood pressure 84 mm[Hg] THERESE THERON [facility] 02-24-2023 12:51-0500 Heart rate 80 /min THERESE THERON [facility] 02-24-2023 12:51-0500 Systolic blood pressure 138 mm[Hg] THERESE THERON [facility] 01-14-2023 10:37-0400 Blood Pressure Location Gianna Lue [facility] 01-14-2023 10:37-0400 Diastolic blood pressure 80 mm[Hg] Gianna Lue [facility] 01-14-2023 10:37-0400 Heart rate 68 /min Gianna Lue [facility] 01-14-2023 10:37-0400 Respiratory rate 16 /min Gianna Lue [facility] 01-14-2023 10:37-0400 Systolic blood pressure 130 mm[Hg] Gianna Lue [facility] 12-23-2022 14:21-0400 Blood Pressure Location THERESE THERON [facility] 12-23-2022 14:21-0400 Diastolic blood pressure 79 mm[Hg] THERESE THERON [facility] 12-23-2022 14:21-0400 Heart rate 69 /min THERESE THERON [facility] 12-23-2022 14:21-0400 Respiratory rate 16 /min THERESE THERON [facility] 12-23-2022 14:21-0400 Systolic blood pressure 128 mm[Hg] THERESE THERON [facility] Encounters Encounter Date Encounter Type Care Provider Facility Start: 10-01-2023 End: 10-01-2023 Patient encounter procedure Janay X Orzech [facility] Start: 09-30-2023 ambulatory Gianna Romero Facility:[facility] Start: 09-30-2023 End: 09-30-2023 Patient encounter procedure Gianna Romero [facility] Start: 09-14-2023 End: 09-14-2023 ambulatory Gianna Romero Facility:[facility] Start: 09-14-2023 End: 09-14-2023 Patient encounter procedure Gianna Romero [facility] Start: 08-26-2023 End: 08-26-2023 ambulatory Gianna Romero Facility:[facility] Start: 08-26-2023 End: 08-26-2023 Lab Drop off Gianna Romero [facility] Start: 08-26-2023 End: 08-26-2023 ambulatory Gianna Romero Facility:[facility] Start: 08-26-2023 End: 08-26-2023 Patient encounter procedure Gianna Romero [facility] Start: 07-01-2023 End: 07-01-2023 ambulatory ALEX B OAKLEY Not Available Start: 06-15-2023 End: 06-15-2023 ambulatory ALEX B OAKLEY Not Available Start: 06-09-2023 End: 06-09-2023 ambulatory HAIDER A WILEY Not Available Start: 02-24-2023 End: 02-24-2023 ambulatory THERESE CRUMP Facility:[facility] Start: 02-24-2023 End: 02-24-2023 Patient encounter procedure THERESE CRUMP [facility] Start: 02-11-2023 End: 02-11-2023 ambulatory ALEX B OAKLEY Not Available Start: 02-10-2023 End: 02-10-2023 ambulatory THERESE CRUMP Facility:[facility] Start: 02-10-2023 End: 02-10-2023 Patient encounter procedure THERESE CRUMP [facility] Start: 01-26-2023 End: 01-26-2023 ambulatory Gianna Johnson Lue Facility:[facility] Start: 01-26-2023 End: 01-26-2023 Patient encounter procedure Gianna Romero [facility] Start: 01-21-2023 ambulatory Gianna M. Lue [facility] Start: 01-14-2023 End: 01-14-2023 ambulatory Gianna M. Lue Facility:[facility] Start: 01-14-2023 End: 01-14-2023 Patient encounter procedure [facility] Cosme. [facility] Start: 12-23-2022 End: 12-23-2022 Lab Drop off THERESE CRUMP [facility] Start: 12-23-2022 End: 12-23-2022 ambulatory THERESE CRUMP Facility:[facility] Start: 12-23-2022 End: 12-23-2022 Patient encounter procedure THERESE CRUMP [facility] Start: 07-06-2022 End: 07-06-[address] ALEX OAKLEY Facility: Start: 08-25-2017 End: 08-26-2017 Ambulatory DEFAULT PHYSICIAN Facility:[facility] Start: 08-19-2017 End: 08-20-2017 Ambulatory DEFAULT PHYSICIAN Facility:[facility] Procedures Date Procedure Procedure Detail Performing Clinician [...] unspecified formulation Gianna Romero [facility] 12-02-2021 influenza virus vaccine, unspecified formulation Gianna Romero [facility] 12-02-2021 SARS-CoV-2 (COVID-19 ) [id number] Gianna Romero [facility] 07-11-2021 zoster vaccine recombinant Gianna Romero [facility] 06-20-2021 SARS-CoV-2 mRNA (puvrrejwuvz-hyro-zlwlv se) vaccine Gianna Romero [facility] 04-09-2021 zoster vaccine recombinant Gianna Lue [facility] 01-30-2021 influenza virus vaccine, unspecified formulation Gianna Lue [facility] 12-15-2020 SARS-CoV-2 (COVID-19 ) mRNA BNT-162b2 vax Gianna Lue [facility] Comment on above: Result Comment: 2022: [id number] 05-15-2020 SARS-CoV-2 (COVID-19 ) mRNA BNT-162b2 vax Gianna Lue [facility] Comment on above: Result Comment: 2022: [id number] 04-24-2020 SARS-CoV-2 (COVID-19 ) mRNA BNT-162b2 vax THERESE CRUMP [facility] 01-04-2020 influenza virus vaccine, unspecified formulation Gianna Lue [facility] 01-25-2019 influenza virus vaccine, unspecified formulation Gianna Lue [facility] 12-21-2018 influenza virus vaccine, live, attenuated, for intranasal use THERESE WYLIERY [facility] 01-11-2018 influenza virus vaccine, unspecified formulation Gianna Lue [facility] 12-11-2016 influenza virus vaccine, unspecified formulation Gianna Lue [facility] 05-24-2015 pneumococcal conjuga te vaccine, 13 valent Gianna Seemaarmani [facility] Payers Date Payer Category Payer Medicare [id number] 1959 Unknown [id number] 1940 Unknown [id number] 2.16.84 [id number] 1940 Unknown [id number] 2.16.84 0.1.994730.3.579.2.1259 1940 Unknown [id number] 2.16.84 0.1.474726.3.579.2.125 1940 Unknown [id number] 2.16.84 0.1.462586.3.579.2.1259 1940 Unknown [id number] 2.16.840 .1.225453.3.579.2.125 1940 Unknown [id number] 2.16.8 40.1.199100.3.579.2.727 1940 Unknown [id number] 2.16.8 40.1.009868.3.579.2.727 1940 Unknown [id number] 2.16.8 40.1.092131.3.579.2.727 1940 Unknown [id number] 2.16.8 40.1.276826.3.579.2.727 1940 Unknown [id number] 2.16.8 40.1.848795.3.579.2.727 1940 Unknown [id number] 2.16.8 40.1.339156.3.579.2.72 1940 Unknown [id number] 2.16.8 40.1.145413.3.579.2.727 1940 Unknown [id number] 2.16.8 40.1.831677.3.579.2.72 1940 Unknown [id number] 2.16.8 40.1.002189.3.579.2.727 1940 Unknown [id number] 2.16.8 40.1.726448.3.579.2.727 1940 Unknown [id number] 2.16.8 40.1.630003.3.579.2.727 Unknown Social History Date Type Detail Facility Start: 12-23-2022 End: 10-01-2023 Tobacco smoking status Never smoked tobacco (finding) [facility] Tobacco smoking status Never [facility] Sex Assigned At Male [facility] Functional Status Date Assessment Result Facility 10-01-2023 Functional Status N/A [facility] 09-14-2023 Functional Status N/A [facility] 08-26-2023 Functional Status N/A [facility] 02-24-2023 Functional Status N/A [facility] 01-26-2023 Functional Status N/A [facility] 01-14-2023 Functional Status N/A [facility] 12-23-2022 Functional Status N/A [facility] Clinical Notes 07-06-2022 to 10-01-2023 Note Date [...] your health care provider. General instructions Take jsdk-sry-wsxlntj and prescription medicines only as told by [...] provider. Document Revised: 11/26/2020 Document Reviewed: 11/26/2020 [employer] Patient Education 2022 [employer] Follow Up Care 09/30/2023 08:22:37 With:ROMULO Vera APRN, ADAN Chou, URL Address: When: Unknown [facility] 09-14-2023 Hospital Discharge instructions Patient [...] follow up in 2 weeks with [facility] 09-14-2023 Note [id number]#1.00TIFF [facility] 09-14-2023 Note Cystoscopy with Boto x [...] you have a fever over 100 degrees. [facility] 08-26-2023 Hospital Discharge instructions Patient Education [...] including vitamins, herbs, eye drops, creams, and bbvn-pqj-disvlgg medicines. Any problems you or family members [...] provider tells you to take them. Taking yerb-kcn-fcyudkv medicines, vitamins, herbs, and supplements. General instructions [...] Follow these instructions at home: Medicines Take dbvp-hvf-hxwlsbp and prescription medicines only as told by [...] provider. Document Revised: 09/13/2021 Document Reviewed: 09/13/2021 Comprehensive [employer] Patient Education 2022 [employer] Follow Up Care 02/24/2023 13:31:49 With:Nick VASQUEZ, BLANK Garza, URO Address: [address] [place] [phone] When: Unknown [facility] 02-25-2023 Note [id number]#1.00TICOF [facility] 02-24-2023 Hospital Discharge instructions Patient Education [...] urethra. Follow these instructions at home: Take tbqq-fez-eponcta and prescription medicines only as told by [...] provider. Document Revised: 09/25/2021 Document Reviewed: 09/25/2021 [employer] Patient Education 2022 [employer] Follow Up Care 12/23/2022 14:53:34 With:Nick VASQUEZ, BLANK Garza, URO Address: [address] [place] [phone] When: Unknown Comments:6 mos w/ [facility] 01-26-2023 Hospital Discharge instructions Patient Education [...] follow up in 2-3 weeks with [facility] 01-26-2023 Evaluation + Plan note Extrac tomy from: Title:[facility] - Clinic HOPD Note Author:Nick VASQUEZ, Gianna Cosme. Date:01/26/23 Impression and Plan Assessment and Plan: Diagnosis: Acute orchitis (KGC69-IR N45.2, Discharge, Medical), Feeling of incomplete bladder emptying (HSA29-GR R39.14, Billing Diagnosis, Medical), OAB (overactive bladder) (BRX83-AZ N32.81, Discharge, Medical). 82 yo M prior [...] Date:02/10/2023 09:30:00 AM Scheduled Provider:THERESE CRUMP PA-C Location:[facility] Appointment Type:URO Office Visit Appointment Date:02/24/2023 01:00:00 PM Scheduled Provider:THERESE CRUMP PA-C Location:[facility] Appointment Type:URO Office Visit [facility]11-06-2023 Note [id number][facility]Cystoscopy ? Voiding after the [...] if you have a fever over 100 degrees.[facility] 01-07-2023 Hospital Discharge instructions Follow Up Care 01/07/2023 08:28:45 With:Nick VASQUEZ, Gianna M., URL, URO Address: When:Within 1 Month(s) Comments:pending fill and pull.f/u with WILBERTO or NAVEEN [facility] 10-03-2023 Hospital Discharge instructions Patient Education [...] to keep your urine pale yellow. ?Take uidt-vxs-atpuubz or prescription medicines. ?Eat foods that are high in fiber, such as beans, whole grains, and fresh fruits and vegetables. ?Limit foods that are high in fat and processed sugars, such as fried or sweet foods. General instructions Take zmpa-tib-xebmjfq and prescription medicines only as told by [...] the muscles that help control urination. Take jwqb-wos-rixmtzj and prescription medicines only as told by your health care provider. Contact a health care provider if your symptoms do not improve or get worse. This information is not intended to replace advice given to you by your health care provider. Make sure you discuss any questions you have with your health care provider. Document Revised: 10/12/2020 Document Reviewed: 10/12/2020 Comprehensive [employer] Patient Education 2022 [employer] Follow Up Care 12/15/2022 09:46:05 With:THERESE CRUMP PA-C, URL Address: [address] [place] [address] [place] [place] [address] [phone] When: Unknown [facility] 04-16-2023 NotePROCEDURE: XR WRIST LT MIN [...] Electronically authenticated by: DEANNA BRITO Date: 2022-07-06 10:44[facility] Future App[facility]ments Appointment Date:02/24/2023 01:00:00 PM Scheduled Provider:THERESE CRUMP PA-C Location:[facility] Appointment Type:URO Office Visit [facility] evaluation + Plan note Future Appointments Appointment Date:02/24/2023 01:00:00 PM Scheduled Provider:THERESE CRUMP PA-C Location:[facility] Appointment Type:URO Office Visit Diagnostic Tests Pending * [facility] Appointment Date:01/21/2023 11:00:00 AM Scheduled Provider: Location:[facility] Appointment Type:URO Nurse Visit Appointment Date:02/24/2023 01:00:00 PM Scheduled Provider:THERESE CRUMP PA-C Location:[facility] Appointment Type:URO Office Visit [facility] evaluation + Plan note Future Appointments Appointment Date:08/26/2023 10:00:00 AM Scheduled Provider:Gianna Romero MD Location:[facility] Appointment Type:URO Office Visit [facility] evaluation + Plan note Future Appointments Appointment Date:09/10/2023 10:30:00 AM Scheduled Provider: Location:[facility] Appointment Type:Urology CALL PAT FT Appointment Date:09/14/2023 11:15:00 AM Scheduled Provider: Location:[facility] Appointment Type:Urology FT [facility] evaluation + Plan note Future Appointments Appointment Date:09/10/2023 10:30:00 AM Scheduled Provider: Location:[facility] Appointment Type:Urology CALL PAT FT Appointment Date:09/14/2023 11:15:00 AM Scheduled Provider: Location:[facility] Appointment Type:Urology FT Diagnostic Tests Pending * [facility]rine [facility] Appointment Date:09/30/2023 09:30:00 AM Scheduled Provider:Gianna Romero MD Location:[facility] App[facility]ments Appointment Date:10/01/2023 01:00:00 PM Scheduled Provider:ROMULO Vera APRN, [place] X Location:[facility] Appointment Type:URO Office Visit [facility] Hospital course Narrative No data available for this section [facility] Hospital Discharge instructions No data available for this section [facility] No data available for this section [facility] Summary Purpose Family History No Family [...] section and content) DATE CREATED AUTHOR 09/08/2017 [facility] DATE CREATED AUTHOR AUTHOR[facility]S ORGANIZ ATION [facility] DATE CREATED AUTHOR AUTHOR'S ORGANIZ ATION 07/02/[address] [facility] DATE CREATED AUTHOR AUTHOR'S ORGANIZ ATION 08/30/2023 [facility] DATE CREATED AUTHOR AUTHOR'S ORGANIZ ATION 09/28/2023 [facility] Patient Care team informatio n (unrecognized section and content) Personnel Name: ALEX OAKLEY MD Address: Address: [address] [place] [address] Personnel Name: ALEX OAKLEY MD Address: Address: [address] [place] [address] Personnel Name: ALEX OAKLEY MD Address: Address: [address] [place] [address] Personnel Name: ALEX OAKLEY MD Address: Address: [address] [place] [address] Personnel Name: ALEX OAKLEY MD Address: Address: [address] [place] [address] Personnel Name: ALEX OAKLEY MD Address: Address: [address] [place] [address] Personnel Name: ALEX OAKLEY MD Address: Address: [address] [place] [address] Personnel Name: ALEX OAKLEY MD Address: Address: [address] [place] [address] Personnel Name: ALEX OAKLEY MD Address: Address: [address] [place] [address] Personnel Name: ALEX OAKLEY MD Address: Address: [address] [place] [address] Personnel Name: ALEX OAKLEY MD Address: Address: [address] [place] [address] FOR RECORDS PERTAINING TO PATIENTS WHO ARE [...] BE BASED ON THE PRIMARY CLINICAL RECORDS. [employer] provides no warranty or guarantee of the accuracy or completeness of information in this document.
[2023-10-23 11:44] LABS: Anion Gap 9.8; BUN Creatinine Ratio 15.9; Calcium 9.3 mg/dL (8.5-10.1); Carbon Dioxide 31.2 mmol/L (21.0-32.0); Chloride 92 mmol/L (98-107); Estimated GFR (African America >60 (>=60); Estimated GFR (Non-African Ame >60 (>=60); Glucose 99 mg/dL (74-106); Sodium 129 mmol/L (136-145)
== END 2023-10-23 10:28 | disposition home or self-care (01) ==
LOC: LAB 10:27
PROVIDERS: PCP Internal Medicine; Visit Provider Internal Medicine
DX: E87.1 Hypo-osmolality and hyponatremia (principal)
CPT/HCPCS: 36415; 80048

== ENCOUNTER 2024-01-07 15:14 | Inpatient (IN) | payer MEDICARE, OTHER, SELFPAY ==
[2024-01-07] VITALS (21 sets, daily range): BP systolic 138–183; BP diastolic 82–106; PULSE 68–101; TEMP 36.3–36.8; O2SAT 73–99; BMI 42.6; BMI 46.1
--- NOTE | 2024-01-07 15:28 | XR_ITS ---
The [address] [address] Patient Name: SALVADOR BARRIENTOS MRN: [id number] date: 1940 Sex: M Assigned Patient Location: ER Current Patient Location: ED.MAIN Accession/Order Number: [id number] Exam Date: 01/07/2024 15:40 Report Date: 01/07/2024 16:11 At the request of: MAYA CONNELL Procedure: XR chest 1V EXAM: XR chest HISTORY: . sob . COMPARISON: 10/20/2023 TECHNIQUE: Single view of the chest FINDINGS: Heart and vascularity are unremarkable. There is a right perihilar infiltrate noted. No consolidation is noted. There is a small amount of atelectasis in the left lung base. EKG leads overlie the chest. XR/XR chest 1V IMPRESSION: 1. Right perihilar pneumonitis. No consolidation. 2. Small amount of atelectasis in the left lung base. Electronically authenticated by: SALVADOR SON Date: 01/07/2024 16:11
--- NOTE | 2024-01-07 15:28 | ECG_ITS ---
The [facility] Test Date: 2024-01-07 Pat Name: SALVADOR BARRIENTOS Department: Room: - Gender: Male Otolaryngology Rep: : 1940 Requested By: ALEX LYMAN Order Number: [id number] Reading MD: FELIX MARTINEZ Measurements Intervals Milo Rate: 92 P: -12649 CT: -51503 QRS: -75 QRSD: 128 T: 74 QT: 376 QTc: 426 Interpretive Statements 1210 Atrial fibrillation 2450 Right bundle branch block 2630 Left anterior fascicular block 3214 Cannot rule out anteroseptal myocardial infarction, age undetermined 9150 abnormal ECG Electronically Signed On 01-07-2024 21:48:33 EDT by FELIX MARTINEZ
[2024-01-07 15:47] LABS: Hemoglobin 14.2 g/dL (14.0-18.0); Mean Corpuscular HGB Conc 32.3 g/dL (29.9-35.2); Mean Corpuscular Hemoglobin 31.1 pg (25.9-34.0); Mean Corpuscular Volume 96.3 fL (80.0-94.0); Mean Platelet Volume 10.5 fL (9.5-13.5); Platelet Count 330 10^3/uL (150-450); Red Blood Count 4.57 10^6/uL (4.70-6.10); Red Cell Distribution Width 14.1 % (11.0-15.0); White Blood Count 11.5 10^3/uL (4.0-11.0)
--- OUTSIDE RECORDS SUMMARY | 2024-01-07 15:49 | XMS_ITS | CCD ---
Author Organization [facility] Care Team Providers Care Appeals Examiner Name Role Phone PHYSICIAN, DEFAULT Unavailable Unavailable PHYSICIAN, DEFAULT Unavailable Unavailable PHYSICIAN, DEFAULT Unavailable Unavailable PHYSICIAN, DEFAULT Unavailable Unavailable ESMER, DR JOHNSON Primary Care Unavailable LALI, DR LAZARO Reyes Admitting Unavailabl e LALI, DR LAZARO Reyes Attending Unavailabl e LALI, DR LAZARO Reyes Consulting UnavailDEANNA Moncada Consulting Unavailable ALEX OAKLEY Primary Care Physician THERESE CRUMP Attending Unavailable THERONTHERESE LEACH Admitting Unavailable Lue, Gianna MMarta Attending Unavailable THERONTHERESE LEACH E Attending Unavailable LueGianna MMarta Attending Unavailable THERONNORMAN LEACHTHERESE E Attending Unavailable Lue, Gianna M. Referring Unavailable Lue, Gianna M. Attending Unavailable THERON, THERESE E Attending Unavailable Lue, Gianna M. Admitting Unavailable Lue, Gianna M. Referring Unavailable Lue, Gianna M. Attending Unavailable Lue, Gianna M. Attending Unavailable Lue, Gianna M. Admitting Unavailable HAIDER JAMA Attending Unavailable ALEX OAKLEY Attending Unavailable ALEX OAKLEY Attending Unavailable ALEX OAKLEY Attending Unavailable OPAL GREY Attending Unavailable ALEX OAKLEY Attending Unavailable Orzekaren Janay X Attending Unavailable Orzekaren Janay X Attending Unavailable Lue, Gianna M. Attending Unavailable Lue, Gianna M. Attending Unavailable Lue, Gianna M. Referring Unavailable Lue, Gianna M. Admitting Unavailable Medications Current Medications Medication Drug Class(es) Dates Sig (Normalized) Sig (Original) aspirin 81 mg oral tablet (11 sources) Platelet Aggregation Inhibitor, Nonsteroidal Anti-inflammatory Drug Start: 12-17-2018 take 81 mg by mouth once daily aspirin 81 mg, Oral, Daily, Refills(s) 0 Start Date: 9/27/19 Status: Ordered cefdinir 300 mg oral capsule (1 source) Cephalosporin Antibacterial Start: 01-14-2023 cefdinir 300 mg Cap Refills(s) 0 Start Date: 01/14/23 Status: Ordered ciprofloxacin 500 mg oral tablet (2 sources) Quinolone Antimicrobial Start: 08-26-2023 End: 08-29-2023 Cipro 500 mg Tab 500 mg = 1 tab(s), Oral, BID, start one day prior to procedure, X 3 day(s), # 6 tab(s), Refills(s) 0, Pharmacy: [facility]/pharmacy #[id number], 172, cm, 08/26/23 10:06:00 EDT, [...] day(s), # 10 tab(s), Refills(s) 0, Pharmacy: [facility]/pharmacy #[id number], 172, cm, 01/26/23 11:20:00 EST, [...] qPM, # 30 cap(s), Refills(s) 11, Pharmacy: [facility]/pharmacy #[id number], 172, cm, 01/14/23 10:39:00 EDT, [...] day(s), # 30 cap(s), Refills(s) 11, Pharmacy: [facility]/pharmacy #[id number], 172, cm, 12/23/22 14:24:00 EDT, [...] 07-08-2022 Chronic Other aftercare (1 source) Other residential (current) drug therapy; Translations: [[facility] CURRENT DRUG THERAPY] Onset: 07-08-2022 Episodic Other [...] Test Name Value Interpretation Reference Range Facility Reminderson 12-03-2023 Reminders Reminders From: Lisa Landon To: EU - Administrative; Sent: 10/01/2023 14:16:00 EDT Show up: 12/02/2023 14:15:00 EDT Subject: 3 month f/u Due Date/Time: 01/01/2024 14:15:00 EDT Reminder/Recall 3 month f/u w/AO APPT DEC 28 @6393 IN [facility] Ambulatory Visit Summaryon 0 10-01-2023 Ambulatory Visit Summary Ambulatory Visit Summary SALVADOR BARRIENTOS :1940 Visit Date:10/01/2023 Ambulatory Visit Instructions Your Diagnosis OAB (overactive bladder) Nocturia BPH without obstruction/lower urinary tract symptoms Hydrocele Microhematuria Your Care Team Attending Physician - ROMULO Vera APRN, Janay Brown Primary Care Physician - ALEX OAKLEY MD This Is Your Medications List Contact prescribing physician if questions or concerns aspirin hydrochlorothiazide-lis inopril (hydrochlorothiazide-li sinopril 25 mg-20 mg Tab) multivitamin (Multi Vitamin+) simvastatin (simvastatin 40 mg Tab) Procedures Performed Cystoscopy (01/26/2023), Transurethral cystoscopy (01/26/2023), Urodynamics (01/26/2023), TURP - Transurethral resection of prostate (05/21/2020), Cystourethroscopy with dilation of urethral stricture (04/05/2020), TURP - Transurethral resection of prostate (05/25/2019), Cystourethroscopy with dilation of urethral stricture (04/28/2019), Cystourethroscopy with dilation of urethral stricture (04/28/2019), Endoscopic transurethral electrovaporization of prostate (05/20/2018), Cystoscopy (04/15/2018), Ethmoidectomy (09/29/2013), Hernia repair. Discharge Vitals Temperature (Temporal Artery) 36.6 ?C Heart Rate (Peripheral) 83 Respiratory Rate 16 Blood Pressure 160/88 Height 172 cm Height 68 in Weight 120 kg Weight 264 lb BMI 40.56 What to do next You Need to Schedule the Following Appointments Follow Up with ROMULO Vera APRN, Janay Brown, FAM, URL When: Where: Medications What How Much When Instructions Unchanged aspirin 81 Milligram By Mouth Every day Contact prescribing physician if questions or concerns Unchanged hydrochlorothiazide-lis inopril (hydrochlorothiazide-li sinopril 25 mg-20 mg Tab) Contact prescribing physician if questions or concerns Unchanged multivitamin (Multi Vitamin+) one tab By Mouth Every day Contact prescribing physician if questions or concerns Unchanged simvastatin (simvastatin 40 mg Tab) 1 Tablets By Mouth Once a day (at bedtime) Contact prescribing physician if questions or concerns Allergies No Known Allergies Problems Ongoing - Any problem that you are currently receiving treatment for. 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 Ethmoid sinus HTN - Hypertension Patient Survey You may receive a survey via text or e-mail asking about your office visit. Please share your experience with us by completing your survey. We appreciate your feedback and thank you for choosing us for your care. [facility] Urology Office/Clinic Noteon 10-01-2023 Urology Office/Clinic Note Urology Office/Clinic Note Chief Complaint PO cysto with botox with a PVR HPI Staff 83 year old male patient presents today for a 2 week follow up from Cystoscopy with botox injection w/ PVR. Previous DX: BPH, Epididymo-orchitis Unable to leave urine specimen. Last urinated before he came to appointment. Last OV PVR was 45 ml. IPSS 18, KRISTIE 11 Dysuria: denies Incomplete bladder emptying: patient can't tell, PVR: 48 Hematuria: denies visible blood Frequency: once every hour or more Urgency: denies Nocturia: 5 x a night Stream: denies hesitancy, has a steady stream Leaking: denies Post void dripping: denies Wearing pads/ Depends: denies Urge incontinence: denies Stress incontinence: denies Incontinence without Sensory Awareness: denies Abdominal pain: denies Flank pain: denies Sexual complaints: _ History of Present Illness Tests reviewed: reviewed UA, bladder scans, ER notes I have reviewed the previous health record information and history for this patient from Dr. Romero and external providers. I have reviewed and verified the staff [...] HPI. Physical Exam Vitals & Measurements T: 36.6 ?C(Temporal Artery) HR: 83(Peripheral) RR: 16 BP: 160/88 HT: 68 in HT: 172 cm WT: 120 kg WT: 264 lb BMI: 40.56 General Appearance: alert, no distress, well nourished, well developed male. Assessment/Plan KRISTIE 11 (4). 1. OAB (overactive bladder) (N32.81: Overactive bladder) S/p Urodynamics 01/26/23 - Small bladder capacity at 100 cc, early sensations. Spasms during filling while undergoing cysto. S/p Botox 100u 09/14/23. PVR (cc): 12/23/22 - 38 01/14/23 - 75 02/24/23 - 22 08/26/23 - 45 10/01/23 - 48 (random scan PO Botox, voided prior to appt about 1 hr ago) Pt did not tolerate Trospium or Tamsulosin. Reports both gave him diarrhea, unsure if it improved urinary sxs. IPSS 18 (18). Not currently taking any prostate or bladder meds. Denies signficant PO complications. States he presented to [facility] ER the day following his procedure. Bladder scan showed 10cc and was able to void wo issues. Overall sxs have intermittently improved PO Botox. Still getting up a few times per night to void. Advised pt efficacy of Botox is 90 days PO so sxs should continue to improve. -Cont sx monitoring -Limit fluids 2hrs prior to bedtime -Increase water intake during the day -F/u in 3 mos to reassess sxs 2. Nocturia (R35.1: Nocturia) See #1. 3. BPH without obstruction/lower urinary tract symptoms (N40.0: Benign prostatic hyperplasia without lower urinary tract symptoms) S/p Rezum 05/20/[address] Ness. S/p TURP 05/25/19 and 05/21/[address] Ness. S/p Cysto 01/26/23 - unobstructed due to prior TURP/Rezum. Widely patent prostatic urethra and bladder neck. Catheter inflammation around posterior and inferior wall. Spasm while filling. [1] -See #1 4. Hydrocele (N43.3: Hydrocele, unspecified) Scrotal US 01/27/23 [facility] - R epididymoorchitis with reactive medium septated hydrocele. [2] -No bother, cont sx monitoring 5. Microhematuria (R31.29: Other microscopic hematuria) S/p Cysto 01/26/23. No sample provided for UA today. -Cont sx monitoring and routine UAs. Pt to notify the office if he were to experience gross hematuria or clots. Follow-up With When Contact Information ROMULO Vera APRN, Janay Brown, ADAN, URL Additional Instructions: 3 mos Patient Education Overactive Bladder, Adult I, Dot Oakley, personally scribed for ROMULO Cox on 10/01/2023 14:21:26. . Documentation recorded by the scribe _ accurately reflects the services(s) I performed and decisions made by me. Authenticated by Janay Vera APRN, FNP-C on 10/01/2023 14:50:08. 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 [facility] Comment on above: Result Comment: Elec tronically Signed By: ROMULO Vera APRN, Aurora X\.br\Date and Time Signed: 10/01/23 14:50 EDT\.br\Electronically Co-Signed By: Dot Oakley\.br\Date and Time Co-Signed: 10/01/23 14:21 EDT Coding Summary.on 09-15-2023 Coding Summary. RLKTUqjt06KAr5yTv+PG hlY WQ+IO6JSYWqH38jnAGqxX6j S2KOAQcNYtiuJYJITLqUIwW dvbDxSY9fjHYmHSJe IC8+LT9hWDApRjlcgQDcq8L 4kPE4A50bhv9bIPualRW0LR QoIxQnoyola2uuoOq1URvqY mluOyBt XFSdeH66VOG3aW94Dh04hUW kvURve5itvQs6ZzKwMMLqXS H4aPhwKQqzk5FrJOUaO51tb WDxs7R0 MZYzlZryzFNpTaVufKD1aA5 dGJigkleyb8tkmxtgVfn9jg 19aSYnf2R5hXB4F4WaxkT3Z GJvbGQg IbypsZUZnN9yycqxq8bdwyp dFqWrFIByWJh1DCt5LFVqxK fhAcHkBJ20PVV1LBApuhMvF 2FsLWFs fGjwDrG1a9P1Ok8TC4CEJrd rP1BXSHKECJcxuPX+PC90cj 08B2VoIafxTjb4UIKsLRX6c SQ1bI8k AUIoYVmwy7Q3iAW3D5SxjwE oxu5vn7jrPRVfJHlpS23nmF Elg1B6QTMtdXY9NIOxjVohZ iBzaG93 Oyc+EQPntBbob3MnEkxvu0g vk2fwzUl4XfhmLDCuveInnW dtLED2h3JcMb9zONMuaNW5u VG9cN8t IePmIbJ6RUrtI000BbUikTS mBvkiT25yH3OolLV+PHRyPj d6RODahRklDJ5oT6HaYKXre mctbGVm dPbbUN0gIOMkxokvVICalA6 sOQRiX4c7NzSpAhG7YEluG0 GoROUpudurBo31qE2tFzHxT eT0JZho B3XyjiZ3NLPrwDNuIMduYQC 4H85ej6T3HSInCLOsOZK2wT V1zK6qsMllujwmsADyoBfhu mVydGlj LChjBLctY532CWXnmLufToN vZGluZyBEYXRlOiAgMDYvMj UvMjAyNDwvdGQ+QOTmBXS4y WxlPSAn jXBiNCyeKy1yjPbilGfgSQ8 hJTSwxbfmIEIdqU8wSTGpfX AqhTtjDZ1mZGWenvqjz253J iAxMHB0 CIFrxUEqH5JpcC8sXbDpHVR iSSUuJ5KxhOHhIYejX275JM ooFkW3JEOgfoYaZ9OmCGMki WduOiB0 x9S0Um7Ks3PyqgwwN3JbjMU nBzWzSackFFc9T5VvOsuitF I+ZL99XKSzUH84ZRv9AMB4n WxlPSdi WTCtJ9OilZ8cUnAsWRGyYYT kOyc+PHRhYmxlIHdpZHRoPS doHFHdRsWtoMoeSR8bTl1wN GVyLWNv sQdvgKKeVvVfc3hzIJWiBAk nMQ3rwXihR6FyqTL0UBUkv9 v9Rs58V52oC2PccBB+PGNvb BZ6wHR7 jH1yBaEcLoI6DYvfM361MeW hfRSfJygek1xsz8qzjYy4Ni A4YEZvjsXxgPlwSCQ1e0LlL c29Y63k IHdpZHRoPSIxNSUiIHZhbGl rqv7ndN0hKd2+HHTguPW8kB G4gA6eXoTaUnK7BTfoW409Y nRvcCIv Axuvf1iqj8ltjAf4JpGxKZD lxdPknVgnCAM2x8CwNy40I4 QgaQgcc0ZiCci9xf28oMSzz 7N2gYG5 U2PhHADqndilmZYltSdfLI2 eCXFopwqaDJMnfL5yXJLwE6 u2PjWgGoT6JNvwV8OkeqG4N GJvbGQg SEOhtZNAkA1ozecay4tllcm qNxDrAKBrQKi5NWa6LHWsnL qmLkSnKJQ7TxT7JUC7pUSmh E9odPpf dsonhJ3kPfq+BNF6lJAmqJD LEO1yNondpFE+FVQhSDW6eH flMUqbQMCgwF7zSXUgW7c4L iAwLjA1 IHfiA7YbbzX5LECouTAeTBG kjOIClO6tgmnmz1ahxkkxVu SqRWDaDXo9IGf5WEJmzVdnF iBsZWZ0 JsR9LUY9sRFkcY7uqCaertn gjR4nVsa+JxtlcHtcMGR3RL g3S6NaEeo6DZVemKnfUD9ru GFkZGlu Qy1djChvgLacQT6nVVMdcja hk621SfLvp1smLUKwnLXoXQ dlRFK9R66sh1E5JCNcRCAxU UP0zRL3 mA7zeSlhbokzcWWvhWoqclT gcFepKZsnSDomA391EEPbdM qpJdZuRBt7A6ItTmg7DHQzj CszQL7t oZFfIRtzCb6diQrgwCfgSS8 cQWVzcpwue894IdOev9uyLL WqqRNsCLbsLDC4W10rm7B6L CMwMDAw UDC3vAR7vR0enExfrrfeaIX mdDsgdmVydGljYWwtYWxpZ2 23UOCpvSttGdPhzWv9N3BjD ut0RQHw xSbjOH7swSSqIDgqYe2jmNp rxObsEM8tBHUioqubr394Pv Bdg5qiGOUzwSRiTAgrTRW3W 89xh0J1 JWPpVCUzEMW4yUI8xM6wdKg nbjogbGVmdDsgdmVydGljYW baPDjgT264CUBzyOykBeZfq GllbnQg IMdcDEe2Z6MuKizhtST+PC9 4CJFsVC71uNXfzCMhc8xbnA n9ZuSdBBBgHKZ7xYulIRjvi 3JkZXIt K70wiBPjw2L5HIDiaChpwEC bUlSudJK5gR6iLVmhwevsb2 trpjrwZxqhf9cgra62jR47A 29sIHdp ZHRoPSIzMCUiIHZhbGlnbj0 iaT3eLr2+JCOhvDL3nVD6eC 4sDLDzSxG6QCkdD682RaHdu CIvPjxj u7hkp3glnWm2QkM2DLIefqR zyMpvXUH4u5DmFh61U77dUW dpZHRoPSIyMCUiIHZhbGlnb u5isX9p Ii8+MMBzvXR3wCZ5mM1jMyK mWhF3TPrnB059KaBvlKCoMg lwT23bE3ZjsAS+WWAiIin3I CBzdHls QN3klSFvGThiOk0qJZF8MjV aHxCeZQvyO8VhNULnqvdcfj bhoVW3XJPiJEKxvK36Sf3ey DogMTBw qCBClZ2csybvx8rcscovYfT gTWFoYRy9XNk5AFNgzRwrPp CwAMP5TvI9IJA0dEXxvJ9ac Glnbjog eL3hY5EuQTHlisgiVr58oO2 uLpGzLbA4OLkiCwf+TEVHRy wgREFWSUQgUDwvdGQ+PHRkI IS2aIsm OUyvXCRpqE3yVJZkF9n0VwR zDpA9IVrxJ8UnXCMyvxojBx 50rB8qXbPmYkQ2SAoaW2Ain tU9OSKj vUFcPYjpHCK7E28hf4P4YJT dCKEoSKW4tPK1bW7heDpoez ogbGVmdDsgdmVydGljYWwtY NtwA350 TOXrrKviRsA6RyO3DxW3EQI 4Z8IrJqw5HERqpMyxFB8jaK ZoBKkqYc1iyRwbuRbaSR2fN TBpbjtw QMYwaB2qMCHnqJYyjIetTR6 rPQLqjpmzm726UxHvLXE9DO TjoLUqM0FepF0lZvClQCBsM WFjY1Ry wAXvFGlfK771VYypCcG8WGM tdrKoR6GcESYitVxnHsH9h6 Q1Lr11EaNBVCHdwefcpEJ+P HRkIHN0 tOypIQsdYMBklI4hMUYeJ3i 1OfKxYpI6ZMarC4FpSGVwqz zvFt66cY3vMqEmXlX5XDhmZ 3VwxuU8 COVmdMAtFHicASK3E41qv3F 0GDYvDIOzRPL6dFT6xM1ypB lnbjogbGVmdDsgdmVydGljY WwtYWxp W489KSGkfVpbQm9xlLD0L9S yKvn5TLEdqThxFX4wzOLvAX gyFz5ffKspwAyfNJ5bACEkr jtwYWRk sE1lYOFnxHLswErpKM2vZWC uampan200TwLiFOL1SORlwZ NrD7VrbQ1lPhJtOUWoMHEuG 3RleHQt ZMhvV980OGllBsP9RRIpllY wV0OjADKxsMewLkS5r0X1Zo 2ZrWLuJYBvBW79BJ18BE24A 3RyPjwv dGFibGU+PHRhYmxlIHdpZHR kGCsxZCTaYrXlnIjeBL9aJb 9yZGVyLWNvbGxhcHNlOiBjb 2xsYXBz BYzlZF8soBskL1PfcQO6EER cr5w0Vf91I99kF4XcoQS+PG XglLG3zIU1qN0vHnMvFlT6Z XyhF684 StPrcOIjMkyyt6bgk2lxdNb 2QnSnPBSltaVgvKqsZAF0t5 OwDu84J07gSGrnTHIjMPFaX CUiIHZh hLzwdu1ydQ9eJn6+PGNvbCB 8bJJ4lR1vEdSkSqU8GWytH7 51BfBfvQIzBagkE34iW8Vmn XA+PHRy Oyq9MTTirPfxWN9udACoOUj dBv7vEAD8VeJwCtWfKDwoF6 QzVKOopktvtvtqlVR1TPPhK DUwaW47 Na7xwGbjQq7yUTBuVQC6TCV kvNQrJ8RcvF6jYrNzGEVlUP SxX8UikSPdKJuiL552MHemJ uZ2IGPk ldBcY7UpBLSrlLgkZsM4l2V 1Sp5GlJyozXHdPG2tWdKiXE w9C2WdKdk9VTUsnFffMP7ke GFkZGlu Zo7thWmgfOrzCJ2gTMByjtz wx912CrHgf9qhYIXyyHEwIH pqDRF7R72lu0X9SPBlRRGaG TK3gRU0 sD1afDassftpwVKajMiqzhF ljGbcNNdhWVzkY230JYHxvC emXaUNZrf4U3MdRzn2CJEdu IjoWD8t pRPrISxsNi0ifWixkYkeZO5 bIVKbxexvl367IaXvf1ceFQ WoeGWbKCoyWHV1A17zn2K3U CMwMDAw NSI9kYH6qM2mbKyxhsshnEU mdDsgdmVydGljYWwtYWxpZ2 61DLWdnNrsTu8ERuh3K9ViF kp9HWXc tRwpOK0apXUrKRhoSj2btIy nzSowPH8wQTFdcsstq464Zo Vrg6laRGFbeXImVTvwOEZ9P 04eu7F8 OEQtFJIpFCN2mXE0rG6ioVq nbjogbGVmdDsgdmVydGljYW ywXXanP012TUKgfKiwHjSrk WVyOjwv dGQ+MN98ia46C6YkIfwtRoz 3AKLhFML0yNI6kI9nPJQqVH ihj5U7rYN7A8KekwHmcu7fz 2xsYXBz WYggW22wcJNvh (more content not included)... [facility] Consent for Procedure/Surger yon 09-14-2023 Consent for Procedure/Surgery [id number]#1.00 TIFF [facility] Consent for Treatmenton 08-22 Consent for Treatment [id number]#1.00T IFF [facility] Inpatient Patient Summaryon 09-14-2023 Inpatient Patient Summary [place] [id number] Clinical Summary Person Information Name: SALVADOR BARRIENTOS Age: 83 Years : 1940 Sex: Male PCP: ALEX OAKLEY MD Marital Status: Race: White Ethnicity: Non- or Language: [place] Visit Id: Visit Reason: NOCTURIA, OAB, BPH WITH URINARY OBSTRUCTION Speciality: Acuity: Enc Type: Outpatient Med Service: Surgery Arrival: 09/14/2023 08:54:46 Discharge: Dispo Type: Address: [address] [place] [id number] Provider Notes: Diagnosis: BPH without obstruction/lower urinary tract symptoms; OAB (overactive bladder) Problems Active Hydrocele Epididymo-orchitis Retention of urine Gross hematuria Urinary retention UTI symptoms BPH without obstruction/lower urinary tract symptoms Nocturia Weak urine stream BPH with urinary obstruction Prostatitis Urinary frequency Urinary urgency Dysuria Post-void dribbling 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 Name: SALVADOR BARRIENTOS/Sex: 1940 Male Med Rec #: [id number] Physician: Gianna Romero MD Financial #: [id number] Pt. Type: O Room/Bed: / Admit/Disch: 09/14/23 08:54:46 - Institution: Case Times FTURO Entry 1 Patient Times In Room 09/14/23 10:36:00 Out Room 09/14/23 10:52:00 Procedure Times Start 09/14/23 10:43:00 Stop 09/14/23 10:46:00 Anesthesia Times Last Modified By: Rowan Lino 09/14/23 10:52:32 General Comments: BOTOX EXP: AND LOT: [id number] 100 UNITS.CARL ALFARO. Case Attendance FTURO Entry 1 Entry 2 Entry 3 Case Attendee Nick VASQUEZ, Rowan Aranda CST, Kimberly A Role Performed Surgeon - Primary Auto Painter Helper - Primary Scrub - Primary Time In [...] Position Verified Availability Equipment, Medication Time Out Nick VASQUEZ, Gianna Johnson, Verified (If Participants Rowan Lino, Applicable) Denise [...] Lino 09/14/23 10:52 Rowan Lino 09/14/23 10:53 [facility] Main OR Preoperative Recordo n 09-14-2023 Main OR Preoperative Record Holding Area Document Type FTURO Summary Primary Physician: Gianna Romero MD Finalized Date/Time: 09/14/23 10:27:41 Pt. Name: SALVADOR BARRIENTOS Katey Garcia/Sex: 1940 Male Med Rec #: [id number] Physician: Gianna Romero MD Financial #: [id number] Pt. Type: O Room/Bed: / Admit/Disch: 09/14/23 [...] Complaints of Pain: No Skin Integrity Intact, [place], Warm, & Dry Vitals - EU Blood Pressure 190/85 Pulse 80 bpm Respirations 20 br/min SPO2 94 % Additional Other (See Comment) Specimens Comment UA obtained Specimens Collected RN Reviewed Yes Last Modified By: Rowan Lino 09/14/23 10:27:37 Finalized By: Rwoan Lino Document Signatures Signed By: Lisa Booth LPN 09/14/23 09:49 Rowan Lino 09/14/23 10:27 Rowan Lino 09/14/23 10:27 [facility] Outpatient Surgery Discharge Instructionon 09-14-2023 Outpatient Surgery Discharge Instruction [id number]#[id number] TIFF [facility] Outpatient Surgery Discharge Instruction [place] [id number] Patient Discharge Instructions PERSON INFORMATION Name: SALVADOR [...] you have a fever over 100 degrees. FLOYD Patino DAVID P, have received the attached patient education materials/instructions and have verbalized understanding: May we do a follow up call? Yes No I was present when discharge instructions were given Patient Signature Date Clinican/Nurse Signature _ Date You may receive a survey from [employer] asking you to rate your care experience. Your feedback is important and will help us understand what we do well and how we can improve the quality of care we provide to you, your loved ones and our community. It?s an honor to serve you. Thank you for choosing [facility] Progress Note-Physicianon Progress Note-Physician Patient: SALVADOR BARRIENTOS Age: 83 years Sex: Male : 1940 Associated Diagnoses: None Author: Gianna Romero MD Procedure Operative Information Details: Date/ Time: 09/14/2023 10:50:00. Pre-Op Dx: OAB (overactive bladder) (ARP80-ZW N32.81, Discharge, Medical). Post-Op Dx: Same. Anesthesia [...] Follow up in 2 weeks with PVR. [facility] Comment on above: Result Comment: Elec tronically [...] Locations R1: This test was performed at: [facility], [address] [place] [address], [address]- , [place], [facility] Comment on above: Performed By: #### [id number] #### [facility] [address] [place] [address] Performed By: #### [id number] ####[facility] [address] [place] [address] Screenson 08-28-2023 Screens [id number]#1.00T IFF [facility] Screens [id number]#1.00T IFF Normal [facility] Patient Educationon 08-26-19 24 Patient Education [...] including vitamins, herbs, eye drops, creams, and fiur-hne-vgdqqxr medicines. ? Any problems you or family [...] tells you to take them. ? Taking zxtf-wva-mbkbmqv medicines, vitamins, herbs, and supplements. General instructions [...] these instructions at home: Medicines ? Take njsx-rgf-iuuqnno and prescription medicines only as told by [...] health ca (more content not included)... [facility] Urology Office/Clinic Noteon 08-26-2023 Urology Office/Clinic [...] retention 4. Epididymo-orchitis (N45.3: Epididymo-orchitis) Presented to [facility] ER 01/27/23 due to pain in groin area. Pt was given cefdinir 300mg bid x10d due to having an infection as UA showed small blood and small leuks. Scrotal US 01/27/23 [facility] - thickening of R scrotal wall. R epididymoorchitis with reactive medium septated hydrocele. [1] No longer has pain or bother. -Cont sx monitoring 5. Hydrocele (N43.3: Hydrocele, unspecified) Scrotal US 01/27/23 [facility] - R epididymoorchitis with reactive [...] 0, Pharma (more content not included)... [facility] Comment on above: Result Comment: Elec tronically Signed By: Nick VASQUEZ, Gianna Johnson\.br\Date and Time Signed: 08/26/23 11:32 EDT\.br\Electronically Co-Signed By: Dot Oakley\.br\Date and Time Co-Signed: 08/26/23 11:15 EDT ED Note-Physicianon 02-26-20 ED Note-Physician [id number]#1.00T IFF [facility] RAD - Ultrasound Reporton RAD - Ultrasound Report [id number]#1.00T IFF [facility] Ambulatory Visit Summaryon 1 04-27-2022 Ambulatory Visit Summary SALVADOR BARRIENTOS :1940 Visit Date:02/24/2023 Ambulatory Visit Instructions Your Diagnosis BPH with urinary obstruction Epididymo-orchitis Hydrocele Tests Performed Urnls Dip Stick Auto w/o Microscopy POC 58036 Your Care Team Attending Physician - THERESE [...] VASQUEZ, Gianna Johnson Where: [facility] Patient Educationon 02-25-20 Patient Education Urology Benign [...] Follow these instructions at home: ? Take mqft-ivn-qgrhtob and prescription medicines only as told by [...] the medicine (more content not included)... [facility] Urology Office/Clinic Noteon 02-24-2023 Urology Office/Clinic [...] At time of Cysto KML prescribed Levaquin k87nxls due to orchitis. Denies pain/burning & blood. [...] Trospium or Tamsulosin. PVR (cc): 12/23/22 - 01/14/23 - 02/24/23 - Honestly this is [...] PVR 2. Epididymo-orchitis (N45.3: Epididymo-orchitis) Presented to [facility] ER 01/27/23 due to pain in groin area. Pt was given cefdinir 300mg bid x10d due to having an infection as UA showed small blood and small leuks. Scrotal US 01/27/23 [facility] - thickening of R scrotal wall. R epididymoorchitis with reactive medium septated hydrocele. Reports the swelling has improved and is no longer bothersome. Denies scrotal pain. No indication for tx at this time. 3. Hydrocele (N43.3: Hydrocele, unspecified) See #2. Follow-up With When Contact Information Nick VASQUEZ, Gianna Johnson, URL, [facility] [address], [place] [address] [phone] Additional Instructions: 6 mos w/ PVR Patient Education Benign Prostatic Hyperplasia Documentation recorded by the pearl Oakley accurately reflects the services(s) I performed and decisions made by me. Authenticated by Therese Crump PA-C on 02/24/2023 13:55:40. IDot, personally scribed for Therese Crump PA-C on 02/24/2023 13:32:18. . 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 Normal [facility] Comment on above: Result Comment: Elec tronically Signed By: THERESE CRUMP PA-C\.br\Date and Time Signed: 02/24/23 14:00 EST\.br\Electronically Co-Signed By: Dot Oakley\.br\Date and Time Co-Signed: 02/24/23 13:32 EST Consent for Procedure/Surger yon 01-26-2023 Consent for Procedure/Surgery [id number]#1.00 TIFF Normal [facility] Consent for Treatmenton Consent for Treatment [id number] IFF Normal [facility] Inpatient Patient Summaryon 01-26-2023 Inpatient Patient Summary [address] [address] Clinical Summary Person Information Name: SALVADOR BARRIENTOS Age: 82 Years : 1940 Sex: Male PCP: ALEX OAKLEY MD Marital Status: Race: White Ethnicity: Non- or Language: [place] Islander Visit Id: Visit Reason: URINARY RETENTION, URINARY FREQUENCY, BPH WITH LUTS Speciality: Acuity: Enc Type: Outpatient Med Service: Surgery Arrival: 01/26/2023 09:27:18 Discharge: Dispo Type: Address: [address] [place] [address] [phone] Provider Notes: Diagnosis: Acute orchitis; OAB (overactive bladder) Problems Active Retention of urine Gross hematuria Urinary retention UTI symptoms BPH without obstruction/lower urinary tract symptoms Nocturia Weak urine stream BPH with urinary obstruction Prostatitis Urinary frequency Urinary urgency Dysuria Post-void dribbling Hx of residential use of blood thinners Microhematuria BMI 40.0-44.9, [...] Location Start Finish State [facility] [place] [facility] [place] 02/24/2023 1:00 PM 02/24/2023 1:15 PM Confirmed Patient Education Information: [facility] - Cystoscopy Discharge Instructions (CUSTOM) [facility] IntraOperative Documentson 1 03-28-2022 IntraOperative Documents [id number] TIFF [facility] Main OR Preoperative Recordo n 01-26-2023 Main OR Preoperative Record Holding Area Document Type [facility] Summary Primary Physician: Gianna Romero MD Finalized Date/Time: 01/26/23 11:57:44 Pt. Name: SALVADOR BARRIENTOS/Sex: 1940 Male Med Rec #: [id number] Physician: Gianna Romero MD Financial #: [id number] Pt. Type: O Room/Bed: / Admit/Disch: 01/26/23 [...] Complaints of Pain: No Skin Integrity Intact, [place], Warm, & Dry Vitals - EU Blood [...] JERED Fields RN, Ruthann 01/26/23 11:57 Normal [facility] Operative Reporton Operative Report Patient: SALVADOR BARRIENTOS Age: 82 years Sex: Male : 1940 Associated Diagnoses: None Author: Gianna Romero MD Procedure Operative Information Details: Date/ Time: 01/26/2023 12:17:00. Pre-Op Dx: Feeling of incomplete bladder emptying (YQW44-XX R39.14, Billing Diagnosis, Medical), OAB (overactive bladder) (GBH52-XT N32.81, Discharge, Medical). Post-Op Dx: Same. Anesthesia [...] orchitis treatment to ensure resolved. . Normal [facility] Comment on above: Result Comment: Elec tronically Signed By: Gianna Romero MD\.br\Date and Time Signed: 01/26/23 12:23 EST Outpatient Surgery Discharge Instructionon 01-26-2023 Outpatient Surgery Discharge Instruction [id number] TIFF Normal [facility] Outpatient Surgery Discharge Instruction [place] [id number] Patient Discharge Instructions PERSON INFORMATION Name: SALVADOR BARRIENTOS Katey Date of : 1940 Current Date: 01/26/2023 12:14:27 PHYSICIANS Admitting Physician: Gianna Romero MD Comment: Discharge Diagnosis: Acute orchitis; OAB (overactive bladder) FLOYD SALVADOR Del Toro has been given the following list of follow-up instructions, prescriptions, and patient education materials: IF UNABLE TO CONTACT YOUR PHYSICIAN AND YOU FEEL IT IS AN EMERGENCY, GO TO THE NEAREST EMERGENCY ROOM OR CALL 911 Follow up: With: Address: When: Gianna Romero Comments: Office schedule follow up in 2-3 weeks with PVR Type Location Start Finish State [facility] [place] [facility] [place] 02/24/2023 1:00 PM 02/24/2023 1:15 [...] you have a fever over 100 degrees. FLOYD Patino DAVID P, have received the attached patient education materials/instructions and have verbalized understanding: May we do a follow up call? Yes No I was present when discharge instructions were given Patient Signature Date Clinican/Nurse Signature _ Date You may receive a survey from [employer] asking you to rate your care experience. Your feedback is important and will help us understand what we do well and how we can improve the quality of care we provide to you, your loved ones and our community. It?s an honor to serve you. Thank you for choosing [facility] Normal [facility] Progress Note-Physicianon Progress Note-Physician Patient: SALVADOR [...] day(s), # 10 tab(s), Refills(s) 0, [id number], 172, cm, 01/26/23 11:20:00 EST, Height/Length Dosing, 120, kg, 01/14/23 10:39:00 EDT, Weight Dosing tamsulosin 0.4 mg Cap: 0.4 mg = 1 cap(s), Oral, qPM, # 30 cap(s), Refills(s) 11, Pharmacy: [facility]/pharmacy #[id number], 172, cm, 01/14/23 10:39:00 EDT, [...] Plan Assessment and Plan: Diagnosis: Acute orchitis (RWW01-HV N45.2, Discharge, Medical), Feeling of incomplete bladder emptying (LVD92-SN R39.14, Billing Diagnosis, Medical), OAB (overactive bladder) (XLA63-BF N32.81, Discharge, Medical). 82 yo M prior [...] of retention given his inappropriate sensations. Normal [facility] Comment on above: Result Comment: Elec tronically Signed By: Nick VASQUEZ, Gianna Mustafa.raisa\Date and Time Signed: 01/26/23 12:31 EST ED Note-Physicianon 01-22-20 ED Note-Physician [id number]#1.00T IFF Normal [facility] Consultation Noteon 01-16-20 Consultation Note [id number] 0TIFF Normal [facility] Screenson 01-15-2023 Screens [id number]#1.0 0TIFF Normal [facility] Screens [id number] FF Normal [facility] ED Note-Physicianon 01-15-20 ED Note-Physician [id number]#1.00T IFF Normal [facility] Lab Reportson 01-14-2023 Lab Reports [id number]#1.00T IFF Normal [facility] Urology Office/Clinic Noteon 01-14-2023 Urology Office/Clinic [...] Pseudomonas Pt was given Cefdinir 300mg BID [id number]. Pt is a poor historian. Unsure what medications he has taken/finished. Several messages in pt's chart stating that pt had called c/o inability to Urinate Pt then went to [facility] ER visit on 01/06/23 due to difficulty urinating, pt stated he had not been able to void for 2 days, cath was placed. BUN 8, Crea 0.81. Pt then returned to [facility] ER 01/09/23 due to blood [...] after starting trospium Pt then went to [facility] ER visit on 01/06/23 due to difficulty urinating, pt stated he had not been able to void for 2 days, cath was placed, BUN 8, Crea 0.81. (output unknown). Pt then returned to [facility] ER 01/09/23 due to blood [...] -PVR 1- (more content not included)... Normal [facility] Comment on above: Result Comment: Elec tronically Signed By: Nick VAQSUEZ, Gianna Johnson\.br\Date and Time Signed: 01/14/23 12:23 EDT\.br\Electronically Co-Signed By: Rupa Soto\.br\Date and Time Co-Signed: 01/14/23 11:29 EDT C Urineon 12-27-2022 Bacteria identified Cx Nom (U) Microbiology PROCEDURE: Urine Culture [R1] SOURCE: U CleanCatch BODY SITE: COLLECTED DATE/TIME: 12/23/2022 14:55 EDT RECEIVED DATE/TIME: 12/24/2022 07:00 EDT START DATE/TIME: 12/24/2022 07:00 EDT FREE TEXT SOURCE: THERESE CRUMP PA-C, PA-C, THERESE Pardo FINAL REPORTS Final Report [...] Locations R1: This test was performed at: [facility], [address] [place] [address], [facility] , , [facility] Comment on above: Performed By: #### 2 [id number] #### [facility] [address] [place] [address] Lab Reportson 12-24-2022 Lab Reports [id number]#1.00 CD:127 [facility] Lab Reports [id number]#1.00 CD:127 [facility] Screenson 12-24-2022 Screens [id number]#1.00C D:127 [facility] Ambulatory Visit Summaryon 1 Ambulatory Visit Summary SALVADOR BARRIENTOS :1940 Visit Date:12/23/2022 Ambulatory Visit Instructions Your Diagnosis Urinary frequency BPH without obstruction/lower urinary tract symptoms Microhematuria Tests Performed Urnls Dip Stick Auto w/o Microscopy POC [id number] Your Care Team Attending Physician - THERON NASCIMENTO, THERESE Pardo Primary Care Physician - ALEX OAKLEY MD [...] NASCIMENTO, THERESE Pardo Where: [facility] Patient Educationon 12-24-19 Patient Education Urology Urinary Frequency, Adult Urinary [...] keep your urine pale yellow. ? Take curt-wcg-dbacige or prescription medicines. ? Eat foods that are high in fiber, such as beans, whole grains, and fresh fruits and vegetables. ? Limit foods that are high in fat and processed sugars, such as fried or sweet foods. General instructions ? Take qabl-usj-byluozm and prescription medicines only as told by [...] muscles that help control urination. ? Take sarq-mzp-nhjtejl and prescription medicines only as told by your health care provider. ? Contact a health care provider if your symptoms do not improve or get worse. This information is not intended to replace advice given to you by your health care provider. Make sure you discuss any questions you have with your health care provider. Document Revised: 10/12/2020 Document Reviewed: 10/12/2020 [employer] Patient Education ? 2022 [employer] [facility] URINALYSISOrdered By: Jhon Flores on 12-23-2022 Bacteria [...] PM) Normal Negative [facility] UA Auto SS [place].plasma/Lithiu m.RBC (Bld) [Mass ratio] 0-3 /HPF Normal 0-3/HPF [facility] UA Auto SS Nitrite Ql (U) Positive *ABN* (12/23/22 2:54 PM) Invalid Interpretation Code Negative [facility] UA Auto SS pH (U) 7.0 *NA* (12/23/22 2:54 PM) Invalid Interpretation Code 5.0 - 9.0 [facility] UA Auto SS Protein (U) [Mass/Vol] Negative (12/23/22 2:54 PM) Normal Negative [facility] UA Auto SS Specific gravity (U) [Rel density] 1.010 *NA* (12/23/22 2:54 PM) Invalid Interpretation Code 1.005 - 1.030 [facility] UA Auto SS UA Spec Desc Random Urine (12/23/22 2:54 PM) Normal [facility] UA Auto SS Urobilinogen Qn (U) 0.1441454 {Pb'U}/dL Normal 0.0 - 1.0 EU/dL [facility] UA Auto SS WBC Auto Ql (U) Negative (12/23/22 2:54 PM) Normal Negative [facility] UA Auto SS WBC LM.HPF (Urine sed) [#/Area] 0-5 /HPF Normal 0-5/HPF [facility] UA Auto SS Urinalysison 10-03-2023 Bacteria LM Ql (Urine sed) TRACE Normal Trace [facility] Comment on above: Performed By: #### 1 [id number] ####[facility] [address] [place] [address] Bilirubin Ql (U) Negative Normal Negative [facility] Comment on above: Performed By: #### 1 [id number] ####[facility] [address] [place] [address] Clarity (U) CLEAR Normal Clear [facility] Comment on above: Performed By: #### 1 [id number] ####[facility] [address] [place] [address] Color (U) YELLOW Normal Yellow [facility] Comment on above: Performed By: #### 1 [id number] ####[address] [address] Epithelial cells.squamous LM.HPF (Urine sed) [#/Area] 0-2 Normal 0-2 [facility] Comment on above: Performed By: #### 1 [id number] ####[facility] [address] [place] [address] Glucose Test strip (U) [Mass/Vol] Negative Normal Negative [facility] Comment on above: Performed By: #### 1 [id number] ####[facility] [address] [place] [address] Hemoglobin Ql (U) TRACE Abnormal Negative [facility] Comment on above: Performed By: #### 1 [id number] ####[facility] [address] [place] [address] Ketones (U) [Mass/Vol] Negative Normal Negative [facility] Comment on above: Performed By: #### 1 [id number] ####[facility] [address] [place] [address] [place].plasma/Lithiu m.RBC (Bld) [Mass ratio] 0-3 Normal 0-3 [facility] Comment on above: Performed By: #### 1 [id number] ####Melara [address] [address] Nitrite Ql (U) Positive Abnormal Negative [facility] Comment on above: Performed By: #### 1 [id number] ####[address] [address] pH (U) 7.0 [pH] Invalid Interpretation Code 5.0-9.0 [facility] Comment on above: Performed By: #### 1 [id number] ####[address] [address] Protein (U) [Mass/Vol] Negative Normal Negative [facility] Comment on above: Performed By: #### 1 [id number] ####[address] [address] Specific gravity (U) [Rel density] 1.010 Invalid Interpretation Code 1.005-1.030 [facility] Comment on above: Performed By: #### 1 [id number] ####[address] [address] Type of Urine collection method Random Urine Normal [facility] Comment on above: Performed By: #### 1 [id number] ####[address] [address] Urobilinogen Qn (U) 0.2 {Pb'U}/dL Normal 0.0-1.0 [facility] Comment on above: Performed By: #### 1 [id number] ####[address] [address] WBC Auto Ql (U) Negative Normal Negative [facility] Comment on above: Performed By: #### 1 [id number] ####[address] [address] WBC LM.HPF (Urine sed) [#/Area] 0-5 Normal 0-5 [facility] Comment on above: Performed By: #### 1 [id number] ####[address] [address] Urology Office/Clinic Noteon 10-03-2023 Urology Office/Clinic Note Chief Complaint 2yr PVR [...] pill) Little amounts at a time. Voiding [id number]. Getting up q1hr through the night. No [...] E&M of Est. Patient Moderate 30-39 Min 01806 Urinalysis Urine Culture 2. BPH without obstruction/lower [...] E&M of Est. Patient Moderate 30-39 Min 01982 3. Microhematuria (R31.29: Other microscopic hematuria) UA [...] day(s), # 30 cap(s), Refills(s) 11, Pharmacy: [facility]/pharmacy #[id number], 172, cm, 12/23/22 14:24:00 EDT, Height/Length Dosing, 120, kg, 12/23/22 14:24:00 EDT, Weight (more content not included)... Normal [facility] Comment on above: Result Comment: Elec tronically Signed By: THERESE CRUMP PA-C\.br\Date and Time Signed: 12/23/22 15:03 EDT\.br\Electronically Co-Signed By: Dot Oakley\.br\Date and Time Co-Signed: 12/23/22 14:57 EDT Vital Signs Date Time Vital Sign Value Performing Clinician Facility 10-01-2023 13:14-0400 Blood Pressure Location [facility] 10-01-2023 13:14-0400 Body temperature 97.88 [degF] [employer] 10-01-2023 13:14-0400 Diastolic blood pressure 88 mm[Hg] [employer] 10-01-2023 13:14-0400 Heart rate 83 /min Janay Orzech [facility] 10-01-2023 13:14-0400 Respiratory rate 16 /min Janay Orzech [facility] 10-01-2023 13:14-0400 Systolic blood pressure 160 mm[Hg] Janay Orzech [facility] 08-26-2023 10:05-0400 Blood Pressure Location Gianna Lue [facility] 08-26-2023 10:05-0400 Body temperature 97.7 [degF] Gianna Lue [facility] 08-26-2023 10:05-0400 Diastolic blood pressure 84 mm[Hg] Gianna Lue [facility] 08-26-2023 10:05-0400 Heart rate 88 /min Gianna Lue [facility] 08-26-2023 10:05-0400 Systolic blood pressure 130 mm[Hg] Gianna Lue [facility] 02-24-2023 12:51-0500 Blood Pressure Location THERESE THERON [facility] 02-24-2023 12:51-0500 Diastolic blood pressure 84 mm[Hg] THERESE THERON [facility] 02-24-2023 12:51-0500 Heart rate 80 /min THERESE THERON [facility] 02-24-2023 12:51-0500 Systolic blood pressure 138 mm[Hg] THERESE THERON [facility] 01-14-2023 10:37-0400 Blood Pressure Location Gianna Lue [facility] 01-14-2023 10:37-0400 Diastolic blood pressure 80 mm[Hg] Gianna Lue [facility] 01-14-2023 10:37-0400 Heart rate 68 /min Gianna Lue [facility] 01-14-2023 10:37-0400 Respiratory rate 16 /min Gianna Lue [facility] 01-14-2023 10:37-0400 Systolic blood pressure 130 mm[Hg] Gianna Lue [facility] 12-23-2022 14:21-0400 Blood Pressure Location THERESE THERON [facility] 12-23-2022 14:21-0400 Diastolic blood pressure 79 mm[Hg] THERESE THERON [facility] 12-23-2022 14:21-0400 Heart rate 69 /min THERESE THERON [facility] 12-23-2022 14:21-0400 Respiratory rate 16 /min THERESE THERON [facility] 12-23-2022 14:21-0400 Systolic blood pressure 128 mm[Hg] THERESE THERON [facility] Encounters Encounter Date Encounter Type Care Provider Facility Start: 01-12-2024 ambulatory Janay X Orzech Facilit y:PEÑA Ozuna Start: 12-14-2023 End: 12-14-2023 ambulatory ALEX OAKLEY Not Available Start: 10-26-2023 End: 10-26-2023 ambulatory OPAL GREY Not Available Start: 10-01-2023 End: 10-01-2023 ambulatory Janay X Orzech Facility: [facility] Start: 10-01-2023 End: 10-01-2023 Patient encounter procedure Janay X Orzech [facility] Start: 09-30-2023 End: 09-30-2023 ambulatory Gianna M. Lue Facility:[facility] Start: 09-30-2023 End: 09-30-2023 Patient encounter procedure Gianna M. Lue [facility] Start: 09-14-2023 End: 09-14-2023 ambulatory Gianna M. Lue [facility] Start: 09-14-2023 End: 09-14-2023 Patient encounter procedure Gianna M. Lue [facility] Start: 08-26-2023 End: 08-26-2023 ambulatory Gianna M. Lue [facility] Start: 08-26-2023 End: 08-26-2023 Lab Drop off Gianna M. Lue [facility] Start: 08-26-2023 End: 08-26-2023 ambulatory Gianna M. Lue Facility:[facility] Start: 08-26-2023 End: 08-26-2023 Patient encounter procedure Gianna M. Lue [facility] Start: 07-01-2023 End: 07-01-2023 ambulatory ALEX OAKLEY Not Available Start: 06-15-2023 End: 06-15-2023 ambulatory ALEX OAKLEY Not Available Start: 06-09-2023 End: 06-09-2023 ambulatory HAIDER JAMA Not Available Start: 02-24-2023 End: 02-24-2023 ambulatory THERESE CRUMP Facility:[facility] Start: 02-24-2023 End: 02-24-2023 Patient encounter procedure THERESE Armani THERON [facility] Start: 02-11-2023 End: 02-11-2023 ambulatory ALEX OAKLEY Not Available Start: 02-10-2023 End: 02-10-2023 ambulatory THERESE Pardo THERON Facility:[facility] Start: 02-10-2023 End: 02-10-2023 Patient encounter procedure THERESE E THERON [facility] Start: 01-26-2023 End: 01-26-2023 ambulatory Gianna M. Lue [facility] Start: 01-26-2023 End: 01-26-2023 Patient encounter procedure Gianna M. Lue [facility] Start: 01-21-2023 ambulatory Gianna M. Lue Facility:[facility] [place] Start: 01-14-2023 End: 01-14-2023 ambulatory Gianna M. Lue Facility:[facility] Start: 01-14-2023 End: 01-14-2023 Patient encounter procedure Gianna M. Lue [facility] [place] Start: 12-23-2022 End: 12-23-2022 Lab Drop off THERESE CRUMP [facility] Start: 12-23-2022 End: 12-23-2022 ambulatory THERESEKAJAL CRUMP [facility] Start: 12-23-2022 End: 12-23-2022 Patient encounter procedure THERESE CRUMP [facility] Start: 07-06-2022 End: 07-06-[address] ALEX OAKLEY Facility: Start: 08-25-2017 End: 08-26-2017 Ambulatory DEFAULT PHYSICIAN Facility:[facility] Start: 08-19-2017 End: 08-20-2017 Ambulatory DEFAULT PHYSICIAN Facility:[facility] Procedures Date Procedure Procedure Detail Performing [...] Immunization Date Immunization Notes Care Provider Neda [facility] 12-29-2022 influenza virus vaccine, unspecified formulation Gianna Lue [facility] 12-02-2021 influenza virus vaccine, unspecified formulation Gianna Lue [facility] 12-02-2021 SARS-CoV-2 (COVID-19 ) [id number] Gianna Lue [facility] 07-11-2021 zoster vaccine recombinant Gianna Lue [facility] 06-20-2021 SARS-CoV-2 mRNA (ibocjhcdgpz-ccvs-rgrgp se) vaccine Gianna Lue [facility] 04-09-2021 zoster vaccine recombinant Gianna Lue [facility] 01-30-2021 influenza virus vaccine, unspecified formulation Gianna Lue [facility] 12-15-2020 SARS-CoV-2 (COVID-19 ) mRNA BNT-162b2 vax Gianna Lue [facility] Comment on above: Result Comment: 2022: [id number] 05-15-2020 SARS-CoV-2 (COVID-19 ) mRNA BNT-162b2 vax Gianna Lue [facility] Comment on above: Result Comment: 2022: [id number] 04-24-2020 SARS-CoV-2 (COVID-19 ) mRNA BNT-162b2 vax THERESE CRUMP [facility] 01-04-2020 influenza virus vaccine, unspecified formulation Gianna Lue [facility] 01-25-2019 influenza virus vaccine, unspecified formulation Gianna Lue [facility] 12-21-2018 influenza virus vaccine, live, attenuated, for intranasal use THERESE CRUMP [facility] 01-11-2018 influenza virus vaccine, unspecified formulation Gianna Lue [facility] 12-11-2016 influenza virus vaccine, unspecified formulation Gianna Lue [facility] 05-24-2015 pneumococcal conjuga te vaccine, 13 valent Gianna Luarmani [facility] Payers Date Payer Category Payer Medicare [id number] 1959 Unknown [id number] 1940 Unknown [id number] 2.16.84 0.1.266233.3.579.2.593 1940 Unknown [id number] 2.16.8 40.1.536279.3.579.2.727 1940 Unknown [id number] 2.16.8 40.1.587724.3.579.2.727 1940 Unknown [id number] 2.16.8 40.1.810658.3.579.2.727 1940 Unknown [id number] 2.16.8 40.1.552481.3.579.2.727 1940 Unknown [id number] 2.16.8 40.1.572159.3.579.2.72 1940 Unknown [id number] 2.16.8 40.1.034020.3.579.2.727 1940 Unknown [id number] 2.16.8 40.1.653355.3.579.2.72 1940 Unknown [id number] 2.16.8 40.1.672385.3.579.2.72 1940 Unknown [id number] 2.16.8 40.1.316646.3.579.2.72 1940 Unknown [id number] 2.16.84 0.1.811087.3.579.2.125 1940 Unknown [id number] 2.16.84 0.1.432907.3.579.2.1258 1940 Unknown [id number] 2.16.84 0.1.399694.3.579.2.125 1940 Unknown [id number] 2.16.84 0.1.281257.3.579.2.1258 1940 Unknown [id number] 2.16.84 0.1.509648.3.579.2.1258 1940 Unknown [id number] 2.16.840 .1.434996.3.579.2.125 1940 Unknown [id number] 2.16.8 40.1.242141.3.579.2.72 1940 Unknown [id number] 2.16.8 40.1.095215.3.579.2.72 1940 Unknown [id number] 2.16.8 40.1.745573.3.579.2.72 1940 Unknown [id number] 2.16.8 40.1.975934.3.579.2.727 Unknown Social History Date Type Detail Facility Start: 12-23-2022 End: 10-01-2023 Tobacco smoking status Never smoked tobacco (finding) [facility] Tobacco smoking status Never [facility] Sex Assigned At Male [facility] Functional Status Date Assessment Result Facility 10-01-2023 Functional Status N/A [facility] 09-14-2023 Functional Status N/A [facility] 08-26-2023 Functional Status N/A [facility] 02-24-2023 Functional Status N/A [facility] 01-26-2023 Functional Status N/A [facility] 01-14-2023 Functional Status N/A [facility] 12-23-2022 Functional Status N/A [facility] Clinical Notes 07-06-2022 to 10-01-2023 Note [...] your health care provider. General instructions Take qhyh-pho-curvrdj and prescription medicines only as told by [...] provider. Document Revised: 11/26/2020 Document Reviewed: 11/26/2020 [employer] Patient Education 2022 [employer]. Follow Up Care 09/30/2023 08:22:37 With:ROMULO Vera APRN, Janay Brown, ADAN, URL Address: When: Unknown [facility] [place] 10-01-2023 Note Patient Education Obstetrics and Gynecology Overactive Bladder, Adult Overactive bladder is a [...] be caused by other factors, such as: ? Medical conditions: ? Urinary tract infection. ? Infection of nearby tissues. ? Prostate enlargement. ? Bladder stones, inflammation, or tumors. ? Diabetes. ? Muscle or nerve weakness, especially from these conditions: ? A spinal cord injury. ? Stroke. ? Multiple sclerosis. ? Parkinson's disease. ? Other causes: ? Surgery on the uterus or urethra. ? Drinking too much caffeine or alcohol. ? Certain medicines, especially those that eliminate extra fluid in the body (diuretics). ? Constipation. What increases the risk? You may be at greater risk for overactive bladder if you: ? Are an older adult. ? Smoke. ? Are going through menopause. ? Have prostate problems. ? Have a neurological disease, such as stroke, dementia, Parkinson's disease, or multiple sclerosis (MS). ? Eat or drink alcohol, spicy food, caffeine, and other things that irritate the bladder. ? Are overweight or obese. What are the signs or symptoms? Symptoms of this condition include a sudden, strong urge to urinate. Other symptoms include: ? Leaking urine. ? Urinating 8 or more times a day. ? Waking up to urinate 2 or more times overnight. How is this diagnosed? This condition may be diagnosed based on: ? Your symptoms and medical history. ? A physical exam. ? Blood or urine tests to check for possible causes, such as infection. You may also need to see a health care provider who specializes in urinary tract problems. This is called a urologist. How is this treated? Treatment for overactive bladder depends on the cause of your condition and whether it is mild or severe. Treatment may include: ? Bladder training, such as: ? Learning to control the urge to urinate by following a schedule to urinate at regular intervals. ? Doing Kegel exercises to strengthen the pelvic floor muscles that support your bladder. ? Special devices, such as: ? Biofeedback. This uses sensors to help you become aware of your body's signals. ? Electrical stimulation. This uses electrodes placed inside the body (implanted) or outside the body. These electrodes send gentle pulses of electricity to strengthen the nerves or muscles that control the bladder. ? Women may use a plastic device, called a pessary, that fits into the vagina and supports the bladder. ? Medicines, such as: ? Antibiotics to treat bladder infection. ? Antispasmodics to stop the bladder from releasing urine at the wrong time. ? Tricyclic antidepressants to relax bladder muscles. ? Injections of botulinum toxin type A directly into the bladder tissue to relax bladder muscles. ? Surgery, such as: ? A device may be implanted to help manage the nerve signals that control urination. ? An electrode may be implanted to stimulate electrical signals in the bladder. ? A procedure may be done to change the shape of the bladder. This is done only in very severe cases. Follow these instructions at home: Eating and drinking ? Make diet or lifestyle changes recommended by your health care provider. These may include: ? Drinking fluids throughout the day and not only with meals. ? Cutting down on caffeine or alcohol. ? Eating a healthy and balanced diet to prevent constipation. This may include: ? Choosing foods that are high in fiber, such as beans, whole grains, and fresh fruits and vegetables. ? Limiting foods that are high in fat and processed sugars, such as fried and sweet foods. Lifestyle ? Lose weight if needed. ? Do not use any products that contain nicotine or tobacco. These include cigarettes, chewing tobacco, and vaping devices, such as e-cigarettes. If you need help quitting, ask your health care provider. General instructions ? Take mmwz-ecc-odoicek and prescription medicines only as told by your health care provider. ? If you were prescribed an antibiotic medicine, take it as told by your health care provider. Do not stop taking the antibiotic even if you start to feel better. ? Use any implants or pessary as told by your health care provider. ? If needed, wear pads to absorb urine leakage. ? Keep a log to track how much and when you drink, and when you need to urinate. This will help your health care (more content not included)... [facility] 09-14-2023 Hospital Discharge instructions Patient Education 09/14/2023 [...] follow up in 2 weeks with [facility] 09-14-2023 Note [id number] [facility] 09-14-2023 Note Cystoscopy with Boto x [...] you have a fever over 100 degrees. [facility] 08-26-2023 Hospital Discharge instructions Patient Education [...] including vitamins, herbs, eye drops, creams, and ktfp-tmx-qdbhklw medicines. Any problems you or family members [...] provider tells you to take them. Taking enxb-djg-brifhuh medicines, vitamins, herbs, and supplements. General instructions [...] Follow these instructions at home: Medicines Take whhs-drd-wijcbvc and prescription medicines only as told by [...] provider. Document Revised: 09/13/2021 Document Reviewed: 09/13/2021 [employer] Patient Education 2022 [employer]. Follow Up Care 02/24/2023 13:31:49 With:Nick VASQUEZ, BLANK Garza, URO Address: [address], [place] [address] [phone] When: Unknown [facility] 02-25-2023 Note [id number]#[id number] [facility] 02-24-2023 Hospital Discharge instructions Patient Education [...] urethra. Follow these instructions at home: Take qufn-csd-harhbbv and prescription medicines only as told by [...] provider. Document Revised: 09/25/2021 Document Reviewed: 09/25/2021 [employer] Patient Education 2022 [employer]. Follow Up Care 12/23/2022 14:53:34 With:Nick VASQUEZ, BLANK Garza, URO Address: [address] [place] [address] [phone] When: Unknown Comments:6 mos w/ [facility] 01-26-2023 Hospital Discharge instructions Patient Education [...] follow up in 2-3 weeks with [facility] 01-26-2023 Evaluation + Plan note Extrac tomy from: Title: - Clinic HOPD Note Author:Nick VASQUEZ, Gianna Cosme. Date:01/26/23 Impression and Plan Assessment and Plan: Diagnosis: Acute orchitis (DGS16-DF N45.2, Discharge, Medical), Feeling of incomplete bladder emptying (CYR37-VP R39.14, Billing Diagnosis, Medical), OAB (overactive bladder) (YEL10-QK N32.81, Discharge, Medical). 82 yo M prior [...] Date:02/10/2023 09:30:00 AM Scheduled Provider:THERESE CRUMP PA-C Location:[facility] Appointment Type:URO Office Visit Appointment Date:02/24/2023 01:00:00 PM Scheduled Provider:THERESE CRUMP PA-C Location:[facility] Appointment Type:URO Office Visit [facility]11-06-2023 Note [id number] NoteCystoscopy ? Voiding after the [...] if you have a fever over 100 degrees.[facility] 01-07-2023 Hospital Discharge instructions Follow Up Care 01/07/2023 08:28:45 With:Nick VASQUEZ, BLANK Garza, URO Address: When:Within 1 Month(s) Comments:pending fill and pull.f/u with [facility] or NAVEEN [facility] 10-03-2023 Hospital Discharge instructions Patient Education [...] to keep your urine pale yellow. ?Take pbld-hfh-tarmivg or prescription medicines. ?Eat foods that are high in fiber, such as beans, whole grains, and fresh fruits and vegetables. ?Limit foods that are high in fat and processed sugars, such as fried or sweet foods. General instructions Take vnmu-nyd-uaqvzmo and prescription medicines only as told by [...] the muscles that help control urination. Take dwbp-bpb-dcagjvc and prescription medicines only as told by your health care provider. Contact a health care provider if your symptoms do not improve or get worse. This information is not intended to replace advice given to you by your health care provider. Make sure you discuss any questions you have with your health care provider. Document Revised: 10/12/2020 Document Reviewed: 10/12/2020 [employer] Patient Education 2022 [employer]. Follow Up Care 12/15/2022 09:46:05 With:THERESE CRUMP PA-C, URL Address: [address] [place] [address]. [place] [address] [phone] When: Unknown [facility] 04-16-2023 NotePROCEDURE: XR WRIST LT MIN [...] Electronically authenticated by: DEANNA BRITO Date: 2022-07-06 10:[facility] App[facility]ments Appointment Date:02/24/2023 01:00:00 PM Scheduled Provider:THERESE CRUMP PA-C Location:[facility] Appointment Type:URO Office Visit [facility] evaluation + Plan note Future Appointments Appointment Date:02/24/2023 01:00:00 PM Scheduled Provider:THERESE CRUMP PA-C Location:[facility] Appointment Type:URO Office Visit Diagnostic Tests Pending * [facility]rine [facility] Appointment Date:01/21/2023 11:00:00 AM Scheduled Provider: Location:[facility] Appointment Type:URO Nurse Visit Appointment Date:02/24/2023 01:00:00 PM Scheduled Provider:THERESE CRUMP PA-C Location:[facility] Appointment Type:URO Office Visit [facility] evaluation + Plan note Future Appointments Appointment Date:08/26/2023 10:00:00 AM Scheduled Provider:Gianna Romero MD Location:[facility] Appointment Type:URO Office Visit [facility] evaluation + Plan note Future Appointments Appointment Date:09/10/2023 10:30:00 AM Scheduled Provider: Location:[facility] Appointment Type:Urology CALL PAT FT Appointment Date:09/14/2023 11:15:00 AM Scheduled Provider: Location:[facility] Appointment Type:Urology FT [facility] evaluation + Plan note Future Appointments Appointment Date:09/10/2023 10:30:00 AM Scheduled Provider: Location:[facility] Appointment Type:Urology CALL PAT FT Appointment Date:09/14/2023 11:15:00 AM Scheduled Provider: Location:[facility] Appointment Type:Urology FT Diagnostic Tests Pending * Urine Culture [facility] Appointment Date:09/30/2023 09:30:00 AM Scheduled Provider:Gianna Romero MD Location:[facility] App[facility]ments Appointment Date:10/01/2023 01:00:00 PM Scheduled Provider:ROMULO Vera APRN, [place] [facility] Location:[facility] Appointment Type:URO Office Visit [facility] Hospital course Narrative No data available for this section [facility] Hospital Discharge instructions No data available for this section [facility] No data available for this section [facility] Summary Purpose Family History No Family [...] History Records FoundNo Family History Records Found Advance Directives No Advanced Directives Records FoundNo [...] section and content) DATE CREATED AUTHOR 09/08/2017 [facility] DATE CREATED AUTHOR AUTHOR'S ORGANIZ ATION [facility]/20[facility] DATE CREATED AUTHOR AUTHOR'S ORGANIZ ATION 08/30/2023 [facility] DATE CREATED AUTHOR AUTHOR'S ORGANIZ ATION 12/15/2023 [facility] DATE CREATED AUTHOR AUTHOR'S ORGANIZ ATION 12/24/2023 [facility] Patient Care team informatio n (unrecognized section and content) Personnel Name: ALEX OAKLEY MD Address: Address: [address] Personnel Name: ALEX OAKLEY MD Address: Address: [address] [place] [address] Personnel Name: ALEX OAKLEY MD Address: Address: [address] [place] [address] Personnel Name: ALEX OAKLEY MD Address: Address: [address] [place] [address] Personnel Name: ALEX OAKLEY MD Address: Address: [address] [place] [address] Personnel Name: ALEX OAKLEY MD Address: Address: [address] [place] [address] Personnel Name: ALEX OAKLEY MD Address: Address: [address] [place] [address] Personnel Name: ALEX OAKLEY MD Address: Address: [address] [place] [address] Personnel Name: ALEX OAKLEY MD Address: Address: [address] [place] [address] Personnel Name: ALEX OAKLEY MD Address: Address: [address] [place] [address] Personnel Name: ALEX OAKLEY MD Address: Address: [address] [place] [address] FOR RECORDS PERTAINING TO PATIENTS WHO ARE [...] BE BASED ON THE PRIMARY CLINICAL RECORDS. [employer] [facility]. provides no warranty or guarantee of the accuracy or completeness of information in this document.
[2024-01-07 15:56] LABS: pH ABG 7.382 (7.350-7.450)
[2024-01-07 15:57] LABS: Allen Test POSITIVE (POSITIVE); Base Excess ABG 6.5 mmol/L (-2.0-2.0); HCO3 ABG 31.6 mmol/L (22.0-26.0); Liters per Minute 4; O2 Mode NC; Oxygen Saturation ABG 88.2 %
[2024-01-07 15:58] LABS: ABG PCO2 53.3 mmHg (35.0-45.0); PO2 ABG 55.1 mmHg (80.0-100.0); Puncture Site R.RADIAL
[2024-01-07 16:04] LABS: INR 1.04
[2024-01-07 16:06] LABS: Lymphocytes Absolute Manual 1.03 10^3/uL (1.20-3.80); Monocytes Absolute Manual 2.18 10^3/uL (0.30-0.80); Segmented Neut Absolute Manual 8.28 10^3/uL (1.4-6.5)
--- NOTE | 2024-01-07 16:09 | ED.GENADUL1 ---
HPI HPI - General Adult General Chief complaint: Shortness of Breath/Dyspnea Stated complaint: Shortness of Breath Time Seen by Provider: 01/07/24 15:27 Source: patient Mode of arrival: Wheelchair History of Present Illness HPI narrative: The patient is a 83-year-old male is coming to us with a 4 to 5 days history of shortness of breath, patient also is complaining of cough productive. There is no abdominal pain chest pain or any nausea vomiting. But he mentioned that he feels that his legs are swollen and he feels his abdomen is distended Related Data Home Medications ?Medication ?Instructions ?Recorded ?Confirmed simvastatin 40 mg tablet 40 mg PO Q24H 01/06/23 01/07/24 lisinopril 20 mg tablet 40 mg PO DAILY 01/07/24 01/07/24 Previous Rx's ?Medication ?Instructions ?Recorded sodium chloride 1,000 mg soluble 1,000 mg PO TID #90 tabs 10/22/23 tablet Allergies Allergy/AdvReac Type Severity Reaction Status Date / Time No Known Drug Allergies Allergy Verified 10/20/23 03:23 Opioid HPI Opioid Management Most Recent Opioid Data: Last Pain Scale 3 01/14/23 13:57 01/14/23 Last ORT Total Score 0 10/20/23 06:32 10/20/23 Last ORT Risk Category Low Risk 10/20/23 06:32 10/20/23 Review of Systems ROS Status of ROS 10 or more systems reviewed and unremarkable except as noted in history and below PFSH PFS Medical History (Updated 01/07/24 @ 16:40 by Stacey Cruz MD) CAP (community acquired pneumonia) ?J18.9 - Pneumonia, unspecified organism (ICD-10) Hyponatremia ?E87.1 - Hypo-osmolality and hyponatremia (ICD-10) HTN (hypertension) ?I10 - Essential (primary) hypertension (ICD-10) OAB (overactive bladder) ?N32.81 - Overactive bladder (ICD-10) Hyperlipidemia ?E78.5 - Hyperlipidemia, unspecified (ICD-10) Hematuria ?R31.9 - Hematuria, unspecified (ICD-10) History of urinary retention ?Z87.898 - Personal history of other specified conditions (ICD-10) Difficulty urinating ?R39.198 - Other difficulties with micturition (ICD-10) Surgical History (Updated 01/27/23 @ 15:29 by Therese Cardenas LPN) History of knee surgery ?Z98.890 - Other specified postprocedural states (ICD-10) Social History (Updated 01/27/23 @ 15:30 by Therese Cardenas LPN) Smoking status: Never smoker Second hand tobacco smoke exposure: No Non-prescribed substance use: denies use 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 Known occupational exposures/hazards: No Highest level of school completed/degree received: high school graduate Do you want help with school or training: No Are you now , , , , never or living with a partner: In a typical week, how many times do you talk on the telephone with family, friends, or neighbors: twice per week How often do you get together with friends or relatives: twice per week How often do you attend taoist or mormonism services: never Do you belong to any clubs or organizations such as taoist groups unions, [employer] or athletic groups, or school groups: no Total score: 2 Score interpretation: A score of greater than or equal to 2 indicates the lowest level of social isolation. Little interest or pleasure in doing things: not at all Feeling down, depressed, or hopeless: not at all Feel stressed/tense/nervous/anxious/difficulty sleeping: not at all Due to disability, difficulty making decisions: No Do you think of yourself as: straight/heterosexual Gender Identity: male Exam Narrative Exam Narrative: Nurses notes and vital signs reviewed and patient is not hypoxic. General: Well-appearing and in no apparent distress. Skin: Warm, dry, no pallor noted. No rash. Head: Normocephalic, atraumatic. Neck: Supple, non-tender. Eye: Pupils are equal, round and EOMI. No scleral icterus. Ears, Nose, Mouth, and Throat: TM are clear, no nasal mucosal hypertrophy. Oral mucosa is moist, no posterior oropharynx erythema, uvula is mid-line Cardiovascular: Regular Rate and Rhythm without murmur, gallop or rub. Respiratory: There is distal breathing sound bilaterally with rhonchi heard in both lung lyn Chest Wall: no tenderness Back: No midline thoracic or lumbar vertebral tenderness. No CVA tenderness Musculoskeletal: normal ROM, no calf or popliteal tenderness, 1+ pitting edema bilaterally GI: Abdomen is soft, non-distended. Normal bowel sounds. No masses appreciated. No tenderness to palpation. No rebound, guarding, or rigidity noted. Neurological: A&O x4. No cranial nerve dysfunction observed. No truncal ataxia. Moves all extremities. Sensation intact. Psychiatric: Cooperative and interactive. Normal mood and affect. Constitutional Vital Signs, click to edit/add: Last Vital Signs Temp 97.6 F 01/07/24 15:21 Pulse 75 01/07/24 17:10 Resp 27 H 01/07/24 17:10 BP 138/90 01/07/24 16:58 Pulse Ox 93 L 01/07/24 17:10 O2 Del Method Simple Mask 01/07/24 15:54 Course Vital Signs Vital signs: Vital Signs Temperature 97.6 F 01/07/24 15:21 Pulse Rate 96 H 01/07/24 15:21 Respiratory Rate 32 H 01/07/24 15:21 Blood Pressure 183/106 H 01/07/24 15:21 Pulse Oximetry 73 L 01/07/24 15:21 Oxygen Delivery Method Room Air 01/07/24 15:21 Temperature 97.6 F 01/07/24 15:21 Pulse Rate 75 01/07/24 17:10 Respiratory Rate 27 H 01/07/24 17:10 Blood Pressure 138/90 01/07/24 16:58 Pulse Oximetry 93 L 01/07/24 17:10 Oxygen Delivery Method Simple Mask 01/07/24 15:54 Medical Decision Making [facility] Narrative Medical decision making narrative: The patient EKG upon arrival showing possible A-fib with a rate controlled of [address] elevation or depression It was seen that the patient had similar EKG done in September interpreted as atrial rhythm The patient chest x-ray shows possible infiltrate in the right lung in addition to atelectasis although although with the patient oxygen being low he , the patient seems to be fluid overloaded his BNP is elevated compared to the last time he was here it is more than thousand The patient lactic acid is mildly elevated but he is fluid overloaded and I started him on Lasix right now he will be provided only with antibiotics ceftriaxone and azithromycin were started The patient troponin is negative the EKG did show some changes but it seems that there is more atrial rhythm not A-fib which similar to the last time the patient had an EKG-----we will leave it to the admitting team to decide about possible A-fib The patient have no echo done before and he definitely need 1 with the fluid overload picture The patient is hypoxemic he is saturating 92% on 3 L nasal cannula PT case was discussed with Dr. Paz and he agreed with above-mentioned plan Lab Data Labs: Lab Results 01/07/24 01/07/24 01/07/24 Range/Units 15:35 15:50 16:42 WBC 11.5 H (4.0-11.0) 10^3/uL RBC 4.57 L (4.70-6.10) 10^6/uL Hgb 14.2 (14.0-18.0) g/dL Hct 44.0 (42.0-54.0) % MCV 96.3 H (80.0-94.0) fL MCH 31.1 (25.9-34.0) pg MCHC 32.3 (29.9-35.2) g/dL RDW 14.1 (11.0-15.0) % Plt Count 330 (150-450) 10^3/uL MPV 10.5 (9.5-13.5) fL Seg Neuts % (Manual) 72.0 (43.0-75.0) Lymphocytes % (Manual) 9.0 L (20.5-60.0) % Monocytes % (Manual) 19.0 H (1.7-12.0) % Eosinophils % (Manual) 0.0 L (0.9-7.0) % Basophils % (Manual) 0.0 L (0.2-2.0) % Neutrophils # (Manual) 8.28 H (1.4-6.5) 10^3/uL Lymphocytes # (Manual) 1.03 L (1.20-3.80) 10^3/uL Monocytes # (Manual) 2.18 H (0.30-0.80) 10^3/uL Eosinophils # (Manual) 0.00 (0.00-0.70) 10^3/uL Basophils # (Manual) 0.00 (0.00-0.10) 10^3/uL PT 11.0 (9.0-11.6) sec INR 1.04 Puncture Site R.radial ABG pH 7.382 (7.350-7.450) ABG pCO2 53.3 H* (35.0-45.0) mmHg ABG pO2 55.1 L* (80.0-100.0) mmHg ABG HCO3 31.6 H (22.0-26.0) mmol/L ABG O2 Saturation 88.2 % ABG Base Excess 6.5 H (-2.0-2.0) mmol/L Ed Test Positive (POSITIVE) O2 Liters/Min 4 Sodium 132 L (136-145) mmol/L Potassium 4.3 (3.5-5.1) mmol/L Chloride 93 L (98-107) mmol/L Carbon Dioxide 29.9 (21.0-32.0) mmol/L Anion Gap 13.4 BUN 10.0 (7.0-18.0) mg/dL Creatinine 0.83 (0.70-1.30) mg/dL Est GFR ( Amer) >60 (>=60 mL/min/1.73m^2) Est GFR (Non-Af Amer) >60 (>=60 mL/min/1.73m^2) BUN/Creatinine Ratio 12.0 Glucose 140 H (74-106) mg/dL Lactate 2.2 H* (0.4-2.0) mmol/L Calcium 9.7 (8.5-10.1) mg/dL Magnesium 1.8 (1.8-2.4) mg/dL Total Bilirubin 0.6 (0.2-1.0) mg/dL AST 24 (15-37) U/L ALT 24 (16-63) U/L Alkaline Phosphatase 97 (46-116) U/L Troponin I High Sens 13.5 (4.0-76.1) pg/mL NT-Pro-B Natriuret Pep 1273.0 (<=1800.0) pg/mL Total Protein 7.6 (6.4-8.2) g/dL Albumin 3.2 L (3.4-5.0) g/dL Globulin 4.4 g/dL Albumin/Globulin Ratio 0.7 SARS-CoV-2 Ag (CV2AG) Negative (NEGATIVE) Discharge Plan Discharge Chief Complaint: Shortness of Breath/Dyspnea Clinical Impression: Pneumonia, Hypoxemia Patient Disposition: Admitted As Inpatient Time of Disposition Decision: 16:40
[2024-01-07 16:11] LABS: Anion Gap 13.4
--- NOTE | 2024-01-07 16:12 | ECG_ITS ---
The [facility] Test Date: 2024-01-07 Pat Name: SALVADOR BARRIENTOS Department: Room: - Gender: Male [employer]: : 1940 Requested By: LAEX YLMAN Order Number: [id number] Reading MD: FELIX MARTINEZ Measurements Intervals [place] Rate: 90 P: -[id number] MA: -19389 QRS: -77 QRSD: 128 T: 71 QT: 376 QTc: 424 Interpretive Statements 1210 Atrial fibrillation 2450 Right bundle branch block 3114 Cannot rule out anterior myocardial infarction, age undetermined 7200 Abnormal left axis deviation 9150 abnormal ECG Electronically Signed On 01-07-2024 21:49:00 EDT by FELIX MARTINEZ
[2024-01-07 16:17] LABS: Alanine Aminotransferase 24 U/L (16-63); Albumin Globulin Ratio 0.7; Albumin Level 3.2 g/dL (3.4-5.0); Alkaline Phosphatase 97 U/L (46-116); Aspartate Amino Transferase 24 U/L (15-37); Bilirubin Total 0.6 mg/dL (0.2-1.0); Calcium 9.7 mg/dL (8.5-10.1); Carbon Dioxide 29.9 mmol/L (21.0-32.0); Chloride 93 mmol/L (98-107); Estimated GFR (African America >60 (>=60 mL/min/1.73m^2); Estimated GFR (Non-African Ame >60 (>=60 mL/min/1.73m^2); Globulin 4.4 g/dL; Glucose 140 mg/dL (74-106); Potassium 4.3 mmol/L (3.5-5.1); Sodium 132 mmol/L (136-145); Total Protein 7.6 g/dL (6.4-8.2); Troponin I High Sensitivity 13.5 pg/mL (4.0-76.1)
[2024-01-07 16:22] LABS: Lactate/Lactic Acid 2.2 mmol/L (0.4-2.0)
[2024-01-07 16:37] LABS: Magnesium 1.8 mg/dL (1.8-2.4)
[2024-01-07] MEDS: AZITHROMYCIN 500 MG in 0.9 % SODIUM CHLORIDE 250 ML 250 MG IV (16:51)
[2024-01-07] MEDS: CEFTRIAXONE 1,000 MG in 0.9 % SODIUM CHLORIDE 50 ML 100 MG IV (16:51)
[2024-01-07 17:14] LABS: Internal Control Within Normal Limits; SARS-CoV-2 Ag NEGATIVE (NEGATIVE)
[2024-01-07] MEDS: FUROSEMIDE 40 MG/4 ML VIAL IVP (17:47)
--- OUTSIDE RECORDS SUMMARY | 2024-01-07 18:12 | XMS_ITS | CCD ---
Author Organization [facility] Care Team Providers Care Senior Manufacturing Supervisor Name Role Phone PHYSICIAN, DEFAULT Unavailable Unavailable PHYSICIAN, DEFAULT Unavailable Unavailable PHYSICIAN, DEFAULT Unavailable Unavailable PHYSICIAN, DEFAULT Unavailable Unavailable ESMER, DR JOHNSON Primary Care Unavailable LALI, DR LAZARO Reyes Admitting Unavailabl e LALI, DR LAZARO Reyes Attending Unavailabl e LALI, DR LAZARO Reyes Consulting UnavailDEANNA Moncada Consulting Unavailable ALEX OAKLEY Primary Care Physician [phone] THERESE CRUMP Attending Unavailable THERONTHERESE LEACH Admitting [...] day(s), # 6 tab(s), Refills(s) 0, Pharmacy: [facility]/pharmacy #[id number], 172, cm, 08/26/23 10:06:00 EDT, Height/Length [...] day(s), # 10 tab(s), Refills(s) 0, Pharmacy: [facility]/pharmacy #[id number], 172, cm, 01/26/23 11:20:00 EST, Height/Length [...] qPM, # 30 cap(s), Refills(s) 11, Pharmacy: [facility]/pharmacy #[id number], 172, cm, 01/14/23 10:39:00 EDT, Height/Length [...] day(s), # 30 cap(s), Refills(s) 11, Pharmacy: [facility]/pharmacy #[id number], 172, cm, 12/23/22 14:24:00 EDT, Height/Length [...] 07-08-2022 Chronic Other aftercare (1 source) Other alf (current) drug therapy; Translations: [OTH HALF-WAY CURRENT DRUG THERAPY] Onset: 07-08-2022 Episodic Other [...] 3 month f/u w/AO APPT DEC 28 @[address] 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 Normal [facility] Urology Office/Clinic Noteon 10-01-2023 Urology Office/Clinic Note [...] signficant PO complications. States he presented to [facility] ER the day following his procedure. 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 Normal [facility] Comment on above: Result Comment: Elec tronically Signed By: ROMULO Vera APRN, [place] X\.br\Date and Time Signed: 10/01/23 14:50 EDT\.br\Electronically Co-Signed By: Dot Oakley\.br\Date and Time Co-Signed: 10/01/23 14:21 EDT Coding Summary.on 09-15-2023 Coding Summary. IFXQTzjs75GKl7vLp+PG hlY WQ+MZ7SGOVrK63jsZApvU3j P9URKFqSKpazEDFFGEtPVmW ipsYqRE5ypSKpVZIs IC8+XV0kQDWpNlaqbAYiv0W 9eIK9Y81wyr2dJCfmwBA4QX BhVjXrpbmer2bedKs1ZChfA mluOyBt MBGezD92KZW8aZ45Zg71eNO xvQFvp0fboFv5YnRdNOGlLL T1gMrdVPpnw9XvSCFoA81zg LQzf6K7 AEQicVqsmYGzDrPkvZR3nE7 lMNztveuen8xaibjuJpa6pj 18wKOlc1Z5qTA9C2TqdyW5M GJvbGQg NiiczPOXkC8lrmsqc9pihur hBfSwDSNnWHl0HDw0XUInsE exXyEzIH33EAF0FHTrgpRbO 2FsLWFs jXvtRmE9j7L1Ez5DV8DSHuk pU5ANOQCEAXoitHK+PC90cj 95H3IjFowlVtr8QYDfQLD7u PH9nR0t ZOXzCZbnh8Q3iNK4G8XhekF hev0ol8dfOGBwSIyiL38krO Vsl0Q4ZFMtcJI4IOLktWxoY iBzaG93 Oyc+LZRmmGjml4DiRmnrx5q ir9wvvMg7XkvnVQIjirFqqA orICB7v3FsLx6lHJYowQN9n UE1pE1i EaWjUbI2IQmdE151OoPrrIY aXrteA13bM0UrjFE+PHRyPj q3ZLRbsTusWV6hG8GgVJTog mctbGVm aJojKJ5kVKEkhcmkERQdeD3 iXOPnE5v9YfPvPfZ7RUwzZ8 VfATDmdgofNg01jN9nLuKaE eO0RYqa E7XnvuF9HPHaaYGkSDppVGZ 4S02im9V3FQDcSGZjAHT7fL O5yQ3aeXarsgcapWFojHbsb mVydGlj JTgrVHphM529CWAauIazOhE vZGluZyBEYXRlOiAgMDYvMj UvMjAyNDwvdGQ+MEWjADB1k WxlPSAn aINuGXxaNw7kqNajzNsdNW4 tFMVghzndFRUiiG6cSGJlbI DmaFsdOL6cNFMwfkmxe826D iAxMHB0 RDUvnFZnG1YcfX7vZbJbYBJ aINBlZ7BtzKTvKJolG435DD gqAbD9STVgatXlN4YrOGGnd WduOiB0 x5Z1Fv7Pr1CwuwqrM6ZfsHJ hRwDyHbvqRId0L8CoOzmkeT I+QQ52ZHXmLS40EPs8ORU0o WxlPSdi GYHuJ9PxtI6gUlKxYYEbLGX kOyc+PHRhYmxlIHdpZHRoPS woOBFtGyVgrQdnOR4kCv2hU GVyLWNv lUoyqMNbXnOxq5fqAEWmSVv eNF2dpUaxO7QxoHO7URMrm8 u2Py09Y27wB9GvmXD+PGNvb MW4aPV1 wK7kFwDeKoH6GMxmK735OiO bxISmUwyqz8cre4cvzOv0Ge H7PRAicjGwtCnjMRV9z8CcV a97R86d IHdpZHRoPSIxNSUiIHZhbGl stq6lsB5kKb2+YBHfeAS8mT V0pH7jSdMnRlX2JIrxF133N nRvcCIv Qbxgh0xga1glcVo1WpPfNFC qbzNfvItwLXI3s4ElHd82W2 GpxYusm5ZuSup1es31zVTfh 1Z3vLW1 N3TwBTIqaruawIHzvFetFG5 gFRSmckqpVAMqwN4rTQEsW0 q3SrLtIiS9YWtgC2XjvhH3J GJvbGQg HMYfpNAQfP1uywpvh6otfre uZmUuZUWjREf4GEd7LMHwsR tbMkBpXOW8IyH6PBJ5xKMss P7tfSlm xqcfoL7kPny+ICC7jGSrfJI AQI5lCeocmBI+GWVkCPY9cM dqUMtfHYMfcM1lJUFtD1s0R iAwLjA1 PQjxM0EpwuN3XUAqbVRxJEF yzFDRhZ5roueoc8dicogeWs LrWXKrZWo3PXi9DQGxpKkwC iBsZWZ0 ZpR8WXH2wAPrdW0zdCgndaz ucD9mJvs+ThpxjBneJYD5WF w2L2OaIxo0PODohTgxJA1tt GFkZGlu Zb8gyVdzkDepBS8yGGEatjz uc499YzZge4flFTWqqJWyZS wfYEE9N58lr8G4XMLpKDWyL GC4xEZ4 lM1olYnhlsxckXOaiGallqQ siQzrWYyxJYwiH589TROtjE xwTwTyEGs1X9PaCrg0CDFrj ZhqUC6k xDOrMRekHu9jtWyquHewPW5 cBCSptuglb001HuKfv1duUM TukHVpGIzdOFL4Z22dr7U8H CMwMDAw YNO0wDO4gX4iaXaeuyireIA mdDsgdmVydGljYWwtYWxpZ2 03KGHbxLodNrZgaAs6T9BkK qw4IOVe yIagCY8tgQYcVPibMr7iaZx npQwbID7zKRXiygcgo669Sw Cvi5vxPJBtwLSvUBiuJHJ8M 16lr2T3 ABQgFYEqIWL1yOD7nO9igPe nbjogbGVmdDsgdmVydGljYW mkFQmoK533EJJecPccBzLxt GllbnQg AUfhBQa9Z7RpJywndPR+PC9 0KVFjTQ52dFBofKUvl2vobF b3PhKgKRVdJIL3bGnzQWjec 3JkZXIt P77kqALvf3B8TKTueTdamCJ wJrDhcTZ6hF9lNPjletoms7 ltpwcoZspqn8ryvw18rF27X 29sIHdp ZHRoPSIzMCUiIHZhbGlnbj0 lyM8aDv7+PVJiwOE5hBW0lQ 9bLICgZqG4BWaqA536DmRxi CIvPjxj e3cdg7qrmEe9SbB0UFQwwjC hiQxrBUX1w9UxXe53W49eTC dpZHRoPSIyMCUiIHZhbGlnb w1wqF6e Ii8+ZNYrcSV7tMK5eL2sAzS xMaB9VEyoA818DxVcnKLaYy lrD78yE3CpoFJ+BKCeRbp9B CBzdHls RD4plIEaLVpgHn1sVWR1RbY kOoVmLUoxK4ZoEHUwucnjzs xdsFS0CADdNFQeiS98Ju4yy DogMTBw gTTNaP2cvghvw1dehlqcZsP cSJCoEKf3SAe9QOFhmUxaIu RdZBG3JqC4DEL5iSSaxE5ct Glnbjog kL8lR3GjRWRqivpqNk84yF1 oMyApWkX7YRhgQlr+TEVHRy wgREFWSUQgUDwvdGQ+PHRkI WO8uHvs MCgqWTRlkO5gWUDqZ7o3GaV vHpL8IAntG1WiPKDouckpUu 29fJ3rQlHiMuX4TZvmB7Rvl fP0IUMc vEGuMOiaVPB1I43wu1R7FJQ pAYUjWKB3hJM9sA1bxEcueh ogbGVmdDsgdmVydGljYWwtY SqwH403 EMPefZqsHdL6HiY4CyF6UAA 9L5XsPdm0RRQocInaQA0bvI QmHXzfOu4lwZqvuSbxNN5sH TBpbjtw TAEtfO6gKEMsrFXruIuiBA2 dDYMtifskg593LxMuOGW7FS HifUHeR5LhxD2qAhXoHLBrY NNzN5Ea cUBsXXodQ917NGudIjN5UEG gfyMyS7JlBRLdnMhkOnP4y4 R8Uj18YpFKZZLnmwqqwRT+P HRkIHN0 eFyoWNvaXGNjyL8uEZViU3p 0XjMaLuX4PGaiW9VxBDTzdi lsQp31mO4nMsZtUeJ5MWdnD 1WcbkU9 LWHmgAZjBRbuVMK1K78nf8U 1ZZAxLPUwNYB2xGI2qZ8zjR lnbjogbGVmdDsgdmVydGljY WwtYWxp N322MJTanGveMr4mzYS6X2I oXkp3ONQalGtdYB1moYQtDY eqZd5kvQierMcqJB0wKOEec jtwYWRk zH7xKJIfgSWauGgvVA2rSKR smmpqs340IcEgCPM6RWFtfO VzI4GjdC0iGwXkBRHdVMFoL 3RleHQt ORjwS329VAicVbS3XSUkcwC gR9YhGAXqiZieXrL3r4U1Gj 3PtTPcTILkVH88BJ87YM39S 3RyPjwv dGFibGU+PHRhYmxlIHdpZHR kMRqyWGKqAkCzwLskHE8kCt 9yZGVyLWNvbGxhcHNlOiBjb 2xsYXBz CKslFF1zpRrfG6YjqBN8CWJ zo5v6Qb67E35eS2IphCJ+PG PjuFU6qWP1wO1nKdXvLkG1D JzaG268 TkIudODbPbgpm8bnt8osbLo 4EoUvFKVjxkUwyBwoNOY3z5 WaNp59G24rAZocPULpXXFgE CUiIHZh hJcfxw5lrN6yKh6+PGNvbCB 7oQH7oQ6uUkAbSqS1VRevF0 29VjXyoIRkRhsaJ82nC4Hiv XA+PHRy Vgw6NWFjiBajGK0mkOMoFBr jOf6qMWU7SoBtZwDmBXocK8 QrZLRwsofyyaqboME2CKEwD DUwaW47 Cv4kzHneSd1fHXTgADY8AQT qrONdO0FzuJ9fVgSbAVDfLT KtF0ZmfSRkPHdvO148NKveN sD6DKPb hsWmI1XdGRSflPqfFrD6v1E 7Od9ZxQbzvLDtLC3zIlPlVG p5H5JlLic4YOZvpCsiZB3cw GFkZGlu Am2qaWzlfHguIM6aHJZowzl ms589ZhWoo2rlVAQuaFQbJB zeYNK9V97ez3U2JSXyHHLwQ BO3eKF5 rK2rzAzmkljoeETiwSopizM fkZldGAeuQVhlP315WERhbS oiQdYQZgn8O0LfXuu8YCRyx AhqQE8k nFGbJYprCu0oeUkkiEceFC9 eGJFsvaqpi720LqSwb5ftDT FwuSMgSWjiLTU8E41bk1P2N CMwMDAw WGU5fEZ5mW3wgDrlovyzaBK mdDsgdmVydGljYWwtYWxpZ2 19PXFxfAdcPu4RKqv9X6NiU eu7ZRRh aGtlFQ4txITySOvrOj7kmSl afItgKE7lGLKhinydi274Kl Kwu6aiZSNqhPTnUGfpTEX0D 84vm8O4 XKAaSDKjPGV6nYO8fT5baHe nbjogbGVmdDsgdmVydGljYW xoIHquE900LEYiqGirSrCid WVyOjwv dGQ+VH62yq09K3ApBqomOzs 2KTXpXAZ1aZA7gM3jJFLhKR tlr7K5tDI4K9BsmeZkyg5an 2xsYXBz APtnH09xbJVfc (more content not included)... Normal [facility] Consent for Procedure/Surger yon 09-14-2023 Consent for Procedure/Surgery [id number]#1.00 TIFF [facility] Consent for Treatmenton 08-22 Consent for Treatment [id number]#1.00T IFF [facility] Inpatient Patient Summaryon 09-14-2023 Inpatient Patient Summary [place] [id number] Clinical Summary Person Information Name: SALVADOR BARRIENTOS Age: 83 Years : 1940 Sex: Male PCP: ALEX OAKLEY MD Marital Status: Race: White Ethnicity: Non- or Language: Tristanian Visit Id: Visit Reason: NOCTURIA, OAB, BPH WITH URINARY OBSTRUCTION Speciality: Acuity: Enc Type: Outpatient Med Service: Surgery Arrival: 09/14/2023 08:54:46 Discharge: Dispo Type: Address: [address] [place] [phone] Provider Notes: Diagnosis: BPH without obstruction/lower urinary tract symptoms; OAB (overactive bladder) Problems Active Hydrocele Epididymo-orchitis Retention of urine Gross hematuria Urinary retention UTI symptoms BPH without obstruction/lower urinary tract symptoms Nocturia Weak urine stream BPH with urinary obstruction Prostatitis Urinary frequency Urinary urgency Dysuria Post-void dribbling 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 Name: SALVADOR BARRIENTOS/Sex: 1940 Male Med Rec #: [id number] Physician: Gianna Romero MD Financial #: [id number] Pt. Type: O Room/Bed: / Admit/Disch: 09/14/23 08:54:46 - Institution: Case Times FTURO Entry 1 Patient Times In Room 09/14/23 10:36:00 Out Room 09/14/23 10:52:00 Procedure Times Start 09/14/23 10:43:00 Stop 09/14/23 10:46:00 Anesthesia Times Last Modified By: Rowan Lino 09/14/23 10:52:32 General Comments: BOTOX EXP: AND LOT: [id number] 100 UNITS.CARL ALFARO. Case Attendance FTURO Entry 1 Entry 2 Entry 3 Case Attendee Nick VASQUEZ, Rowan Aranda CST, Kimberly A Role Performed Surgeon - Primary Assembly Line Upholsterer - Primary Scrub - Primary Time In [...] Lino 09/14/23 10:52 Rowan Lino 09/14/23 10:53 [facility] Main OR Preoperative Recordo n 09-14-2023 Main OR Preoperative Record Holding Area Document Type FTURO Summary Primary Physician: Gianna Romero MD Finalized Date/Time: 09/14/23 10:27:41 Pt. Name: SALVADOR BARRIENTOS Katey Garcia/Sex: 1940 Male Med Rec #: [id number] Physician: Gianna Romero MD Financial #: [id number] Pt. Type: O Room/Bed: / Admit/Disch: 09/14/23 [...] Complaints of Pain: No Skin Integrity Intact, Bixby, Warm, & Dry Vitals - EU Blood Pressure 190/85 Pulse 80 bpm Respirations 20 br/min SPO2 94 % Additional Other (See Comment) Specimens Comment UA obtained Specimens Collected RN Reviewed Yes Last Modified By: Rowan Lino 09/14/23 10:27:37 Finalized By: Rowan Lino Document Signatures Signed By: Lisa Booth LPN 09/14/23 09:49 Rowan Lino 09/14/23 10:27 Rowan Lino 09/14/23 10:27 Normal [facility] Outpatient Surgery Discharge Instructionon 09-14-2023 Outpatient Surgery Discharge Instruction [id number] TIFF Normal [facility] Outpatient Surgery Discharge Instruction [place] [id number] Patient Discharge Instructions PERSON INFORMATION Name: SALVADOR [...] Date You may receive a survey from [employer] asking you to rate your care experience. Your feedback is important and will help us understand what we do well and how we can improve the quality of care we provide to you, your loved ones and our community. It?s an honor to serve you. Thank you for choosing [facility] Normal [facility] Progress Note-Physicianon Progress Note-Physician Patient: SALVADOR BARRIENTOS Age: 83 years Sex: Male : 1940 Associated Diagnoses: None Author: Gianna Romero MD Procedure Operative Information Details: Date/ Time: 09/14/2023 10:50:00. Pre-Op Dx: OAB (overactive bladder) (BNE78-MI N32.81, Discharge, Medical). Post-Op Dx: Same. Anesthesia [...] Follow up in 2 weeks with PVR. [facility] Comment on above: Result Comment: Elec [...] Locations R1: This test was performed at: [facility], [address] [place] [address], [address] , [place], Normal [facility] Comment on above: Performed By: #### [id number] #### [facility] [address] [place] [address] Performed By: #### 2 [id number] ####[facility] [id number] [place] [address] [place] 08-28-2023 Screens [id number]#1.00T IFF Normal [facility] Screens [id number]#1.00T IFF Normal [facility] Patient Educationon 08-26-19 24 Patient Education Urology [...] including vitamins, herbs, eye drops, creams, and nsiy-ewh-kikhwhn medicines. ? Any problems you or family [...] tells you to take them. ? Taking kran-eem-epkrhwa medicines, vitamins, herbs, and supplements. General instructions [...] these instructions at home: Medicines ? Take hhlr-uya-diukyyz and prescription medicines only as told by [...] health ca (more content not included)... Normal [facility] Urology Office/Clinic Noteon 08-26-2023 Urology Office/Clinic Note [...] retention 4. Epididymo-orchitis (N45.3: Epididymo-orchitis) Presented to [facility] ER 01/27/23 due to pain in groin area. Pt was given cefdinir 300mg bid x10d due to having an infection as UA showed small blood and small leuks. Scrotal US 01/27/23 [facility] - thickening of R scrotal wall. R epididymoorchitis with reactive medium septated hydrocele. [1] No longer has pain or bother. -Cont sx monitoring 5. Hydrocele (N43.3: Hydrocele, unspecified) Scrotal US 01/27/23 [facility] - R epididymoorchitis with reactive medium septated [...] 0, Pharma (more content not included)... Normal [facility] Comment on above: Result Comment: Elec tronically Signed By: Nick VASQUEZ, Gianna Johnson\.br\Date and Time Signed: 08/26/23 11:32 EDT\.br\Electronically Co-Signed By: Dot Oakley\.br\Date and Time Co-Signed: 08/26/23 11:15 EDT ED Note-Physicianon 02-26-20 ED Note-Physician [id number]#1.00T IFF Normal [facility] RAD - Ultrasound Reporton RAD - Ultrasound Report [id number]#1.00T IFF Normal [facility] Ambulatory Visit Summaryon 1 04-27-2022 Ambulatory Visit Summary SALVADOR BARRIENTOS :1940 Visit Date:02/24/2023 Ambulatory Visit Instructions Your Diagnosis BPH with urinary obstruction Epididymo-orchitis Hydrocele Tests Performed Urnls Dip Stick Auto w/o Microscopy POC 53310 Your Care Team Attending Physician - THERESE [...] VASQUEZ, Gianna Johnson Where: [facility] Normal [facility] Patient Educationon 02-25-20 Patient Education Urology Benign [...] Follow these instructions at home: ? Take kiyf-hvs-fyrrcsr and prescription medicines only as told by [...] the medicine (more content not included)... Normal [facility] Urology Office/Clinic Noteon 02-24-2023 Urology Office/Clinic Note [...] At time of Cysto KML prescribed Levaquin [id number] due to orchitis. Denies pain/burning & blood. [...] PVR 2. Epididymo-orchitis (N45.3: Epididymo-orchitis) Presented to [facility] ER 01/27/23 due to pain in groin area. Pt was given cefdinir 300mg bid x10d due to having an infection as UA showed small blood and small leuks. Scrotal US 01/27/23 [facility] - thickening of R scrotal wall. R epididymoorchitis with reactive medium septated hydrocele. Reports the swelling has improved and is no longer bothersome. Denies scrotal pain. No indication for tx at this time. 3. Hydrocele (N43.3: Hydrocele, unspecified) See #2. 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 Normal [facility] Comment on above: Result Comment: Elec tronically Signed By: THERESE CRUMP PA-C\.br\Date and Time Signed: 02/24/23 14:00 EST\.br\Electronically Co-Signed By: Dot Oakley\.br\Date and Time Co-Signed: 02/24/23 13:32 EST Consent for Procedure/Surger yon 01-26-2023 Consent for Procedure/Surgery [id number]#1.00 TIFF Normal [facility] Consent for Treatmenton Consent for Treatment [id number]#1.00T IFF Normal [facility] Inpatient Patient Summaryon 01-26-2023 Inpatient Patient Summary [address] [address] Clinical Summary Person Information Name: SALVADOR BARRIENTOS Age: 82 Years : 1940 Sex: Male PCP: ALEX OAKLEY MD Marital Status: Race: White Ethnicity: Non- or Language: Tristanian Visit Id: Visit Reason: URINARY RETENTION, URINARY FREQUENCY, BPH WITH LUTS Speciality: Acuity: Enc Type: Outpatient Med Service: Surgery Arrival: 01/26/2023 09:27:18 Discharge: Dispo Type: Address: [address] [place] [phone] Provider Notes: Diagnosis: Acute orchitis; OAB (overactive bladder) Problems Active Retention of urine Gross hematuria Urinary retention UTI symptoms BPH without obstruction/lower urinary tract symptoms Nocturia Weak urine stream BPH with urinary obstruction Prostatitis Urinary frequency Urinary urgency Dysuria Post-void dribbling Hx of alf use of blood thinners Microhematuria BMI 40.0-44.9, [...] Location Start Finish State URO Office Visit [facility] [place] 02/24/2023 1:00 PM 02/24/2023 1:15 PM Confirmed Patient Education Information: EU - Cystoscopy Discharge Instructions (CUSTOM) [facility] IntraOperative Documentson 1 03-28-2022 IntraOperative Documents [id number]#1.00 TIFF [facility] Main OR Preoperative Recordo n 01-26-2023 Main OR Preoperative Record Holding Area Document Type FTURO Summary Primary Physician: Gianna Romero MD Finalized Date/Time: 01/26/23 11:57:44 Pt. Name: SALVADOR BARRIENTOS/Sex: 1940 Male Med Rec #: [id number] Physician: Gianna Romero MD Financial #: [id number] Pt. Type: O Room/Bed: / Admit/Disch: 01/26/23 [...] Complaints of Pain: No Skin Integrity Intact, Bixby, Warm, & Dry Vitals - EU Blood [...] JERED Fields RN, Ruthann 01/26/23 11:57 Normal [facility] Operative Reporton Operative Report Patient: SALVADOR BARRIENTOS Age: 82 years Sex: Male : 1940 Associated Diagnoses: None Author: Gianna Romero MD Procedure Operative Information Details: Date/ Time: 01/26/2023 12:17:00. Pre-Op Dx: Feeling of incomplete bladder emptying (OQU54-HD R39.14, Billing Diagnosis, Medical), OAB (overactive bladder) (OAC08-SQ N32.81, Discharge, Medical). Post-Op Dx: Same. Anesthesia [...] orchitis treatment to ensure resolved. . Normal [facility] Comment on above: Result Comment: Elec tronically Signed By: Gianna Romero MD\.br\Date and Time Signed: 01/26/23 12:23 EST Outpatient Surgery Discharge Instructionon 01-26-2023 Outpatient Surgery Discharge Instruction [id number]#[id number] TIFF Normal [facility] Outpatient Surgery Discharge Instruction [place] [id number] Patient Discharge Instructions PERSON INFORMATION Name: SALVADOR [...] Location Start Finish State URO Office Visit [facility] [place] 02/24/2023 1:00 PM 02/24/2023 1:15 [...] Date You may receive a survey from [employer] asking you to rate your care experience. Your feedback is important and will help us understand what we do well and how we can improve the quality of care we provide to you, your loved ones and our community. It?s an honor to serve you. Thank you for choosing [facility] Normal [facility] Progress Note-Physicianon Progress Note-Physician Patient: SALVADOR BARRIENTOS [...] day(s), # 10 tab(s), Refills(s) 0, [id number], cm, 01/26/23 11:20:00 EST, Height/Length Dosing, 120, kg, 01/14/23 10:39:00 EDT, Weight Dosing tamsulosin 0.4 mg Cap: 0.4 mg = 1 cap(s), Oral, qPM, # 30 cap(s), Refills(s) 11, Pharmacy: [facility]/pharmacy #[id number], 172, cm, 01/14/23 10:39:00 EDT, Height/Length [...] Plan Assessment and Plan: Diagnosis: Acute orchitis (LGQ27-EG N45.2, Discharge, Medical), Feeling of incomplete bladder emptying (OXE28-IK R39.14, Billing Diagnosis, Medical), OAB (overactive bladder) (CJB28-CW N32.81, Discharge, Medical). 82 yo M prior [...] of retention given his inappropriate sensations. Normal [facility] Comment on above: Result Comment: Elec tronically Signed By: Nick VASQUEZ, Gianna Mustafa.raisa\Date and Time Signed: 01/26/23 12:31 EST ED Note-Physicianon 01-22-20 ED Note-Physician [id number]#1.00T IFF Normal [facility] Consultation Noteon 01-16-20 Consultation Note [id number]#1.0 0TIFF Normal [facility] Screenson 01-15-2023 Screens [id number]#1.0 0TIFF Normal [facility] Screens [id number]#1.00TI FF Normal [facility] ED Note-Physicianon 01-15-20 ED Note-Physician [id number]#1.00T IFF Normal [facility] Lab Reportson 01-14-2023 Lab Reports [id number]#1.00T IFF Normal [facility] Urology Office/Clinic Noteon 01-14-2023 Urology Office/Clinic Note [...] Pseudomonas Pt was given Cefdinir 300mg BID [id number]. Pt is a poor historian. Unsure what medications he has taken/finished. Several messages in pt's chart stating that pt had called c/o inability to Urinate Pt then went to [facility] ER visit on 01/06/23 due to difficulty urinating, pt stated he had not been able to void for 2 days, cath was placed. BUN 8, Crea 0.81. Pt then returned to [facility] ER 01/09/23 due to blood in [place] [...] after starting trospium Pt then went to [facility] ER visit on 01/06/23 due to difficulty urinating, pt stated he had not been able to void for 2 days, cath was placed, BUN 8, Crea 0.81. (output unknown). Pt then returned to [facility] ER 01/09/23 due to blood in [place] [...] -PVR 1- (more content not included)... Normal [facility] Comment on above: Result Comment: Elec tronically Signed By: Nick VASQUEZ, Gianna Johnson\.br\Date and Time Signed: 01/14/23 12:23 [...] Locations R1: This test was performed at: [facility], [address] [place] [address], [facility] , , [facility] Comment on above: Performed By: #### [id number] #### [facility] [address] [place] [address] Lab Reportson 12-24-2022 Lab Reports [id number]#1.00 CD:127 [facility] Lab Reports [id number]#1.00 CD:127 [facility] Screenson 12-24-2022 Screens [id number]#1.00C D:127 [facility] Ambulatory Visit Summaryon 1 Ambulatory Visit Summary SALVADOR BARRIENTOS :1940 Visit Date:12/23/2022 Ambulatory Visit Instructions Your Diagnosis Urinary frequency BPH without obstruction/lower urinary tract symptoms Microhematuria Tests Performed Urnls Dip Stick Auto w/o Microscopy POC 72030 Your Care Team Attending Physician - THERON [...] THERESE Pardo Where: [facility] Patient Educationon 12-24-19 Patient Education Urology Urinary [...] keep your urine pale yellow. ? Take rirn-dnf-ptirqmo or prescription medicines. ? Eat foods that are high in fiber, such as beans, whole grains, and fresh fruits and vegetables. ? Limit foods that are high in fat and processed sugars, such as fried or sweet foods. General instructions ? Take scgf-qwt-dujmfgj and prescription medicines only as told by [...] muscles that help control urination. ? Take nssf-cmr-foubyyu and prescription medicines only as told by your health care provider. ? Contact a health care provider if your symptoms do not improve or get worse. This information is not intended to replace advice given to you by your health care provider. Make sure you discuss any questions you have with your health care provider. Document Revised: 10/12/2020 Document Reviewed: 10/12/2020 [employer] Patient Education ? 2022 [employer] [facility] URINALYSISOrdered By: Jhon Flores on 12-23-2022 [...] PM) Normal Negative [facility] UA Auto SS Covina.plasma/Lithiu m.RBC (Bld) [Mass ratio] 0-3 /HPF Normal [...] [facility] UA Auto SS Urobilinogen Qn (U) 0.0454601 {Pb'U}/dL Normal 0.0 - 1.0 EU/dL [facility] UA Auto SS WBC Auto Ql (U) Negative (12/23/22 2:54 PM) Normal Negative [facility] UA Auto SS WBC LM.HPF (Urine sed) [#/Area] 0-5 /HPF Normal 0-5/HPF [facility] UA Auto SS Urinalysison 10-03-2023 Bacteria LM Ql (Urine sed) TRACE Normal Trace [facility] Comment on above: Performed By: #### 1 [id number] ####[facility] [address] [place] [address] Bilirubin Ql (U) Negative Normal Negative [facility] Comment on above: Performed By: #### 1 [id number] ####[facility] [address] [place] [address] Clarity (U) CLEAR Normal Clear [facility] Comment on above: Performed By: #### 1 [id number] ####[facility] [address] [place] [address] Color (U) YELLOW Normal Yellow [facility] Comment on above: Performed By: #### 1 [id number] ####[address] [address] Epithelial cells.squamous LM.HPF (Urine sed) [#/Area] 0-2 Normal 0-2 [facility] Comment on above: Performed By: #### 1 [id number] ####[facility] [address] [place] [address] Glucose Test strip (U) [Mass/Vol] Negative Normal Negative [facility] Comment on above: Performed By: #### 1 [id number] ####[facility] [address] [place] [address] Hemoglobin Ql (U) TRACE Abnormal Negative [facility] Comment on above: Performed By: #### 1 [id number] ####[facility] [address] [place] [address] Ketones (U) [Mass/Vol] Negative Normal Negative [facility] Comment on above: Performed By: #### 1 [id number] ####[facility] [address] [place] [address] [place]ina.plasma/Lithiu m.RBC (Bld) [Mass ratio] 0-3 Normal 0-3 [facility] Comment on above: Performed By: #### 1 [id number] ####[place] [address] Nitrite Ql (U) Positive Abnormal Negative [facility] Comment on above: Performed By: #### 1 [id number] ####[address] [address] pH (U) 7.0 [pH] Invalid Interpretation Code 5.0-9.0 [facility] Comment on above: Performed By: #### 1 [id number] ####[address] [address] Protein (U) [Mass/Vol] Negative Normal Negative [facility] Comment on above: Performed By: #### 1 [id number] ####[address] [address] Specific gravity (U) [Rel density] 1.010 Invalid Interpretation Code 1.005-1.030 [facility] Comment on above: Performed By: #### 1 [id number] ####[address] [address] Type of Urine collection method Random Urine Normal [facility] Comment on above: Performed By: #### 1 [id number] ####[address] [address] Urobilinogen Qn (U) 0.2 {Pb'U}/dL Normal 0.0-1.0 [facility] Comment on above: Performed By: #### 1 [id number] ####[address] [address] WBC Auto Ql (U) Negative Normal Negative [facility] Comment on above: Performed By: #### 1 [id number] ####[address] [address] WBC LM.HPF (Urine sed) [#/Area] 0-5 Normal 0-5 [facility] Comment on above: Performed By: #### 1 [id number] ####[address] [address] Urology Office/Clinic Noteon 10-03-2023 Urology Office/Clinic Note [...] pill) Little amounts at a time. Voiding [id number]. Getting up q1hr through the night. No [...] E&M of Est. Patient Moderate 30-39 Min 25606 Urinalysis Urine Culture 2. BPH without obstruction/lower [...] E&M of Est. Patient Moderate 30-39 Min 31992 3. Microhematuria (R31.29: Other microscopic hematuria) UA [...] day(s), # 30 cap(s), Refills(s) 11, Pharmacy: [facility] #[id number], 172, cm, 12/23/22 14:24:00 EDT, Height/Length Dosing, 120, kg, 12/23/22 14:24:00 EDT, Weight (more content not included)... Normal [facility] Comment on above: Result Comment: Elec tronically Signed By: THERESE CRUMP PA-C\.br\Date and Time Signed: 12/23/22 15:03 EDT\.br\Electronically Co-Signed By: Dot Oakley\.br\Date and Time Co-Signed: 12/23/22 14:57 EDT Vital Signs Date Time Vital Sign Value Performing Clinician Facility 10-01-2023 13:14-0400 Blood Pressure Location [facility] 10-01-2023 13:14-0400 Body temperature 97.88 [degF] [facility] 10-01-2023 13:14-0400 Diastolic blood pressure 88 mm[Hg] [facility] 10-01-2023 13:14-0400 Heart rate 83 /min Janay Orzech [facility] 10-01-2023 13:14-0400 Respiratory rate 16 /min Janay Orzech [facility] 10-01-2023 13:14-0400 Systolic blood pressure 160 mm[Hg] Janay Orzech [facility] 08-26-2023 10:05-0400 Blood Pressure Location Gianna Lue [facility] 08-26-2023 10:05-0400 Body temperature 97.7 [degF] Gianna Lue [facility] 08-26-2023 10:05-0400 Diastolic blood pressure 84 mm[Hg] Gianna Lue [facility] 08-26-2023 10:05-0400 Heart rate 88 /min Gianna Lue [facility] 08-26-2023 10:05-0400 Systolic blood pressure 130 mm[Hg] Gianna Lue [facility] 02-24-2023 12:51-0500 Blood Pressure Location THERESE THERON [facility] 02-24-2023 12:51-0500 Diastolic blood pressure 84 mm[Hg] THERESE THERON [facility] 02-24-2023 12:51-0500 Heart rate 80 /min THERESE THERON [facility] 02-24-2023 12:51-0500 Systolic blood pressure 138 mm[Hg] THERESE THERON [facility] 01-14-2023 10:37-0400 Blood Pressure Location Gianna Lue [facility] 01-14-2023 10:37-0400 Diastolic blood pressure 80 mm[Hg] Gianna Lue [facility] 01-14-2023 10:37-0400 Heart rate 68 /min Gianna Lue [facility] 01-14-2023 10:37-0400 Respiratory rate 16 /min Gianna Lue [facility] 01-14-2023 10:37-0400 Systolic blood pressure 130 mm[Hg] Gianna Lue [facility] 12-23-2022 14:21-0400 Blood Pressure Location THERESE THERON [facility] 12-23-2022 14:21-0400 Diastolic blood pressure 79 mm[Hg] THERESE THERON [facility] 12-23-2022 14:21-0400 Heart rate 69 /min THERESE THERON [facility] 12-23-2022 14:21-0400 Respiratory rate 16 /min THERESE THERON [facility] 12-23-2022 14:21-0400 Systolic blood pressure 128 mm[Hg] THERESE THERON [facility] Encounters Encounter Date Encounter Type Care Provider Facility Start: 01-12-2024 ambulatory Janay X Orzech Facilit y:PEÑ[facility] Ozuna Start: 12-14-2023 End: 12-14-2023 ambulatory ALEX OAKLEY Not Available Start: 10-26-2023 End: 10-26-2023 ambulatory OPAL GREY Not Available Start: 10-01-2023 End: 10-01-2023 ambulatory Janay X Orzech Facility: [facility] Start: 10-01-2023 End: 10-01-2023 Patient encounter procedure Janay X Orzech [facility] Start: 09-30-2023 End: 09-30-2023 ambulatory Gianna M. Lue Facility:[facility] Start: 09-30-2023 End: 09-30-2023 Patient encounter procedure Gianna M. Lue [facility] Start: 09-14-2023 End: 09-14-2023 ambulatory Gianna M. Lue Facility:[facility] Start: 09-14-2023 End: 09-14-2023 Patient encounter procedure Gianna M. Lue [facility] Start: 08-26-2023 End: 08-26-2023 ambulatory Gianna M. Lue Facility:[facility] Start: 08-26-2023 End: 08-26-2023 Lab Drop off Gianna M. Lue [facility] Start: 08-26-2023 End: 08-26-2023 ambulatory Gianna M. Lue Facility:[facility] Start: 08-26-2023 End: 08-26-2023 Patient encounter procedure Gianna M. Lue [facility] Start: 07-01-2023 End: 07-01-2023 ambulatory ALEX OAKLEY Not Available Start: 06-15-2023 End: 06-15-2023 ambulatory ALEX OAKLEY Not Available Start: 06-09-2023 End: 06-09-2023 ambulatory HAIDER JAMA Not Available Start: 02-24-2023 End: 02-24-2023 ambulatory THERESE CRUMP Facility:[facility] Start: 02-24-2023 End: 02-24-2023 Patient encounter procedure THERESE Armani THERON [facility] Start: 02-11-2023 End: 02-11-2023 ambulatory ALEX OAKLEY Not Available Start: 02-10-2023 End: 02-10-2023 ambulatory THERESE Pardo THERON Facility:[facility] Start: 02-10-2023 End: 02-10-2023 Patient encounter procedure THERESE E THERON [facility] Start: 01-26-2023 End: 01-26-2023 ambulatory Gianna M. Lue Facility:[facility] Start: 01-26-2023 End: 01-26-2023 Patient encounter procedure Gianna M. Lue [facility] Start: 01-21-2023 ambulatory Gianna M. Lue Facility:[facility] Start: 01-14-2023 End: 01-14-2023 ambulatory Gianna M. Lue Facility:[facility] Start: 01-14-2023 End: 01-14-2023 Patient encounter procedure Gianna M. Lue [facility] Start: 12-23-2022 End: 12-23-2022 Lab Drop off THERESE CRUMP [facility] Start: 12-23-2022 End: 12-23-2022 ambulatory THERESEKAJAL CRUMP Facility:[facility] Start: 12-23-2022 End: 12-23-2022 Patient encounter procedure THERESE CRUMP [facility] Start: 07-06-2022 End: 07-06-[address] ALEX OAKLEY Facility: Start: 08-25-2017 End: 08-26-2017 Ambulatory DEFAULT PHYSICIAN Facility:[facility] Start: 08-19-2017 End: 08-20-2017 Ambulatory DEFAULT PHYSICIAN Facility:[facility] Procedures Date Procedure Procedure Detail Performing [...] Immunization Date Immunization Notes Care Provider [facility] 12-29-2022 influenza virus vaccine, unspecified formulation Gianna Lue [facility] 12-02-2021 influenza virus vaccine, unspecified formulation Gianna Lue [facility] 12-02-2021 SARS-CoV-2 (COVID-19 ) [id number] Gianna Lue [facility] 07-11-2021 zoster vaccine recombinant Gianna Lue [facility] 06-20-2021 SARS-CoV-2 mRNA (ponkyiwxafj-omhz-ewxnf se) vaccine Gianna Lue [facility] 04-09-2021 zoster vaccine recombinant Gianna Lue [facility] 01-30-2021 influenza virus vaccine, unspecified formulation Gianna Lue [facility] 12-15-2020 SARS-CoV-2 (COVID-19 ) mRNA BNT-162b2 vax Gianna Lue [facility] Comment on above: Result Comment: 2022: [id number] 05-15-2020 SARS-CoV-2 (COVID-19 ) mRNA BNT-162b2 vax Gianna Lue [facility] Comment on above: Result Comment: 2022: [id number] 04-24-2020 SARS-CoV-2 (COVID-19 ) mRNA BNT-162b2 vax THERESE CRUMP [facility] 01-04-2020 influenza virus vaccine, unspecified formulation Gianna Lue [facility] 01-25-2019 influenza virus vaccine, unspecified formulation Gianna Lue [facility] 12-21-2018 influenza virus vaccine, live, attenuated, for intranasal use THERESE CRUMP [facility] 01-11-2018 influenza virus vaccine, unspecified formulation Gianna Lue [facility] 12-11-2016 influenza virus vaccine, unspecified formulation Gianna Lue [facility] 05-24-2015 pneumococcal conjuga te vaccine, 13 valent Gianna Luarmani [facility] Payers Date Payer Category Payer Medicare [id number] 1959 Unknown [id number] 1940 Unknown [id number] 2.16.84 0.1.114921.3.579.2.593 1940 Unknown [id number] 2.16.8 40.1.947641.3.579.2.727 1940 Unknown [id number] 2.16.8 40.1.221590.3.579.2.727 1940 Unknown [id number] 2.16.8 40.1.078707.3.579.2.727 1940 Unknown [id number] 2.16.8 40.1.519634.3.579.2.727 1940 Unknown [id number] 2.16.8 40.1.298906.3.579.2.72 1940 Unknown [id number] 2.16.8 40.1.850126.3.579.2.727 1940 Unknown [id number] 2.16.8 40.1.348988.3.579.2.72 1940 Unknown [id number] 2.16.8 40.1.855727.3.579.2.72 1940 Unknown [id number] 2.16.8 40.1.402655.3.579.2.72 1940 Unknown [id number] 2.16.84 0.1.961477.3.579.2.125 1940 Unknown [id number] 2.16.84 0.1.988997.3.579.2.1258 1940 Unknown [id number] 2.16.84 0.1.109896.3.579.2.125 1940 Unknown [id number] 2.16.84 0.1.481808.3.579.2.1258 1940 Unknown [id number] 2.16.84 0.1.508397.3.579.2.1258 1940 Unknown [id number] 2.16.840 .1.766619.3.579.2.125 1940 Unknown [id number] 2.16.8 40.1.277891.3.579.2.72 1940 Unknown [id number] 2.16.8 40.1.702101.3.579.2.72 1940 Unknown [id number] 2.16.8 40.1.548380.3.579.2.72 1940 Unknown [id number] 2.16.8 40.1.872525.3.579.2.727 Unknown Social History Date Type Detail Facility Start: 12-23-2022 End: 10-01-2023 Tobacco smoking status Never smoked tobacco (finding) [facility] Tobacco smoking status Never [facility] Sex Assigned At Male [facility] Functional Status Date Assessment Result Facility 10-01-2023 Functional Status N/A [facility] 09-14-2023 Functional Status N/A [facility] 08-26-2023 Functional Status N/A [facility] 02-24-2023 Functional Status N/A [facility] 01-26-2023 Functional Status N/A [facility] 01-14-2023 Functional Status N/A [facility] 12-23-2022 Functional Status N/A [facility] Clinical Notes 07-06-2022 to 10-01-2023 Note [...] your health care provider. General instructions Take yhvh-cjt-otajmkf and prescription medicines only as told by [...] provider. Document Revised: 11/26/2020 Document Reviewed: 11/26/2020 [employer] Patient Education 2022 [employer]. Follow Up Care 09/30/2023 08:22:37 With:ROMULO Vera APRN, Janay Brown, ADAN, URL Address: When: Unknown [facility] 10-01-2023 Note Patient Education Obstetrics and Gynecology [...] health care provider. General instructions ? Take bwrd-zdj-krisndz and prescription medicines only as told by [...] your health care (more content not included)... [facility] 09-14-2023 Hospital Discharge instructions Patient Education 09/14/2023 [...] follow up in 2 weeks with [facility] 09-14-2023 Note [id number]#1.00TIFF [facility] 09-14-2023 Note Cystoscopy with Boto x injection [...] you have a fever over 100 degrees. [facility] 08-26-2023 Hospital Discharge instructions Patient Education 08/26/2023 [...] including vitamins, herbs, eye drops, creams, and qtql-rie-lhbaaxn medicines. Any problems you or family members [...] provider tells you to take them. Taking vctv-vea-borbqvf medicines, vitamins, herbs, and supplements. General instructions [...] Follow these instructions at home: Medicines Take ulge-hzl-urvqijd and prescription medicines only as told by [...] provider. Document Revised: 09/13/2021 Document Reviewed: 09/13/2021 [employer] Patient Education 2022 [employer]. Follow Up Care 02/24/2023 13:31:49 With:Nick VASQUEZ, BLANK Garza, URO Address: [address], [place] [phone] When: Unknown [facility] 02-25-2023 Note [id number]#1.00TIFF [facility] 02-24-2023 Hospital Discharge instructions Patient Education 02/24/2023 [...] urethra. Follow these instructions at home: Take iedz-dwv-dzetrkz and prescription medicines only as told by [...] provider. Document Revised: 09/25/2021 Document Reviewed: 09/25/2021 [employer] Patient Education 2022 [employer] value. Follow Up Care 12/23/2022 14:53:34 With:Nick VASQUEZ, BLANK Garza, URO Address: [address] [place] [phone] When: Unknown Comments:6 mos w/ [facility] 01-26-2023 Hospital Discharge instructions Patient Education [...] follow up in 2-3 weeks with [facility] 01-26-2023 Evaluation + Plan note Extrac tomy from: Title: - Clinic HOPD Note Author:Nick VASQUEZ, Gianna Cosme. Date:01/26/23 Impression and Plan Assessment and Plan: Diagnosis: Acute orchitis (XTZ24-GK N45.2, Discharge, Medical), Feeling of incomplete bladder emptying (TXL21-WD R39.14, Billing Diagnosis, Medical), OAB (overactive bladder) (CBC93-YR N32.81, Discharge, Medical). 82 yo M prior [...] Date:02/10/2023 09:30:00 AM Scheduled Provider:THERESE CRUMP PA-C Location:[facility] Appointment Type:URO Office Visit Appointment Date:02/24/2023 01:00:00 PM Scheduled Provider:THERESE CRUMP PA-C Location:[facility] Appointment Type:URO Office Visit [facility]11-06-2023 Note [id number][facility] ? Voiding after the [...] if you have a fever over 100 degrees.[facility] 01-07-2023 Hospital Discharge instructions Follow Up Care 01/07/2023 08:28:45 With:Nick VASQUEZ, BLANK Garza, URO Address: When:Within 1 Month(s) Comments:pending fill and pull.f/u with KML or NAVENE [facility] 10-03-2023 Hospital Discharge instructions Patient Education [...] to keep your urine pale yellow. ?Take mysm-sbx-xdcrxol or prescription medicines. ?Eat foods that are high in fiber, such as beans, whole grains, and fresh fruits and vegetables. ?Limit foods that are high in fat and processed sugars, such as fried or sweet foods. General instructions Take wkjk-pnv-sautrcx and prescription medicines only as told by [...] the muscles that help control urination. Take zxfj-cbj-irkyyit and prescription medicines only as told by your health care provider. Contact a health care provider if your symptoms do not improve or get worse. This information is not intended to replace advice given to you by your health care provider. Make sure you discuss any questions you have with your health care provider. Document Revised: 10/12/2020 Document Reviewed: 10/12/2020 [employer] Patient Education 2022 [employer] value. Follow Up Care 12/15/2022 09:46:05 With:THERESE CRUMP PA-C, URL Address: [address] [place] [address]. [place] [address] [phone] When: Unknown [facility] 04-16-2023 NotePROCEDURE: XR WRIST LT [...] authenticated by: DEANNA BRITO Date: 2022-07-06 10:44[facility]ments Appointment Date:02/24/2023 01:00:00 PM Scheduled Provider:THERESE CRUMP PA-C Location:[facility] Appointment Type:URO Office Visit [facility] evaluation + Plan note Future Appointments Appointment Date:02/24/2023 01:00:00 PM Scheduled Provider:THERESE CRUMP PA-C Location:[facility] Appointment Type:URO Office Visit Diagnostic Tests Pending * [facility]rine [facility]ments Appointment Date:01/21/2023 11:00:00 AM Scheduled Provider: Location:[facility] Appointment Type:URO Nurse Visit Appointment Date:02/24/2023 01:00:00 PM Scheduled Provider:THERESE CRUMP PA-C Location:[facility] Appointment Type:URO Office Visit [facility] evaluation + Plan note Future Appointments Appointment Date:08/26/2023 10:00:00 AM Scheduled Provider:Gianna Romero MD Location:[facility] Appointment Type:URO Office Visit [facility] evaluation + Plan note Future Appointments Appointment Date:09/10/2023 10:30:00 AM Scheduled Provider: Location:[facility] Appointment Type:Urology CALL PAT FT Appointment Date:09/14/2023 11:15:00 AM Scheduled Provider: Location:[facility] Appointment Type:Urology FT [facility] evaluation + Plan note Future Appointments Appointment Date:09/10/2023 10:30:00 AM Scheduled Provider: Location:[facility] Appointment Type:Urology CALL PAT FT Appointment Date:09/14/2023 11:15:00 AM Scheduled Provider: Location:[facility] Appointment Type:Urology FT Diagnostic Tests Pending * Urine Culture [facility] App[facility]ments Appointment Date:09/30/2023 09:30:00 AM Scheduled Provider:Gianna Romero MD Location:[facility]ointment [facility] Future App[facility]ments Appointment Date:10/01/2023 01:00:00 PM Scheduled Provider:ROMULO Vera APRN, [place] X Location:[facility] Appointment Type:URO Office Visit [facility] Hospital course Narrative No data available for this section [facility] Hospital Discharge instructions No data available for this section [facility] No data available for this section [facility] Summary Purpose Family History No Family [...] section and content) DATE CREATED AUTHOR 09/08/2017 [facility] DATE CREATED AUTHOR AUTHOR'S ORGANIZ ATION [facility] DATE CREATED AUTHOR AUTHOR'S ORGANIZ ATION 08/30/2023 [facility] DATE CREATED AUTHOR AUTHOR'S ORGANIZ ATION 12/15/2023 [facility] DATE CREATED AUTHOR AUTHOR'S ORGANIZ ATION 12/24/2023 [facility] Patient Care team informatio n (unrecognized section and content) Personnel Name: ALEX OAKLEY MD Address: Address: [address] Personnel Name: ALEX OAKLEY MD Address: Address: [address] [place] [address] Personnel Name: ALEX OAKLEY MD Address: Address: [address] [place] [address] Personnel Name: ALEX OAKLEY MD Address: Address: [address] [place] [address] Personnel Name: ALEX OAKLEY MD Address: Address: [address] [place] [address] Personnel Name: ALEX OAKLEY MD Address: Address: [address] [place] [address] Personnel Name: ALEX OAKLEY MD Address: Address: [address] [place] [address] Personnel Name: ALEX OAKLEY MD Address: Address: [address] [place] [address] Personnel Name: ALEX OAKLEY MD Address: Address: [address] [place] [address] Personnel Name: ALEX OAKLEY MD Address: Address: [address] [place] [address] Personnel Name: ALEX OAKLEY MD Address: Address: [address] [place] [address] FOR RECORDS PERTAINING TO PATIENTS WHO ARE [...] BE BASED ON THE PRIMARY CLINICAL RECORDS. [employer] [facility]. provides no warranty or guarantee of the accuracy or completeness of information in this document.
[2024-01-07 19:12] LABS: Influenza Virus A Antigen Negative; Influenza Virus B Antigen Negative; Internal Control Within Normal Limits
[2024-01-07 19:20] LABS: Lactate/Lactic Acid 1.5 mmol/L (0.4-2.0)
--- NOTE | 2024-01-07 19:46 | P.HP_ITS ---
HPI H&P: HPI History of Present Illness Chief complaint: Shortness of Breath, Pneumonia, Hypoxemia Narrative: Patient presented to the emergency room with increasing cough and shortness of breath, increasing sputum production as well. He did notice over the last several days has had more swelling in his lower extremities as well. In the emergency room was found to have right middle lobe pneumonia with left lower lobe atelectasis versus pneumonia. Also found to have fluid overload, abnormal EKG as well. With a lactic acidosis When I saw patient up on the medical surgical floor, he was sitting up at the bedside eating dinner, does have some mild conversational dyspnea with some cough persisting throughout the entire evaluation. Worse with deep breathing. Opioid HPI Opioid Management Most Recent Pain and Opioid Data: Last Pain Scale 3 01/14/23 13:57 01/14/23 Last Pain Assessment 01/07/24 18:28 Last ORT Total Score 0 01/07/24 18:28 01/07/24 Last ORT Risk Category Low Risk 01/07/24 18:28 01/07/24 Review of Systems ROS Status of ROS 10 or more systems reviewed and unremark able except as noted in history and below PFSH [facility] Medical History (Updated 01/07/24 @ 19:49 by Ta Paz MD) CAP (community acquired pneumonia) ?J18.9 - Pneumonia, unspecified organism (ICD-10) Hyponatremia ?E87.1 - Hypo-osmolality and hyponatremia (ICD-10) HTN (hypertension) ?I10 - Essential (primary) hypertension (ICD-10) OAB (overactive bladder) ?N32.81 - Overactive bladder (ICD-10) Hyperlipidemia ?E78.5 - Hyperlipidemia, unspecified (ICD-10) Hematuria ?R31.9 - Hematuria, unspecified (ICD-10) History of urinary retention ?Z87.898 - Personal history of other specified conditions (ICD-10) Difficulty urinating ?R39.198 - Other difficulties with micturition (ICD-10) Surgical History (Updated 01/07/24 @ 18:43 by Shikha Sanabria RN) H/O hernia repair ?Z98.890 - Other specified postprocedural states (ICD-10) ?Z87.19 - Personal history of other diseases of the digestive system (ICD-10) History of knee surgery ?Z98.890 - Other specified postprocedural states (ICD-10) Social History (Updated 01/07/24 @ 18:45 by Shikha Sanabria RN) Within the past year, how often did you have a drink containing alcohol: 2-3 times a week Smoking status: Never smoker Second hand tobacco smoke exposure: No Non-prescribed substance use: denies use 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 Known occupational exposures/hazards: No Highest level of school completed/degree received: high school graduate Do you want help with school or training: No Are you now , , , , never or living with a partner: In a typical week, how many times do you talk on the telephone with family, friends, or neighbors: twice per week How often do you get together with friends or relatives: twice per week How often do you attend protestant or jewish services: never Do you belong to any clubs or organizations such as protestant groups unions, [employer] or athletic groups, or school groups: no Total score: 2 Score interpretation: A score of greater than or equal to 2 indicates the lowest level of social isolation. Little interest or pleasure in doing things: not at all Feeling down, depressed, or hopeless: not at all Feel stressed/tense/nervous/anxious/difficulty sleeping: not at all Due to disability, difficulty making decisions: No Do you think of yourself as: straight/heterosexual Gender Identity: male Meds Home Medications and Allergies Home Medications ?Medication ?Instructions ?Recorded ?Confirmed ?Type simvastatin 40 mg tablet 40 mg PO Q24H 01/06/23 01/07/24 History sodium chloride 1,000 mg soluble 1,000 mg PO TID #90 tabs 10/22/23 01/07/24 Rx tablet lisinopril 20 mg tablet 40 mg PO DAILY 01/07/24 01/07/24 History Allergies Allergy/AdvReac Type Severity Reaction Status Date / Time No Known Drug Allergies Allergy Verified 10/20/23 03:23 Exam Constitutional Vital Signs, click to edit/add: Last Vital Signs Temp 97.4 F L 01/07/24 18:28 Pulse 90 01/07/24 18:28 Resp 24 H 01/07/24 18:28 BP 150/82 H 01/07/24 18:28 Pulse Ox 90 L 01/07/24 18:28 O2 Del Method Nasal Cannula 01/07/24 18:28 O2 Flow Rate 4 01/07/24 18:28 Documenting provider has reviewed patient's vital signs: yes Common normals: apparent distress (Mild respiratory distress with conversational dyspnea and cough persisting) HENMT Common normals: normocephalic Respiratory Common normals: no retractions and no use of accessory muscles; not clear to ascultation bilaterally Auscultation: rhonchi; no wheezes Cardio Common normals: regular rate, regular rhythm and no murmurs GI Common normals: soft to palpation, non-tender and no hepatosplenomegaly Inspection: abnormal to inspection (Morbid obesity) Extremity Common normals: abnormal to inspection (2+ edema bilateral lower extremities) Results Labs Labs: Short CBC 01/07/24 Range/Units 15:35 WBC 11.5 H (4.0-11.0) 10^3/uL Hgb 14.2 (14.0-18.0) g/dL Hct 44.0 (42.0-54.0) % Plt Count 330 (150-450) 10^3/uL BMP 01/07/24 15:35 Sodium 132 L Potassium 4.3 Chloride 93 L Carbon Dioxide 29.9 BUN 10.0 Creatinine 0.83 Glucose 140 H Calcium 9.7 Liver Function 01/07/24 Range/Units 15:35 Total Bilirubin 0.6 (0.2-1.0) mg/dL AST 24 (15-37) U/L ALT 24 (16-63) U/L Alkaline Phosphatase 97 (46-116) U/L Albumin 3.2 L (3.4-5.0) g/dL ABG ABG results: 01/07/24 15:50 ABG pH 7.382 ABG pCO2 53.3 H* ABG pO2 55.1 L* ABG HCO3 31.6 H ABG O2 Saturation 88.2 ABG Base Excess 6.5 H Assessment and Plan Assessment and Plan (1) Hypoxemia: (2) Pneumonia: (3) CAP (community acquired pneumonia): Qualifiers: Laterality: left Lung location: lower lobe of lung Qualified Code(s): J18.9 - Pneumonia, unspecified organism (4) Hyponatremia: (5) HTN (hypertension): Qualifiers: Hypertension type: primary hypertension Qualified Code(s): I10 - Essential (primary) hypertension (6) Hyperlipidemia: Qualifiers: Hyperlipidemia type: other hyperlipidemia Qualified Code(s): E78.49 - Other hyperlipidemia (7) Leukocytosis: (8) Lactic acidosis: (9) Fluid overload: (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 Lactic acidosis and sepsis secondary to right middle lobe [id number]-IV antibiotics, aerosols, blood cultures. Held off on aggressive fluid resuscitation for the sepsis secondary to patient blood pressure already elevated and BNP consistent with fluid overload elevated. Try to obtain sputum culture. Uncontrolled hypertension-currently we will maintain patient on his regular home medications. Fluid overload-diuresed 1 dose in the ER, will see how his labs and evaluation look tomorrow. Hyponatremia-this been very difficult to control for him as an outpatient. Currently on sodium chloride tablets which has been effective. Iron deficiency anemia-monitor daily Hypercholesterolemia-continue current medications Admission status: Patient with acute hypoxia secondary to right middle lobe pneumonia and fluid overload, medically necessary treatment will span 2 midnights. Inpatient status.
[2024-01-07] MEDS: IPRATROPIUM/ALBUTEROL SULFATE 3 ML AMPUL.NEB IH (22:07)
[2024-01-07] MEDS: SODIUM CHLORIDE 1,000 MG TABLET 1000 MG PO (22:27)
[2024-01-08] VITALS (21 sets, daily range): BP systolic 120–147; BP diastolic 69–88; PULSE 54–779; TEMP 36.3–36.9; O2SAT 90–98
[2024-01-08 04:45] LABS: Bilirubin Urine NEGATIVE (NEGATIVE); Blood Urine MODERATE (NEGATIVE); Clarity Urine CLEAR (CLEAR); Color Urine YELLOW (YELLOW); Glucose Urine UA NEGATIVE (NEGATIVE); Ketones Urine NEGATIVE (NEGATIVE); Leukocyte Esterase Urine NEGATIVE (NEGATIVE); Nitrite Urine NEGATIVE (NEGATIVE); Protein Urine 30 mg/dL (NEG/TRACE)
[2024-01-08 05:03] LABS: Bacteria Urine SMALL #/HPF (NONE SEEN); Mucus Urine MODERATE (NONE SEEN); Squamous Epithelial Cell Urine FEW #/LPF (NONE/RARE); WBC Urine 0-2 #/HPF (NONE SEEN)
[2024-01-08 05:05] LABS: Urine Culture Indicated YES
[2024-01-08 05:06] LABS: Cast Seen? NONE SEEN #/LPF (NONE SEEN); Crystals Seen? None Seen #/HPF (None Seen)
[2024-01-08] MEDS: IPRATROPIUM/ALBUTEROL SULFATE 3 ML AMPUL.NEB IH ×4 (05:11→22:41)
[2024-01-08] MEDS: SODIUM CHLORIDE 1,000 MG TABLET 1000 MG PO ×3 (05:51→22:31)
--- NOTE | 2024-01-08 06:00 | ECG_ITS ---
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
--- NOTE | 2024-01-08 06:14 | P.PN_ITS ---
Progress Note: Subjective Subjective Interval history: With persist cough during the evaluation but does state he feels better with his breathing, however it is early in the morning and has not been up ambulating yet Exam Constitutional Vital Signs, click to edit/add: Last Vital Signs Temp 97.4 F L 01/08/24 04:00 Pulse 78 01/08/24 05:55 Resp 18 01/08/24 05:11 BP 147/88 H 01/08/24 04:00 Pulse Ox 93 L 01/08/24 05:11 O2 Del Method Nasal Cannula 01/08/24 05:11 O2 Flow Rate 2.5 01/08/24 05:11 Documenting provider has reviewed patient's vital signs: yes Common normals: apparent distress (Mild respiratory distress with conversational dyspnea and cough persisting) HENMT Common normals: normocephalic Respiratory Common normals: no retractions and no use of accessory muscles; not clear to ascultation bilaterally Auscultation: rhonchi (Better air exchange); no wheezes Cardio Common normals: regular rate, regular rhythm and no murmurs GI Common normals: soft to palpation, non-tender and no hepatosplenomegaly Inspection: abnormal to inspection (Morbid obesity) Extremity Common normals: abnormal to inspection (2+ edema bilateral lower extremities - pain) Progress Note: Objective Labs Labs: Short CBC 01/07/24 Range/Units 15:35 WBC 11.5 H (4.0-11.0) 10^3/uL Hgb 14.2 (14.0-18.0) g/dL Hct 44.0 (42.0-54.0) % Plt Count 330 (150-450) 10^3/uL BMP 01/07/24 15:35 Sodium 132 L Potassium 4.3 Chloride 93 L Carbon Dioxide 29.9 BUN 10.0 Creatinine 0.83 Glucose 140 H Calcium 9.7 Liver Function 01/07/24 Range/Units 15:35 Total Bilirubin 0.6 (0.2-1.0) mg/dL AST 24 (15-37) U/L ALT 24 (16-63) U/L Alkaline Phosphatase 97 (46-116) U/L Albumin 3.2 L (3.4-5.0) g/dL Urine 01/08/24 Range/Units 04:30 Urine Color Yellow (YELLOW) Urine Clarity Clear (CLEAR) Urine pH 6.0 (5.0-9.0) Ur Specific [place] 1.020 (1.005-1.025) Urine Protein 30 A (NEG/TRACE) mg/dL Urine Glucose (UA) Negative (NEGATIVE) mg/dL Progress Note: A&P Assessment and Plan (1) Hypoxemia: (2) Pneumonia: (3) CAP (community acquired pneumonia): Qualifiers: Laterality: left Lung location: lower lobe of lung Qualified Code(s): J18.9 - Pneumonia, unspecified organism (4) Hyponatremia: (5) HTN (hypertension): Qualifiers: Hypertension type: primary hypertension Qualified Code(s): I10 - Essential (primary) hypertension (6) Hyperlipidemia: Qualifiers: Hyperlipidemia type: other hyperlipidemia Qualified Code(s): E78.49 - Other hyperlipidemia (7) Leukocytosis: (8) Lactic acidosis: (9) Fluid overload: (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 Lactic acidosis and sepsis secondary to right middle lobe [id number]-IV antibiotics, aerosols, blood cultures. Held off on aggressive fluid resuscitation for the sepsis secondary to patient blood pressure already elevated and BNP consistent with fluid overload elevated. Continue to work to get sputum sample, continue with current antibiotics his overall he is improved. Unable to wean off of supplemental oxygen at this time. But will continue to work towards that for possible discharge Uncontrolled hypertension-currently we will maintain patient on his regular home medications. Fluid overload-diuresed 1 dose in the ER, BP diuretics today. Hyponatremia-this been very difficult to control for him as an outpatient. Currently on sodium chloride tablets which has been effective. Maintain on oral supplementation especially with trying to do diuresis for his lower extremity edema and possible left pleural effusion Iron deficiency anemia-monitor daily Hypercholesterolemia-continue current medications Admission status: Patient with acute hypoxia secondary to right middle lobe pneumonia and fluid overload, medically necessary treatment will span 2 midnights. Inpatient status. ?
[2024-01-08 06:24] LABS: Hematocrit 38.2 % (42.0-54.0); Hemoglobin 12.3 g/dL (14.0-18.0); Mean Corpuscular HGB Conc 32.2 g/dL (29.9-35.2); Mean Corpuscular Hemoglobin 31.5 pg (25.9-34.0); Mean Corpuscular Volume 97.9 fL (80.0-94.0); Mean Platelet Volume 10.4 fL (9.5-13.5); Platelet Count 278 10^3/uL (150-450); White Blood Count 9.8 10^3/uL (4.0-11.0)
[2024-01-08 06:49] LABS: Anion Gap 9.2; Calcium 9.1 mg/dL (8.5-10.1); Carbon Dioxide 33.5 mmol/L (21.0-32.0); Chloride 96 mmol/L (98-107); Estimated GFR (African America >60 (>=60 mL/min/1.73m^2); Estimated GFR (Non-African Ame >60 (>=60 mL/min/1.73m^2); Glucose 100 mg/dL (74-106); Sodium 134 mmol/L (136-145); Troponin I High Sensitivity 17.5 pg/mL (4.0-76.1)
[2024-01-08 06:50] LABS: Potassium 4.7 mmol/L (3.5-5.1)
[2024-01-08 06:56] LABS: Lymphocytes Absolute Manual 1.56 10^3/uL (1.20-3.80); Monocytes Absolute Manual 1.37 10^3/uL (0.30-0.80); Segmented Neut Absolute Manual 6.86 10^3/uL (1.4-6.5)
--- NOTE | 2024-01-08 07:12 | CA_ITS ---
Patient Name: SALVADOR BARRIENTOS MR#: [id number] : 1940 Exam Date: 01/08/2024 Ordering Doctor: DR Ta Paz . ECHOCARDIOGRAM REPORT PROCEDURE: CA ECHO DOPPLER COMPLETE INDICATIONS: fluid overload, pneumonia, sepsis COMPARISON: None. DESCRIPTION: COMPLETE ECHOCARDIOGRAM Real-time transthoracic echocardiography with 2D, M-mode, spectral and color flow Doppler performed. QUALITY: Technical quality was good. LEFT VENTRICLE: Normal chamber size. Moderate concentric left ventricular hypertrophy. LV EF: Global left ventricular systolic function is difficult to assess but appears preserved; visually estimated ejection fraction is 55 to 60%. Unable to assess regional wall motion abnormalities. DIASTOLIC: Normal diastolic function. ATRIAL SEPTUM: Inadequately seen. LEFT ATRIUM: Normal chamber size. RIGHT ATRIUM: Mild dilatation. RIGHT VENTRICLE: Normal chamber size. Normal right ventricular systolic function. TRICUSPID VALVE: Normal mobility and thickness. No stenosis with no regurgitation. Unable to assess right-sided pressures due to lack of measurable tricuspid regurgitation MITRAL VALVE: Normal mobility and thickness. No evidence of mitral valve stenosis. There is no mitral annular calcification. No mitral regurgitation. AORTIC VALVE: Normal trileaflet appearance. Mildly calcified aortic valve. Normal leaflet mobility. No evidence of aortic valve stenosis. No aortic regurgitation. AORTIC ROOT: Normal diameter and appearance. Ascending aorta is normal in size. PULMONIC VALVE: Normal thickness and mobility. No stenosis. No regurgitation. PERICARDIUM: Anterior free space; trivial effusion versus fat pad IVC: Not well visualized. CONCLUSION: 1. Global left ventricular systolic function is difficult to assess but appears preserved; visually estimated ejection fraction is 55 to 60% 2. Normal right ventricular size and systolic function 3. Moderate left ventricular hypertrophy 4. Normal diastolic function 5. The left atrium is normal in size 6. The right atrium is mildly dilated 7. No significant valvular abnormalities 8. Anterior free space; trivial effusion versus fat pad Adult Echocardiography Procedure Report Left Ventricle LVEDD (3.7 - 5.6 cm): 4.98 cm LVESD (2.2 - 4.0 cm): 3.31 cm LVIVS thickness (0.6 - 1.2 cm): 1.66 cm LVPW thickness (0.5 - 1.0 cm): 1.30 cm e': 0.11 m/s E - e': 5.66 LVOT Max Gradient: 2.47 mm[Hg] LVOT Area (cm2): 0.79 m/s Peak Velocity (LVOT): 0.79 m/s Mean Velocity (LVOT): 0.55 m/s LVOT Diameter 2.64 cm Left Atrium LA Volume Index (2D A2C): 33.15 ml/m2 Left Atrium Systolic Dimension: 3.99 cm Mitral Valve MV E to A Ratio: 0.82 Mitral Valve A-Wave Peak Velocity: 0.73 m/s Mitral Valve E-Wave Peak Velocity: 0.60 m/s Right Ventricle Aorta AO Root Diam: 4.25 cm Ascending Ao Diam: 3.17 cm Aortic Valve AoV Area (Peak Saeid): 3.61 cm2, 3.61 cm2 AoV Area (VTI): 3.19 cm2, 3.19 cm2 Peak Velocity(Antegrade Flow): 1.19 m/s Peak Gradient(Antegrade Flow): 5.62 mm[Hg] Mean Velocity(Antegrade Flow): 0.77 m/s Mean Gradient(Antegrade Flow): 2.79 mm[Hg] Velocity Time Integral: 26.48 cm Tricuspid Valve Pulmonic Valve Mean Gradient: 2.50 mm[Hg] Mean Velocity: 0.75 m/s Peak Velocity: 1.07 m/s, 1.08 m/s Peak Gradient: 4.69 mm[Hg], 4.57 mm[Hg] Right Atrium Right Atrium Systolic Pressure: 61.25 ml, 61.25 ml Dictated by: Deborah Muller M.D. on 01/08/2024 at 14:53 Approved by: Deborah Muller M.D. on 01/08/2024 at 14:58
[2024-01-08] MEDS: LISINOPRIL 20 MG TABLET 40 MG PO (09:11)
[2024-01-08] MEDS: ATORVASTATIN CALCIUM 20 MG TABLET PO (09:11)
--- NOTE | 2024-01-08 09:48 | CM.NOTE ---
Rounds made with Dr. Paz, pt continues to require oxygen. No discharge today.
[2024-01-08] MEDS: BUMETANIDE 10 MG in 0.9 % SODIUM CHLORIDE 160 ML 20 MG IV (13:46)
--- NOTE | 2024-01-08 14:12 | SWNOTE1 ---
SW met with pt to discuss dc needs. Pt lives at home with his . Pt does have a walker and cane at home and stated he is pretty active. Pt stated he rides his exercise bike at home in the morning for 30 minutes. SW let pt know that HH PT is recommended. Pt voiced he does not feel he needs it at this time. Pt is refusing HH services. SW did advise pt, if he gets home and feels weaker and would like HH, he can contact PCP and they can set him up. Pt voiced understanding.
--- NOTE | 2024-01-08 14:54 | CM.NOTE ---
Important Message From Medicare discussed with pt, pt verbalizes understanding and signs paper. Original given to pt and copy placed in pt's chart.
[2024-01-08] MEDS: CEFTRIAXONE 1,000 MG in 0.9 % SODIUM CHLORIDE 50 ML 100 MG IV (15:58)
[2024-01-08] MEDS: AZITHROMYCIN 500 MG in 0.9 % SODIUM CHLORIDE 250 ML 250 MG IV (17:19)
--- NOTE | 2024-01-08 22:48 | RESP.RT ---
Titrated to 2 lpm
[2024-01-09] VITALS (11 sets, daily range): BP systolic 122–125; BP diastolic 74–77; PULSE 63–102; TEMP 36.5–36.7; O2SAT 83–94
[2024-01-09] MEDS: IPRATROPIUM/ALBUTEROL SULFATE 3 ML AMPUL.NEB IH ×2 (05:00→11:06)
[2024-01-09 05:38] LABS: Basophils Percent Auto 0.5 % (0.2-2.0); Eosinophils Absolute Auto 0.2 10^3/uL (0.0-0.7); Eosinophils Percent Auto 2.4 % (0.9-7.0); Hematocrit 39.2 % (42.0-54.0); Hemoglobin 12.7 g/dL (14.0-18.0); Immature Granulocytes Abs Auto 0.07 10^3/uL (0.00-0.03); Immature Granulocytes Pct Auto 0.9 % (0.0-0.5); Lymphocytes Absolute Auto 1.2 10^3/uL (1.2-3.8); Lymphocytes Percent Auto 14.2 % (20.5-60.0); Mean Corpuscular HGB Conc 32.4 g/dL (29.9-35.2); Mean Corpuscular Hemoglobin 31.4 pg (25.9-34.0); Mean Corpuscular Volume 96.8 fL (80.0-94.0); Mean Platelet Volume 9.5 fL (9.5-13.5); Monocytes Absolute Auto 1.5 10^3/uL (0.3-0.8); Monocytes Percent Auto 18.3 % (1.7-12.0); Neutrophils Absolute Auto 5.2 10^3/uL (1.4-6.5); Neutrophils Percent Auto 63.7 % (43.0-75.0); Platelet Count 354 10^3/uL (150-450); Red Blood Count 4.05 10^6/uL (4.70-6.10); White Blood Count 8.2 10^3/uL (4.0-11.0)
[2024-01-09 05:59] LABS: Anion Gap 9.5; BUN Creatinine Ratio 15.5; Calcium 8.8 mg/dL (8.5-10.1); Carbon Dioxide 39.9 mmol/L (21.0-32.0); Chloride 93 mmol/L (98-107); Estimated GFR (African America >60 (>=60 mL/min/1.73m^2); Estimated GFR (Non-African Ame >60 (>=60 mL/min/1.73m^2); Glucose 104 mg/dL (74-106); Potassium 3.4 mmol/L (3.5-5.1); Sodium 139 mmol/L (136-145); Troponin I High Sensitivity 20.6 pg/mL (4.0-76.1)
[2024-01-09] MEDS: SODIUM CHLORIDE 1,000 MG TABLET 1000 MG PO ×2 (06:09→14:06)
[2024-01-09] MEDS: BENZONATATE 100 MG CAPSULE 200 MG PO (08:17)
[2024-01-09] MEDS: ATORVASTATIN CALCIUM 20 MG TABLET PO (08:18)
[2024-01-09] MEDS: LISINOPRIL 20 MG TABLET 40 MG PO (08:18)
[2024-01-09] MEDS: POTASSIUM CHLORIDE 10 MEQ ER TABLET 40 MEQ PO (09:16)
--- NOTE | 2024-01-09 12:12 | PT.DAILY ---
Physical Therapy Daily Note PT Daily Note/Assess Start: 01/08/24 12:24 Freq: Status: Active Protocol: Document 01/09/24 12:05 TIFF (Rec: 01/09/24 12:12 [id number] Physical Therapy Daily Note/Assessment Time In/Time Out Time In 11:30 Time Out 12:00 Pain In Pain N/A Pain Out Pain N/A Subjective Subjective Pt supine upon arrival. On 1.5 L O2 and SpO2 95% prior to session. Nursing wants to do a walk test with him. Therapeutic Exercise Time Therapeutic Exercise Minutes (minutes) 5 Therapeutic Exercise Units 0 Therapeutic Exercise Treatment Therapeutic Exercise Treatment Bilat LE strengthening ex complete while sitting EOB unsupported 10x ea. Needs vc to breathe through nose. Min SOB with this. SpO2 drops to 82%. Rest break needed prior to gait. Therapeutic Activity Time Therapeutic Activity Minutes (minutes) 20 Therapeutic Activity Units 2 Therapeutic Activity Treatment Bed Mobility Ability Standby Assistance Chair Transfer Ability Standby Assistance Therapeutic Activity Comments Supine>sit SBA with increased time to complete. Sits EOB 5 min while completing LE strengthening ex. Needs assistance donning gripper socks. Pt sit>stand without O2 . Pt amb about 10' without AD, before O2 drops to 80%. Amb back to sit at EOB SBA without AD. Pt sits EOB and O2 is donned - 2L at this time. rest break to recover to 90%. Pt sit>stand SBA and amb 40' without AD when O2 is bumped up to 3L then amb another 70' while returning to his room. Pt cont to drop into low 80's on 3L O2. In straight back chair in room while recliner is set up for pt. Pt sit>stand from straight back chair SBA and amb 10' over to recliner without AD. Pt remains in BS on 3L O2 with call light in reach and needs met. Total Physical Therapy Time Total Therapy Minutes 25 Total Physical Therapy Units 2 Summary Daily Note Summary Spo2 levels cont to drop with activity. Physically pt has fair+ dynamic standing balance with min forward flexed posture but does not require outside assistance to maintain balance. Would recommend HH or cardiac rehab upon DC.
--- NOTE | 2024-01-09 12:23 | P.DS_ITS ---
DS: Providers Provider Date of admission: 01/07/24 17:55 Primary care physician: ALEX LYMAN Admitting clinician: Ta Paz Attending physician on admission: Ta Paz Consults: 01/07/24 18:23 Occupational Therapy Eval and Treat Routine Reason for consultation: Only if needed for Rehab Has provider been notified: No Physical Therapy Eval and Treat Routine Reason for consultation: Eval and Treat Has provider been notified: No Attending physician on discharge: Shaikh Stephen Discharging clinician: Shaikh Stephen Anticipated date of discharge: 01/09/24 DS: Diagnosis Discharge Diagnosis (1) Acute respiratory failure with hypoxia: Assessment and plan: Feeling better. Still needing supplemental Oxygen. 6 min walk test, will need 3 L O2 at home. Stable for discharge. Wean off O2 as tolerated as outpatient. (2) CAP (community acquired pneumonia): Assessment and plan: Right don hilar infiltrate. Doing well. No resp symptoms except for persistent hypoxia. Stable for discharge on supplemental Ox, and oral abx. Qualifiers: Laterality: left Lung location: lower lobe of lung Qualified Code(s): J18.9 - Pneumonia, unspecified organism (3) Acute on chronic diastolic (congestive) heart failure: Assessment and plan: Was treated with Bumex drip overnight. ECHO - no sig finding. More or less euvolemic. Stable for discharge. (4) Hyponatremia: Assessment and plan: Chronic, due to SIADH, on Salt tablets. Monitor. (5) HTN (hypertension): Assessment and plan: C/w Lisinopril. Qualifiers: Hypertension type: primary hypertension Qualified Code(s): I10 - Essential (primary) hypertension (6) Hyperlipidemia: Assessment and plan: C/w simvastatin Qualifiers: Hyperlipidemia type: other hyperlipidemia Qualified Code(s): E78.49 - Other hyperlipidemia (7) Leukocytosis: Assessment and plan: Improved. Qualifiers: Leukocytosis type: unspecified Qualified Code(s): D72.829 - Elevated white blood cell count, unspecified (8) Lactic acidosis: Assessment and plan: Resolved. DS: Summary Hospital Course Hospital Course: 83 y o male, presented to ED with worsening productive cough, SOB and LE edema. Found to have Right don hilar PNA. He was also found to have acute resp failure with hypoxia pulse Ox as low as 85%. He was treated with IV rocephin/azithromycin for CAP. He was also treated for acute on chronic diastoli c HF, initially with IV lasix but then IV bumex continuous infusion for Fluid overload. He improved clinically during the course of admission and is doing considerably better subjectively. However, he continues to have persistent hypoxia. His sat drops down to 88% at rest on RA, and upto 85% on exertion but he responds well to O2 supplementation and will require 3 L O2 via NC upon discharge. At this time, I do not anticipate that he will need fdc Oxygen and he is expected to recover fully and be able to get off of O2 as outpatient. Patient medically stable for discharge. Instructed to return to ED if he develops worsening hypoxia, SOB or cough. Status at Discharge Functional status at discharge: independent ambulation Overall status at discharge: patient is progressing back to baseline Time Spent with Patient Time attestation: Total time spent providing and/or coordinating discharge services: Time spent: greater than 30 minutes Exam Constitutional Vital Signs, click to edit/add: Last Vital Signs Temp 98.1 F 01/09/24 08:03 Pulse 102 H 01/09/24 11:51 Resp 20 01/09/24 08:03 BP 125/74 01/09/24 08:03 Pulse Ox 90 L 01/09/24 11:09 O2 Del Method Nasal Cannula 01/09/24 11:09 O2 Flow Rate 1.5 01/09/24 11:09 Documenting provider has reviewed patient's vital signs: yes Common normals: no apparent distress and oriented x3 General appearance: cooperative Respiratory Common normals: normal respiratory effort Effort & inspection: able to speak in complete sentences Auscultation: clear to auscultation bilaterally and diminished lung sounds Cardio Common normals: regular rate, S1 normal heart sound and S2 normal heart sound Rate: regular rate Heart sounds: S1 normal and S2 normal Neuro Common normals: oriented x3, moves all extremities and no focal motor deficits Psych Common normals: mental status grossly normal, denies hallucinations, denies homicidal ideation and denies suicidal ideation DS: Data Data Completed and Pending Labs on day of discharge: Labs from last 24 hours 01/09/24 05:29 WBC 8.2 RBC 4.05 L Hgb 12.7 L Hct 39.2 L MCV 96.8 H MCH 31.4 MCHC 32.4 RDW 14.0 Plt Count 354 MPV 9.5 Neut % (Auto) 63.7 Lymph % (Auto) 14.2 L [place] % (Auto) 18.3 H Eos % (Auto) 2.4 Baso % (Auto) 0.5 Neut # (Auto) 5.2 Lymph # (Auto) 1.2 [place] # (Auto) 1.5 H Eos # (Auto) 0.2 Baso # (Auto) 0.0 Abs Immat Gran (auto) 0.07 H Imm/Tot Granulo (auto) 0.9 H Sodium 139 Potassium 3.4 L Chloride 93 L Carbon Dioxide 39.9 H Anion Gap 9.5 BUN 16.0 Creatinine 1.03 Est GFR ( Amer) >60 Est GFR (Non-Af Amer) >60 BUN/Creatinine Ratio 15.5 Glucose 104 Calcium 8.8 Troponin I High Sens 20.6 NT-Pro-B Natriuret Pep 604.0 Discharge Plan Discharge Disposition: Home, Self-Care Discharge Medications: New cefuroxime axetil 500 mg tablet 500 mg PO Q12H Qty: 10 0RF Continued sodium chloride 1,000 mg tablet,soluble 1,000 mg PO TID Qty: 90 0RF simvastatin 40 mg tablet 40 mg PO Q24H lisinopril 20 mg tablet 40 mg PO DAILY Activity: increase activity as tolerated Diet: advance to your usual diet Print Language: Upper Sorbian Forms: Portal Instructions Follow Up Appointments: F/u with PCP in one week
--- NOTE | 2024-01-11 12:48 | CM.DCFOLLOWU ---
Person spoke with:patient How are you feeling?well How is your pain?none Did you understand your discharge instructions?yes Do you have any questions about your discharge instructions?no Were you given any prescriptions at discharge?yes Were you able to get your prescriptions filled?yes Do you understand how to take your medications as ordered?yes Do you have any questions about your follow up appointment and do you plan to keep your follow up appointment? no questions, he called and scheduled follow up with PCP Is there anything else that you would like to discuss?no Questions/Comments/Concerns/Other:none
--- NOTE | 2024-01-18 09:44 | SWNOTE1 ---
MARIAH received a fax from [facility] requesting physician signature on a prescription for home oxygen. Pt was discharged on 01/09/24 and was set up with e o2. MARIAH to have Dr. Mitchell sign when he is hospitalist and will fax back to [facility].
== END 2024-01-09 15:10 | disposition home or self-care (01) | DRG 193 ==
LOC: ER 17:42 → MS 18:10
PROVIDERS: Family Medicine; Admitting Provider Internal Medicine; Emergency Provider Emergency Medicine; PCP Internal Medicine; Visit Provider Internal Medicine
DX: J18.9 Pneumonia, unspecified organism (principal); I50.33 Acute on chronic diastolic (congestive) heart failure; J96.01 Acute respiratory failure with hypoxia; E74.89 Other specified disorders of carbohydrate metabolism; E87.20 Acidosis, unspecified; E22.2 Syndrome of inappropriate secretion of antidiuretic hormone; D72.829 Elevated white blood cell count, unspecified; E87.70 Fluid overload, unspecified; I49.8 Other specified cardiac arrhythmias; I11.0 Hypertensive heart disease with heart failure; D50.9 Iron deficiency anemia, unspecified; Z99.81 Dependence on supplemental oxygen; E78.5 Hyperlipidemia, unspecified; Z79.899 Other long term (current) drug therapy
CPT/HCPCS: 36415; 36600; 51702; 71045; 80048; 80053; 81001; 82805; 83605; 83735; 83880; 84484; 85007; 85025; 85027; 85610; 87040; 87070; 87086; 87205; 87804; 87811; 93005; 93306; 94640; 94667; 94668; 94761; 96365; 96368; 96375; 97162; 97165; 97530; 99285; J0456; J0696; J1940

== ENCOUNTER 2024-01-14 14:46 | Emergency (ER) | payer MEDICARE, OTHER, SELFPAY ==
[2024-01-14 15:32] VITALS: BP 105/88; PULSE 88; TEMP 36.7; O2SAT 92; BMI 42.3
--- NOTE | 2024-01-14 17:04 | ED_ITS ---
HPI HPI - General Adult General Chief complaint: Urogenital-Male Stated complaint: URINARY PROBLEMS Time Seen by Provider: 01/14/24 16:47 Source: patient Mode of arrival: Wheelchair Limitations: no limitations History of Present Illness HPI narrative: The patient is a 83-year-old male coming to the ER with complaint of urinary dripling and burning for the last few days ,pt mentioned that he had a bladder problem before but after he followed up with urology he did not have any issues until recently Patient denies any abdominal pain nausea or vomiting Related Data Home Medications ?Medication ?Instructions ?Recorded ?Confirmed simvastatin 40 mg tablet 40 mg PO Q24H 01/06/23 01/07/24 lisinopril 20 mg tablet 40 mg PO DAILY 01/07/24 01/07/24 Previous Rx's ?Medication ?Instructions ?Recorded sodium chloride 1,000 mg soluble 1,000 mg PO TID #90 tabs 10/22/23 tablet cefuroxime axetil 500 mg tablet 500 mg PO Q12H #10 tabs 01/09/24 cephalexin 500 mg capsule 500 mg PO Q12H 7 days #14 caps 01/14/24 phenazopyridine 200 mg tablet 200 mg PO Q8H PRN burning 6 doses 01/14/24 (Pyridium) #6 tabs Allergies Allergy/AdvReac Type Severity Reaction Status Date / Time No Known Drug Allergies Allergy Verified 10/20/23 03:23 Opioid HPI Opioid Management Most Recent Opioid Data: Last Pain Scale 3 01/09/24 14:00 01/09/24 Last Pain Assessment 01/09/24 14:00 Last ORT Total Score 0 01/07/24 18:28 01/07/24 Last ORT Risk Category Low Risk 01/07/24 18:28 01/07/24 Review of Systems ROS Status of ROS 10 or more systems reviewed and unremark able except as noted in history and below [facility] Medical History (Updated 01/14/24 @ 18:39 by Stacey Cruz MD) Acute respiratory failure with hypoxia ?J96.01 - Acute respiratory failure with hypoxia (ICD-10) Acute on chronic diastolic (congestive) heart failure ?I50.33 - Acute on chronic diastolic (congestive) heart failure (ICD-10) Wandering atrial pacemaker ?I49.8 - Other specified cardiac arrhythmias (ICD-10) Fluid overload ?E87.70 - Fluid overload, unspecified (ICD-10) Hypoxemia ?R09.02 - Hypoxemia (ICD-10) Pneumonia ?J18.9 - Pneumonia, unspecified organism (ICD-10) CAP (community acquired pneumonia) ?J18.9 - Pneumonia, unspecified organism (ICD-10) Hyponatremia ?E87.1 - Hypo-osmolality and hyponatremia (ICD-10) HTN (hypertension) ?I10 - Essential (primary) hypertension (ICD-10) OAB (overactive bladder) ?N32.81 - Overactive bladder (ICD-10) Hyperlipidemia ?E78.5 - Hyperlipidemia, unspecified (ICD-10) Hematuria ?R31.9 - Hematuria, unspecified (ICD-10) History of urinary retention ?Z87.898 - Personal history of other specified conditions (ICD-10) Difficulty urinating ?R39.198 - Other difficulties with micturition (ICD-10) Surgical History (Updated 01/07/24 @ 18:43 by Shikha Sanabria RN) H/O hernia repair ?Z98.890 - Other specified postprocedural states (ICD-10) ?Z87.19 - Personal history of other diseases of the digestive system (ICD-10) History of knee surgery ?Z98.890 - Other specified postprocedural states (ICD-10) Social History (Updated 01/07/24 @ 18:45 by Shikha Sanabria RN) Within the past year, how often did you have a drink containing alcohol: 2-3 times a week Smoking status: Never smoker Second hand tobacco smoke exposure: No Non-prescribed substance use: denies use 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 Known occupational exposures/hazards: No Highest level of school completed/degree received: high school graduate Do you want help with school or training: No Are you now , , , , never or living with a partner: In a typical week, how many times do you talk on the telephone with family, friends, or neighbors: twice per week How often do you get together with friends or relatives: twice per week How often do you attend spiritism or catholic services: never Do you belong to any clubs or organizations such as spiritism groups unions, fraternal or athletic groups, or school groups: no Total score: 2 Score interpretation: A score of greater than or equal to 2 indicates the lowest level of social isolation. Little interest or pleasure in doing things: not at all Feeling down, depressed, or hopeless: not at all Feel stressed/tense/nervous/anxious/difficulty sleeping: not at all Due to disability, difficulty making decisions: No Do you think of yourself as: straight/heterosexual Gender Identity: male Exam Narrative Exam Narrative: Nurses notes and vital signs reviewed and patient is not hypoxic. General: Well-appearing and in no apparent distress. Skin: Warm, dry, no pallor noted. No rash. Head: Normocephalic, atraumatic. Neck: Supple, non-tender. Eye: Pupils are equal, round and EOMI. No scleral icterus. Ears, Nose, Mouth, and Throat: TM are clear, no nasal mucosal hypertrophy. Oral mucosa is moist, no posterior oropharynx erythema, uvula is mid-line Cardiovascular: Regular Rate and Rhythm without murmur, gallop or rub. Respiratory: No accessory muscle use or respiratory distress. Lungs are clear to auscultation, no wheezing, rales or rhonchi Chest Wall: no tenderness Back: No midline thoracic or lumbar vertebral tenderness. No CVA tenderness Musculoskeletal: normal ROM, no calf or popliteal tenderness, no lower extremity edema/swelling GI: Abdomen is soft, non-distended. Normal bowel sounds. No masses appreciated. No tenderness to palpation. No rebound, guarding, or rigidity noted. Neurological: A&O x4. No cranial nerve dysfunction observed. No truncal ataxia. Moves all extremities. Sensation intact. Psychiatric: Cooperative and interactive. Normal mood and affect. Constitutional Vital Signs, click to edit/add: Last Vital Signs Temp 98.0 F 01/14/24 15:32 Pulse 88 01/14/24 15:32 Resp 24 H 01/14/24 15:32 BP 105/88 01/14/24 15:32 Pulse Ox 92 L 01/14/24 15:32 O2 Del Method Nasal Cannula 01/14/24 15:32 Course Vital Signs Vital signs: Vital Signs Temperature 98.0 F 01/14/24 15:32 Pulse Rate 88 01/14/24 15:32 Respiratory Rate 24 H 01/14/24 15:32 Blood Pressure 105/88 01/14/24 15:32 Pulse Oximetry 92 L 01/14/24 15:32 Oxygen Delivery Method Nasal Cannula 01/14/24 15:32 Temperature 98.0 F 01/14/24 15:32 Pulse Rate 88 01/14/24 15:32 Respiratory Rate 24 H 01/14/24 15:32 Blood Pressure 105/88 01/14/24 15:32 Pulse Oximetry 92 L 01/14/24 15:32 Oxygen Delivery Method Nasal Cannula 01/14/24 15:32 Medical Decision Making MDM Narrative Medical decision making narrative: The patient urine was hard to obtain with at the patient is only having some dribbling Urine was obtained by straight cath It was noted that the patient have some blood in the urine with some bacteria but not the rest of the signs of infection The patient will follow-up with urology next week meanwhile I did explain to him that he might need to be restarted on Flomax but since he is going to follow-up with his urologist next week he will discuss that with her The patient will be covered with Pyridium and Keflex for possible underlying infection due to his symptoms The patient also was instructed about keeping the area dry and clean The patient is to follow up with primary care physician in next 2-3 days or to return to the emergency department should any of the signs or symptoms worsen or new symptoms develop. The patient agrees with the following Diagnosis and Treatment plan and the patient will be discharged home. Lab Data Labs: Lab Results 01/14/24 Range/Units 18:10 Urine Color Yellow (YELLOW) Urine Clarity Clear (CLEAR) Urine pH 7.5 (5.0-9.0) Ur Specific [place] 1.025 (1.005-1.025) Urine Protein >=300 A (NEG/TRACE) mg/dL Urine Glucose (UA) Negative (NEGATIVE) mg/dL Urine Ketones Negative (NEGATIVE) mg/dL Urine Occult Blood Large A (NEGATIVE) Urine Nitrite Negative (NEGATIVE) Urine Bilirubin Negative (NEGATIVE) Urine Urobilinogen 2.0 A (0.2-1.0) EU/dL Ur Leukocyte Esterase Negative (NEGATIVE) Urine RBC 50-75 A (0-2) #/HPF Urine WBC 0-2 A (NONE SEEN) #/HPF Ur Squamous Epith Cells Few A (NONE/RARE) #/LPF Urine Crystals None seen (None Seen) #/HPF Urine Bacteria Moderate A (NONE SEEN) #/HPF Urine Casts None seen (NONE SEEN) #/LPF Urine Mucus Moderate A (NONE SEEN) Ur Culture Indicated? Yes Discharge Plan Discharge Chief Complaint: Urogenital-Male Clinical Impression: Urinary tract infection Patient Disposition: Home, Self-Care Time of Disposition Decision: 18:39 Condition: Good Prescriptions / Home Meds: New cephalexin 500 mg capsule 500 mg PO Q12H 7 Days Qty: 14 0RF phenazopyridine [Pyridium] 200 mg tablet 200 mg PO Q8H PRN (Reason: burning ) Qty: 6 0RF No Action sodium chloride 1,000 mg tablet,soluble 1,000 mg PO TID Qty: 90 0RF simvastatin 40 mg tablet 40 mg PO Q24H lisinopril 20 mg tablet 40 mg PO DAILY cefuroxime axetil 500 mg tablet 500 mg PO Q12H Qty: 10 0RF Print Language: St Helenian Instructions: Urinary Tract Infection in Men (DC) Referrals: ALEX LYMAN [Primary Care Provider] - 1 week
[2024-01-14 18:14] LABS: Bilirubin Urine NEGATIVE (NEGATIVE); Blood Urine LARGE (NEGATIVE); Clarity Urine CLEAR (CLEAR); Color Urine YELLOW (YELLOW); Glucose Urine UA NEGATIVE (NEGATIVE); Ketones Urine NEGATIVE (NEGATIVE); Leukocyte Esterase Urine NEGATIVE (NEGATIVE); Nitrite Urine NEGATIVE (NEGATIVE); Protein Urine >=300 mg/dL (NEG/TRACE); Specific Gravity Urine 1.025 (1.005-1.025); pH Urine 7.5 (5.0-9.0)
[2024-01-14 18:17] LABS: Urine Microscopic Indicated YES
[2024-01-14 18:24] LABS: Bacteria Urine MODERATE #/HPF (NONE SEEN); RBC Urine 50-75 #/HPF (0-2); WBC Urine 0-2 #/HPF (NONE SEEN)
[2024-01-14 18:25] LABS: Cast Seen? NONE SEEN #/LPF (NONE SEEN); Crystals Seen? None Seen #/HPF (None Seen); Mucus Urine MODERATE (NONE SEEN); Squamous Epithelial Cell Urine FEW #/LPF (NONE/RARE); Urine Culture Indicated YES
[2024-01-14] MEDS: CEPHALEXIN 500 MG CAPSULE PO (18:51)
[2024-01-14] MEDS: PHENAZOPYRIDINE 100 MG TABLET 200 MG PO (18:51)
[2024-01-14 18:55] VITALS: BP 140/70; PULSE 82; O2SAT 96
== END 2024-01-14 19:00 | disposition home or self-care (01) ==
PROVIDERS: Emergency Provider Emergency Medicine; PCP Internal Medicine
DX: N39.0 Urinary tract infection, site not specified (principal)
CPT/HCPCS: 81001; 87086; 99283

== ENCOUNTER 2024-10-02 07:38 | Emergency (ER) | payer MEDICARE, OTHER, SELFPAY ==
[2024-10-02] VITALS (24 sets, daily range): BP systolic 66–131; BP diastolic 32–76; PULSE 69–115; TEMP 37.3; O2SAT 91–99; BMI 48.7
--- NOTE | 2024-10-02 07:44 | ECG_ITS ---
[facility] Test Date: 2024-10-02 Pat Name: SALVADOR BARRIENTOS Department: Room: - Gender: Male Maintenance Trainer: : 1940 Requested By: [id number] Order Number: [id number] Reading MD: TAYE DUNBAR Measurements Intervals [place] Rate: 72 P: -41800 MN: -50994 QRS: -73 QRSD: 132 T: 47 QT: 394 QTc: 418 Interpretive Statements 1210 Atrial fibrillation 2450 Right bundle branch block 3114 Cannot rule out anterior myocardial infarction, age undetermined 7200 Abnormal left axis deviation 9150 abnormal ECG Compared to ECG 01/08/2024 05:29:54 Myocardial infarct finding now present Sinus arrhythmia no longer present First degree AV block no longer present Left anterior fascicular block no longer present Electronically Signed On 10-04-2024 16:25:24 EDT by TAYE DUNBAR
--- OUTSIDE RECORDS SUMMARY | 2024-10-02 07:46 | XMS_ITS ---
Author Organization [facility] Address [address] [place] [address] Care Team Providers Care Cutting Tool Sharpener Name Role Phone Mike Oakley MD Primary Care Provider [phone] Mike Oakley MD Unavailable [phone] Alissa Marina LPN Unavailable Chronic Care Management (CCM) Status:Enrolled (Active) Start date:01/13/2024 Enrollment date:01/13/2024 Enrollment reason:Referred by provider Overview 01/13/24, 9:11 AM - Trinithursday, ASSEMBLY ASSOCIATE- Patient gives verbal consent to be enrolled in CCM Program and understands there could be a bill for this service. Case Team Name Relationship Phone Alissa Marina LPN(Responsible Staff) [phone] Continued Care and Services Coordination
--- OUTSIDE RECORDS SUMMARY | 2024-10-02 07:46 | XMS_ITS | Encounter Summary ---
Author Organization [facility] Address [address] [place] [address] Care Team Providers Care Retail Salesworker Name Role Phone Mike Oakley MD Primary Care Provider [phone] Mike Oakley MD Unavailable [phone] Sofya Diaz LOOM WINDER TENDER Unavailable Thursday, Trini STUDENT SERVICES ADVISOR Unavailable [phone] Jaimie Mooney RN Unavailable MarinaAlissa STUDENT SERVICES ADVISOR Unavailable Encounter Details Date Type Department Care Team (Late Contact Info) Description 10/20/2023 Orders Only [facility] [address] [facility] [address] [place] [address] Unallocated, Noms Provider, [address] [place], [place] [id number] Social History Tobacco Use Types Packs/Day Years Used Date Smoking Tobacco: Never Smokeless Tobacco: Never Alcohol Use Standard Drinks/Week Comments Not Currently 0 (1 standard drink = 0.6 oz pure alcohol) Drinks 2-4 times a month. Caffeine intake: coffee. Sex and Gender Information Value Date Recorded Sex Assigned at Not on file Legal Sex Male 6:41 PM EDT Gender Identity Not on file Sexual Orientation Not on file documented as of this encounter Plan of Treatment Upcoming Encounters Date Type Department Care Team ([facility] Contact Info) Description 11/28/2024 10:00 AM EDT Office Visit [facility] [address] [facility] [address] [place] [address] Mike Oakley MD [address] [facility] [address] [place] [address] documented as of this encounter Procedures Procedure Name Priority Date/Time Associated Diagnosis Comments ELECTROCARDIOGRAM REPORT Routine 024 9:09 AM EDT documented in this encounter Results * Electrocardiogram Report (10/20/2023 9:09 AM EDT) us Noms Provider Unallocated MD IN CLINIC/BEDSIDE O RDERABLES Final Result documented in this encounter Visit Diagnoses Not on filedocumented in this encounter Care Teams Retail Salesworker Relationship Specialty Start Date End Date Mike Oakley MD [address] [facility] [address] [place] [address] PCP - General Internal Medicine 08/06/22 Mike Oakley MD [address] [facility] [address] [place] [address] PCP - ACO Reach 08/14/22 Sofya Diaz, LOOM WINDER TENDER [address] [place] [address] Counter Caser Family Medicine 11/27/23 11/27/23ThursdayTrini LPN [address] [facility] [address] [place] [address] Licensed Practical Nurse Family Medicine 01/13/24 04/29/24 Jaimie Mooney, RN [address] [place] [address] Licensed Practical Nurse Family Medicine 04/29/24 06/10/24 Alissa Marina LPN [address] [facility] [address] [place] [address] 06/10/24 documented as of this encounter
--- OUTSIDE RECORDS SUMMARY | 2024-10-02 07:46 | XMS_ITS | Encounter Summary ---
Author Organization [facility] Address [address] [place] [address] Care Team Providers Care Developer Trading Systems Name Role Phone Mike Oakley MD Primary Care Provider [phone] Mike Oakley MD Unavailable [phone] Sofya Diaz SAXOPHONE ASSEMBLER Unavailable Thursday, Trini GAS TRUCK DRIVER Unavailable [phone] Jaimie Mooney RN Unavailable MarinaAlissa GAS TRUCK DRIVER Unavailable Encounter Details Date Type Department Care Team ([facility] Contact Info) Description 01/27/2023 Abstract [facility] 112 [facility] [address] [place] [id number] Mike Oakley MD 112 [facility] [address] [place], [place] [id number] Social History Tobacco Use Types Packs/Day Years [...] Upcoming Encounters Date Type Department Care Team ([facility] Contact Info) Description 11/28/2024 10:00 AM EDT Office Visit [facility] [address] [facility] [address] [place] [phone] Mike Oakley MD 112 [facility] [address] [place], [place] [id number] documented as of this encounter Visit Diagnoses Not on filedocumented in this encounter Care Teams Developer Trading Systems Relationship Specialty Start Date End Date Mike Oakley MD [address] [place] [address] [place] [address] PCP - General Internal Medicine 08/06/22 Mike Oakley MD [address] [facility] [address] [place] [address] PCP - ACO Reach 08/14/22 Sofya Diaz LSW [address] [place] [address] Academic Services Coordinator Family Medicine 11/27/23 11/27/23Thursday, CHRISTINE Feliz [address] [place] [address] Licensed Practical Nurse Family Medicine 01/13/24 04/29/24 Jaimie Mooney, RN [address] [place] [address] Licensed Practical Nurse Family Medicine 04/29/24 06/10/24 Alissa Marina LPN [address] [facility] [address] [place] [address] 06/10/24 documented as of this encounter
--- OUTSIDE RECORDS SUMMARY | 2024-10-02 07:46 | XMS_ITS | Encounter Summary ---
Author Organization [facility] Address [address] [place] [address] Care Team Providers Care Knowledge Analyst Name Role Phone Mike Oakley MD Primary Care Provider [phone] Mike Oakley MD Unavailable [phone] Sofya Diaz HIGH VOLTAGE ELECTRICIAN Unavailable Thursday, Trini SELLING UNDERWRITER Unavailable [phone] Jaimie Mooney RN Unavailable MarinaAlissa SELLING UNDERWRITER Unavailable Encounter Details Date Type Department Care Team ([facility] Contact Info) Description 01/28/2023 Abstract [facility] 112 [facility] [address] [place] [phone] Mike Oakley MD 112 [facility] [address] [place], [place] [id number] Social History Tobacco Use Types Packs/Day Years [...] Upcoming Encounters Date Type Department Care Team ([facility] Contact Info) Description 11/28/2024 10:00 AM EDT Office Visit [facility] 112 [facility] [address] [place] [phone] Mike Oakley MD 112 [facility] [address] [place], [place] [id number] documented as of this encounter Visit Diagnoses Not on filedocumented in this encounter Care Teams Knowledge Analyst Relationship Specialty Start Date End Date Mike Oakley MD [address] [place] [address] [place] [address] PCP - General Internal Medicine 08/06/22 Mike Oakley MD [address] [place] [address] [place] [address] PCP - ACO Reach 08/14/22 Sofya Diaz LSW [address] [place] [address] Career Representative Family Medicine 11/27/23 11/27/23Thursday, CHRISTINE Feliz [address] [place] [address] Licensed Practical Nurse Family Medicine 01/13/24 04/29/24 Jaimie Mooney, RN [address] [place] [address] Licensed Practical Nurse Family Medicine 04/29/24 06/10/24 Alissa Marina LPN [address] [facility] [address] [place] [address] 06/10/24 documented as of this encounter
--- OUTSIDE RECORDS SUMMARY | 2024-10-02 07:46 | XMS_ITS | Encounter Summary ---
Author Organization [facility] Address [address] [place] [address] Care Team Providers Care Truck Unloader Name Role Phone Mike Oakley MD Primary Care Provider [phone] Mike Oakley MD Unavailable [phone] Thursday, Trini RATTLE LEAK AND SQUEAK REPAIRER Unavailable [phone] Jaimie Mooney RN Unavailable Marina Alissa RATTLE LEAK AND SQUEAK REPAIRER Unavailable Encounter Details Date Type Department Care Team (Late st Contact Info) Description 01/11/2024 Abstract [facility] [address] [facility] 110 [place] [address] Mike Oakley MD 112 [facility] 110 [place] [address] Social History Tobacco Use Types Packs/Day Years Used Date Smoking Tobacco: Never Smokeless Tobacco: Never Alcohol Use Standard Drinks/Week Comments Not Currently 0 (1 standard drink = 0.6 oz pure alcohol) Drinks 2-4 times a month. Caffeine intake: coffee. B1300 Health Literacy Answer Date Recor ded How often do you need to hav e someone help you when you read instructions, pamphlets, or other written material from your doctor or pharmacy? Sometimes 01/14/2024 Humiliation, Afraid, Rape, and Kick questionnair e Answer Date Recorded Within the last year, have y ou been afraid of your partner or ex-partner? No 01/14/2024 Within the last year, have y ou been humiliated or emotionally abused in other ways by your partner or ex-partner? No Within the last year, have y ou been kicked, hit, slapped, or otherwise physically hurt by your partner or ex-partner? No 01/14/2024 Within the last year, have y ou been raped or forced to have any kind of sexual activity by your partner or ex-partner? No 01/14/2024 Social Connection and Isolation Panel [NHANES] A nswer Date Recorded Frequency of Communication with Friends and Fami ly Not on file 01/14/2024 Frequency of Social Gatherings with Friends and Family Not on file 01/14/2024 Attends Sikhism Services Not on file 01/13 Active Member of Clubs or Organizations Not on f ile 01/14/2024 Attends Club or Organization Meetings Not on matthew e 01/14/2024 Are you , , di vorced, , never , or living with a partner? 01/14/2024 AUDIT-C Answer Date Recorded Q1: How often do you have a drink containing alcohol? Never 01/14/2024 Q2: How many drinks containi ng alcohol do you have on a typical day when you are drinking? Patient does not drink Q3: How often do you have si x or more drinks on one occasion? Never 01/14/2024 Overall Financial Resource Strain (CARDIA) Answe r Date Recorded How hard is it for you to pa y for the very basics like food, housing, medical care, and heating? Not hard at all 01/14/2024 [facility] [place] of Occupat ional Health - Occupational Stress Questionnaire Answer Date Recorded Do you feel stress - tense, restless, nervous, or anxious, or unable to sleep at night because your mind is troubled all the time - these days? Only a little 01/14/2024 Exercise Vital Sign Answer Date Recorde d On average, how many days pe r week do you engage in moderate to strenuous exercise (like a brisk walk)? 0 days 01/14/2024 On average, how many minutes do you engage in exercise at this level? 0 min 01/14/2024 Hunger Vital Sign Answer Date Recorded Within the past 12 months, y ou worried that your food would run out before you got the money to buy more. Never true 01/14/20 24 Within the past 12 months, t he food you bought just didn't last and you didn't have money to get more. Never true 01/14/2024 PRAPARE - Transportation Answer Date Re corded In the past 12 months, has l ack of transportation kept you from medical appointments or from getting medications? No 12/22 In the past 12 months, has l ack of transportation kept you from meetings, work, or from getting things needed for daily living? No 01/14/2024 Housing Stability Vital Sign Answer Tony e Recorded In the last 12 months, was t here a time when you were not able to pay the mortgage or rent on time? Yes 01/14/2024 In the past 12 months, how m any times have you moved where you were living? 0 01/14/2024 At any time in the past 12 m [facility], were you homeless or living in a assisted (including now)? No 01/14/2024 Sex and Gender Information Value Date Recorded Sex Assigned at Not on file Legal Sex Male 6:41 PM EDT Gender Identity Not on file Sexual Orientation Not on file documented as of this encounter Functional Status * Audit-C Score Answer Date of Assessment Author 0 01/14/2024 11:02 AM EDT Trini Gagnon LPN * Question Answer Date of Assessment Author Q1: How often do you have a drink containing alcohol? Never 01/14/2024 11:02 AM EDT Trini Gagnon L PN Q2: How many drinks containing alcohol do you have on a typical day when you are drinking? Patient does not drink 01/14/2024 11:02 AM EDT Trini Gagnon LPN Q3: How often do you have six or more drinks on one occasion? Never 01/14/2024 11:02 AM EDT Trini Gagnon L PN documented as of this encounter Plan of Treatment Upcoming Encounters Date Type Department Care Team (Late st Contact Info) Description 11/28/2024 10:00 AM EDT Office Visit [facility] [address] [facility] 110 [place] [address] Mike Oakley MD 112 [facility] 110 [place] [address] documented as of this encounter Visit Diagnoses Not on filedocumented in this encounter Care Teams Truck Unloader Relationship Specialty Start Date End Date Mike Oakley MD [address] [place] [address] [place] [address] PCP - General Internal Medicine 08/06/22 Mike Oakley MD [address] [place] [address] [place] [address] PCP - ACO Reach 08/14/22ThursdayTrini LPN [address] [place] [address] Licensed Practical Nurse Family Medicine 01/13/24 04/29/24 Jaimie Mooney, RN [address] [facility] [place] [address] Licensed Practical Nurse Family Medicine 04/29/24 06/10/24 Alissa Marina LPN [address] [facility] 110 [place] [address] 06/10/24 documented as of this encounter
--- OUTSIDE RECORDS SUMMARY | 2024-10-02 07:46 | XMS_ITS | Encounter Summary ---
Author Organization [facility] Address [address] [place] [address] Care Team Providers Care Order Desk Clerk Name Role Phone Mike Oakley MD Primary Care Provider [phone] Mike Oakley MD Unavailable [phone] Sofya Diaz IT SOLUTIONS ARCHITECT Unavailable Thursday, Trini COSTING ANALYST Unavailable [phone] Jaimie Mooney RN Unavailable MarinaAlissa COSTING ANALYST Unavailable Encounter Details Date Type Department Care Team (Late Contact Info) Description 06/17/2023 Abstract [facility] 112 [facility] 110 [place] [address] Mike Oakley MD 112 [facility] 110 [place], [place] [address] Social History Tobacco Use Types Packs/Day Years [...] Upcoming Encounters Date Type Department Care Team ([facility] Contact Info) Description 11/28/2024 10:00 AM EDT Office Visit [facility] 112 [facility] 110 [place] [address] Mike Oakley MD 112 [facility] 110 [place], [place] [address] documented as of this encounter Visit Diagnoses Not on filedocumented in this encounter Care Teams Order Desk Clerk Relationship Specialty Start Date End Date Mike Oakley MD [address] [place] [address] [place] [address] PCP - General Internal Medicine 08/06/22 Mike Oakley MD [address] [place] [address] PCP - ACO Reach 08/14/22 Sofya Diaz LSW [address] [place] [address] Chief Relay Tester Family Medicine 11/27/23 11/27/23Thursday, CHRISTINE Feliz [address] [place] [address] Licensed Practical Nurse Family Medicine 01/13/24 04/29/24 Jaimie Mooney, RN [address] [place] [address] Licensed Practical Nurse Family Medicine 04/29/24 06/10/24 Alissa Marina LPN [address] [facility] 110 [place] [address] 06/10/24 documented as of this encounter
--- OUTSIDE RECORDS SUMMARY | 2024-10-02 07:46 | XMS_ITS | Encounter Summary ---
Author Organization [facility] Address [address] [place] [address] Care Team Providers Care Psychiatric Orderly Name Role Phone Mike Oakley MD Primary Care Provider Mike Oakley MD Unavailable Thursday, Trini MECHANICAL APPLICATIONS ENGINEER Unavailable [phone] Jaimie Mooney RN Unavailable Marina Alissa MECHANICAL APPLICATIONS ENGINEER Unavailable Encounter Details Date Type Department Care Team (Late st Contact Info) Description 01/11/2024 Abstract [facility] 112 [facility] 110 [place] [address] Mike Oakley MD 112 [facility] 110 [place] [address] Social History Tobacco Use Types [...] and Family Not on file 01/14/2024 Attends Scientologist Services Not on file 01/13 Active Member [...] and heating? Not hard at all 01/14/2024 [facility] [place] of Occupat ional Health - Occupational Stress [...] any time in the past 12 m [facility], were you homeless or living in a skilled nursing (including now)? No 01/14/2024 Sex and Gender [...] EDT Office Visit [facility] 112 [facility] 110 [place] [address] Mike Oakley MD 112 [facility] 110 [place] [address] documented as of this encounter Visit Diagnoses Not on filedocumented in this encounter Care Teams Psychiatric Orderly Relationship Specialty Start Date End Date Mike Oakley MD [address] [place] [address] PCP - General Internal Medicine 08/06/22 Mike Oakley MD [address] [place] [address] PCP - ACO Reach 08/14/22ThursdayTrini LPN [address] [place] [address] Licensed Practical Nurse Family Medicine 01/13/24 04/29/24 Jaimie Mooney, RN [address] [facility] [place] [address] Licensed Practical Nurse Family Medicine 04/29/24 06/10/24 Alissa Marina LPN [address] [facility] 110 [place] [address] 06/10/24 documented as of this encounter
--- OUTSIDE RECORDS SUMMARY | 2024-10-02 07:46 | XMS_ITS | Encounter Summary ---
Author Organization [facility] Address [address] [place] [address] Care Team Providers Care Psychiatry Teacher Name Role Phone Mike Oakley MD Primary Care Provider Mike Oakley MD Unavailable [phone] Sofya Diaz BOARD WRITER Unavailable Thursday, Trini OCCUPATIONAL HEALTH AND SAFETY MANAGER Unavailable [phone] Jaimie Mooney RN Unavailable [phone] MarinaAlissa OCCUPATIONAL HEALTH AND SAFETY MANAGER Unavailable Encounter Details Date Type Department Care Team ([facility] Contact Info) Description 10/31/2022 Abstract [facility] 112 [facility] 110 [place] [address] Mike Oakley MD 112 [facility] 110 [place], [place] [address] Social History Tobacco Use Types Packs/Day Years [...] Upcoming Encounters Date Type Department Care Team ([facility] Contact Info) Description 11/28/2024 10:00 AM EDT Office Visit [facility] 112 [facility] 110 [place] [address] Mike Oakley MD 112 [facility] 110 [place], [place] [address] documented as of this encounter Visit Diagnoses Not on filedocumented in this encounter Care Teams Psychiatry Teacher Relationship Specialty Start Date End Date Mike Oakley MD [address] [place] [address] PCP - General Internal Medicine 08/06/22 Mike Oakley MD [address] [place] [address] PCP - ACO Reach 08/14/22 Sofya Diaz LSW [address] [place] [address] Security Orderly Family Medicine 11/27/23 11/27/23Thursday, CHRISTINE Feliz [address] [place] [address] Licensed Practical Nurse Family Medicine 01/13/24 04/29/24 Jaimie Mooney, RN [address] [place] [address] Licensed Practical Nurse Family Medicine 04/29/24 06/10/24 Alissa Marina LPN [address] [facility] 110 [place] [address] 06/10/24 documented as of this encounter
--- OUTSIDE RECORDS SUMMARY | 2024-10-02 07:46 | XMS_ITS | Encounter Summary ---
Author Organization [facility] Address [address] [place] [address] Care Team Providers Care Tufter Operator Name Role Phone Mike Oakley MD Primary Care Provider [phone] Mike Oakley MD Unavailable [phone] Sofya Diaz STEWARD/STEWARDESS CHIEF CARGO VESSEL Unavailable Thursday, Trini MATE FISHING VESSEL Unavailable [phone] Jaimie Mooney RN Unavailable MarinaAlissa MATE FISHING VESSEL Unavailable Encounter Details Date Type Department Care Team (Late Contact Info) Description 12/29/2022 Orders Only [facility] 112 [facility] 110 [place] [address] A, Unknown Practice [address] [place], [place] [address] Social History Tobacco Use Types Packs/Day Years [...] Encounters Date Type Department Care Team (Late Contact Info) Description 11/28/2024 10:00 AM EDT Office Visit [facility] [address] [facility] 110 [place] [address] Mike Oakley MD [address] [facility] 110 [place] [address] documented as of this encounter Procedures Procedure Name Priority Date/Time Associated Diagnosis Comments SCANNED LABS Routine 12/23/2022 8:37 AM EDT documented in this encounter Results * SCANNED LABS (12/23/2022 8:37 AM EDT) us Unknown Practice A LAB CHG PERFORMABLES Final Re sult documented in this encounter Visit Diagnoses Not on filedocumented in this encounter Care Teams Tufter Operator Relationship Specialty Start Date End Date Mike Oakley MD [address] [place] [address] PCP - General Internal Medicine 08/06/22 Mike Oakley MD [address] [place] [address] PCP - ACO Reach 08/14/22 Sofya Diaz, STEWARD/STEWARDESS CHIEF CARGO VESSEL [address] [place] [address] Director Of Convention Services Family Medicine 11/27/23 11/27/23ThursdayTrini LPN [address] [place] [address] Licensed Practical Nurse Family Medicine 01/13/24 04/29/24 Jaimie Mooney, RN [address] [place] [address] Licensed Practical Nurse Family Medicine 04/29/24 06/10/24 Alissa Marina LPN [address] [place] [address] 06/10/24 documented as of this encounter
--- OUTSIDE RECORDS SUMMARY | 2024-10-02 07:46 | XMS_ITS | Clinical Summary ---
Author Organization [employer] Address [id number] [address] [place] [address] Care Team Providers Care Scalder Name Role Phone Mike Oakley MD Primary Care Provider [phone] Allergies No known active allergies Medications temazepam (RESTORIL) 7.5 mg capsule Take 15 mg by mouth nightly as needed for sleep. Active simvastatin (ZOCOR) 40 mg tablet Take 40 mg by mouth nightly. Active lisinopril (PRINIVIL,ZESTR IL) 40 mg tablet Take 40 mg by mouth daily. Active Active Problems Problem Noted Date Diagnosed Date Arthritis of left knee 11/23/2017 Social History Tobacco Use Types Packs/Day Years Used Date Smoking Tobacco: Never Smokeless Tobacco: Former Snuff Alcohol Use Standard Drinks/Week Comments Yes 0 (1 standard drink = 0.6 oz pur e alcohol) occasional Childcare Answer Date Recorded Childcare Unknown 09/02/2018 Employment Answer Date Recorded Employment Unknown 09/02/2018 Purpose - Life Answer Date Recorded Purpose and direction in life Unknown Sex and Gender Information Value Date Recorded Sex Assigned at Not on file Legal Sex Male 10:15 AM EDT Gender Identity Not on file Sexual Orientation Not on file Last Filed Vital Signs Vital Sign Reading Time Taken Comments Blood Pressure 110/84 11/27/2017 7:00 AM EDT Pulse 73 11/27/2017 7:00 AM EDT Temperature 36.7 C (98 F) 11/27/2017 7:00 AM EDT Respiratory Rate 18 11/27/2017 7:00 AM EDT Oxygen Saturation 96% 11/27/2017 7:00 AM EDT Inhaled Oxygen Concentration - - Weight 121.6 kg (268 lb) 11/24/2017 6:31 AM EDT Height 175.3 cm (5' 9 ) 11/24/2017 6:31 AM EDT Body Mass Index 39.58 11/24/2017 6:31 AM EDT Plan of Treatment Not on file Medical Devices Implanted Type Area Straw Hat Brusher Device Identifier Shelf Expiration Date Model / Serial / Lot Cmnt Bn Hvisc Plc Rpl [id number] - Sn/A - [id number] Implanted:Qty: 1 on 11/24/2017 by Patrick Kinsey Jr., DO at [facility] Cement Left: Knee Switchboard 06/20/2021 [id number] / N/A / [id number] Cmnt Bn Hvisc Plc Rpl [id number] - Sn/A - [id number] Implanted:Qty: 1 on 11/24/2017 by Patrick Kinsey Jr., DO at [facility] Cement Left: Knee Switchboard 03/22/2022 [id number] / N/A / [id number] Ins Artc 5-6 E-F 10mm Kn Fx Rpl [id number] + [id number] - Sn/A - [id number] Implanted:Qty: 1 on 11/24/2017 by Patrick Kinsey Jr., DO at [facility] Orthopedic Implant Left: Knee [employer] 10/20/20215962 0-10 / N/A / [id number] Cmpt Ptlr Std 9mm 35mm Nxgn Rpl [id number] + [id number] - Sn/A - [id number] Implanted:Qty: 1 on 11/24/2017 by Patrick Kinsey Jr., DO at [facility] Orthopedic Implant Left: Knee [employer] 08/20/20255972- 5-35 / N/A / [id number] Cmpt Fem F Kn Lt Cmnt Lpsflx Rpl [id number] + [id number] - Sn/A - [id number] Implanted:Qty: 1 on 11/24/2017 by Patrick Kinsey Jr., DO at [facility] Orthopedic Implant Left: Knee [employer] 05/21/20275964-01 6-51 / N/A / [id number] Plt Tib [id number] Nxgn Kn Cmnt Rpl [id number] + [id number] - Sn/A - [id number] Implanted:Qty: 1 on 11/24/2017 by Patrick Kinsey Jr., DO at [facility] Plate Left: Knee [employer] 08/21/2027-5980-04 7-02 / N/A / [id number] Explanted Type Area Straw Hat Brusher Device Identifier Shelf Expiration Date Model / Serial / Lot Scr Bn Justin 35mm 6.5mm Hip St Rpl [id number] + [id number] + 32 - Sn/A - [id number] Explanted:Qty: 2 on 11/24/2017 by Patrick Kinsey Jr., DO at [facility] Screw [employer] 10/21/2027 00-62 50-06 5-35 / N/A / [id number] Scr Gd 48mm Qd-Spr Hex Hd Mis - Sn/A - [id number] Explanted:Qty: 2 on 11/24/2017 by Patrick Kinsey Jr., DO at [facility] Screw Left: Knee [employer] 10/21/20275983-04 0-48 / N/A / [id number] Insurance MEDICARE COMMERCIAL Advance Directives * Full Code (Latest Code Status on File) Date Activated Date Inactivated Comments 11/24/2017 12:20 PM 11/27/2017 1:31 PM Care Teams Scalder Relationship Specialty Start Date End Date Mike Oakley MD [address] [address] PCP - General Internal Medicine 10/27/17
--- OUTSIDE RECORDS SUMMARY | 2024-10-02 07:46 | XMS_ITS | Encounter Summary ---
Author Organization [facility] Address [address] [place] [address] Care Team Providers Care Outside Machinist Supervisor Name Role Phone Mike Oakley MD Primary Care Provider Mike Oakley MD Unavailable Sofya Diaz CARGO MATE Unavailable [phone] Thursday, Trini BASEBALL GLOVE SHAPER Unavailable [phone] Jaimie Mooney RN Unavailable MarinaAlissa BASEBALL GLOVE SHAPER Unavailable Encounter Details Date Type Department Care Team ([facility] Contact Info) Description 10/27/2023 Abstract [facility] 112 [facility] 110 [place] [address] Mike Oakley MD 112 [facility] 110 [place], [place] [address] Social History Tobacco Use Types Packs/Day Years [...] Upcoming Encounters Date Type Department Care Team ([facility] Contact Info) Description 11/28/2024 10:00 AM EDT Office Visit [facility] 112 [facility] 110 [place] [address] Mike Oakley MD 112 [facility] 110 [place], [place] [address] documented as of this encounter Visit Diagnoses Not on filedocumented in this encounter Care Teams Outside Machinist Supervisor Relationship Specialty Start Date End Date Mike Oakley MD [address] [place] [address] PCP - General Internal Medicine 08/06/22 Mike Oakley MD [address] [place] [address] PCP - ACO Reach 08/14/22 Sofya Diaz LSW [address] [place] [address] Sprinkler Driver Family Medicine 11/27/23 11/27/23Thursday, CHRISTINE Feliz [address] [place] [address] Licensed Practical Nurse Family Medicine 01/13/24 04/29/24 Jaimie Mooney, RN [address] [place] [address] Licensed Practical Nurse Family Medicine 04/29/24 06/10/24 Alissa Marina LPN [address] [facility] 110 [place] [address] 06/10/24 documented as of this encounter
--- OUTSIDE RECORDS SUMMARY | 2024-10-02 07:46 | XMS_ITS | Encounter Summary ---
Author Organization [facility] Address [address] [place] [address] Care Team Providers Care Epic Willow Specialist Name Role Phone Mike Oakley MD Primary Care Provider [phone] Mike Oakley MD Unavailable [phone] Thursday, Trini PRIMARY CARE PROVIDER Unavailable [phone] Jaimie Mooney RN Unavailable [phone] Marina Alissa PRIMARY CARE PROVIDER Unavailable Encounter Details Date Type Department Care Team (Late st Contact Info) Description 01/11/2024 Abstract [facility] 112 [facility] 110 [place] [address] Mike Oakley MD 112 [facility] 110 [place] [address] Social History Tobacco Use Types [...] and Family Not on file 01/14/2024 Attends Pentecostalism Services Not on file 01/13 Active Member [...] and heating? Not hard at all 01/14/2024 [facility] [place] of Occupat ional Health - Occupational Stress [...] any time in the past 12 m [facility], were you homeless or living in a alf (including now)? No 01/14/2024 Sex and Gender [...] Office Visit [facility] 112 [facility] 110 [place] [address] Mike Oakley MD 112 [facility] 110 [place] [address] documented as of this encounter Visit Diagnoses Not on filedocumented in this encounter Care Teams Epic Willow Specialist Relationship Specialty Start Date End Date Mike Oakley MD [address] [place] [address] PCP - General Internal Medicine 08/06/22 Mike Oakley MD [address] [place] [address] PCP - ACO Reach 08/14/22ThursdayTrini LPN [address] [place] [address] Licensed Practical Nurse Family Medicine 01/13/24 04/29/24 Jaimie Mooney, RN [address] [facility] [place] [address] Licensed Practical Nurse Family Medicine 04/29/24 06/10/24 Alissa Marina LPN [address] [facility] 110 [place] [address] 06/10/24 documented as of this encounter
--- OUTSIDE RECORDS SUMMARY | 2024-10-02 07:46 | XMS_ITS | Encounter Summary ---
Author Organization [facility] Address [address] [place] [address] Care Team Providers Care Preflight Mechanic Name Role Phone Mike Oakley MD Primary Care Provider Mike Oakley MD Unavailable [phone] Thursday, Trini HOG GRADER Unavailable [phone] Jaimie Mooney RN Unavailable Marina Alissa HOG GRADER Unavailable Encounter Details Date Type Department Care Team (Late st Contact Info) Description 01/11/2024 Abstract [facility] 112 [facility] 110 [place] [address] Mike Oakley MD 112 [facility] 110 [place] [address] Social History Tobacco Use Types [...] and Family Not on file 01/14/2024 Attends [employer] Not on file 01/13 Active Member [...] and heating? Not hard at all 01/14/2024 [facility] [place] of Occupat ional Health - Occupational Stress [...] any time in the past 12 m [facility], were you homeless or living in a group home (including now)? No 01/14/2024 Sex and Gender [...] EDT Office Visit [facility] 112 [facility] 110 [place] [address] Mike Oakley MD 112 [facility] 110 [place] [address] documented as of this encounter Visit Diagnoses Not on filedocumented in this encounter Care Teams Preflight Mechanic Relationship Specialty Start Date End Date Mike Oakley MD [address] [place] [address] PCP - General Internal Medicine 08/06/22 Mike Oakley MD [address] [place] [address] PCP - ACO Reach 08/14/22ThursdayTrini LPN [address] [place] [address] Licensed Practical Nurse Family Medicine 01/13/24 04/29/24 Jaimie Mooney, RN [address] [facility] [place] [address] Licensed Practical Nurse Family Medicine 04/29/24 06/10/24 Alissa Marina LPN [address] [facility] 110 [place] [address] 06/10/24 documented as of this encounter
--- OUTSIDE RECORDS SUMMARY | 2024-10-02 07:46 | XMS_ITS | Encounter Summary ---
Author Organization [facility] Address [address] [facility] [address] Care Team Providers Care Test Analyst Name Role Phone Mike Oakley MD Primary Care Provider Mike Oakley MD Unavailable [phone] Thursday, Trini RADIO SALES ACCOUNT EXECUTIVE Unavailable [phone] Jaimie Mooney RN Unavailable MarinaAlissa RADIO SALES ACCOUNT EXECUTIVE Unavailable Encounter Details Date Type Department Care Team (Late Contact Info) Description 01/08/2024 Abstract [facility] 112 [facility] 110 [place] [address] Mike Oakley MD [address] [facility] 110 [place], [place] [address] Social History Tobacco Use Types Packs/Day Years [...] Upcoming Encounters Date Type Department Care Team ([facility] Contact Info) Description 11/28/2024 10:00 AM EDT Office Visit [facility] 112 [facility] 110 [place] [address] Mike Oakley MD [address] [facility] 110 [place], [place] [address] documented as of this encounter Visit Diagnoses Not on filedocumented in this encounter Care Teams Test Analyst Relationship Specialty Start Date End Date Mike Oakley MD [address] [place] [address] PCP - General Internal Medicine 08/06/22 Mike Oakley MD [address] [place] [address] [place] [address] PCP - ACO Reach 08/14/22Thursday, CHRISTINE Feliz [address] [place] [address] Licensed Practical Nurse Family Medicine 01/13/24 04/29/24 Jaimie Mooney, RN [address] [place] [address] Licensed Practical Nurse Family Medicine 04/29/24 06/10/24 Alissa Marina LPN [address] [facility] 110 [place] [address] 06/10/24 documented as of this encounter
--- OUTSIDE RECORDS SUMMARY | 2024-10-02 07:46 | XMS_ITS | Encounter Summary ---
Author Organization [facility] Address [address] [place] [address] Care Team Providers Care Camera Storage Clerk Name Role Phone Mike Oakley MD Primary Care Provider [phone] Mike Oakley MD Unavailable [phone] Sofya Diaz RAILROAD DINING CAR STEWARD/STEWARDESS Unavailable Thursday, Trini AGITATOR OPERATOR Unavailable [phone] Jaimie Mooney RN Unavailable MarinaAlissa AGITATOR OPERATOR Unavailable Encounter Details Date Type Department Care Team ([facility] Contact Info) Description 08/31/2023 Abstract [facility] [address] [facility] 110 [place] [address] Mike Oakley MD 112 [facility] 110 [place], [place] [address] Social History Tobacco Use Types Packs/Day Years [...] Upcoming Encounters Date Type Department Care Team ([facility] Contact Info) Description 11/28/2024 10:00 AM EDT Office Visit [facility] [address] [facility] 110 [place] [address] Mike Oakley MD 112 [facility] 110 [place], [place] [address] documented as of this encounter Visit Diagnoses Not on filedocumented in this encounter Care Teams Camera Storage Clerk Relationship Specialty Start Date End Date Mike Oakley MD [address] [place] [address] PCP - General Internal Medicine 08/06/22 Mike Oakley MD [address] [place] [address] PCP - ACO Reach 08/14/22 Sofya Diaz LSW [address] [place] [address] Scow Derrick Operator Family Medicine 11/27/23 11/27/23Thursday, CHRISTINE Feliz [address] [place] [address] Licensed Practical Nurse Family Medicine 01/13/24 04/29/24 Jaimie Mooney, RN [address] [place] [address] Licensed Practical Nurse Family Medicine 04/29/24 06/10/24 Alissa Marina LPN [address] [facility] 110 [place] [address] 06/10/24 documented as of this encounter
--- OUTSIDE RECORDS SUMMARY | 2024-10-02 07:46 | XMS_ITS | Encounter Summary ---
Author Organization [facility] Address [address] [place] [address] Care Team Providers Care Accounts Payable Clerk Name Role Phone Mike Oakley MD Primary Care Provider Mike Oakley MD Unavailable [phone] Sofya Diaz MARKETING DATABASE COORDINATOR Unavailable Thursday, Trini SUGAR PLANTATION MANAGER Unavailable [phone] Jaimie Mooney RN Unavailable MarinaAlissa SUGAR PLANTATION MANAGER Unavailable Encounter Details Date Type Department Care Team ([facility] Contact Info) Description 09/23/2023 Abstract [facility] 112 [facility] 110 [place] [address] Mike Oakley MD 112 [facility] 110 [place], [place] [address] Social History Tobacco Use Types Packs/Day Years [...] Upcoming Encounters Date Type Department Care Team ([facility] Contact Info) Description 11/28/2024 10:00 AM EDT Office Visit [facility] 112 [facility] 110 [place] [address] Mike Oakley MD 112 [facility] 110 [place], [place] [address] documented as of this encounter Visit Diagnoses Not on filedocumented in this encounter Care Teams Accounts Payable Clerk Relationship Specialty Start Date End Date Mike Oakley MD [address] [place] [address] PCP - General Internal Medicine 08/06/22 Mike Oakley MD [address] [place] [address] [place] [address] PCP - ACO Reach 08/14/22 Sofya Diaz LSW [address] [place] [address] Farm Equipment Engine Mechanic Family Medicine 11/27/23 11/27/23Thursday, CHRISTINE Feliz [address] [place] [address] Licensed Practical Nurse Family Medicine 01/13/24 04/29/24 Jaimie Mooney, RN [address] [place] [address] Licensed Practical Nurse Family Medicine 04/29/24 06/10/24 Alissa Marina LPN [address] [facility] 110 [place] [address] 06/10/24 documented as of this encounter
--- OUTSIDE RECORDS SUMMARY | 2024-10-02 07:46 | XMS_ITS | Encounter Summary ---
Author Organization [facility] Address [address] [facility] [place] [address] Care Team Providers Care Tourist Guide Name Role Phone Mike Oakley MD Primary Care Provider Mike Oakley MD Unavailable [phone] Thursday, Trini GALLEY WORKER Unavailable [phone] Jaimie Mooney RN Unavailable MarinaAlissa GALLEY WORKER Unavailable Encounter Details Date Type Department Care Team (Late Contact Info) Description 01/08/2024 Abstract [facility] 112 [facility] 110 [place] [address] Mike Oakley MD 112 [facility] 110 [place], [place] [address] Social History Tobacco Use Types Packs/Day Years [...] Upcoming Encounters Date Type Department Care Team ([facility] Contact Info) Description 11/28/2024 10:00 AM EDT Office Visit [facility] 112 [facility] 110 [place] [address] Mike Oakley MD 112 [facility] 110 [place], [place] [address] documented as of this encounter Visit Diagnoses Not on filedocumented in this encounter Care Teams Tourist Guide Relationship Specialty Start Date End Date Mike Oakley MD [address] [place] [address] PCP - General Internal Medicine 08/06/22 Mike Oakley MD [address] [place] [address] [place] [address] PCP - ACO Reach 08/14/22Thursday, CHRISTINE Feliz [address] [place] [address] Licensed Practical Nurse Family Medicine 01/13/24 04/29/24 Jaimie Mooney, RN [address] [place] [address] Licensed Practical Nurse Family Medicine 04/29/24 06/10/24 Alissa Marina LPN [address] [facility] 110 [place] [address] 06/10/24 documented as of this encounter
--- OUTSIDE RECORDS SUMMARY | 2024-10-02 07:46 | XMS_ITS | Encounter Summary ---
Author Organization [facility] Address [address] [place] [address] Care Team Providers Care Sheet Roller Operator Name Role Phone Mike Oakley MD Primary Care Provider [phone] Mike Oakley MD Unavailable Sofya Diaz CERTIFIED PHYSICAL THERAPIST ASSISTANT Unavailable Thursday, Trini MILLWORK ESTIMATOR Unavailable [phone] Jaimie Mooney RN Unavailable MarinaAlissa MILLWORK ESTIMATOR Unavailable Encounter Details Date Type Department Care Team ([facility] Contact Info) Description 09/22/2023 Abstract [facility] 112 [facility] 110 [place] [address] Mike Oakley MD 112 [facility] 110 [place], [place] [address] Social History Tobacco Use Types Packs/Day Years [...] Upcoming Encounters Date Type Department Care Team ([facility] Contact Info) Description 11/28/2024 10:00 AM EDT Office Visit [facility] 112 [facility] 110 [place] [address] Mike Okaley MD 112 [facility] 110 [place], [place] [address] documented as of this encounter Visit Diagnoses Not on filedocumented in this encounter Care Teams Sheet Roller Operator Relationship Specialty Start Date End Date Mike Oakley MD [address] [place] [address] PCP - General Internal Medicine 08/06/22 Mike Oakley MD [address] [place] [address] PCP - ACO Reach 08/14/22 Sofya Diaz LSW [address] [place] [address] Freelance Writer Family Medicine 11/27/23 11/27/23Thursday, CHRISTINE Feliz [address] [place] [address] Licensed Practical Nurse Family Medicine 01/13/24 04/29/24 Jaimie Mooney, RN [address] [place] [address] Licensed Practical Nurse Family Medicine 04/29/24 06/10/24 Alissa Marina LPN [address] [facility] 110 [place] [address] 06/10/24 documented as of this encounter
--- OUTSIDE RECORDS SUMMARY | 2024-10-02 07:46 | XMS_ITS | Encounter Summary ---
Author Organization [facility] Address [address] [place] [address] Care Team Providers Care Social Media Content Specialist Name Role Phone Mike Oakley MD Primary Care Provider [phone] Mike Oakley MD Unavailable [phone] Sofya Diaz MEDICAL BILLING ASSISTANT Unavailable Thursday, Trini RIGGING LOFT MECHANIC Unavailable [phone] Jaimie Mooney RN Unavailable MarinaAlissa RIGGING LOFT MECHANIC Unavailable Encounter Details Date Type Department Care Team ([facility] Contact Info) Description 10/27/2023 Abstract [facility] 112 [facility] 110 [place] [address] Mike Oakley MD 112 [facility] 110 [place], [place] [address] Social History Tobacco Use Types Packs/Day Years [...] Encounters Date Type Department Care Team ([facility] Contact Info) Description 11/28/2024 10:00 AM EDT Office Visit [facility] 112 [facility] 110 [place] [address] Mike Oakley MD 112 [facility] 110 [place], [place] [address] documented as of this encounter Visit Diagnoses Not on filedocumented in this encounter Care Teams Social Media Content Specialist Relationship Specialty Start Date End Date Mike Oakley MD [address] [place] [address] PCP - General Internal Medicine 08/06/22 Mike Oakley MD [address] [place] [address] PCP - ACO Reach 08/14/22 Sofya Diaz LSW [address] [place] [address] Women'S Activities Adviser Family Medicine 11/27/23 11/27/23Thursday, CHRISTINE Feliz [address] [place] [address] Licensed Practical Nurse Family Medicine 01/13/24 04/29/24 Jaimie Mooney, RN [address] [place] [address] Licensed Practical Nurse Family Medicine 04/29/24 06/10/24 Alissa Marina LPN [address] [facility] 110 [place] [address] 06/10/24 documented as of this encounter
--- OUTSIDE RECORDS SUMMARY | 2024-10-02 07:46 | XMS_ITS | Encounter Summary ---
Author Organization [facility] Address [address] [place] [address] Care Team Providers Care Ross Carrier Driver Name Role Phone Mike Oakley MD Primary Care Provider [phone] Mike Oakley MD Unavailable [phone] Jaimie Mooney RN Unavailable [phone] Alissa Marina LPN Unavailable Encounter Details Date Type Department Care Team (Late st Contact Info) Description 05/05/2024 Abstract [facility] 112 [facility] 110 [place] [address] Mike Oakley MD 112 [facility] 110 [place] [address] Social History Tobacco Use Types [...] and Family Not on file 01/14/2024 Attends Church Services Not on file 01/13 Active Member [...] and heating? Not hard at all 01/14/2024 [facility] [place] of Occupat ional Health - Occupational Stress [...] money to buy more. Never true 01/14/20 Within the past 12 months, t he [...] any time in the past 12 m [facility], were you homeless or living in a [facility] (including now)? No 01/14/2024 Sex and Gender [...] Visit [facility] [address] [facility] 110 [place] [address] Mike Oakley MD [address] [facility] 110 [place] [address] documented as of this encounter Visit Diagnoses Not on filedocumented in this encounter Care Teams Ross Carrier Driver Relationship Specialty Start Date End Date Mike Oakley MD [address] [facility] 110 [place] [address] PCP - General Internal Medicine 08/06/22 Mike Oakley MD [address] [place] [address] PCP - ACO Reach 08/14/22 Jaimie Mooney, CARL [address] [place] [address] Licensed Practical Nurse Family Medicine 04/29/24 06/10/24 Alissa Marina LPN 112 [facility] 110 [place] [id number] 06/10/24 documented as of this encounter
--- OUTSIDE RECORDS SUMMARY | 2024-10-02 07:46 | XMS_ITS | Encounter Summary ---
Author Organization [facility] Address [address] [place] [address] Care Team Providers Care Carbonation Tester Name Role Phone Mike Oakley MD Primary Care Provider Mike Oakley MD Unavailable [phone] Sofya Diaz EDGING MACHINE SETTER Unavailable Thursday, Trini AIRPLANE TUBE BUILDER Unavailable [phone] Jaimie Mooney RN Unavailable MarinaAlissa AIRPLANE TUBE BUILDER Unavailable Encounter Details Date Type Department Care Team ([facility] [address] [facility] Contact Info) Description 01/28/2023 Abstract [facility] 112 [facility] 110 [place] [address] Mike Oakley MD 112 [facility] 110 [place], [place] [address] Social History Tobacco Use Types Packs/Day Years [...] Upcoming Encounters Date Type Department Care Team ([facility] [address] Contact Info) Description 11/28/2024 10:00 AM EDT Office Visit [facility] 112 [facility] 110 [place] [address] Mike Oakley MD 112 [facility] 110 [place], [place] [address] documented as of this encounter Visit Diagnoses Not on filedocumented in this encounter Care Teams Carbonation Tester Relationship Specialty Start Date End Date Mike Oakley MD [address] [place] [address] PCP - General Internal Medicine 08/06/22 Mike Oakley MD [address] [place] [address] PCP - ACO Reach 08/14/22 Sofya Diaz LSW [address] [place] [address] Beveller Operator Family Medicine 11/27/23 11/27/23Thursday, CHRISTINE Feliz [address] [place] [address] Licensed Practical Nurse Family Medicine 01/13/24 04/29/24 Jaimie Mooney, RN [address] [place] [address] Licensed Practical Nurse Family Medicine 04/29/24 06/10/24 Alissa Marina LPN [address] [facility] 110 [place] [address] 06/10/24 documented as of this encounter
--- OUTSIDE RECORDS SUMMARY | 2024-10-02 07:46 | XMS_ITS | Encounter Summary ---
Author Organization [facility] Address [address] [place] [address] Care Team Providers Care Watchguard Name Role Phone Mike Oakley MD Primary Care Provider [phone] Mike Oakley MD Unavailable Sofya Diaz PRINCIPAL JAVA SOFTWARE ENGINEER Unavailable Thursday, Trini FURNACE LINER Unavailable [phone] Jaimie Mooney RN Unavailable MarinaAlissa FURNACE LINER Unavailable Encounter Details Date Type Department Care Team (Late Contact Info) Description 12/25/2022 Orders Only [facility] 112 [address] [facility] 110 [place] [address] A, Unknown Practice [address] [place], [place] [phone] Social History Tobacco Use Types Packs/Day Years [...] Visit [facility] [address] [facility] 110 [place] [address] Mike Oakley MD [address] [facility] 110 [place] [address] documented as of this encounter Procedures Procedure Name Priority Date/Time Associated Diagnosis Comments SCANNED LABS Routine 12/23/2022 1:28 PM EDT documented in this encounter Results * SCANNED LABS (12/23/2022 1:28 PM EDT) us Unknown Practice A LAB CHG PERFORMABLES Final Re sult documented in this encounter Visit Diagnoses Not on filedocumented in this encounter Care Teams Watchguard Relationship Specialty Start Date End Date Mike Oakley MD [address] [place] [address] PCP - General Internal Medicine 08/06/22 Mike Oakley MD [address] [place] [address] PCP - ACO Reach 08/14/22 Sofya Diaz, PRINCIPAL JAVA SOFTWARE ENGINEER [address] [place] [address] Plate Slitter And Inspector Family Medicine 11/27/23 11/27/23ThursdayTrini LPN [address] [place] [address] Licensed Practical Nurse Family Medicine 01/13/24 04/29/24 Jaimie Mooney, RN [address] [place] [address] Licensed Practical Nurse Family Medicine 04/29/24 06/10/24 Alissa Marina LPN [address] [place] [address] 06/10/24 documented as of this encounter
--- OUTSIDE RECORDS SUMMARY | 2024-10-02 07:46 | XMS_ITS | Encounter Summary ---
Author Organization [facility] Address [address] [place] [address] Care Team Providers Care Housekeeper Supervisor Name Role Phone Mike Oakley MD Primary Care Provider Mike Oakley MD Unavailable [phone] Thursday, Trini CLINICAL ASSOCIATE Unavailable [phone] Jaimie Mooney RN Unavailable [phone] Marina Alissa CLINICAL ASSOCIATE Unavailable Encounter Details Date Type Department Care Team (Late st Contact Info) Description 01/11/2024 Abstract [facility] [address] [facility] 110 [place] [address] Mike Oakley MD 112 [facility] 110 [place] [address] Social History Tobacco Use Types [...] and heating? Not hard at all 01/14/2024 [facility] [place] of Occupat ional Health - Occupational Stress [...] any time in the past 12 m [facility], were you homeless or living in a long term (including now)? No 01/14/2024 Sex and Gender [...] EDT Office Visit [facility] ESCOBEDO [address] [facility] 110 [place] [address] Mike Oakley MD 112 [facility] 110 [place] [address] documented as of this encounter Visit Diagnoses Not on filedocumented in this encounter Care Teams Housekeeper Supervisor Relationship Specialty Start Date End Date Mike Oakley MD [address] [place] [address] PCP - General Internal Medicine 08/06/22 Mike Oakley MD [address] [place] [address] PCP - ACO Reach 08/14/22ThursdayTrini LPN [address] [place] [address] Licensed Practical Nurse Family Medicine 01/13/24 04/29/24 Jaimie Mooney, RN [address] [facility] [place] [address] Licensed Practical Nurse Family Medicine 04/29/24 06/10/24 Alissa Marina LPN [address] [facility] 110 [place] [address] 06/10/24 documented as of this encounter
--- OUTSIDE RECORDS SUMMARY | 2024-10-02 07:46 | XMS_ITS | Encounter Summary ---
Author Organization [facility] Address [address] [place] [address] Care Team Providers Care Dress Operator Name Role Phone Mike Oakley MD Primary Care Provider [phone] Mike Oakley MD Unavailable [phone] Thursday, Trini CARDIOLOGY NURSE Unavailable [phone] Jaimie Mooney RN Unavailable Marina Alissa CARDIOLOGY NURSE Unavailable Encounter Details Date Type Department Care Team (Late st Contact Info) Description 01/11/2024 Abstract [facility] 112 [facility] 110 [place] [address] Mike Oakley MD 112 [facility] 110 [place] [address] Social History Tobacco Use Types [...] and Family Not on file 01/14/2024 Attends [employer] Not on file 01/13 Active Member [...] and heating? Not hard at all 01/14/2024 [facility] [place] of Occupat ional Health - Occupational Stress [...] any time in the past 12 m [facility], were you homeless or living in a correction (including now)? No 01/14/2024 Sex and Gender [...] EDT Office Visit [facility] DES[facility] ESCOBEDO 112 [facility] 110 [place] [address] Mike Oakley MD 112 [facility] 110 [place] [address] documented as of this encounter Visit Diagnoses Not on filedocumented in this encounter Care Teams Dress Operator Relationship Specialty Start Date End Date Mike Oakley MD [address] [place] [address] PCP - General Internal Medicine 08/06/22 Mike Oakley MD [address] [place] [address] [place] [address] PCP - ACO Reach 08/14/22ThursdayTrini LPN [address] [place] [address] Licensed Practical Nurse Family Medicine 01/13/24 04/29/24 Jaimie Mooney, RN [address] [facility] [place] [address] Licensed Practical Nurse Family Medicine 04/29/24 06/10/24 Alissa Marina LPN [address] [facility] 110 [place] [address] 06/10/24 documented as of this encounter
--- OUTSIDE RECORDS SUMMARY | 2024-10-02 07:46 | XMS_ITS | Encounter Summary ---
Author Organization [facility] Address [address] [place] [address] Care Team Providers Care Assistant Professor Of Religion Name Role Phone Mike Oakley MD Primary Care Provider Mike Oakley MD Unavailable [phone] Sofya Diaz WELLNESS TRAINER Unavailable Thursday, Trini FIELD REPRESENTATIVES DIRECTOR Unavailable [phone] Jaimie Mooney RN Unavailable MarinaAlissa FIELD REPRESENTATIVES DIRECTOR Unavailable Encounter Details Date Type Department Care Team ([facility] Contact Info) Description 08/27/2023 Abstract [facility] 112 [facility] 110 [place] [id number] Mike Oakley MD 112 [facility] 110 [place], [place] [id number] Social History Tobacco Use Types Packs/Day Years [...] Upcoming Encounters Date Type Department Care Team ([facility] Contact Info) Description 11/28/2024 10:00 AM EDT Office Visit [facility] 112 [facility] [address] [place] [id number] Mike Oakley MD 112 [facility] 110 [place], [place] [id number] documented as of this encounter Visit Diagnoses Not on filedocumented in this encounter Care Teams Assistant Professor Of Religion Relationship Specialty Start Date End Date Mike Oakley MD [address] [place] [address] [place] [address] PCP - General Internal Medicine 08/06/22 Mike Oakley MD [address] [place] [address] [place] [address] PCP - ACO Reach 08/14/22 Sofya Diaz LSW [address] [place] [address] Pulverizer Tender Family Medicine 11/27/23 11/27/23Thursday, CHRISTINE Feliz [address] [place] [address] Licensed Practical Nurse Family Medicine 01/13/24 04/29/24 Jaimie Mooney, RN [address] [place] [address] Licensed Practical Nurse Family Medicine 04/29/24 06/10/24 Alissa Marina LPN [address] [facility] 110 [place] [address] 06/10/24 documented as of this encounter
--- OUTSIDE RECORDS SUMMARY | 2024-10-02 07:46 | XMS_ITS | Encounter Summary ---
Author Organization [facility] Address [address] [place] [address] Care Team Providers Care Assembler Faucets Name Role Phone Mike Oakley MD Primary Care Provider [phone] Mike Oakley MD Unavailable [phone] Sofya Diaz BILLING ASSISTANT Unavailable [phone] Thursday, Trnii BATCH OR CONTINUOUS STILL OPERATOR Unavailable [phone] Jaimie Mooney RN Unavailable MarinaAlissa BATCH OR CONTINUOUS STILL OPERATOR Unavailable Encounter Details Date Type Department Care Team (Late Contact Info) Description 12/24/2022 Orders Only [facility] 112 [facility] 110 [place] [address] A, Unknown Practice [address] [place], [place] [id number] Social History Tobacco Use Types Packs/Day Years [...] Visit [facility] [address] [facility] 110 [place] [address] Mike Oakley MD [address] [facility] 110 [place] [address] documented as of this encounter Procedures Procedure Name Priority Date/Time Associated Diagnosis Comments SCANNED LABS Routine 12/23/2022 9:15 AM EDT documented in this encounter Results * SCANNED LABS (12/23/2022 9:15 AM EDT) us Unknown Practice A LAB CHG PERFORMABLES Final Re sult documented in this encounter Visit Diagnoses Not on filedocumented in this encounter Care Teams Assembler Faucets Relationship Specialty Start Date End Date Mike Oakley MD [address] [place] [address] [place] [address] PCP - General Internal Medicine 08/06/22 Mike Oakley MD [address] [place] [address] [place] [address] PCP - ACO Reach 08/14/22 Sofya Diaz, BILLING ASSISTANT [address] [place] [address] Rug Dyer Family Medicine 11/27/23 11/27/23ThursdayTrini LPN [address] [place] [address] Licensed Practical Nurse Family Medicine 01/13/24 04/29/24 Jaimie Mooney, RN [address] [place] [address] Licensed Practical Nurse Family Medicine 04/29/24 06/10/24 Alissa Marina LPN [address] [place] [address] [place] [address] 06/10/24 documented as of this encounter
--- OUTSIDE RECORDS SUMMARY | 2024-10-02 07:46 | XMS_ITS | Encounter Summary ---
Author Organization [facility] Address [address] [place] [address] Care Team Providers Care Mend Worker Name Role Phone Mike Oakley MD Primary Care Provider [phone] Mike Oakley MD Unavailable [phone] Thursday, Trini ASSET PROTECTION ASSOCIATE Unavailable [phone] Jaimie Mooney RN Unavailable Marina Alissa ASSET PROTECTION ASSOCIATE Unavailable Encounter Details Date Type Department Care Team (Late st Contact Info) Description 03/21/2024 Abstract [facility] 112 [facility] 110 [place] [address] Mike Oakley MD 112 [facility] 110 [place] [address] Social History Tobacco Use Types [...] and Family Not on file 01/14/2024 Attends [employer] Services Not on file 01/13 Active Member [...] and heating? Not hard at all 01/14/2024 [facility] of Occupat ional Health - Occupational Stress [...] any time in the past 12 m [facility], were you homeless or living in a mcc (including now)? No 01/14/2024 Sex and Gender [...] Visit [facility] [address] [place] [address] [place] [address] Mike Oakley MD [address] [place] [address] [place] [address] documented as of this encounter Visit Diagnoses Not on filedocumented in this encounter Care Teams Mend Worker Relationship Specialty Start Date End Date Mike Oakley MD [address] [place] [address] [place] [address] PCP - General Internal Medicine 08/06/22 Mike Oakley MD [address] [place] [address] [place] [address] PCP - ACO Reach 08/14/22Thursday, CHRISTINE Feliz [address] [place] [address] Licensed Practical Nurse Family Medicine 01/13/24 04/29/24 Jaimie Mooney, RN [address] [place] [address] Licensed Practical Nurse Family Medicine 04/29/24 06/10/24 Alissa Marina LPN 112 [facility] 110 [place] [address] 06/10/24 documented as of this encounter
--- OUTSIDE RECORDS SUMMARY | 2024-10-02 07:47 | XMS_ITS | Encounter Summary ---
Author Organization [facility] Address [address] [place] [address] Care Team Providers Care District Or District Office Director Name Role Phone Mike Oakley MD Primary Care Provider Mike Oakley MD Unavailable [phone] Thursday, Trini ENTRY LEVEL FINANCIAL ANALYST Unavailable [phone] Jaimie Mooney RN Unavailable Marina Alissa ENTRY LEVEL FINANCIAL ANALYST Unavailable Encounter Details Date Type Department Care Team (Late st Contact Info) Description 01/21/2024 Abstract [facility] 112 [facility] 110 [place] [phone] Mike Oakley MD 112 [facility] 110 [place] [address] Social History Tobacco Use Types [...] and Family Not on file 01/14/2024 Attends [employer] Services Not on file 01/13 Active Member [...] and heating? Not hard at all 01/14/2024 [facility] [place] of Occupat ional Health - Occupational Stress [...] any time in the past 12 m [facility], were you homeless or living in a longterm (including now)? No 01/14/2024 Sex and Gender [...] FM [address] [place] [address] [place] [address] Mike Oakley MD [address] [place] [address] [place] [address] documented as of this encounter Visit Diagnoses Not on filedocumented in this encounter Care Teams District Or District Office Director Relationship Specialty Start Date End Date Mike Oakley MD [address] [place] [address] [place] [address] PCP - General Internal Medicine 08/06/22 Mike Oakley MD [address] [place] [address] [place] [address] PCP - ACO Reach 08/14/22Thursday, CHRISTINE Feliz [address] [place] [address] Licensed Practical Nurse Family Medicine 01/13/24 04/29/24 Jaimie Mooney, RN [address] [place] [address] Licensed Practical Nurse Family Medicine 04/29/24 06/10/24 Alissa Marina LPN 112 [facility] 110 [place] [address] 06/10/24 documented as of this encounter
--- OUTSIDE RECORDS SUMMARY | 2024-10-02 07:47 | XMS_ITS | CCD ---
Author Organization [facility] Care Team Providers Care Equipment Coordinator Name Role Phone PHYSICIAN, DEFAULT Unavailable Unavailable PHYSICIAN, DEFAULT Unavailable Unavailable PHYSICIAN, DEFAULT Unavailable Unavailable PHYSICIAN, DEFAULT Unavailable Unavailable ESMER, DR JOHNSON Primary Care Unavailable LALI, DR LAZARO Reyes Admitting Unavailabl e REINECK, DR LAZARO Reyes Attending Unavailabl e VINNIEECK, DR LAZARO Reyes Consulting Unavailabl e DEANNA BRITO Consulting Unavailable MIKE OAKLEY Primary Care Physician THERESE CRUMP E Attending Unavailable THERON, THERESE E Admitting [...] Attending Unavailable Lue, Gianna M. Admitting Unavailable Orzech, Janay X Attending Unavailable Orzech, Janay X Attending Unavailable Lue, Gianna M. Attending Unavailable Lue, Gianna M. Admitting Unavailable Lue, Gianna M. Attending Unavailable Lue, Gianna M. Referring Unavailable Mike Oakley MD Primary Care Provider [phone] Mike Oakley MD Unavailable Kalin LOGGING CREW SUPERVISOR, Trini Unavailable Marina LOGGING CREW SUPERVISOR, Alissa Unavailable Unavailable MIKE OAKLEY Attending Unavailable ALYSSA GREY Attending Unavailable ALYSSA GREY Attending Unavailable MIKE OAKLEY Attending Unavailable ALYSSA GREY Attending Unavailable MIKE OAKLEY Attending Unavailable Medications Current Medications Medication Drug Class(es) Dates Sig (Normalized) Sig (Original) aspirin 81 mg oral tablet (20 sources) Platelet Aggregation Inhibitor, Nonsteroidal Anti-inflammatory Drug Start: 12-17-2018 take 81 mg by mouth once daily aspirin 81 mg, Oral, Daily, Refills(s) 0 Start Date: 12/17/18 Status: Ordered take 1 tablet by mouth once louis y aspirin 81 MG EC tablet Take 81 mg by mouth Daily Active cefdinir 300 mg oral capsule (3 sources) Cephalosporin Antibacterial Start: 03-21-2024 End: 03-28-2024 take 1 capsule by mouth in the morning cefdinir (Omnicef) 300 MG capsule Indications: Acute non-recurrent sinusitis, unspecified location Take 1 capsule (300 mg) by mouth in the morning and 1 capsule (300 mg) before bedtime. Do all this for 7 days. 14 capsule 03/21/2024 03/28/2024 Active Start: 01-14-2023 cefdinir 300 m g Cap Refills(s) 0 Start Date: 01/14/23 Status: Ordered cefuroxime 500 mg oral tablet (2 sources) Cephalosporin Antibacterial Start: 01-09-2024 End: 01-16-2024 take 1 tablet by mouth every twelve hours cefuroxime (Ceftin) 500 MG tablet Take 500 mg by mouth every 12 (twelve) hours 01/09/2024 01/16/2024 Active ciprofloxacin 500 mg oral tablet (2 sources) Quinolone Antimicrobial Start: 08-26-2023 End: 08-29-2023 Cipro 500 mg Tab 500 mg = 1 tab(s), Oral, BID, start one day prior to procedure, X 3 day(s), # 6 tab(s), Refills(s) 0, Pharmacy: [facility]/pharmacy #[id number], 172, cm, 08/26/23 10:06:00 EDT, Height/Length Dosing, 120, kg, 08/26/23 10:06:00 EDT, Weight Dosing Start Date: 08/26/23 Stop Date: 08/29/23 Status: Ordered hydroCHLOROthiazide 25 mg / lisinopril 20 mg oral tablet (12 sources) Thiazide Diuretic, Angiotensin Converting Enzyme Inhibitor [...] day(s), # 10 tab(s), Refills(s) 0, Pharmacy: [facility]/pharmacy #[id number], 172, cm, 01/26/23 11:20:00 EST, Height/Length Dosing, 120, kg, 01/14/23 10:39:00 EDT, Weight Dosing Start Date: 01/26/23 Stop Date: 02/05/23 Status: Ordered lisinopril 40 mg oral tablet (15 sources) Angiotensin Converting Enzyme Inhibitor Start: 12-08-2023 take 1 tablet by mouth once daily lisinopril 40 MG tablet Indications: Benign essential hypertension (CMS/HCC) Take 1 tablet (40 mg) by mouth Daily 90 tablet 2 12/08/2023 Active Multi Vitamin+ (12 sources) Start: 03-29-2019 take 1 tablet by mouth once daily Multi Vitamin+ one tab, Oral, Daily, Refill(s) 0 Start Date: 03/29/19 Status: Ordered Multiple Vitamin (multivitamin) capsule (15 sources) take 1 capsule by mouth once daily Multiple Vitamin (multivitamin) capsule Take 1 capsule by mouth Daily Active take 1 capsule by mouth in the m orning Multiple Vitamin (multivitamin) capsule Take 1 capsule by mouth in the morning. Active simvastatin 40 mg oral tablet (20 sources) HMG-CoA Reductase Inhibitor Start: 09-20-2013 take 1 tablet by mouth once daily simvastatin (Zocor) 40 MG tablet Indications: Pure hypercholesterolemia (CMS/HCC) Take 1 tablet (40 mg) by mouth Daily 90 tablet 3 12/08/2023 Active sodium chloride 1000 mg oral tablet (12 sources) Start: 11-26-2023 take 1 tablet by mouth in the morning, then take 1 tablet by mouth in the evening, then take 1 tablet by mouth at bedtime sodium chloride 1 g tablet Indications: Hyponatremia Take 1 tablet (1 g) by mouth in the morning and 1 tablet (1 g) in the evening and 1 tablet (1 g) before bedtime. 90 tablet 1 11/26/2023 Active tamsulosin hydrochloride 0.4 mg oral capsule (3 sources) alpha-Adrenergic Richie Start: 01-14-2023 take 1 capsule by mouth once daily in the evening tamsulosin 0.4 mg Cap 0.4 mg = 1 cap(s), Oral, qPM, # 30 cap(s), Refills(s) 11, Pharmacy: [facility]/pharmacy #[id number], 172, cm, 01/14/23 10:39:00 EDT, [...] day(s), # 30 cap(s), Refills(s) 11, Pharmacy: [facility]/pharmacy #[id number], 172, cm, 12/23/22 14:24:00 EDT, Height/Length Dosing, 120, kg, 12/23/22 14:24:00 EDT, Weight Dosing Start Date: 12/23/22 Stop Date: 12/18/23 Status: Ordered Completed/Discontinued Medications Medication Drug Class(es) Dates Sig (Normalized) Sig (Original) torsemide 20 mg oral tablet (3 sources) Loop Diuretic Start: 07-04-2024 End: 07-18-2024 take 1 tablet by mouth once daily torsemide (Demadex) 20 MG tablet Indications: Acute on chronic diastolic CHF (congestive heart failure) (CMS/[facility]) Take 1 tablet (20 mg) by mouth Daily for 14 days 14 tablet 07/04/2024 07/18/2024 Discontinued (Other) Problems Active Problems Problem Classification Problem Date Documented Date Episodic/Chronic Abdominal hernia (12 sources) Hernia of anterior abdominal wall 09-20-2013 Episodic Administrative/social admission (2 sources) Patient encounter status; Translations: [Other specified counseling] 07-18-2024 Episodic Chronic obstructive pulmonary disease and bronchiectasis (6 sources) Panacinar emphysema; Translations: [Panlobular emphysema] Onset: 5 05-05-2024 Chronic Congestive heart failure; nonhypertensive (7 sources) Acute exacerbation of chronic congestive heart failure; Translations: [Heart failure, unspecified] Onset: 5 01-12-2024 Chronic Disorders of lipid metabolism (20 sources) Pure hypercholesterolemia, unspecified; Translations: [Hypercholesterolemia] Onset: 3 09-20-2013 Chronic Diverticulosis and diverticulitis (17 sources) Diverticulosis of colon; Translations: [Diverticulosis of large intestine without perforation or abscess without bleeding] Onset: 3 08-19-2022 Chronic Essential hypertension (20 sources) Essential (primary) hypertension; Translations: [Hypertensive disorder] Onset: 3 09-20-2013 Chronic Fluid and electrolyte disorders (20 sources) Hyponatremia; Translations: [Hypo-osmolality and hyponatremia] Onset: 4 12-14-2023 Episodic Genitourinary symptoms and ill-defined conditions (18 sources) Post-micturition incontinence ; Translations: [Urge incontinence of urine] 06-28-2019 Chronic Genitourinary symptoms and ill-defined conditions (20 sources) Microscopic hematuria; Translations: [Other microscopic hematuria] Onset: 3 Episodic Hyperplasia of prostate (20 sources) Benign prostatic hypertrophy without outflow obstruction; Translations: [Benign prostatic hyperplasia without lower urinary tract symptoms] Onset: 3 Chronic Inflammatory conditions of male genital organs (20 sources) Prostatitis; Translations: [Orchitis] Onset: 3 03-27-2020 Episodic Miscellaneous mental health disorders (17 sources) Primary insomnia; Translations: [Primary insomnia] Onset: 3 08-19-2022 Chronic Occlusion or stenosis of precerebral arteries (17 sources) Arteriosclerosis of carotid artery; Translations: [Occlusion and stenosis of unspecified carotid artery] Onset: 3 08-19-2022 Chronic Osteoarthritis (20 sources) Primary osteoarthritis, left wrist; Translations: [Degenerative joint disease involving multiple joints] Onset: 3 08-19-2022 Chronic Other aftercare (1 source) Other senior living (current) drug therapy; Translations: [OTH PAGE 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 SYSTEM OPERATOR CURRENT DRUG THERAPY] Onset: 3 Episodic Other and ill-defined heart disease (5 sources) Left ventricular hypertrophy; Translations: [Cardiomegaly] Onset: 5 07-04-2024 Chronic Other connective tissue disease (15 sources) History of total knee arthroplasty; Translations: [Presence of unspecified artificial knee joint] Onset: 3 08-19-2022 Chronic Other connective tissue disease (2 sources) History of bilateral total knee replacement; Translations: [Presence of artificial knee joint, bilateral] 07-18-2024 Chronic Other diseases of bladder and urethra (3 sources) Detrusor overactivity; Translations: [Overactive bladder] Onset: 3 Chronic Other diseases of bladder and urethra (20 sources) Overactive bladder; Translations: [Other neuromuscular dysfunction of bladder] Onset: 3 10-01-2023 Chronic Other diseases of veins and lymphatics (17 sources) Peripheral venous insufficiency; Translations: [Venous insufficiency (chronic) (peripheral)] Onset: 3 08-19-2022 Episodic Other injuries and conditions due to external causes (3 sources) Unspecified injury of left wrist, hand and finger(s), initial encounter; Translations: [UNS INJ LT WRIST HAND FINGERS INIT] Onset: 3 Episodic Other male genital disorders (3 sources) Hydrocele of testis; Translations: [Hydrocele, unspecified] Onset: 3 Episodic Other male genital disorders (7 sources) Disorder of male genital organ 02-24-2023 Episodic Other nervous system disorders (17 sources) Difficulty walking; Translations: [Difficulty in walking, not elsewhere classified] Onset: 3 08-19-2022 Chronic Other nervous system disorders (17 sources) Chronic pain; Translations: [Other chronic pain] Onset: 3 08-19-2022 Chronic Other non-traumatic joint disorders (17 sources) Pain in left knee; Translations: [Pain in joint, lower leg] Onset: 3 08-19-2022 Episodic Other non-traumatic joint disorders (17 sources) Pain in right knee; Translations: [Pain in joint, lower leg] Onset: 3 08-19-2022 Episodic Other nutritional; endocrine; and metabolic disorders (12 sources) Body mass index 40+ - severely obese 10-26-2018 Chronic Other nutritional; endocrine; and metabolic disorders (4 sources) Severe obesity; Translations: [Class 3 severe obesity due to excess calories with serious comorbidity and body mass index (BMI) of 40.0 to 44.9 in adult] Onset: 5 07-18-2024 Chronic Other screening for suspected conditions (not mental disorders or infectious disease) (17 sources) Electrocardiogram abnormal; Translations: [Abnormal electrocardiogram [ECG] [EKG]] Onset: 3 08-19-2022 Episodic Other skin disorders (17 sources) Actinic keratosis; Translations: [Actinic keratosis] Onset: 3 08-19-2022 Episodic Other upper respiratory infections (2 sources) Acute sinusitis; Translations: [Acute sinusitis, unspecified] 03-21-2024 Episodic Pneumonia (except that caused by tuberculosis or sexually transmitted disease) (2 sources) Community acquired pneumonia; Translations: [Pneumonia, unspecified organism] 01-12-2024 Episodic Residual codes; unclassified (12 sources) H/O: anticoagulant therapy 04-19-2019 Episodic Residual codes; unclassified (17 sources) Localized edema; Translations: [Localized edema] Onset: 3 08-19-2022 Episodic Respiratory failure; insufficiency; arrest (adult) (14 sources) Dependence on supplemental oxygen; Translations: [Dependence on supplemental oxygen] Onset: 4 01-12-2024 Chronic Respiratory failure; insufficiency; arrest (adult) (2 sources) Acute respiratory failure; Translations: [Acute respiratory failure with hypoxia] 01-12-2024 Episodic Spondylosis; intervertebral disc disorders; other back problems (20 sources) Herniation of nucleus pulposus of lumbar intervertebral disc; Translations: [Other intervertebral disc displacement, lumbar region] Onset: 3 08-19-2022 Chronic Past or Other Problems Problem Classification Problem Date Documented Da te Episodic/Chronic Mood disorders (2 sources) Mood disorders Onset: 07-18-2024 07-18-2024 Other non-traumatic joint disorders (15 sources) Monoarthritis; Translations: [Monoarthritis, not elsewhere classified, unspecified site] Onset: 08-19-2022 Resolved: 08-21-2022 08-21-2022 Chronic Other nutritional; endocrine; and metabolic disorders (17 sources) Body mass index 30+ - obesity; Translations: [Obesity, unspecified] Onset: 08-19-2022 Resolved: 07-18-2024 08-19-2022 Chronic Unclassified (12 sources) Entire ethmoid sinus (body structure) 09-20-2013 Comment on above: MASS OF Results Test Name Value Interpretation Reference Range Facility URINE CULTURE, ROUTINEon Bacteria identified Cx Nom (U) Urine Culture, Routine [facility] Bacteria identified [facility] (U) No growth [facility] Bacteria identified Cx Nom (U) Performed at: [facility] Bacteria identified [facility] (U) [address], [place] [id number] [facility] Bacteria identified Cx Nom (U) Network Intelligence Analyst: Mario Middleton PhD, Phone: [phone] [facility] EPITHELIAL CELLSon 4 Epithelial cells LM Ql (Urine sed) Epithelial Cells None seen [facility] No Panel Informationon 01-08 [facility] RESULT 1on 01-09-2024 RESULT 1 Result 1 No organisms seen [facility] RESULT 2on 01-09-2024 RESULT 2 Result 2 EPOXY COATINGS INSTALLER [facility] RESULT 3on 01-09-2024 RESULT 3 Result 3 EPOXY COATINGS INSTALLER [facility] RESULT 4on 01-09-2024 RESULT 4 Result 4 EPOXY COATINGS INSTALLER [facility] URINE CULTURE, ROUTINEon Bacteria identified [facility] (U) Urine Culture, Routine [facility] Bacteria identified [facility] (U) Mixed urogenital jo [facility] Bacteria identified [facility] (U) Less than 10,000 colonies/mL [facility] Bacteria identified [facility] Nom (U) Performed at: [facility] Bacteria identified [facility] (U) [address], [place] [id number] [facility] Bacteria identified Cx Nom (U) Network Intelligence Analyst: Mario Middleton PhD, Phone: [phone] [facility] WHITE BLOOD CELLSon 01-09-20 24 WHITE BLOOD CELLS White Blood Cells [facility] WHITE BLOOD CELLS Many [facility] Reminderson 12-03-2023 Reminders Reminders From: Lisa Landon To: EU - Administrative; Sent: 10/01/2023 14:16:00 EDT Show up: 12/02/2023 14:15:00 EDT Subject: 3 month f/u Due Date/Time: 01/01/2024 14:15:00 EDT Reminder/Recall 3 month f/u w/AO APPT DEC 28 @1230 IN [facility] Ambulatory Visit Summaryon 0 10-01-2023 Ambulatory Visit Summary Ambulatory Visit Summary SALVADOR DAS :1940 Visit Date:10/01/2023 Ambulatory Visit Instructions Your Diagnosis OAB (overactive bladder) Nocturia BPH without obstruction/lower urinary tract symptoms Hydrocele Microhematuria Your Care Team Attending Physician - ROMULO Vera APRN, Janay Brown Primary Care Physician - MIKE OAKLEY MD This Is Your Medications List Contact prescribing physician if questions or concerns aspirin hydrochlorothiazide-li sinopril (hydrochlorothiazide-l isinopril 25 mg-20 mg Tab) multivitamin (Multi Vitamin+) [...] Schedule the Following Appointments Follow Up with Chuy CUBA, ROMULO, Janay Brown, ADAN, URL When: Where: Medications What How Much When Instructions Unchanged aspirin 81 Milligram By Mouth Every day Contact prescribing physician if questions or concerns Unchanged hydrochlorothiazide-li sinopril (hydrochlorothiazide-l isinopril 25 mg-20 mg Tab) Contact prescribing physician [...] Epididymo-orchitis Gross hematuria Hernia, ventral 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 Normal [facility] Urology Office/Clinic Noteon 10-01-2023 Urology Office/Clinic [...] signficant PO complications. States he presented to [facility] ER the day following his procedure. Bladder [...] 3 mos Patient Education Overactive Bladder, Adult IDot, personally scribed for ROMULO Cox on 10/01/2023 14:21:26. . Documentation recorded by the scribe _ accurately reflects the services(s) I performed and decisions made by me. Authenticated by Janay Vera APRN, FNP-C on 10/01/2023 14:50:08. 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 Normal [facility] Comment on above: Result Comment: Elec tronically Signed By: ROMULO Vera APRN, [place] X\.br\Date and Time Signed: 10/01/23 14:50 EDT\.br\Electronically Co-Signed By: Dot Oakley\.br\Date and Time Co-Signed: 10/01/23 14:21 EDT Coding Summary.on 09-15-2023 Coding Summary. OFYDBtbn65ZTf9iCc+PG hl YWQ+BF7KZDPaF57snQUxzA 3jH9IUHHqVNydbNUFDWDmD QaLswyKmCY6upAImTAAp IC8+XH4xDCWeGbkjeAYgh7 A4vSY3U63goi7dIDpyjGS4 VKKqDrHatyalh4tgiXy7LD cuNmluOyBt KPGycP85NMQ8sA41Lb75qC OxjRWjk4cwwZo4EvFhTEYw QCO8jBrmGNcsv8CuOEZsK2 4cmUDlo1G5 BZIhwPkmzXJyHqMrgIV5tU 7kUEzmwqify7sbypyiWic3 xr79rZReu5R7zQZ7D6Ttul G4THJlmQMr GgvnpVRLiC7scksil4tbij oaMlIaKECeYVr0XOg5MXJq tPlsJdNaRM39ZFQ2LLSryn WgQ3BuIYGz xSafDbE2c9C2Jt8LE7PGUc pdD7YUKPLORAwlbGO+PC90 oc04X8YtMhouKzr5BCBrEA D4tYO3gE6x WRWgBNxtn4L1rAC7K9Otjs Rugo3qc9zeIFDlDIikX43e fGHkk7F3ZLXyrBZ6UCZlsT icWvFtjG33 Oyc+RVNwyXdod9AoYbohp7 dxg3yooNd7EiubVZHobzFx gYfgQVR5x0SsNh9jJMEfrC S7rLV8lE3l QdLkNiH9HAvbR354QfExqR GkHuoiQ67rM7EyjOJ+PHRy Rnx8XVWjqLcmPP2eF9CiWK RpbmctbGVm qBagBX0qEKKfrcglYKVaeU 4wCBPgC4w1QrWoXhA4THlr N9ZoQAXlzgsvZc56hT4lOo MjEiA4GFdn K4XlbcD3TGJhcRHtCLfdWT B8X58bc7I8HGLeFFKbRCU4 wXZ4jX9hzZnvxnvzyTMtgE sgdmVydGlj DBadVMkcP545IGCjfScjGt NvZGluZyBEYXRlOiAgMDYv MjUvMjAyNDwvdGQ+PHRkIH F1fFrjUGPg uYCrPMkwAy9geHpjvJcpHJ 8hBXMfnlwsDIFeyO7tZYWs oENqcWsgVJ9fXLDviqlhi4 32OgEbTEP9 CRDxtFWbU1VesA0zMvFdJB KiJBPmI3ZlvAGzPEioU771 ZAzqAjI7ROOyonAgU9LkNK FsaWduOiB0 p8N3Yp9Ya7EhnujbE7OyyD KbCjByRrnkDGf1S9NlGsvc dHI+QV00MPGhDN40LGi1OG W5cUngERuk CGXdD9VsrY3nHuPoCUFcZO RkOyc+PHRhYmxlIHdpZHRo MHmaJQChOpHxvNjpST6tZu 9yZGVyLWNv nJzuvRXyNzCan4ejMOBcIC rgKG0giBhaP2DyhJY2VCGd e8i6Hf17Q63bG7EzgKR+PG ElrBQ2wGB3 xW0yLuXoNgO4WCvuC948Rp LlhDKxJlmeb3lzf7okwOe1 YhV3SRLnyeSnrInfFLP7l5 OfDh54F05y IHdpZHRoPSIxNSUiIHZhbG zrht4tuY2hWr3+PGNvbCB3 fUD0qO8cGcKdWkK0OFvoT3 49InRvcCIv Tubjy3mkj3wlpDt7CrXcNO VwonOqtQdrIHC6o2CpGg15 D6QvgYsnc4FmMcm6qr82bS Ytz0L5sTT9 Q9EvQHExfqvxpKNrgIvcRR 6pGHMxdoxyNXKtsQ8uFFBq B8w1FbJaTlI1GVyiC8Lmpb G1BXOxzOWt QZVikRFSeL9kqolqw3remg ckHaOvLPDoINn6OMk8DUJv uRdoEtUfSDH4LkV2DZS6wC ByjG6xfDhw tvhweZ4qQpj+DFR9mLAuiM SIMQ0xUgfooGX+PHRkIHN0 iAvuJJsqKKMsvZ0sOPGlI2 y8ChDtPuP2 QYqcQ9CiqfQ8GJPqqNBbLM NkeEFUlC8uywzll5whnrlg GwZeAUIdCIh2IQz2RFQavG duOiBsZWZ0 LiO4KEL9iEQzzC8wuImhdq jdjF3gFlo+QmlydGggRGF0 KLy1C3MlKar5PPCzfJguIC 0ncGFkZGlu Ob8awOuttApbLE9fOEYmhr eee200UfHmq8adHUKotQKr GYdkUAP6K20hz6H0HYYpTL RgDLA9oTC8 cC6ygCjxjczqrUDapVyroh VjlUygGTajVHrnD381HDXq gFhwAxOvGGv2K9YrUtd5PR YfhUohTH6j iCBlYGvbXu1fpMvwfWyiEA 3yXMLxxsxdn168KuNwe0ox QFUftDOoPYvgBYK1K27in8 X4UKNjLYEp TBF9rLD1oL8qwAstbfmodM VmdDsgdmVydGljYWwtYWxp N037WUHchPwpXpSrfRp6Q9 OxUsa3VMFc zLkjQM3sgFPbWAslPc6goR xvaDwkXY6dBEWlhvvcf678 MeQun6xaPXMhwHKqUHlaAU S1Y58uv5S8 FAQaKKRoSAT7xTB9tQ7isW lnbjogbGVmdDsgdmVydGlj DXkyRLgmA271HBPznUdcWa BhdGllbnQg RBokWFk6N4NbAciqdFP+PC 83BNEsZM40kUPfhMIua3dt jKp3LaLgYIBoPUA0hQzfBE fej5PqIXRn N67agYBtw6T5WDHtiDgfgD HqKfQwoFA4hI2bAKtinpeq c7nhcencMddgm0eebz60tI 88F63cVJpz ZHRoPSIzMCUiIHZhbGlnbj 4ihP2gNn8+XILdsTC1xCY6 yE6lQWGyLfJ0JFvaM615Na RvcCIvPjxj f7qqp2iqsPt7UwO1HGJngv KkeRlpNYL6e6GqCx94S21y IHdpZHRoPSIyMCUiIHZhbG dmmo7dnB2p Ii8+HAXhcME1fRJ9iO0oXt CwMlR5NMliM439ChJkvOJl BawnC60fL7DinRI+PHRyPj h4HYOdvKcn HA5zpPLjHEryGx7xGIE9Wh UgBxWrGIfcR6EmGFPsgoml jfwyxRQ9JOZmNTSegK39Ap 9udDogMTBw rOIAdU9cjtddf9ehjiraLb GhUGXgJQw5MCm4XTQzaXzn ImBuBRK9SvL4DJI3eKTvkE 1hbGlnbjog bK3xN6SsYECgqarkNg31nG 9gHrZgSqC5PUykQwf+TEVH RywgREFWSUQgUDwvdGQ+PH NkNTO2qYjw FUliKBLbaN9nLKZnG0b9Jc GkGaA5VQhwQ5PwIASdbfyt Zd19dK1pYgKkQaD8NEhgZ3 NtcwS7WTUe zJOwECblRFB3F20ji4I6TL NqOVMxSYR1jHJ6oY9wuNhm bjogbGVmdDsgdmVydGljYW qsAUqyQ338 QRKvbCmhMqL5UgE2MhE0FE E5B7GgLiz2QUXycUcxLX6f yDOjYSauUh4bfTdnwVeePE 4wNTBpbjtw TRCckD9sNMIiiTUpyGiwMU 2eMAOviwnko662AbAbCPM1 GMCrtOGrT4QyzU9tZuHtKI MdMJAmH9Uh dLHeNDjeK175ZBmuXbO2QK LfwqAhN5AbIDTvbLoiMlB2 z1W0Sc00JtWDWSJxliroyV Q+PHRkIHN0 tPbvFZvnLVDbuW1mTMAdT6 s5YuVnFgW5CBltP0KsMPYz qdfzHh97qN5hRmObDnC3EL feU1SdlmS3 QFIjeZXjREucEKR6U51ms5 Z8RHUkHWNaGLA9fDE8iH0u bGlnbjogbGVmdDsgdmVydG ljYWwtYWxp L586HUKmfYuwQp3vgXA1N1 TyTpj9AKNghTlsRL1usFCg GKowOn8uvDdchKrdVB5kNS BpbjtwYWRk nH6bPNQefCPzxInkML3gJA Mhphivm504YzXrVSE3BOGv cIVrA9HfvN5pKvEtBLLrHH FhY9XriTTi GUsyM121APokDfQ7EMUsdj EzV7GxVYTsjJgaRsN3r9Y5 Ec2TmGAlOUDaLR79EI66SK 75Y6HoSwdg dGFibGU+PHRhYmxlIHdpZH AaYRgiRDEwMcGahFguYR0y Pe5kEPYyRCWyoKmdfYSsUn Bap9guJQBo YRhrXT9spEpdK1WnwZD3VU Qzo3z5Xh45V43mY5ZaiEF+ ZKQrcGX1iEI5kF4wHnPpWw Z9XLdqP805 ZoWbiMEbUtlea0zlf5tdjQ v4JmNtJLHaznZkeVjyPUE3 u0WsVz96A63mJCyiONTuLS IyMCUiIHZh kCkzvv3weB8sXs9+PGNvbC K7iSP6aM3rNkSpIdS0IWpp T764QjDvcFHdJstbL18lQ2 JvdXA+PHRy Zpl8KAZtuAmtBR6pwQEyLB woHd7iQKT9UcAcAvMvXClf B8TjFSHlmzobdprbzHP5JW YnGBUfdQ79 Qb0gkPrbTt4uQMBqIPD1UH BowGVbH6UfcW4nQoIkDZPa POOuT0HwfOUnWRsxM837PB xjRoP6KRKt gdNlY9EeDNQobWilGbA1x0 X9Sq6MfQihxQDpHZ0zKyJr OEn1S8KpRhj8DGCnrHkeBI 0ncGFkZGlu Yo6ucOnfrOjsYS5bDKVllv flm352StNsq4hmOFEozNDv KIpbNVP9U37zc8D1UOAoXP OaQXW8wGD1 sM9qhDamzhgnrKAmaNppkh JbaGekSQrzVVuqI856VZMb pCimFuUBMef9N4BcDzv5VO DpwJtdOW7h lIByUCtjXi0tsMvvmIlzHO 0gYUWnsgpvu090EeBxc4sf XTPrbTZiAPscKDF8P43no3 V3OMMjEMCv FFB0tID6sY9qcDovvfwszS VmdDsgdmVydGljYWwtYWxp S842PKKfxOzyXz0WWkl1H1 PiQbh4BBDt nPccFK8daZTxVUtoVp4mlF fmvTrzQI4eCUFaxmofg423 HuIcu5yzWKDgdHMpBYuxOD M0Y28gu4Y1 CXGcMMOkUSU9zZW1sC8yxN lnbjogbGVmdDsgdmVydGlj SGmmWCvzW148AHLxdXfvJj BheWVyOjwv dGQ+VL93mg44U8DpZeglFo v4GXNuIJX1qWS8qF8eBVAw OWlpa0T8jJP6R8XvezQsjw 5ar6mwSBAo LWctO23fdWEha (more content not included)... Normal [facility] Consent for Procedure/Surger yon 09-14-2023 Consent for Procedure/Surgery [id number]. 00TIFF [facility] Consent for Treatmenton 08-22 Consent for Treatment [id number] 0TIFF [facility] Inpatient Patient Summaryon 09-14-2023 Inpatient Patient Summary [place] [id number] Clinical Summary Person Information Name: SALVADOR DAS Age: 83 Years : 1940 Sex: Male PCP: MIKE OAKLEY MD Marital Status: Race: White Ethnicity: Non- or Language: Wolof Visit Id: Visit Reason: NOCTURIA, OAB, BPH WITH URINARY OBSTRUCTION Speciality: Acuity: Enc Type: Outpatient Med Service: Surgery Arrival: 09/14/2023 08:54:46 Discharge: Dispo Type: Address: [address] [facility] [id number] Provider Notes: Diagnosis: BPH without obstruction/lower urinary tract symptoms; OAB (overactive bladder) Problems Active Hydrocele Epididymo-orchitis Retention of urine Gross hematuria Urinary retention UTI symptoms BPH without obstruction/lower urinary tract symptoms Nocturia Weak urine stream BPH with urinary obstruction Prostatitis Urinary frequency Urinary urgency Dysuria Post-void dribbling 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 hydrochlorothiazide-li sinopril (hydrochlorothiazide-l isinopril 25 mg-20 mg Tab) multivitamin (Multi Vitamin+) [...] Cystoscopy with Botox Injection Discharge Instructions (CUSTOM) [facility] IntraOperative Documentson 0 09-14-2023 IntraOperative Documents [id number]#1. 00TIFF [facility] Main OR Intraoperative Recor don 09-14-2023 Main OR Intraoperative Record IntraOp Document Type FTURO Summary Primary Physician: Gianna Romero MD Finalized Date/Time: 09/14/23 10:53:09 Pt. Name: SALVADOR DAS /Sex: 1940 Male Med Rec #: [id number] Physician: Gianna Romero MD Financial #: [id number] Pt. Type: O Room/Bed: / Admit/Disch: 09/14/23 08:54:46 - Institution: Case Times FTURO Entry 1 Patient Times In Room 09/14/23 10:36:00 Out Room 09/14/23 10:52:00 Procedure Times Start 09/14/23 10:43:00 Stop 09/14/23 10:46:00 Anesthesia Times Last Modified By: Rowan Lino 09/14/23 10:52:32 General Comments: BOTOX EXP: AND LOT: [id number] 100 UNITS.CARL ALFARO. Case Attendance FTURO Entry 1 Entry 2 Entry 3 Case Attendee Gianna Romero MD, Kelsie E McClain [facility]ENTER[facility]ise Role Performed Surgeon - Primary [employer] Vice President - Primary Scrub - Primary Time In [...] Rowan Lino 09/14/23 10:53 Normal [facility] Main OR Preoperative Recordo n 09-14-2023 Main OR Preoperative Record Holding Area Document Type FTURO Summary Primary Physician: Gianna Romero MD Finalized Date/Time: 09/14/23 10:27:41 Pt. Name: FLOYD SALVADOR Munoz./Sex: 1940 Male Med Rec #: [id number] Physician: Gianna Romero MD Financial #: [id number] Pt. Type: O Room/Bed: / Admit/Disch: 09/14/23 [...] Complaints of Pain: No Skin Integrity Intact, [place], Warm, & Dry Vitals - EU Blood Pressure 190/85 Pulse 80 bpm Respirations 20 br/min SPO2 94 % Additional Other (See Comment) Specimens Comment UA obtained Specimens Collected RN Reviewed Yes Last Modified By: Rowan Lino 09/14/23 10:27:37 Finalized By: Rowan Lino Document Signatures Signed By: Leobardo WASHBURNLisa Yip 09/14/23 09:49 Rowan Lino 09/14/23 10:27 Rowan Lino 09/14/23 10:27 Normal [facility] Outpatient Surgery Discharge Instructionon 09-14-2023 Outpatient Surgery Discharge Instruction [id number]. 00TIFF Normal [facility] Outpatient Surgery Discharge Instruction [place] [id number] Patient Discharge Instructions PERSON INFORMATION Name: SALVADOR DAS Date of : 1940 Current Date: 09/14/2023 10:49:36 PHYSICIANS Admitting Physician: Gianna Romero MD Comment: Discharge Diagnosis: BPH without obstruction/lower urinary tract symptoms; OAB (overactive bladder) SALVADOR DAS has been given the following list of [...] you have a fever over 100 degrees. I, SALVADOR DAS, have received the attached patient education materials/instructions and have verbalized understanding: May we do a follow up call? Yes No I was present when discharge instructions were given Patient Signature Date Clinican/Nurse Signature ___ Date You may receive a survey from Miranda [place] asking you to rate your care experience. Your feedback is important and will help us understand what we do well and how we can improve the quality of care we provide to you, your loved ones and our community. It?s an honor to serve you. Thank you for choosing [facility] Normal [facility] Progress Note-Physicianon Progress Note-Physician Patient: SALVADOR DAS Age: 83 years Sex: Male : 1940 Associated Diagnoses: None Author: Nick VASQUEZ, Gianna Johnson Procedure Operative Information Details: Date/ Time: 09/14/2023 10:50:00. Pre-Op Dx: OAB (overactive bladder) (AOE73-EO N32.81, Discharge, Medical). Post-Op Dx: Same. Anesthesia Type: Local. Procedure: Local Cystoscopy with botox injection. Complications: None. Risks/Benefits/Informe d Consent: Surgical risks, benefits, details of the [...] Follow up in 2 weeks with PVR. Normal [facility] Comment on above: Result Comment: Elec [...] Locations R1: This test was performed at: [facility], [address] [place] [address], [address]- , , Normal [facility] Comment on above: Performed By: #### 2 [id number] #### [facility] Laboratory [address] [place] [address] Performed By: #### 2 [id number] ####[facility] [address] [place] [address] Screenson 08-28-2023 Screens [id number]#1.0 0TIFF Normal [facility] Screens [id number]#1.0 0TIFF Normal [facility] Patient Educationon 08-26-19 Patient Education Urology Botulinum [...] including vitamins, herbs, eye drops, creams, and lhsx-cah-fljlizh medicines. ? Any problems you or family [...] tells you to take them. ? Taking popq-ltq-jwlozee medicines, vitamins, herbs, and supplements. General instructions [...] these instructions at home: Medicines ? Take twvi-vwo-bclyjiz and prescription medicines only as told by [...] health ca (more content not included)... Normal [facility] Urology Office/Clinic Noteon 08-26-2023 Urology Office/Clinic [...] candidate for Botox based on urodynamics testing. Risks/benefits/procedu ral details discussed. Pt is hesitant in proceeding [...] retention 4. Epididymo-orchitis (N45.3: Epididymo-orchitis) Presented to [facility] ER 01/27/23 due to pain in groin area. Pt was given cefdinir 300mg bid x10d due to having an infection as UA showed small blood and small leuks. Scrotal US 01/27/23 [facility] - thickening of R scrotal wall. R epididymoorchitis with reactive medium septated hydrocele. [1] No longer has pain or bother. -Cont sx monitoring 5. Hydrocele (N43.3: Hydrocele, unspecified) Scrotal US 01/27/23 [facility] - R epididymoorchitis with reactive medium [...] (more content not included)... Normal [facility] Comment on above: Result Comment: Elec tronically Signed By: Gianna Romero MD\.br\Date and Time Signed: 08/26/23 11:32 EDT\.br\Electronically Co-Signed By: Dot Oakley\.br\Date and Time Co-Signed: 08/26/23 11:15 EDT ED Note-Physicianon 02-26-20 23 ED Note-Physician [id number] 0TIFF Normal [facility] RAD - Ultrasound Reporton RAD - Ultrasound Report [id number]#1.0 0TIFF Normal [facility] Ambulatory Visit Summaryon 1 04-27-2022 Ambulatory Visit Summary FLOYD SALVADOR Del Toro :1940 Visit Date:02/24/2023 Ambulatory Visit Instructions Your Diagnosis BPH with urinary obstruction Epididymo-orchitis Hydrocele Tests Performed Urnls Dip Stick Auto w/o Microscopy POC 03444 Your Care Team Attending Physician - THERESE CRUMP PA-C Primary Care Physician - MIKE OAKLEY MD This Is Your Medications List Contact prescribing physician if questions or concerns aspirin hydrochlorothiazide-li sinopril (hydrochlorothiazide-l isinopril 25 mg-20 mg Tab) multivitamin (Multi Vitamin+) [...] Gianna Romero MD Where: [facility] Sulma Shepard [facility] Patient Educationon 02-25-20 Patient Education Urology [...] Follow these instructions at home: ? Take ifhi-zma-qfjipic and prescription medicines only as told by [...] (more content not included)... Normal [facility] Urology Office/Clinic Noteon 02-24-2023 Urology Office/Clinic [...] At time of Cysto KML prescribed Levaquin [id number] due to orchitis. Denies pain/burning & blood. [...] PVR 2. Epididymo-orchitis (N45.3: Epididymo-orchitis) Presented to [facility] ER 01/27/23 due to pain in groin area. Pt was given cefdinir 300mg bid x10d due to having an infection as UA showed small blood and small leuks. Scrotal US 01/27/23 [facility] - thickening of R scrotal wall. R epididymoorchitis with reactive medium septated hydrocele. Reports the swelling has improved and is no longer bothersome. Denies scrotal pain. No indication for tx at this time. 3. Hydrocele (N43.3: Hydrocele, unspecified) See #2. Follow-up With When Contact Information Nick VASQUEZGianna, URL, [facility] [address], [place] [address] [phone] Additional Instructions: 6 mos w/ PVR Patient [...] Epididymo-orchitis Gross hematuria Hernia, ventral Hx of senior living use of blood thinners Hydrocele Hypercholesterolemia Microhematuria [...] repair. Medications aspirin, 81 mg, Oral, Daily hydrochlorothiazide-li sinopril 25 mg-20 mg Tab Multi Vitamin+, one tab, Oral, Daily simvastatin 40 mg Tab, 40 mg= 1 tab(s), (more content not included)... Normal [facility] Comment on above: Result Comment: Elec tronically Signed By: THERESE CRUMP PA-C\.br\Date and Time Signed: 02/24/23 14:00 EST\.br\Electronically Co-Signed By: Dot Oakley\.br\Date and Time Co-Signed: 02/24/23 13:32 EST Consent for Procedure/Surger yon 01-26-2023 Consent for Procedure/Surgery [id number]#1. 00TIFF Normal [facility] Consent for Treatmenton Consent for Treatment [id number]#1.0 0TIFF Normal [facility] Inpatient Patient Summaryon 01-26-2023 Inpatient Patient Summary [place] [address] Clinical Summary Person Information Name: SALVADOR DAS Age: 82 Years : 1940 Sex: Male PCP: MIKE OAKLEY MD Marital Status: Race: White Ethnicity: Non- or Language: Wolof Visit Id: Visit Reason: URINARY RETENTION, URINARY FREQUENCY, BPH WITH LUTS Speciality: Acuity: Enc Type: Outpatient Med Service: Surgery Arrival: 01/26/2023 09:27:18 Discharge: Dispo Type: Address: [address] [place] [id number] Provider Notes: Diagnosis: Acute orchitis; OAB (overactive bladder) Problems Active Retention of urine Gross hematuria Urinary retention UTI symptoms BPH without obstruction/lower urinary tract symptoms Nocturia Weak urine stream BPH with urinary obstruction Prostatitis Urinary frequency Urinary urgency Dysuria Post-void dribbling Hx of senior living use of blood thinners Microhematuria BMI 40.0-44.9, [...] aspirin 81 Milligram By Mouth every day. hydrochlorothiazide-li sinopril (hydrochlorothiazide-l isinopril 25 mg-20 mg Tab) hyoscyamine (hyoscyamine 0.125 [...] Finish State [facility] [place] [facility] [place] 02/24/2023 1:00 PM 02/24/2023 1:15 PM Confirmed Patient Education Information: EU - Cystoscopy Discharge Instructions (CUSTOM) [facility] IntraOperative Documentson 1 03-28-2022 IntraOperative Documents [id number]#1. 00TIFF [facility] Main OR Preoperative Recordo n 01-26-2023 Main OR Preoperative Record Holding Area Document Type FTURO Summary Primary Physician: Gianna Romero MD Finalized Date/Time: 01/26/23 11:57:44 Pt. Name: SALVADOR DAS/Sex: 1940 Male Med Rec #: [id number] Physician: Gianna Romero MD Financial #: [id number] Pt. Type: O Room/Bed: / Admit/Disch: 01/26/23 [...] Complaints of Pain: No Skin Integrity Intact, [place], Warm, & Dry Vitals - EU Blood [...] JERED Fields RN, Ruthann 01/26/23 11:57 Normal [facility] Operative Reporton Operative Report Patient: SALVADOR DAS Age: 82 years Sex: Male : 1940 Associated Diagnoses: None Author: Gianna Romero MD Procedure Operative Information Details: Date/ Time: 01/26/2023 12:17:00. Pre-Op Dx: Feeling of incomplete bladder emptying (VSB80-ZO R39.14, Billing Diagnosis, Medical), OAB (overactive bladder) (MPC22-OV N32.81, Discharge, Medical). Post-Op Dx: Same. Anesthesia Type: Local. Procedure: Local Cystoscopy. Complications: None. Risks/Benefits/Informe d Consent: Surgical risks, benefits, details of the [...] to ensure resolved. . Normal [facility] Comment on above: Result Comment: Elec tronically Signed By: Gianna Romero MD\.br\Date and Time Signed: 01/26/23 12:23 EST Outpatient Surgery Discharge Instructionon 01-26-2023 Outpatient Surgery Discharge Instruction [id number]. 00TIFF Normal [facility] Outpatient Surgery Discharge Instruction [place] [address] Patient Discharge Instructions PERSON INFORMATION Name: SALVADOR DAS Date of : 1940 Current Date: 01/26/2023 12:14:27 PHYSICIANS Admitting Physician: Gianna Romero MD Comment: Discharge Diagnosis: Acute orchitis; OAB (overactive bladder) SALVADOR DAS has been given the following list of follow-up instructions, prescriptions, and patient education materials: IF UNABLE TO CONTACT YOUR PHYSICIAN AND YOU FEEL IT IS AN EMERGENCY, GO TO THE NEAREST EMERGENCY ROOM OR CALL 911 Follow up: With: Address: When: Gianna Romero Comments: Office schedule follow up in 2-3 weeks with PVR Type Location Start [facility] [place] [facility] [place] 02/24/2023 1:00 PM 02/24/2023 1:15 [...] were given Patient Signature Date Clinican/Nurse Signature ___ Date You may receive a survey from Miranda [place] asking you to rate your care experience. Your feedback is important and will help us understand what we do well and how we can improve the quality of care we provide to you, your loved ones and our community. It?s an honor to serve you. Thank you for choosing [facility] Normal [facility] Progress Note-Physicianon Progress Note-Physician Patient: SALVADOR DAS Age: 82 years Sex: Male : 1940 Associated Diagnoses: None Author: Nick VASQUEZ, Gianna Johnson Health Status Allergies: Allergic Reactions (Selected) No Known Allergies, Allergies (1) Active Reaction No Known Allergies None Documented Current medications: (Selected) Prescriptions Prescribed Levaquin 500 mg Tab: 500 mg = 1 tab(s), Oral, q24hr, X 10 day(s), # 10 tab(s), Refills(s) 0, Pharmacy: [facility]/pharmacy #[id number], 172, cm, 01/26/23 11:20:00 EST, Height/Length Dosing, 120, kg, 01/14/23 10:39:00 EDT, Weight Dosing tamsulosin 0.4 mg Cap: 0.4 mg = 1 cap(s), Oral, qPM, # 30 cap(s), Refills(s) 11, Pharmacy: [facility]/pharmacy #[id number], 172, cm, 01/14/23 10:39:00 EDT, Height/Length Dosing, 120, kg, 01/14/23 10:39:00 EDT, Weight Dosing Documented Medications Documented Multi Vitamin+: one tab, Oral, Daily, Refill(s) 0 aspirin: 81 mg, Oral, Daily, Refills(s) 0 hydrochlorothiazide-li sinopril 25 mg-20 mg Tab: Refill(s) 0 hyoscyamine [...] Plan Assessment and Plan: Diagnosis: Acute orchitis (DBE27-LH N45.2, Discharge, Medical), Feeling of incomplete bladder emptying (XRY78-BY R39.14, Billing Diagnosis, Medical), OAB (overactive bladder) (VCZ06-TY N32.81, Discharge, Medical). 82 yo M prior [...] given his inappropriate sensations. Normal [facility] Comment on above: Result Comment: Elec tronically Signed By: Nick VASQUEZ, Gianna Mustafa.br\Date and Time Signed: 01/26/23 12:31 EST ED Note-Physicianon 01-22-20 ED Note-Physician [id number]#1.0 0TIFF [facility] Consultation Noteon 01-16-20 Consultation Note [id number] .00TIFF [facility] Scre[place] 01-15-2023 Screens [id number]#1 .00TIFF [facility] Screens [id number]#1.00 TIFF [facility] ED Note-Physicianon 01-15-20 ED Note-Physician [id number]#1.0 0TIFF [facility] Lab Reportson 01-14-2023 Lab Reports [id number]#1.0 0TIFF [facility] Urology Office/Clinic Noteon 01-14-2023 Urology Office/Clinic [...] Pseudomonas Pt was given Cefdinir 300mg BID d18sclj. Pt is a poor historian. Unsure what medications he has taken/finished. Several messages in pt's chart stating that pt had called c/o inability to Urinate Pt then went to [facility] ER visit on 01/06/23 due to difficulty urinating, pt stated he had not been able to void for 2 days, cath was placed. BUN 8, Crea 0.81. Pt then returned to [facility] ER 01/09/23 due to blood in [...] after starting trospium Pt then went to [facility] ER visit on 01/06/23 due to difficulty urinating, pt stated he had not been able to void for 2 days, cath was placed, BUN 8, Crea 0.81. (output unknown). Pt then returned to [facility] ER 01/09/23 due to blood in [...] (more content not included)... Normal [facility] Comment on above: Result Comment: Elec [...] Mixed jo (multiple species present) SUSCEPTIBILITY RESULTS __ LEGEND: S=Susceptible, N/R=Not Reported, Blank=Data not available, or drug not advisable or tested, I=Intermediate, ESBL=Extended spectrum beta-lactamase, R=Resistant, TFG=Thymidine-dependen t strain, ROSALBA=Beta-lactamase positive, ROBERT=mcg/m;(mg/L), S*=Predicted susceptible interp, R*=Predicted resistant interp PA Antibiotic ROBERT Dilutn ROBERT Interp Amikacin <=16 S Aztreonam 8 S Cefepime 8 S Ceftazidime 4 S Ceftazidime/ <=8 S Avibactam Ciprofloxacin 2 I Gentamicin <=4 S Levofloxacin 4 I Meropenem <=1 S Piperacillin/ <=16 S Tazobactam Tobramycin <=4 S Performing Locations R1: This test was performed at: [facility], [address] [place] [address], [facility]- , , [facility] Comment on above: Performed By: #### 2 [id number] #### [facility] Laboratory [address] [place] [address] Lab Reportson 12-24-2022 Lab Reports [id number]#1. 00CD:127 [facility] Lab Reports [id number]#1. 00CD:127 [facility] Screenson 12-24-2022 Screens [id number]#1.0 0CD:127 [facility] Ambulatory Visit Summaryon 1 Ambulatory Visit Summary SALVADOR DAS :1940 Visit Date:12/23/2022 Ambulatory Visit Instructions Your Diagnosis Urinary frequency BPH without obstruction/lower urinary tract symptoms Microhematuria Tests Performed Urnls Dip Stick Auto w/o Microscopy POC 92327 Your Care Team Attending Physician - THERESE CRUMP PA-C Primary Care Physician - MIKE OAKLEY MD This Is Your Medications List trospium (trospium 60 mg oral capsule, extended release) Contact prescribing physician if questions or concerns aspirin hydrochlorothiazide-li sinopril (hydrochlorothiazide-l isinopril 25 mg-20 mg Tab) multivitamin (Multi Vitamin+) [...] THERESE CRUMP PA-C Where: [facility] Patient Educationon 12-24-19 23 Patient Education [...] keep your urine pale yellow. ? Take oxyl-wfk-dlmpehp or prescription medicines. ? Eat foods that are high in fiber, such as beans, whole grains, and fresh fruits and vegetables. ? Limit foods that are high in fat and processed sugars, such as fried or sweet foods. General instructions ? Take raxp-wnb-ansdhzr and prescription medicines only as told by [...] muscles that help control urination. ? Take esil-gdb-jitdwxs and prescription medicines only as told by your health care provider. ? Contact a health care provider if your symptoms do not improve or get worse. This information is not intended to replace advice given to you by your health care provider. Make sure you discuss any questions you have with your health care provider. Document Revised: 10/12/2020 Document Reviewed: 10/12/2020 [employer] Patient Education ? 2022 [employer] Normal [facility] URINALYSISOrdered By: Jhon Flores on 12-23-2022 [...] [#/Area] 0-2 /HPF Normal 0-2/HPF [facility] UA Aut o SS Glucose Test strip (U) [Mass/Vol] Negative (12/23/22 2:54 PM) Normal Negative [facility] UA Auto SS Hemoglobin Ql (U) Trace *ABN* (12/23/22 2:54 PM) Invalid Interpretation Code Negative [facility] UA Auto SS Ketones (U) [Mass/Vol] Negative (12/23/22 2:54 PM) Normal Negative [facility] UA Auto SS [place].plasma/Lithiu m.RBC (Bld) [Mass ratio] 0-3 /HPF Normal [...] [facility] UA Auto SS Urobilinogen Qn (U) 0.0592742 {Pb'U}/dL Normal 0.0 - 1.0 EU/dL [facility] UA Auto SS WBC Auto Ql (U) Negative (12/23/22 2:54 PM) Normal Negative [facility] UA Auto SS WBC LM.HPF (Urine sed) [#/Area] 0-5 /HPF Normal 0-5/HPF [facility] UA Auto SS Urinalysison 12-23-2022 Bacteria LM Ql (Urine sed) TRACE Normal Trace [facility] Comment on above: Performed By: #### 1 [id number] ####[facility] [address] [place] [address] Bilirubin Ql (U) Negative Normal Negative [facility] Comment on above: Performed By: #### 1 [id number] ####[address] [address] Clarity (U) CLEAR Normal Clear [facility] Comment on above: Performed By: #### 1 [id number] ####[address] [address] Color (U) YELLOW Normal Yellow [facility] Comment on above: Performed By: #### 1 [id number] ####[address] [address] Epithelial cells.squamous LM.HPF (Urine sed) [#/Area] 0-2 Normal 0-2 [facility] Comment on above: Performed By: #### 1 [id number] ####[facility] [address] [place] [address] Glucose Test strip (U) [Mass/Vol] Negative Normal Negative [facility] Comment on above: Performed By: #### 1 [id number] ####[address] [address] Hemoglobin Ql (U) TRACE Abnormal Negative [facility] Comment on above: Performed By: #### 1 [id number] ####[address] [address] Ketones (U) [Mass/Vol] Negative Normal Negative [facility] Comment on above: Performed By: #### 1 [id number] ####[address] [address] [place].plasma/Lithiu m.RBC (Bld) [Mass ratio] 0-3 Normal 0-3 [facility] Comment on above: Performed By: #### 1 [id number] ####[address] [address] Nitrite Ql (U) Positive Abnormal Negative [facility] Comment on above: Performed By: #### 1 [id number] ####[address] [address] pH (U) 7.0 [pH] Invalid Interpretation Code 5.0-9.0 [facility] Comment on above: Performed By: #### 1 [id number] ####[address] [address] Protein (U) [Mass/Vol] Negative Normal Negative [facility] Comment on above: Performed By: #### 1 [id number] ####[address] [address] Specific gravity (U) [Rel density] 1.010 Invalid Interpretation Code 1.005-1.030 [facility] Comment on above: Performed By: #### 1 [id number] ####[address] [address] Type of Urine collection method Random Urine Normal [facility] Comment on above: Performed By: #### 1 [id number] ####[address] [address] Urobilinogen Qn (U) 0.2 {Pb'U}/dL Normal 0.0-1.0 [facility] Comment on above: Performed By: #### 1 [id number] ####[address] [address] WBC Auto Ql (U) Negative Normal Negative [facility] Comment on above: Performed By: #### 1 [id number] ####[address] [address] WBC LM.HPF (Urine sed) [#/Area] 0-5 Normal 0-5 [facility] Comment on above: Performed By: #### 1 [id number] ####[facility] [address] [place] [address] Urology Office/Clinic Noteon 12-23-2022 Urology Office/Clinic Note [...] pill) Little amounts at a time. Voiding s76-37azm. Getting up q1hr through the night. No [...] E&M of Est. Patient Moderate 30-39 Min 44110 Urinalysis Urine Culture 2. BPH without obstruction/lower [...] E&M of Est. Patient Moderate 30-39 Min 63037 3. Microhematuria (R31.29: Other microscopic hematuria) UA [...] day(s), # 30 cap(s), Refills(s) 11, Pharmacy: [facility]/pharmacy #[id number], 172, cm, 12/23/22 14:24:00 EDT, Height/Length Dosing, 120, kg, 12/23/22 14:24:00 EDT, Weight (more content not included)... Normal [facility] Comment on above: Result Comment: Elec tronically Signed By: THERESE CRUMP PA-C\.br\Date and Time Signed: 12/23/22 15:03 EDT\.br\Electronically Co-Signed By: Dot Oakley\.br\Date and Time Co-Signed: 12/23/22 14:57 EDT Vital Signs Date Time Vital Sign Value Performing Clinician Facility 07-18-2024 [id number] Body height 174 cm Alyssa OSHEA Work Phone: [facility] 07-18-2024 14:12-0400 Body mass index (BMI) [Ratio] 43.54 kg/m2 Alyssa Grey PA Work Phone: [facility] 07-18-2024 14:12-0400 Body weight 131.81 kg Alyssa Hemmer PA Work Phone: [facility] 07-18-2024 14:12-0400 Diastolic blood pressure 72 mm[Hg] Alyssa Hemmer PA Work Phone: [facility] 07-18-2024 14:12-0400 Heart rate 87 /min Alyssa Hemmer PA Work Phone: [facility] 07-18-2024 14:12-0400 Respiratory rate 16 /min Alyssa Hemmer PA Work Phone: [facility] 07-18-2024 14:12-0400 SaO2% (BldA) [Mass fraction] 94 % Alyssa Hemmer PA Work Phone: [facility] 07-18-2024 14:12-0400 Systolic blood pressure 108 mm[Hg] Alyssa Hemmer PA Work Phone: [facility] 03-21-2024 10:16-0500 Body height 174 cm Mike Oakley MD Work Phone: [facility] 03-21-2024 10:16-0500 Body mass index (BMI) [Ratio] 40.91 kg/m2 Mike Oakley MD Work Phone: [facility] 03-21-2024 10:16-0500 Body weight 123.83 kg Mike Oakley MD Work Phone: [facility] 03-21-2024 10:16-0500 Diastolic blood pressure 78 mm[Hg] Mike Oakley MD Work Phone: [facility] 03-21-2024 10:16-0500 Heart rate 101 /min Mike Oakley MD Work Phone: [facility] 03-21-2024 10:16-0500 SaO2% (BldA) [Mass fraction] 92 % Mike Oakley MD Work Phone: [facility] 03-21-2024 10:16-0500 Systolic blood pressure 134 mm[Hg] Mike Oakley MD Work Phone: [facility] 01-12-2024 14:00-0400 Diastolic blood pressure 78 mm[Hg] Alyssa Hemmer PA Work Phone: [facility] 01-12-2024 14:00-0400 Systolic blood pressure 128 mm[Hg] Alyssa Hemmer PA Work Phone: [facility] 01-12-2024 13:42-0400 Body height 174 cm Alyssa Hemmer PA Work Phone: [facility] 01-12-2024 13:42-0400 Body mass index (BMI) [Ratio] 41.83 kg/m2 Alyssa Hemmer PA Work Phone: [facility] 01-12-2024 13:42-0400 Body temperature 98.71 [degF] Alyssa Hemmer PA Work Phone: [facility] 01-12-2024 13:42-0400 Body weight 126.64 kg Alyssa Hemmer PA Work Phone: [facility] 01-12-2024 13:42-0400 Heart rate 99 /min Alyssa Hemmer PA Work Phone: [facility] 01-12-2024 13:42-0400 Respiratory rate 16 /min Alyssa Hemmer PA Work Phone: [facility] 01-12-2024 13:42-0400 SaO2% (BldA) [Mass fraction] 87 % Alyssa Hemmer PA Work Phone: [facility] 12-14-2023 08:32-0400 Body height 174 cm Mike Oakley MD Work Phone: [facility] 12-14-2023 08:32-0400 Body mass index (BMI) [Ratio] 42.25 kg/m2 Mike Oakley MD Work Phone: [facility] 12-14-2023 08:32-0400 Body weight 127.91 kg Mike Oakley MD Work Phone: [facility] 12-14-2023 08:32-0400 Diastolic blood pressure 88 mm[Hg] Mike Oakley MD Work Phone: [facility] 12-14-2023 08:32-0400 Heart rate 76 /min Mike Oakley MD Work Phone: [facility] 12-14-2023 08:32-0400 SaO2% (BldA) [Mass fraction] 94 % Mike Oakley MD Work Phone: [facility] 12-14-2023 08:32-0400 Systolic blood pressure 138 mm[Hg] Mike Oakley MD Work Phone: [facility] 10-01-2023 13:14-0400 Blood Pressure Location Janay Orzech [facility] 10-01-2023 13:14-0400 Body temperature 97.88 [degF] Janay Orzech [facility] 10-01-2023 13:14-0400 Diastolic blood pressure 88 mm[Hg] Janay Orzech [facility] 10-01-2023 13:14-0400 Heart rate 83 /min Janay Orzech [facility] 10-01-2023 13:14-0400 Respiratory rate 16 /min Janay Orzech [facility] 10-01-2023 13:14-0400 Systolic blood pressure 160 mm[Hg] Janay Orzech [facility] 08-26-2023 10:05-0400 Blood Pressure Location Gianna Lue [facility] 08-26-2023 10:05-0400 Body temperature 97.7 [degF] Gianna Lue [facility] 08-26-2023 10:05-0400 Diastolic blood pressure 84 mm[Hg] Gianna Lue [facility] 08-26-2023 10:05-0400 Heart rate 88 /min Gianna Lue [facility] 08-26-2023 10:05-0400 Systolic blood pressure 130 mm[Hg] Gianna Lue [facility] 02-24-2023 12:51-0500 Blood Pressure Location THERESE THERON [facility] 02-24-2023 12:51-0500 Diastolic blood pressure 84 mm[Hg] THERESE THERON [facility] 02-24-2023 12:51-0500 Heart rate 80 /min THERESE THERON [facility] 02-24-2023 12:51-0500 Systolic blood pressure 138 mm[Hg] THERESE THERON [facility] 01-14-2023 10:37-0400 Blood Pressure Location Gianna Lue [facility] 01-14-2023 10:37-0400 Diastolic blood pressure 80 mm[Hg] Gianna Lue [facility] 01-14-2023 10:37-0400 Heart rate 68 /min Gianna Lue [facility] 01-14-2023 10:37-0400 Respiratory rate 16 /min Gianna Lue [facility] 01-14-2023 10:37-0400 Systolic blood pressure 130 mm[Hg] Gianna Romero [facility] 12-23-2022 14:21-0400 Blood Pressure Location THERESE CRUMP [facility] 12-23-2022 14:21-0400 Diastolic blood pressure 79 mm[Hg] THERESE CRUMP [facility] 12-23-2022 14:21-0400 Heart rate 69 /min THERESE CRUMP [facility] 12-23-2022 14:21-0400 Respiratory rate 16 /min THERESE CRUMP [facility] 12-23-2022 14:21-0400 Systolic blood pressure 128 mm[Hg] THERESE CRUMP [facility] Encounters Encounter Date Encounter Type Care Provider Facility Start: 07-18-2024 End: 07-18-2024 BamHi-G-Tekheet Alyssa OSHEA Work Phone: [facility] Start: 07-18-2024 End: 07-18-2024 Bamboo flowsheet Alyssa OSHEA Work Phone: [facility] Start: 07-18-2024 End: 07-18-2024 Patient encounter procedure Alyssa OSHEA Work Phone: [facility] Comment on above: Medicare annual well ness visit, subsequent (Primary Dx); ACP (advance care planning); Other chronic pain; Primary insomnia; Oxygen dependent; Panlobular emphysema (CMS/HCC); Arteriosclerosis of both carotid arteries; Benign essential hypertension (CMS/HCC); Chronic diastolic CHF (congestive heart failure), NYHA class 1 (CMS/HCC); Chronic venous insufficiency; Electrocardiogram abnormal; LVH (left ventricular hypertrophy); Diverticulosis of colon; BPH without obstruction/lower urinary tract symptoms; Hypertonicity of bladder; OAB (overactive bladder); Displacement of lumbar intervertebral disc; Generalized osteoarthritis; Lumbosacral spondylosis without myelopathy; Chronic pain of left knee; Chronic pain of right knee; Primary osteoarthritis of left knee; Primary osteoarthritis of right knee; Class 3 severe obesity due to excess calories with serious comorbidity and body mass index (BMI) of 40.0 to 44.9 in adult; Actinic keratosis; Difficulty walking; Elevated LDL cholesterol level (CMS/HCC); History of total bilateral knee replacement; Hyponatremia; Localized edema; Urinary hesitancy Start: 07-18-2024 End: 07-18-2024 ambulatory ALYSSA Cosme MATILDA Not Available Start: 07-04-2024 End: 07-04-2024 Bamboo flowsheet Mike Oakley MD Work Phone: [facility] Start: 07-04-2024 End: 07-04-2024 Bamboo flowsheet Mike Oakley MD Work Phone: [facility] Start: 07-04-2024 End: 07-04-2024 ambulatory MIKE OAKLEY Not Available Start: 03-21-2024 End: 03-21-2024 Bamboo flowsheet Mike Oakley MD Work Phone: [facility] Start: 03-21-2024 End: 03-21-2024 Bamboo flowsheet Mike Oakley MD Work Phone: [facility] Start: 03-21-2024 End: 03-21-2024 Office outpatient visit 25 minutes Mike Oakley MD Work Phone: [facility] Comment on above: Benign essential hyp ertension (CMS/HCC) (Primary Dx); Hyponatremia; Acute non-recurrent sinusitis, unspecified location Start: 03-21-2024 End: 03-21-2024 ambulatory MIKE OAKLEY Not Available Start: 01-14-2024 End: 01-17-2024 Clinisync Result Encounter Generic External Data Provider [facility] Unsolicited Start: 01-14-2024 End: 01-17-2024 Clinisync Result Encounter Generic External Data Provider [facility] Unsolicited Start: 01-12-2024 End: 01-12-2024 Bamboo flowsheet Alyssa OSHEA Work Phone: [facility] Start: 01-12-2024 End: 01-12-2024 Bamboo flowsheet Alyssa Grey PA Work Phone: [facility] Start: 01-12-2024 End: 01-12-2024 Office outpatient visit 25 minutes Alyssa OSHEA Work Phone: [facility] Comment on above: Acute respiratory fa ilure with hypoxia (CMS/HCC) (Primary Dx); Community acquired pneumonia, unspecified laterality; Acute on chronic congestive heart failure, unspecified heart failure type (CMS/HCC); Oxygen dependent; Benign essential hypertension (CMS/HCC) Start: 01-12-2024 End: 01-12-2024 ambulatory [facility] Facility:[facility] Start: 01-12-2024 End: 01-12-2024 Patient encounter procedure [facility] Start: 01-08-2024 End: 01-09-2024 Clinisync Result Encounter Generic External Data Provider [facility] Unsolicited Start: 01-08-2024 End: 01-09-2024 Clinisync Result Encounter Generic External Data Provider [facility] Unsolicited Start: 01-07-2024 End: 01-09-2024 Clinisync Result Encounter Generic External Data Provider [facility] Unsolicited Start: 01-07-2024 End: 01-09-2024 Clinisync Result Encounter Generic External Data Provider [facility] Unsolicited Start: 12-14-2023 End: 12-14-2023 Office outpatient visit 25 minutes Mike Oakley MD Work Phone: [facility] Comment on above: Benign essential hyp ertension (CMS/HCC) (Primary Dx); Hyponatremia; Elevated LDL cholesterol level (CMS/HCC); Obesity (BMI 30-39.9) Start: 12-14-2023 End: 12-14-2023 ambulatory MIKE OAKLEY Not Available Start: 10-26-2023 End: 10-26-2023 ambulatory ALYSSA GREY Not Available Start: 10-01-2023 End: 10-01-2023 ambulatory Janay X Orzech Facility:[facility] Start: 10-01-2023 End: 10-01-2023 Patient encounter procedure Janay X Orzech [facility] Start: 09-30-2023 End: 09-30-2023 ambulatory Gianna M. Lue Facility:[facility] Start: 09-30-2023 End: 09-30-2023 Patient encounter procedure Gianna M. Lue [facility] Start: 09-14-2023 End: 09-14-2023 ambulatory Gianna M. Lue [place] [place]: 09-14-2023 End: 09-14-2023 Patient encounter procedure Gianna M. Lue [facility] Start: 08-26-2023 End: 08-26-2023 ambulatory Gianna M. Lue [place] Start: 08-26-2023 End: 08-26-2023 Lab Drop off Gianna M. Lue [facility] Start: 08-26-2023 End: 08-26-2023 ambulatory Gianna M. Lue Facility:[facility] Start: 08-26-2023 End: 08-26-2023 Patient encounter procedure Gianna M. Lue [facility] Start: 02-24-2023 End: 02-24-2023 ambulatory THERESE E THERON Facility:[facility] Start: 02-24-2023 End: 02-24-2023 Patient encounter procedure THERESE E THERON [facility] Start: 02-10-2023 End: 02-10-2023 ambulatory THERESE E THERON Facility:[facility] Start: 02-10-2023 End: 02-10-2023 Patient encounter procedure THERESE E THERON [facility] Start: 01-26-2023 End: 01-26-2023 ambulatory Gianna M. Lue [place] Start: 01-26-2023 End: 01-26-2023 Patient encounter procedure Gianna M. Lue [facility] Start: 01-21-2023 ambulatory Gianna M. Lue Facility[facility] Start: 01-14-2023 End: 01-14-2023 ambulatory Gianna M. Lue Facility:[facility] Start: 01-14-2023 End: 01-14-2023 Patient encounter procedure Gianna M. Lue [facility] Start: 12-23-2022 End: 12-23-2022 Lab Drop off THERESE Char THERON [facility] Start: 12-23-2022 End: 12-23-2022 ambulatory THERESE E THERON [place] Start: 12-23-2022 End: 12-23-2022 Patient encounter procedure THERESE E THERON [facility] Start: 07-06-2022 End: 07-06-[address] MIKE OAKLEY Facility: Start: 08-25-2017 End: 08-26-2017 Ambulatory DEFAULT PHYSICIAN Facility:[facility] Start: 08-19-2017 End: 08-20-2017 Ambulatory DEFAULT PHYSICIAN Facility:[facility] Procedures Date Procedure Procedure Detail Performing Clinician Start: 01-14-2024 Bacteria identified in Urine by Culture Generic External Data Provider Start: 01-08-2024 Bacteria identified in Urine by Culture Generic External Data Provider Start: 01-07-2024 Epithelial cells LM Ql (Urine sed) Generic External Data Provider Start: 01-07-2024 GRAM STAIN EVALUATION G eneric External Data Provider Start: 01-07-2024 Leukocytes [#/volume ] in Blood Generic External Data Provider Start: 01-07-2024 LOWER RESPIRATORY CULTURE Generic External Data Provider Start: 01-07-2024 RESULT 1 Generic Ex ternal Data Provider Start: 01-07-2024 RESULT 2 Generic Ex ternal Data Provider Start: 01-07-2024 RESULT 3 Generic Ex ternal Data Provider Start: 01-07-2024 RESULT 4 Generic Ex ternal Data Provider Start: 01-26-2023 Transurethral cystoscopy Gianna Romero Start: [...] REVISION WITH MESH, UMBILICAL AND VENTRAL REPAIRS Plan of Treatment Date Care Activity Detail Author Start: 11-28-2024 End: 11-28-2024 Patient encounter procedure 11/28/2024 10:00 AM EDT Office Visit [facility] [address] [place] [address] Mike Oakley MD [address] [place] [address] [facility] Start: 09-19-2024 Influenza vaccination Influenza Vacc ine (#1) [facility] Comment on above: Postponed from 11/21 (Patient Refused) Start: 07-18-2024 End: 07-18-2024 Patient encounter procedure 07/18/2024 2:00 PM EDT Office Visit [facility] [address] [place] [address] Alyssa rGey PA [address] [place] [address] Arrived [facility] Comment on above: Arrived Start: 06-08-2024 End: 06-08-2024 Patient encounter procedure 06/08/2024 10:20 AM EDT Office Visit [facility] [address] [place] [id number] Reanna Del Castillo APRN-SENIOR INFORMATICA DEVELOPER [address] [place] [address] [facility] Start: 03-21-2024 End: 03-21-2025 Basic metabolic 1998 panel - Serum or Plasma Basic metabolic panel Lab Routine Benign essential hypertension (CMS/HCC) Hyponatremia Expected: 03/21/2024 (Approximate), Expires: 03/21/2025 [facility] Work Phone: Comment on above: Expected: 03/21/2024 (Approximate), Expires: 03/21/2025 Start: 03-21-2024 End: 03-21-2024 Patient encounter procedure 03/21/2024 10:30 AM EST Office Visit [facility] [address] [place] [address] Mike Oakley MD [address] [place] [address] Arrived [facility] Comment on above: Arrived Start: 03-14-2024 End: 03-14-2024 Patient encounter procedure 03/14/2024 1:00 PM EST Office Visit [facility] [address] [place] [address] Mike Oakley MD [address] [place] [address] [facility] Start: 01-13-2024 End: 01-13-2024 Patient encounter procedure 01/13/2024 1:00 PM EDT Office Visit [facility] [address] [place] [id number] Jr. Patrick Kinsey DO [address] [place] [address] [facility] Start: 12-14-2023 End: 12-13-2024 Comprehensive metabolic 2000 panel - Serum or Plasma Comprehensive metabolic panel Lab Routine Benign essential hypertension (CMS/HCC) Hyponatremia Expected: 12/14/2023 (Approximate), Expires: 12/13/2024 [facility] Comment on above: Expected: 12/14/2023 (Approximate), Expires: 12/13/2024 Start: 12-14-2023 End: 12-13-2024 Lipid 1996 panel - Serum or Plasma Lipid panel Lab Routine Elevated LDL cholesterol level (CMS/HCC) Expected: 12/14/2023 (Approximate), Expires: 12/13/2024 [facility] Comment on above: Expected: 12/14/2023 (Approximate), Expires: 12/13/2024 Start: 12-14-2023 End: 12-13-2024 TSH W/REFLEX TO FT4 TSH W/REFLEX TO FT4 Lab Routine Obesity (BMI 30-39.9) Expected: 12/14/2023 (Approximate), Expires: 12/13/2024 [facility] Comment on above: Expected: 12/14/2023 (Approximate), Expires: 12/13/2024 Start: 11-22-2023 Influenza vaccination Influenza Vacc ine (#1) [facility] CBC W Auto Different ial panel - Blood CBC and differential Lab Routine Benign essential hypertension ([facility]) Hyponatremia Ordered: 12/14/2023 [facility] Work Phone: Comment on above: Ordered: 12/14/2023 LOWER RESPIRATORY CULTURE LOWER RESPIRATORY CULTURE Lab Routine 01/07/2024 8:30 AM EDT [facility] Immunizations Immunization Date Immunization Notes Care Provider [facility] 02-02-2024 influenza, high dose seasonal, preservative-free Mike Oakley MD Work Phone: [facility] 06-17-2023 RSV, recombinant, protein subunit RSVpreF, adjuvant reconstitu, 120mcg/0.5mL, PF (Arexvy) Mike Oakley MD Work Phone: [facility] Work Phone: 12-29-2022 influenza virus vacc ine, unspecified formulation Gianna Romero [facility] 12-29-2022 influenza, seasonal, injectable Mike Oakley MD Work Phone: [facility] 12-29-2022 Pfizer Purple Cap SARS-CoV-2 Vaccination Mike Oakley MD Work Phone: [facility] 12-02-2021 influenza virus vacc ine, unspecified formulation Gianna Romero [facility] 12-02-2021 Influenza, High-dose Seasonal, Quadrivalent, Preservative Free Mike Oakley MD Work Phone: [facility] 12-02-2021 Moderna SARS-CoV-2 50mcg/0.5mL Booster Mike Oakley MD Work Phone: [facility] 12-02-2021 SARS-CoV-2 (COVID-19 ) [id number] Gianna Lue [facility] 07-11-2021 zoster vaccine recombinant Gianna Lue [facility] 06-20-2021 Pfizer Purple Cap SARS-CoV-2 Vaccination Mike Oakley MD Work Phone: [facility] 06-20-2021 SARS-CoV-2 mRNA (aazcsstfgot-kuhr-qordkk e) vaccine Gianna Lue [facility] 06-20-2021 SARS-CoV-2, Unspecified Gibson Oakley MD Work Phone: [facility] 04-09-2021 zoster vaccine recombinant Gianna Lue [facility] 01-30-2021 influenza virus vacc ine, unspecified formulation Gianna Lue [facility] 01-30-2021 influenza, high dose seasonal, preservative-free Mike Oakley MD Work Phone: [facility] 12-15-2020 SARS-CoV-2 (COVID-19 ) mRNA BNT-162b2 vax Gianna Lue [facility] Comment on above: Result Comment: 2022: [id number] 05-15-2020 SARS-CoV-2 (COVID-19 ) mRNA BNT-162b2 vax Gianna Lue [facility] Comment on above: Result Comment: 2022: [id number] 04-24-2020 SARS-CoV-2 (COVID-19 ) mRNA [id number] vax THERESE CRUMP [facility] 01-04-2020 influenza virus vacc ine, unspecified formulation Gianna Luchar [facility] 01-04-2020 influenza, injectabl e, quadrivalent, preservative free Mike Oakley MD Work Phone: [facility] 01-25-2019 influenza virus vacc ine, unspecified formulation Gianna Lue [facility] 01-25-2019 Influenza, High-dose Seasonal, Quadrivalent, Preservative Free Mike Oakley MD Work Phone: [facility] 12-21-2018 influenza virus vacc ine, live, attenuated, for intranasal use THERESE CRUMP [facility] 01-11-2018 influenza virus vacc ine, unspecified formulation Gianna Romero [facility] 01-11-2018 Influenza, High-dose Seasonal, Quadrivalent, Preservative Free Mike Oakley MD Work Phone: [facility] 12-11-2016 influenza virus vacc ine, unspecified formulation Gianna Lue [facility] 12-11-2016 Influenza, High-dose Seasonal, Quadrivalent, Preservative Free Mike Oakley MD Work Phone: [facility] 05-24-2015 pneumococcal conjuga te vaccine, 13 valent Gianna Romero [facility] 05-23-2015 pneumococcal conjuga te vaccine, 13 valent Mike Oakley MD Work Phone: [facility] 12-11-2014 seasonal influenza, intradermal, preservative free Mike Oakley MD Work Phone: [facility] 02-01-2014 pneumococcal polysaccharide vaccine, 23 valent Mike Oakley MD Work Phone: [facility] 01-18-2014 zoster vaccine, live Mike Oakley MD Work Phone: [facility] 01-09-2014 influenza, seasonal, injectable Mike Oakley MD Work Phone: [facility] 01-03-2013 seasonal influenza, intradermal, preservative free Mike Oakley MD Work Phone: [facility] 10-29-2007 tetanus and diphther ia toxoids, adsorbed, preservative free, for adult use (5 Lf of tetanus toxoid and 2 Lf of diphtheria toxoid) Mike Oakley MD Work Phone: [facility] Payers Date Payer Category Payer Private Health Insurance [id number] 2006 Medicare [id number] 1959 Medicare [id number] 1959 Unknown [id number] 1940 Unknown [id number] 2.16.84 [id number] 1940 Unknown [id number] 2.16.8 40.1.675932.3.579.2.727 1940 Unknown [id number] 2.16.8 40.1.660709.3.579.2.727 1940 Unknown [id number] 2.16.8 40.1.207065.3.579.2.727 1940 Unknown [id number] 2.16.8 40.1.015845.3.579.2.727 1940 Unknown [id number] 2.16.8 40.1.830134.3.579.2.72 1940 Unknown [id number] 2.16.8 40.1.079664.3.579.2.72 1940 Unknown [id number] 2.16.8 40.1.260567.3.579.2. 1940 Unknown [id number] 2.16.8 40.1.263083.3.579.2. 1940 Unknown [id number] 2.16.8 40.1.061007.3.579.2. 1940 Unknown [id number] 2.16.8 40.1.599222.3.579.2. 1940 Unknown [id number] 2.16.8 40.1.527588.3.579.2. 1940 Unknown [id number] 2.16.8 40.1.751667.3.579.2. 1940 Unknown [id number] 2.16.8 40.1.369954.3.579.2. 1940 Unknown [id number] 2.16.84 0.1.873520.3.579.2.1259 1940 Unknown [id number] 2.16.84 0.1.813157.3.579.2.125 1940 Unknown [id number] 2.16.84 0.1.980901.3.579.2.1259 1940 Unknown [id number] 2.16.84 0.1.284723.3.579.2.1259 1940 Unknown [id number] 2.16.84 0.1.643150.3.579.2.1259 1940 Unknown [id number] 2.16.84 0.1.957852.3.579.2.1259 Unknown Social History Date Type Detail Facility Start: 10-31-2022 End: 12-23-2022 Tobacco smoking status Never smoked tobacco (finding) [facility] Tobacco smoking status Never [facility] Start: 12-14-2023 End: 01-14-2024 Sex Assigned At Male [facility] Start: 10-31-2022 Tobacco use and exposure Smokeless tobacco non-user [facility] Start: 12-14-2023 End: 07-18-2024 Alcoholic beverage intake Ex-drinker (finding) [facility] Start: 12-14-2023 End: 01-14-2024 History of Social function [facility] Start: 08-18-2022 Alcohol Comment Drinks 2-4 madhuri es a month. Caffeine intake: coffee. [facility] Start: 1940 Sex assigned at Not on file [facility] Within the last year , have you been afraid of your partner or ex-partner? No [facility] Are you now , , , , never or living with a partner? [facility] How often to you hav e a drink containing alcohol? Never [facility] Do you feel stress - tense, restless, nervous, or anxious, or unable to sleep at night because your mind is troubled all the time - these days [OSQ] Only a little [facility] (I/We) worried wheth er (my/our) food would run out before (I/we) got money to buy more. Never true [facility] In the past 12 month s, was there a time when you were not able to pay the mortgage or rent on time? Yes [facility] How often do you nee d to have someone help you when you read instructions, pamphlets, or other written material from your doctor or pharmacy [SILS] Sometimes [facility] Functional Status Date Assessment Result Facility 07-18-2024 Patient Health Quest ionnaire 2 item (PHQ-2) [Reported] [facility] 10-01-2023 Functional Status N/A [facility] 09-14-2023 Functional Status N/A [facility] 08-26-2023 Functional Status N/A [facility] 02-24-2023 Functional Status N/A [facility] 01-26-2023 Functional Status N/A [facility] 01-14-2023 Functional Status N/A [facility] 12-23-2022 Functional Status N/A [facility] Clinical Notes 07-06-2022 to 07-18-2024 DAYO Lucio - 07/18/2024 2:00 PM EDTMike Oakley MD - 03/21/2024 10:30 AM DAYO Bennett - 01/12/2024 1:30 PM EDSola Oakley MD - 12/14/2023 8:30 AM EDT Note Date & Type Note Facility 07-18-2024 History of Presen t illness Narrative Images from the original note were not included. HPI Bronchitis Additional comments: He was seen on 07/04/24 and was rx'd Z-elaina and also was diagnosed with CHF and was rx'd Torsemide for 14 days. He is still coughing and is getting up white phlegm. Last edited by Najma Wade LPN on 07/18/2024 2:11 PM. Subjective Patient ID: Salvador Das is a 83 y.o. male who presents for Medicare Annual Wellness Visit Subsequent and Bronchitis (He was seen on 07/04/24 and was rx'd Z-elaina and also was diagnosed with CHF and was rx'd Torsemide for 14 days. He is still coughing and is getting up white phlegm.). HPI Medicare Wellness Over the past 2 weeks, how often have you been bothered by any of the following problems? Little interest or pleasure in doing things: Not at all Feeling down, depressed, or hopeless: Not at all Patient Health Questionnaire-2 Score: 0 Over the past 2 weeks, how often have you been bothered by any of the following problems? Trouble falling or staying asleep, or sleeping too much: Not at all Feeling tired or having little energy: Not at all Poor appetite or overeating: Not at all Feeling bad about yourself - or that you are a failure or have let yourself or your family down: Not at all Trouble concentrating on things, such as reading the newspaper or watching television: Not at all Moving or speaking so slowly that other people could have noticed? Or the opposite - being so fidgety or restless that you have been moving around a lot more than usual.: Not at all Thoughts that you would be better off or hurting yourself in some way: Not at all Patient Health Questionnaire-9 Score: 0 Guevara Fall Risk History of Falling, Immediate or Within 3 Months: No Health Risk Assessment Form Do you need help eating, bathing, using the toilet, dressing, or getting around your home?: No Can you prepare your own meals?: Yes Can you do your own housework without help?: Yes Can you shop for groceries or clothes without help?: Yes Do you exercise for about 20 minutes 3 or more days a week?: No How confident are you that you can control and manage most of your health problems?: Very confident Can you mange your money, credit cards and accounts, pay bills and taxes?: Yes Vision Screening: Yes, no gross abnormalities Hearing Screening: Yes, no gross abnormalities Cognitive Screening Self Assessment: No overt cognitive deficiency is apparent by direct observation Three Word Registration: Village, Kitchen, Baby Clock Drawing: Inability or Refusal to Draw Clock - 0 Three Word Recall: 1/3 words correct - 1 Total Score (0-5 Points): 1 Pain Assessment Pain Score: 2 Advance Care Planning Do you have a living will?: Yes Do you have a medical power of research attorney?: Yes Current Outpatient Medications on File Prior to Visit Medication Sig Dispense Refill aspirin 81 MG EC tablet Take 81 mg by mouth Daily lisinopril 40 MG tablet Take 1 tablet (40 mg) by mouth Daily 90 tablet 2 Multiple Vitamin (multivitamin) capsule Take 1 capsule by mouth Daily [DISCONTINUED] torsemide (Demadex) 20 MG tablet Take 1 tablet (20 mg) by mouth Daily for 14 days 14 tablet 0 No current facility-administered medications on file prior to visit. I have reviewed and reconciled the history and medication list with the patient today. No Known Allergies Social History Tobacco Use Smoking status: Never Smokeless tobacco: Never Vaping Use Vaping status: Never Used Substance Use Topics Alcohol use: Not Currently Comment: Drinks 2-4 times a month. Caffeine intake: coffee. Family History Problem Relation Name Age of Onset Melanoma Neg Hx Past Medical History: Diagnosis Date History of being hospitalized 01/07/2024 Acute Respiratory Failure with Hypoxia, CAP, Acute on Chronic CHF Hyperlipidemia (CMS/HCC) Hypertension (CMS/HCC) Malignant neoplasm of ethmoidal sinus (CMS/HCC) 2014 Right OAB (overactive bladder) Osteoarthritis Past Surgical History: Procedure Laterality Date CATARACT EXTRACTION, BILATERAL 2016 COLONOSCOPY 2009 HERNIA REPAIR x5 OTHER SURGICAL HISTORY Right ethmoidectomy R ant [place] TOTAL KNEE ARTHROPLASTY Right 08/27/2017 [place] TOTAL KNEE ARTHROPLASTY 11/24/2017 TURP / TRANSURETHRAL INCISION / DRAINAGE PROSTATE 05/25/2019 Visit Vitals BP 108/72 Pulse 87 Resp 16 Ht 5' 8.5 Wt 290 lb 9.6 oz SpO2 94% BMI 43.54 kg/m Smoking Status Never BSA 2.53 m Review of Systems Constitutional: Negative for chills, fatigue and fever. HENT: Negative for congestion, ear pain, rhinorrhea, sinus pressure and sore throat. Eyes: Negative for pain, discharge and redness. Respiratory: Positive for cough. Negative for shortness of breath and wheezing. Cardiovascular: Negative for chest pain, palpitations and leg swelling. Gastrointestinal: Negative for abdominal pain, constipation, diarrhea, nausea and vomiting. Genitourinary: Negative for dysuria, frequency and urgency. Musculoskeletal: Negative for arthralgias and back pain. Skin: Negative for rash. Neurological: Negative for dizziness, numbness and headaches. Psychiatric/Behavioral: Negative for confusion, dysphoric mood and sleep disturbance. Objective Physical Exam Constitutional: General: He is not in acute distress. Appearance: He is obese. HENT: Head: Normocephalic and atraumatic. Right Ear: Tympanic membrane and ear canal normal. Decreased hearing noted. Left Ear: Tympanic membrane and ear canal normal. Decreased hearing noted. Nose: Nose normal. Mouth/Throat: Mouth: Mucous membranes are moist. Pharynx: Oropharynx is clear. Eyes: General: No scleral icterus. Extraocular Movements: Extraocular movements intact. Conjunctiva/sclera: Conjunctivae normal. Pupils: Pupils are equal, round, and reactive to light. Neck: Vascular: No carotid bruit. Cardiovascular: Rate and Rhythm: Normal rate and regular rhythm. Pulses: Normal pulses. Pulmonary: Breath sounds: Decreased air movement present. Decreased breath sounds present. No wheezing, rhonchi or rales. Comments: Using O2 via nasal cannula Abdominal: General: Bowel sounds are normal. There is no distension. Palpations: Abdomen is soft. Tenderness: There is no abdominal tenderness. There is no guarding. Musculoskeletal: General: No swelling, tenderness, deformity or signs of injury. Normal range of motion. Cervical back: Normal range of motion. No tenderness. Right lower le+ Edema present. Left lower le+ Edema present. Lymphadenopathy: Cervical: No cervical adenopathy. Skin: General: Skin is warm and dry. Findings: No erythema. Neurological: General: No focal deficit present. Mental Status: He is alert and oriented to person, place, and time. Cranial Nerves: No cranial nerve deficit. Sensory: No sensory deficit. Motor: No weakness. Coordination: Coordination normal. Gait: Gait abnormal (Using walker for ambulation). Psychiatric: Mood and Affect: Mood normal. Behavior: Behavior normal. Thought Content: Thought content normal. Judgment: Judgment normal. Assessment & Plan 1. Medicare annual wellness visit, subsequent (Primary) Reviewed all relevant preventative screenings with the patient in detail. Medicare Wellness form completed and will be scanned into patient's chart. All needed testing was ordered. Will continue with yearly Medicare Wellness exams. 2. ACP (advance care planning) Patient willing to discuss ACP. Pt has Living Will and DPOA in place. 3. Other chronic pain This is a chronic medical condition that is stable since last assessment. No treatment needed at this time. Will continue to monitor. 4. Primary insomnia This is a chronic medical condition that is stable since last assessment. No treatment needed at this time. Will continue to monitor. 5. Oxygen dependent Patient walked in today without having the oxygen in place, and his Pulse Ox was 88% on room air. When nasal cannula with supplemental oxygen was reapplied, pt's Pulse Ox went up to 94%. Encouraged pt to always use the portable oxygen when he is up and walking around. It is medically necessary for him to continue supplemental oxygen. 6. Panlobular emphysema (CMS/HCC) This is a chronic medical condition that is stable since last assessment. No changes in treatment are suggested at this time. Continue supplemental oxygen. 7. Arteriosclerosis of both carotid arteries This is a chronic medical condition that is stable since last assessment. No changes in treatment are suggested at this time. Continue with Aspirin daily. 8. Benign essential hypertension (CMS/HCC) Patient's blood pressure is currently well controlled. Continue with current medications and I will continue to monitor. Goal BP remains less than 130/80. 9. Chronic diastolic CHF (congestive heart failure), NYHA class 1 (CMS/HCC) This is a chronic medical condition that is stable since last assessment. No changes in treatment are suggested at this time. Continue supplemental oxygen and Lisinopril as prescribed. 10. Chronic venous insufficiency Stable at this time following recent two weeks of Torsemide. Will continue to monitor. Elevate legs when possible. 11. Electrocardiogram abnormal This is a chronic medical condition that is stable since last assessment. No changes in treatment are suggested at this time. Continue with Lisinopril and Aspirin daily. 12. LVH (left ventricular hypertrophy) This is a chronic medical condition that is stable since last assessment. No changes in treatment are suggested at this time. Continue with Lisinopril and Aspirin daily. 13. Diverticulosis of colon This is a chronic medical condition that is stable since last assessment. No treatment indicated at this time. 14. BPH without obstruction/lower urinary tract symptoms The patient is seeing a medical assistant cardiology for this condition, treatment is deferred to that specialist. Correspondence from that specialist and any available testing were reviewed during today's visit. 15. Hypertonicity of bladder The patient is seeing a medical assistant cardiology for this condition, treatment is deferred to that specialist. Correspondence from that specialist and any available testing were reviewed during today's visit. 16. OAB (overactive bladder) The patient is seeing a medical assistant cardiology for this condition, treatment is deferred to that specialist. Correspondence from that specialist and any available testing were reviewed during today's visit. 17. Displacement of lumbar intervertebral disc This is a chronic medical condition that is stable since last assessment. No treatment indicated at this time. 18. Generalized osteoarthritis This is a chronic medical condition that is stable since last assessment. No treatment indicated at this time. 19. Lumbosacral spondylosis without myelopathy This is a chronic medical condition that is stable since last assessment. No treatment indicated at this time. 20. Chronic pain of left knee This is a chronic medical condition that is stable since last assessment. No treatment indicated at this time. 21. Chronic pain of right knee This is a chronic medical condition that is stable since last assessment. No treatment indicated at this time. 22. Primary osteoarthritis of left knee This is a chronic medical condition that is stable since last assessment. No treatment indicated at this time. 23. Primary osteoarthritis of right knee This is a chronic medical condition that is stable since last assessment. No treatment indicated at this time. 24. Class 3 severe obesity due to excess calories with serious comorbidity and body mass index (BMI) of 40.0 to 44.9 in adult Encouraged portion control, decrease simple sugars and carbohydrates, gradually increase activity level. Aim for gradual steady weight loss. 25. Actinic keratosis Can refer to Dermatology as needed for any concerning lesions. H/o AK, no current concerns. 26. Difficulty walking Using rolling walker for ambulation. No recent falls. 27. Elevated LDL cholesterol level (CMS/HCC) This is a chronic medical condition that is stable since last assessment. Will continue to monitor with routine labs. 28. History of total bilateral knee replacement This is a chronic medical condition that is stable since last assessment. No treatment indicated at this time. 29. Hyponatremia This is a chronic medical condition that is stable since last assessment. Will continue to monitor with routine labs. 30. Localized edema Stable at this time following recent two weeks of Torsemide. Will continue to monitor. Elevate legs when possible. 31. Urinary hesitancy The patient is seeing a medical assistant cardiology for this condition, treatment is deferred to that specialist. Correspondence from that specialist and any available testing were reviewed during today's visit. Follow up in about 4 months (around 11/17/2024) for Hypertension. BLAINE FayC documented in this encounter [facility] 03-21-2024 History of Presen t illness Narrative Images from the original note were not included. Subjective Patient ID: Salvador Das is a 83 y.o. male who presents for Congestive Heart Failure and Hypertension. Hypertension Patient is here for follow-up of elevated blood pressure. Blood pressure is well controlled at home. Cardiac symptoms: none. Patient denies chest pain, claudication, near-syncope, paroxysmal nocturnal dyspnea, and syncope. Cardiovascular risk factors: advanced age (older than 55 for men, 65 for women), hypertension, male gender, and obesity (BMI >= 30 kg/m2). Congestive Heart Failure Patient presents for re-evaluation of congestive heart failure. Patient's current complaints are none. He denies chest pain, irregular heart beat, near-syncope, paroxysmal nocturnal dyspnea, and syncope. He states he is compliant all of the time with his medications. Pt states he wears oxygen forgot to put it back on after he got dressed to come to office today Congestive Heart Failure Pertinent negatives include no chest pain, palpitations or shortness of breath. Hypertension Pertinent negatives include no chest pain, palpitations or shortness of breath. Current Outpatient Medications on File Prior to Visit Medication Sig Dispense Refill aspirin 81 MG EC tablet Take 81 mg by mouth in the morning. lisinopril 40 MG tablet Take 1 tablet (40 mg) by mouth Daily 90 tablet 2 Multiple Vitamin (multivitamin) capsule Take 1 capsule by mouth in the morning. simvastatin (Zocor) 40 MG tablet Take 1 tablet (40 mg) by mouth Daily 90 tablet 3 sodium chloride 1 g tablet Take 1 tablet (1 g) by mouth in the morning and 1 tablet (1 g) in the evening and 1 tablet (1 g) before bedtime. 90 tablet 1 No current facility-administered medications on file prior to visit. I have reviewed and reconciled the history and medication list with the patient today. No Known Allergies Social History Tobacco Use Smoking status: Never Smokeless tobacco: Never Vaping Use Vaping status: Never Used Substance Use Topics Alcohol use: Not Currently Comment: Drinks 2-4 times a month. Caffeine intake: coffee. Family History Problem Relation Name Age of Onset Melanoma Neg Hx Past Medical History: Diagnosis Date History of being hospitalized 01/07/2024 Acute Respiratory Failure with Hypoxia, CAP, Acute on Chronic CHF Hyperlipidemia (CMS/HCC) Hypertension (CMS/HCC) Malignant neoplasm of ethmoidal sinus (CMS/HCC) 2014 Right OAB (overactive bladder) Osteoarthritis Past Surgical History: Procedure Laterality Date CATARACT EXTRACTION, BILATERAL 2016 COLONOSCOPY 2009 HERNIA REPAIR x5 OTHER SURGICAL HISTORY Right ethmoidectomy R ant [place] TOTAL KNEE ARTHROPLASTY Right 08/27/2017 [place] TOTAL KNEE ARTHROPLASTY 11/24/2017 TURP / TRANSURETHRAL INCISION / DRAINAGE PROSTATE 05/25/2019 Visit Vitals Ht 5' 8.5 BMI 41.83 kg/m Smoking Status Never BSA 2.48 m Review of Systems HENT: Positive for sinus pressure and sinus pain. Respiratory: Positive for cough. Negative for shortness of breath, wheezing and stridor. Cardiovascular: Negative for chest pain, palpitations and leg swelling. Objective Physical Exam Constitutional: General: He is not in acute distress. Appearance: He is normal weight. He is not ill-appearing. HENT: Head: Normocephalic. Cardiovascular: Rate and Rhythm: Normal rate and regular rhythm. Heart sounds: Normal heart sounds. No murmur heard. Pulmonary: Effort: Pulmonary effort is normal. Breath sounds: Wheezing and rhonchi present. Musculoskeletal: General: No swelling. Right lower leg: No edema. Left lower leg: No edema. Neurological: Mental Status: He is alert. Psychiatric: Mood and Affect: Mood normal. Thought Content: Thought content normal. Judgment: Judgment normal. Assessment/Plan Diagnoses and all orders for this visit: Benign essential hypertension (CMS/HCC) - Basic metabolic panel; Future Hyponatremia - Basic metabolic panel; Future - He is currently not taking his sodium tablets. Acute non-recurrent sinusitis, unspecified location - cefdinir (Omnicef) 300 MG capsule; Take 1 capsule (300 mg) by mouth in the morning and 1 capsule (300 mg) before bedtime. Do all this for 7 days. No follow-ups on file. documented in this encounter [facility] 01-12-2024 History of Presen t illness Narrative Images from the original note were not included. Subjective Patient ID: Salvador Das is a 83 y.o. male who presents for hospital follow up. Salvador is present today for [facility] follow up. Dx. Pneumonia. Admits he is still SOB, he is still taking the ATB. He was feeling better but today he feels a little nauseated. He does have O2 at home and he does just use if off/on. His pulse ox sitting is 87% on room air, walking 86% on room air, with O2 2 liters via nasal cannula oxygen is 96% while sitting. Feels a little worse this afternoon, but otherwise is feeling ok. Current Outpatient Medications on File Prior to Visit Medication Sig Dispense Refill cefuroxime (Ceftin) 500 MG tablet Take 500 mg by mouth every 12 (twelve) hours aspirin 81 MG EC tablet Take 81 mg by mouth in the morning. lisinopril 40 MG tablet Take 1 tablet (40 mg) by mouth Daily 90 tablet 2 Multiple Vitamin (multivitamin) capsule Take 1 capsule by mouth in the morning. simvastatin (Zocor) 40 MG tablet Take 1 tablet (40 mg) by mouth Daily 90 tablet 3 sodium chloride 1 g tablet Take 1 tablet (1 g) by mouth in the morning and 1 tablet (1 g) in the evening and 1 tablet (1 g) before bedtime. 90 tablet 1 No current facility-administered medications on file prior to visit. I have reviewed and reconciled the history and medication list with the patient today. No Known Allergies Social History Tobacco Use Smoking status: Never Smokeless tobacco: Never Vaping Use Vaping status: Never Used Substance Use Topics Alcohol use: Not Currently Comment: Drinks 2-4 times a month. Caffeine intake: coffee. Family History Problem Relation Name Age of Onset Melanoma Neg Hx Past Medical History: Diagnosis Date History of being hospitalized 01/07/2024 Acute Respiratory Failure with Hypoxia, CAP, Acute on Chronic CHF Hyperlipidemia (CMS/HCC) Hypertension (CMS/HCC) Malignant neoplasm of ethmoidal sinus (CMS/HCC) 2014 Right OAB (overactive bladder) Osteoarthritis Past Surgical History: Procedure Laterality Date CATARACT EXTRACTION, BILATERAL 2016 COLONOSCOPY 2009 HERNIA REPAIR x5 OTHER SURGICAL HISTORY Right ethmoidectomy R ant [place] TOTAL KNEE ARTHROPLASTY Right 08/27/2017 [place] TOTAL KNEE ARTHROPLASTY 11/24/2017 TURP / TRANSURETHRAL INCISION / DRAINAGE PROSTATE 05/25/2019 Visit Vitals BP 128/78 (BP Location: Left arm) Pulse 99 Temp 98.7 F Resp 16 Ht 5' 8.5 Wt 279 lb 3.2 oz SpO2 (!) 87% BMI 41.83 kg/m Smoking Status Never BSA 2.48 m Review of Systems Constitutional: Negative for chills, fatigue and fever. Respiratory: Positive for shortness of breath. Negative for cough and wheezing. Cardiovascular: Negative for chest pain, palpitations and leg swelling. Gastrointestinal: Negative for abdominal pain, constipation, diarrhea, nausea and vomiting. Skin: Negative for rash. Objective Physical Exam Constitutional: General: He is not in acute distress. Appearance: He is obese. HENT: Head: Normocephalic and atraumatic. Eyes: General: No scleral icterus. Cardiovascular: Rate and Rhythm: Normal rate and regular rhythm. Heart sounds: No murmur heard. Pulmonary: Effort: Pulmonary effort is normal. No respiratory distress. Breath sounds: Decreased air movement present. Decreased breath sounds present. No wheezing, rhonchi or rales. Comments: Occasional moist cough Musculoskeletal: General: No swelling. Skin: General: Skin is warm and dry. Neurological: General: No focal deficit present. Mental Status: He is alert and oriented to person, place, and time. Psychiatric: Mood and Affect: Mood normal. Behavior: Behavior normal. Assessment/Plan Diagnoses and all orders for this visit: Acute respiratory failure with hypoxia (CMS/HCC) The patient was seen today in follow up of recent hospital stay. All available hospital records were reviewed and discussed with the patient. Hospital discharge meds were reviewed. Any changes are as noted. Community acquired pneumonia, unspecified laterality Finish antibiotic as prescribed by the hospital. Patient is overall feeling better. Having some phlegm. Encouraged Mucinex OTC. Acute on chronic congestive heart failure, unspecified heart failure type (CMS/HCC) ECHO on 01/08/2024 showed EF 55-60%. He states his SOB is improved since being discharged from the hospital. Oxygen dependent It is medically necessary for pt to have supplemental oxygen. Needs portable oxygen concentrator because of hypoxia while walking. Benign essential hypertension (CMS/HCC) Patient's blood pressure is currently well controlled. Continue with current medications and I will continue to monitor. Goal BP remains less than 130/80. Follow up for Appointment As Scheduled. documented in this encounter [facility] 01-09-2024 Note Gram Stain Evaluation This specimen is of good quality and is acceptable for routine [facility] 01-09-2024 Note [facility] GRAM STAIN EVALUATION bacterial culture. [facility] 12-14-2023 History of Present illness Narrative Images from the original note were not included. Subjective Patient ID: Salvador Das is a 83 y.o. male who presents for OAB. Looks as tough he needs lab work ,pt is fasting Questions on sodium pill, and if he needs to still them Current Outpatient Medications on File Prior to Visit Medication Sig Dispense Refill aspirin 81 MG EC tablet Take 81 mg by mouth in the morning. lisinopril 40 MG tablet Take 1 tablet (40 mg) by mouth Daily 90 tablet 2 Multiple Vitamin (multivitamin) capsule Take 1 capsule by mouth in the morning. simvastatin (Zocor) 40 MG tablet Take 1 tablet (40 mg) by mouth Daily 90 tablet 3 sodium chloride 1 g tablet Take 1 tablet (1 g) by mouth in the morning and 1 tablet (1 g) in the evening and 1 tablet (1 g) before bedtime. 90 tablet 1 [DISCONTINUED] lisinopril 40 MG tablet Take 1 tablet (40 mg) by mouth Daily [DISCONTINUED] simvastatin (Zocor) 40 MG tablet TAKE 1 TABLET BY MOUTH EVERY DAY 90 tablet 3 No current facility-administered medications on file prior to visit. I have reviewed and reconciled the history and medication list with the patient today. No Known Allergies Social History Tobacco Use Smoking status: Never Smokeless tobacco: Never Vaping Use Vaping status: Never Used Substance Use Topics Alcohol use: Not Currently Comment: Drinks 2-4 times a month. Caffeine intake: coffee. Family History Problem Relation Name Age of Onset Melanoma Neg Hx Past Medical History: Diagnosis Date Hyperlipidemia (CMS/HCC) Hypertension (CMS/HCC) Malignant neoplasm of ethmoidal sinus (CMS/HCC) 2014 Right OAB (overactive bladder) Osteoarthritis Past Surgical History: Procedure Laterality Date CATARACT EXTRACTION, BILATERAL 2016 COLONOSCOPY 2009 HERNIA REPAIR x5 OTHER SURGICAL HISTORY Right ethmoidectomy R ant [place] TOTAL KNEE ARTHROPLASTY Right 08/27/2017 [place] TOTAL KNEE ARTHROPLASTY 11/24/2017 TURP / TRANSURETHRAL INCISION / DRAINAGE PROSTATE 05/25/2019 Visit Vitals BP 138/88 Pulse 76 Ht 5' 8.5 Wt 282 lb SpO2 94% BMI 42.25 kg/m Smoking Status Never BSA 2.49 m Review of Systems Objective Physical Exam Constitutional: General: He is not in acute distress. Appearance: He is obese. HENT: Head: Normocephalic and atraumatic. Eyes: General: No scleral icterus. Cardiovascular: Rate and Rhythm: Normal rate and regular rhythm. Heart sounds: No murmur heard. Pulmonary: Effort: Pulmonary effort is normal. No respiratory distress. Breath sounds: Decreased breath sounds present. No wheezing, rhonchi or rales. Musculoskeletal: General: No swelling. Skin: General: Skin is warm and dry. Neurological: General: No focal deficit present. Mental Status: He is alert and oriented to person, place, and time. Psychiatric: Mood and Affect: Mood normal. Behavior: Behavior normal. Assessment/Plan Diagnoses and all orders for this visit: Benign essential hypertension (CMS/HCC) - CBC and differential - Comprehensive metabolic panel; Future - This is a chronic medical condition that is stable since last assessment. No changes in treatment are suggested at this time. Hyponatremia - CBC and differential - Comprehensive metabolic panel; Future Elevated LDL cholesterol level (CMS/HCC) - Lipid panel; Future Obesity (BMI 30-39.9) - TSH W/REFLEX TO FT4; Future Follow up in about 3 months (around 03/14/2024) for Routine F/U. documented in this encounter [facility] 10-01-2023 Hospital Discharge instructions Patient Education 10/01/2023 [...] your health care provider. General instructions Take rncd-sfd-bwqacfa and prescription medicines only as told by [...] provider. Document Revised: 11/26/2020 Document Reviewed: 11/26/2020 [employer] Patient Education 2022 [employer]. Follow Up Care 09/30/2023 08:22:37 With:ROMULO Vera APRN, Janay Brown, ADAN, URL Address: When: Unknown [facility] 10-01-2023 Note Patient Education Obstetrics and Gynecology [...] health care provider. General instructions ? Take jxwh-pkb-poooihd and prescription medicines only as told by [...] your health care (more content not included)... [facility] 09-14-2023 Hospital Discharge instructions Patient Education [...] follow up in 2 weeks with [facility] 09-14-2023 Note [id number]#[id number] [facility] 09-14-2023 Note Cystoscopy with Boto x [...] a fever over 100 degrees. [facility] 08-26-2023 Hospital Discharge instructions Patient Education [...] including vitamins, herbs, eye drops, creams, and cnpo-yqu-ybeslqh medicines. Any problems you or family members [...] provider tells you to take them. Taking hion-eez-fnwuhwl medicines, vitamins, herbs, and supplements. General instructions [...] Follow these instructions at home: Medicines Take gyll-tmf-kbvrgoh and prescription medicines only as told by [...] provider. Document Revised: 09/13/2021 Document Reviewed: 09/13/2021 [employer] Patient Education 2022 [employer]. Follow Up Care 02/24/2023 13:31:49 With:Nick VASQUEZ, Gianna Johnson URAdelaide, URO Address: [address] [place] [phone] When: Unknown [facility] 02-25-2023 Note [id number]#[id number] [facility] 02-24-2023 Hospital Discharge instructions Patient Education [...] urethra. Follow these instructions at home: Take lmmx-cum-jqqekfb and prescription medicines only as told by [...] provider. Document Revised: 09/25/2021 Document Reviewed: 09/25/2021 [employer] Patient Education 2022 [employer]. Follow Up Care 12/23/2022 14:53:34 With:Gianna Romero MD, URL, URO Address: [facility] [address], [facility] [place] [address]- [phone] When: Unknown Comments:6 mos w/ [facility] 01-26-2023 Hospital Discharge instructions Patient Education [...] follow up in 2-3 weeks with [facility] 01-26-2023 Evaluation + Plan note Extrac tomy from: Title:[facility] HOPD Note Author:Gianna Romero MD Date:01/26/23 Impression and Plan Assessment and Plan: Diagnosis: Acute orchitis (PJC98-MI N45.2, Discharge, Medical), Feeling of incomplete bladder emptying (LIO02-VA R39.14, Billing Diagnosis, Medical), OAB (overactive bladder) (NKK81-CY N32.81, Discharge, Medical). 82 yo M prior [...] Date:02/10/2023 09:30:00 AM Scheduled Provider:THERESE CRUMP PA-C Location:[facility] Appointment Type:URO Office Visit Appointment Date:02/24/2023 01:00:00 PM Scheduled Provider:THERESE CRUMP PA-C Location:[facility] Appointment Type:URO Office Visit [facility]11-06-2023 Note [id number] NoteCystoscopy ? Voiding after the [...] have a fever over 100 degrees.[facility] 01-07-2023 Hospital Discharge instructions Follow Up Care 01/07/2023 08:28:45 With:Nick VASQUEZ, BLANK Garza, URO Address: When:Within 1 Month(s) Comments:pending fill and pull.f/u with KMAdelaide or NAVEEN [facility] 10-03-2023 Hospital Discharge instructions Patient Education 12/23/2022 [...] to keep your urine pale yellow. ?Take slvo-ile-clacnaz or prescription medicines. ?Eat foods that are high in fiber, such as beans, whole grains, and fresh fruits and vegetables. ?Limit foods that are high in fat and processed sugars, such as fried or sweet foods. General instructions Take nsfk-ccn-tzupavl and prescription medicines only as told by [...] the muscles that help control urination. Take gjxu-onq-rbhhzlk and prescription medicines only as told by your health care provider. Contact a health care provider if your symptoms do not improve or get worse. This information is not intended to replace advice given to you by your health care provider. Make sure you discuss any questions you have with your health care provider. Document Revised: 10/12/2020 Document Reviewed: 10/12/2020 [employer] Patient Education 2022 [employer]. Follow Up Care 12/15/2022 09:46:05 With:THERESE CRUMP PA-C, URL Address: [address] [facility] [place] [address] [phone] When: Unknown [facility] [...] Electronically authenticated by: DEANNA BRITO Date: 2022-07-06 10:44[facility] Future Appointments Appointment Date:02/24/2023 01:00:00 PM Scheduled Provider:THERESE CRUMP PA-C Location:[facility] Appointment Type:URO Office Visit [facility] evaluation + Plan note Future Appointments Appointment Date:02/24/2023 01:00:00 PM Scheduled Provider:THERESE CRUMP PA-C Location:[facility] Appointment Type:URO Office Visit Diagnostic Tests Pending * Urine [facility]ments Appointment Date:01/21/2023 11:00:00 AM Scheduled Provider: Location:[facility] Appointment Type:URO Nurse Visit Appointment Date:02/24/2023 01:00:00 PM Scheduled Provider:THERESE CRUMP PA-C Location:[facility] Appointment Type:URO Office Visit [facility] evaluation + Plan note Future Appointments Appointment Date:08/26/2023 10:00:00 AM Scheduled Provider:Gianna Romero MD Location:[facility] Appointment Type:URO Office Visit [facility] evaluation + Plan note Future Appointments Appointment Date:09/10/2023 10:30:00 AM Scheduled Provider: Location:[facility] Appointment Type:Urology CALL PAT FT Appointment Date:09/14/2023 11:15:00 AM Scheduled Provider: Location:[facility] Appointment Type:Urology FT [facility] evaluation + Plan note Future Appointments Appointment Date:09/10/2023 10:30:00 AM Scheduled Provider: Location:[facility] Appointment Type:Urology CALL PAT FT Appointment Date:09/14/2023 11:15:00 AM Scheduled Provider: Location:[facility] Appointment Type:Urology FT Diagnostic Tests Pending * Urine Culture [facility] App[facility]ments Appointment Date:09/30/2023 09:30:00 AM Scheduled Provider:Gianna Romero MD Location:[facility] Future App[facility]ments Appointment Date:10/01/2023 01:00:00 PM Scheduled Provider:ROMULO Vera APRN, [place] X Location:[facility] Appointment Type:URO Office Visit [facility] Evaluation note* Diagnosis Acute respiratory failure with hypoxia (CMS/HCC)- Primary Community acquired pneumonia, unspecified laterality Acute on chronic congestive heart failure, unspecified heart failure type (CMS/HCC) 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* Diagnosis Benign essential hypertension (CMS/HCC)- Primary Essential hypertension, benign Hyponatremia Hyposmolality and/or hyponatremia Elevated LDL cholesterol level ([facility]) Obesity (BMI 30-39.9) documented in this encounter [facility]* Diagnosis Benign essential hypertension (CMS/HCC)- Primary Essential hypertension, benign Hyponatremia Hyposmolality and/or hyponatremia Acute non-recurrent sinusitis, unspecified location documented in this encounter 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 ([facility]) Other emphysema Arteriosclerosis of both carotid arteries Benign essential hypertension (CMS/HCC) Essential hypertension, benign Chronic diastolic CHF (congestive heart failure), NYHA class 1 (CMS/HCC) Chronic venous insufficiency Unspecified venous (peripheral) insufficiency Electrocardiogram abnormal Nonspecific abnormal electrocardiogram (ECG) (EKG) LVH (left ventricular hypertrophy) Cardiomegaly Diverticulosis of colon Diverticulosis of colon (without mention of hemorrhage) 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 OAB (overactive bladder) 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 myelopathy Generalized osteoarthritis Generalized osteoarthrosis, involving multiple sites Lumbosacral spondylosis without myelopathy Chronic pain of left knee Chronic pain of right knee Primary osteoarthritis of left knee Primary osteoarthritis of right knee Class 3 severe obesity due to excess calories with serious comorbidity and body mass index (BMI) of 40.0 to 44.9 in adult Actinic keratosis Difficulty walking Difficulty in walking Elevated LDL cholesterol level ([facility]) History of total bilateral knee replacement Hyponatremia Hyposmolality and/or hyponatremia Localized edema Edema Urinary hesitancy documented in this encounter [facility] Healthcare[facility] course Narrative No data available for this section [facility] Discharge instructions No data available for this section [facility] No data available for this section [facility] [place] Summary Purpose Family History No Family History [...] this section No Family History Records Found Advance Directives No [...] section and content) DATE CREATED AUTHOR 09/08/2017 [facility] DATE CREATED AUTHOR AUTHOR'S ORGANIZ ATION 07/09/2022 [facility] DATE CREATED AUTHOR AUTHOR'S ORGANIZ ATION 08/30/2023 [facility] DATE CREATED AUTHOR AUTHOR'S ORGANIZ ATION 01/10/2024 [facility] DATE CREATED AUTHOR AUTHOR'S ORGANIZ ATION 07/19/2024 [facility] EPIC Patient Care team informatio n (unrecognized section and content) Equipment Coordinator Relationship Specialty Start Date End Date Mike Oakley MD [address] [place] [address] PCP - General Internal Medicine 08/06/22 Mike Oakley MD [address] [place] [address] PCP - ACO Reach 08/14/22 Equipment Coordinator Relationship Specialty Start Date End Date Mike Oakley MD [address] [place] [address] PCP - General Internal Medicine 08/06/22 Mike Oakley MD [address] [place] [address] PCP - ACO Reach 08/14/22 Equipment Coordinator Relationship Specialty Start Date End Date Mike Oakley MD [address] [place] [address] PCP - General Internal Medicine 08/06/22 Mike Oakley MD [address] [place] [address] PCP - ACO Reach 08/14/22ThursdayTrini LPN [address] [place] [address] Licensed Practical Nurse Family Medicine 01/13/24 Equipment Coordinator Relationship Specialty Start Date End Date Mike Oakley MD [address] [place] [address] PCP - General Internal Medicine 08/06/22 Mike Oakley MD [address] [place] [address] PCP - ACO Reach 08/14/22 Equipment Coordinator Relationship Specialty Start Date End Date Mike Oakley MD [address] [place] [address] PCP - General Internal Medicine 08/06/22 Mike Oakley MD [address] [place] [address] PCP - ACO Reach 08/14/22ThursdayTrini LPN [address] [place] [address] Licensed Practical Nurse Family Medicine 01/13/24 Equipment Coordinator Relationship Specialty Start Date End Date Mike Oakley MD [address] [place] [address] PCP - General Internal Medicine 08/06/22 Mike Oakley MD [address] [place] [address] PCP - ACO Reach 08/14/22ThursdayTrini LPN [address] [place] [address] Licensed Practical Nurse Family Medicine 01/13/24 Equipment Coordinator Relationship Specialty Start Date End Date Mike Oakley MD [address] [place] [address] PCP - General Internal Medicine 08/06/22 Mike Oakley MD [address] [place] [address] PCP - ACO Reach 08/14/22 Alissa Marina LPN 06/10/24 Equipment Coordinator Relationship Specialty Start Date End Date Mike Oakley MD [address] [place] [address] PCP - General Internal Medicine 08/06/22 Mike Oakley MD [address] [place] [address] PCP - ACO Reach 08/14/22 Alissa Marina LPN 06/10/24 Equipment Coordinator Relationship Specialty Start Date End Date Mike Okaley MD [address] [facility] [address] [place] [address] PCP - General Internal Medicine 08/06/22 Mike Oakley MD [address] [facility] [address] [place] [address] PCP - ACO Reach 08/14/22 Alissa Marina LPN 06/10/24 Reason for Visit (unrecogniz ed section and content) Reason Comments OAB Reason Comments Congestive Heart Failure Hypertension Reason Comments Medicare Annual Wellness Visit Subsequen t Bronchitis He was seen on and was rx'd Z-elaina and also was diagnosed with CHF and was rx'd Torsemide for 14 days. He is still coughing and is getting up white phlegm. FOR RECORDS PERTAINING TO PATIENTS WHO ARE [...] BE BASED ON THE PRIMARY CLINICAL RECORDS. [employer] [facility]. provides no warranty or guarantee of the accuracy or completeness of information in this document.
--- OUTSIDE RECORDS SUMMARY | 2024-10-02 07:47 | XMS_ITS | Encounter Summary ---
Author Organization [facility] Address [address] [place] [address] Care Team Providers Care Brake Operator Sheet Metal Name Role Phone Mike Oaklye MD Primary Care Provider [phone] Mike Oakley MD Unavailable [phone] Jaimie Mooney RN Unavailable [phone] Alissa Marina LPN Unavailable Encounter Details Date Type Department Care Team (Late st Contact Info) Description 05/05/2024 Abstract [facility] [address] [facility] [address] [place] [id number] Mike Oakley MD [address] [facility] [address] [place] [address] Social History Tobacco Use Types [...] and Family Not on file 01/14/2024 Attends [employer] Services Not on file 01/13 Active Member [...] and heating? Not hard at all 01/14/2024 [facility] of Occupat ional Health - Occupational Stress [...] time in the past 12 m [facility], were you homeless or living in a prison (including now)? No 01/14/2024 Sex and Gender [...] Visit [facility] [address] [facility] [address] [place] [address] Mike Oakley MD [address] [facility] [address] [place] [address] documented as of this encounter Visit Diagnoses Not on filedocumented in this encounter Care Teams Brake Operator Sheet Metal Relationship Specialty Start Date End Date Mike Oakley MD [address] [facility] [address] [place] [address] PCP - General Internal Medicine 08/06/22 Mike Oakley MD [address] [place] [address] PCP - ACO Reach 08/14/22 Jaimie Mooney, CARL [address] [place] [address] Licensed Practical Nurse Family Medicine 04/29/24 06/10/24 Alissa Marina LPN [address] [facility] [address] [place] [id number] 06/10/24 documented as of this encounter
--- OUTSIDE RECORDS SUMMARY | 2024-10-02 07:47 | XMS_ITS | Clinical Summary ---
Author Organization [facility] Address [address] [place] [address] Care Team Providers Care Interlocking Machine Operator Name Role Phone Mike Oakley MD Primary Care Provider [phone] Mike Oakley MD Unavailable [phone] Alissa Marina LPN Unavailable Allergies No known active allergies Medications Multiple Vitamin (multivitamin) capsule Take 1 capsule by mouth Daily Active aspirin 81 MG EC tablet Take 81 mg by mouth Daily Active lisinopril 40 MG tabletIndications :Benign essential hypertension TAKE 1 TABLET BY MOUTH EVERY DAY 90 tablet 2 Active Active Problems Problem Noted Date Diagnosed Date Class 3 severe obesity due t o excess calories with serious comorbidity and body mass index (BMI) of 40.0 to 44.9 in adult 07/18/2024 LVH (left ventricular hypertrophy) 07/04/2024 Chronic diastolic CHF (conge stive heart failure), NYHA class 1 07/04/2024 Panlobular emphysema 05/05/2024 Oxygen dependent 01/12/2024 Hyponatremia 12/14/2023 Actinic keratosis 08/19/2022 Arteriosclerosis of carotid artery 08/19/2022 Benign essential hypertension 08/19/2022 Chronic venous insufficiency 08/19/2022 Difficulty walking 08/19/2022 Displacement of lumbar intervertebral disc 08/19 Diverticulosis of colon 08/19/2022 Electrocardiogram abnormal 08/19/2022 Elevated LDL cholesterol level 08/19/2022 Generalized osteoarthritis 08/19/2022 History of total knee replacement 08/19/2022 BPH without obstruction/lower urinary tract symp toms 08/19/2022 Hypertonicity of bladder 08/19/2022 OAB (overactive bladder) 08/19/2022 Localized edema 08/19/2022 Lumbosacral spondylosis without myelopathy 08/19 Other chronic pain 08/19/2022 Pain in left knee 08/19/2022 Pain in right knee 08/19/2022 Primary insomnia 08/19/2022 Primary osteoarthritis of left knee 08/19/2022 Primary osteoarthritis of right knee 08/19/2022 Urinary hesitancy 08/19/2022 Resolved Problems Problem Noted Date Diagnosed Date Resolved Date Acute monoarthritis 08/19/2022 08/22/19 Obesity (BMI 30-39.9) 08/19/20222024 Encounters Date Type Department Care Team Description 09/05/2024 Patient Outreach [facility] [address] [place] [address] Jaimie Mooney RN 08/23/2024 Refill [facility] [address] [facility] [address] [place] [address] Mike Oakley MD Benign essential hypertension 07/20/2024 Abstract [facility] [address] [facility] [address] [place] [address] Mike Oakley MD 07/18/2024 2:00 PM EDT Office Visit [facility] [address] [facility] [address] [place] [address] Alyssa Lopez PA Medicare annual wellness visit, subsequent (Primary Dx); ACP (advance care planning); Other chronic pain; Primary insomnia; Oxygen dependent; Panlobular emphysema (HCC); Arteriosclerosis of both carotid arteries; Benign essential hypertension ; Chronic diastolic CHF (congestive heart failure), NYHA class 1 (HCC); Chronic venous insufficiency; Electrocardiogram abnormal; LVH (left [...] (BMI) of 40.0 to 44.9 in adult ([facility]); Actinic keratosis; Difficulty walking; Elevated LDL cholesterol level ; History of total bilateral knee replacement; Hyponatremia; Localized edema; Urinary hesitancy 07/18/2024 Bamboo flowsheet [facility] [address] [facility] [address] [place] [address] Alyssa Lopez PA 07/18/2024 Travel 07/11/2024 Telephone [facility] 100 112 [facility] [address] [place] [address] Alyssa Lopez PA 07/04/2024 11:15 AM EDT Office Visit [facility] 112 [facility] [address] [place] [address] Mike Oakley MD Arteriosclerosis of carotid artery, unspecified laterality (Primary Dx); Morbid (severe) obesity due to excess calories ([facility]); Body mass index (BMI) 40.0-44.9, adult ([facility]); Panlobular emphysema ([facility]); Elevated LDL cholesterol level ; LVH (left ventricular hypertrophy); Acute on chronic diastolic CHF (congestive heart failure) ([facility]); Acute bronchitis, unspecified organism 07/04/2024 Reonomyboo flowsheet [facility] 112 [facility] [address] [place] [address] Mike Oakley MD 07/04/2024 Travel from Last 3 Months Immunizations Immunization Administration Dates Next Due Influenza, High Dose Seasona l, Preservative Free 02/02/2024,01/30/2021 Influenza, High-dose Seasona l, Quadrivalent, Preservative Free 12/02/2021,01/25/2019,01/11/2018,12/11 Influenza, injectable, quadr ivalent, preservative free 01/04/2020 Influenza, seasonal, injectable 12/29/2022,01/09 Influenza, seasonal, intrade rmal, preservative free 12/11/2014,01/03/2013 Moderna SARS-CoV-2 50mcg/0.5mL Booster Pfizer Purple Cap SARS-CoV-2 Vaccination 12/29/2022,06/20/2021 Pneumococcal Conjugate PCV 13 05/23/2015 Pneumococcal Polysaccharide PPSV23 02/01/2014 RSV, recombinant, protein cornejo bunit RSVpreF, adjuvant reconstitu, 120mcg/0.5mL, PF (Arexvy) 06/17/2023 SARS-CoV-2, Unspecified 06/20/2021 Td (adult), 5 Lf tetanus tox oid, preservative free, adsorbed 10/29/2007 Zoster, Recombinant 07/11/2021,04/09/2021 Zoster, live 01/18/2014 Family History Medical History Relation Name Comments Melanoma Neg Hx Relation Name Status Comments Father Mother Social History Tobacco Use Types Packs/Day Years Used Date Smoking Tobacco: Never Smokeless Tobacco: Never Tobacco Cessation:Counseling Given: Not Answered Alcohol Use Standard Drinks/Week Comments Not Currently [...] and Family Not on file 01/14/2024 Attends Quaker Services Not on file 01/13 Active Member [...] and heating? Not hard at all 01/14/2024 PHQ-2 Answer Date Recorded Patient Health Questionnaire-2 Score 0 07/18/2024 [facility] of Occupat ional Health - Occupational Stress [...] time in the past 12 m [facility], were you homeless or living in a [place] health care facility (including now)? No 01/14/2024 Sex and Gender Information Value Date Recorded Sex Assigned at Not on file Legal Sex Male 6:41 PM EDT Gender Identity Not on file Sexual Orientation Not on file Last Filed Vital Signs Vital Sign Reading Time Taken Comments Blood Pressure 108/72 07/18/2024 2:12 PM EDT Pulse 87 07/18/2024 2:12 PM EDT Temperature 37.1 C (98.7 F) 01/12/2024 1:42 PM EDT Respiratory Rate 16 07/18/2024 2:12 PM EDT Oxygen Saturation 94% 07/18/2024 2:12 PM EDT Inhaled Oxygen Concentration - - Weight 132 kg (290 lb 9.6 oz) 07/18/2024 2:12 PM EDT Height 174 cm (5' 8.5 ) 07/18/2024 2:12 PM EDT Body Mass Index 43.54 07/18/2024 2:12 PM EDT Plan of Treatment Upcoming Encounters Date Type Department Care Team (Late st Contact Info) Description 11/28/2024 10:00 AM EDT Office Visit [facility] 112 [facility] 110 [place] [address] Mike Oakley MD 112 [facility] 110 [place] [address] Health Maintenance Due Date Last Done Comments Influenza Vaccine (#1) 2024 4, 12/29/2022, 12/02/2021, Additional history exists Pneumococcal Vaccine: 65+ Years Completed 6, 02/01/2014 Insurance MEDICARE CIGNA CIGNA Care Teams Interlocking Machine Operator Relationship Specialty Start Date End Date Mike Oakley MD [address] [facility] [address] [place] [address] PCP - General Internal Medicine 08/06/22 Mike Oakley MD [address] [facility] [address] [place] [address] PCP - ACO Reach 08/14/22 Alissa Marina LPN [address] [facility] [address] [place] [address] 06/10/24
--- OUTSIDE RECORDS SUMMARY | 2024-10-02 07:47 | XMS_ITS | Encounter Summary ---
Author Organization [facility] Address [address] [place] [address] Care Team Providers Care Statistical Programmer Analyst Name Role Phone Mike Oakley MD Primary Care Provider [phone] Mike Oakley MD Unavailable [phone] Jaimie Mooney RN Unavailable [phone] Alissa Marina LPN Unavailable Encounter Details Date Type Department Care Team (Late st Contact Info) Description 05/05/2024 Abstract [facility] 112 [facility] 110 [place] [address] Mike Oakley MD 112 [facility] 110 [place] [address] Social History Tobacco Use Types [...] and Family Not on file 01/14/2024 Attends Hinduism Services Not on file 01/13 Active Member [...] and heating? Not hard at all 01/14/2024 [facility] [place] of Occupat ional Health - Occupational Stress [...] any time in the past [address] [facility], were you homeless or living in a residential (including now)? No 01/14/2024 Sex and Gender [...] [address] [facility] [address] [place] [address] Mike Oakley MD [address] [facility] 110 [place] [address] documented as of this encounter Visit Diagnoses Not on filedocumented in this encounter Care Teams Statistical Programmer Analyst Relationship Specialty Start Date End Date Mike Oakley MD [address] [facility] 110 [place] [address] PCP - General Internal Medicine 08/06/22 Mike Oaklye MD [address] [facility] [address] [place] [address] PCP - ACO Reach 08/14/22 Jaimie Mooney, CARL [address] [place] [address] Licensed Practical Nurse Family Medicine 04/29/24 06/10/24 Alissa Marina LPN 112 [facility] 110 [place] [id number] 06/10/24 documented as of this encounter
--- OUTSIDE RECORDS SUMMARY | 2024-10-02 07:47 | XMS_ITS | Encounter Summary ---
Author Organization [facility] Address [address] [place] [address] Care Team Providers Care Mesh Worker Name Role Phone Mike Oakley MD Primary Care Provider [phone] Mike Oakley MD Unavailable [phone] Thursday, Trini FOOD WRITER Unavailable [phone] Jaimie Mooney RN Unavailable [phone] Marina Alissa FOOD WRITER Unavailable Encounter Details Date Type Department Care Team (Late st Contact Info) Description 01/22/2024 Abstract [facility] 112 [facility] 110 [place] [address] Mike Oakley MD 112 [facility] 110 [place] [address] Social History Tobacco Use Types [...] and Family Not on file 01/14/2024 Attends Druze Services Not on file 01/13 Active Member [...] and heating? Not hard at all 01/14/2024 [facility] [place] of Occupat ional Health - Occupational [...] any time in the past 12 m [facility], were you homeless or living in a fdc (including now)? No 01/14/2024 Sex and Gender [...] FM [address] [facility] [address] [place] [address] Mike Oakley MD [address] [facility] [address] [place] [address] documented as of this encounter Visit Diagnoses Not on filedocumented in this encounter Care Teams Mesh Worker Relationship Specialty Start Date End Date Mike Oakley MD [address] [facility] [address] [place] [address] PCP - General Internal Medicine 08/06/22 Mike Oakley MD [address] [facility] [address] [place] [address] PCP - ACO Reach 08/14/22Thursday, CHRISTINE Feliz [address] [place] [address] Licensed Practical Nurse Family Medicine 01/13/24 04/29/24 Jaimie Mooney, RN [address] [place] [address] Licensed Practical Nurse Family Medicine 04/29/24 06/10/24 Alissa Marina LPN 112 [facility] 110 [place] [address] 06/10/24 documented as of this encounter
--- OUTSIDE RECORDS SUMMARY | 2024-10-02 07:47 | XMS_ITS | Encounter Summary ---
Author Organization [facility] Address [address] [place] [address] Care Team Providers Care Java User Interface Developer Name Role Phone Mike Oakley MD Primary Care Provider [phone] Mike Oakley MD Unavailable [phone] Alissa Marina LPN Unavailable Encounter Details Date Type Department Care Team (Late st Contact Info) Description 07/20/2024 Abstract [facility] [address] [facility] 110 [place] [address] Mike Oakley MD 112 [facility] 110 [place], [place] [address] Social History Tobacco Use Types Packs/Day Years [...] and Family Not on file 01/14/2024 Attends Anabaptist Services Not on file 01/13 Active Member [...] Recorded Patient Health Questionnaire-2 Score 0 07/18/2024 [facility] of Occupat ional Health - Occupational Stress [...] time in the past 12 m [facility], were you homeless or living in a half-way (including now)? No 01/14/2024 Sex and Gender [...] FM [address] [facility] [address] [place] [address] Mike Oakley MD [address] [facility] [address] [place] [address] documented as of this encounter Visit Diagnoses Not on filedocumented in this encounter Additional Health Concerns Assessment Noted Time PHQ-9 Depression Total Score: 0 07/19/19 25 1:00 PM EDT documented as of this encounter Care Teams Java User Interface Developer Relationship Specialty Start Date End Date Mike Oakley MD [address] [facility] [address] [place] [address] PCP - General Internal Medicine 08/06/22 Mike Oakley MD [address] [facility] [address] [place] [address] PCP - ACO Reach 08/14/22 Alissa Marina LPN [address] [facility] [address] [place] [address] 06/10/24 documented as of this encounter
--- OUTSIDE RECORDS SUMMARY | 2024-10-02 07:47 | XMS_ITS | Encounter Summary ---
Author Organization [facility] Address [address] [place] [address] Care Team Providers Care Sample Patternmaker Name Role Phone Mike Oakley MD Primary Care Provider [phone] Mike Oakley MD Unavailable [phone] Thursday, Trini OPHTHALMOLOGY SURGICAL TECHNICIAN Unavailable [phone] Jaimie Mooney RN Unavailable Marina Alissa OPHTHALMOLOGY SURGICAL TECHNICIAN Unavailable Encounter Details Date Type Department Care Team (Late st Contact Info) Description 01/19/2024 Abstract [facility] 112 [facility] 110 [place] [address] Mike Oakley MD 112 [facility] 110 [place] [address] Social History Tobacco Use Types [...] and Family Not on file 01/14/2024 Attends Orthodox Services Not on file 01/13 Active Member [...] and heating? Not hard at all 01/14/2024 [facility] [place] of Occupat ional Health - Occupational Stress [...] were you homeless or living in a halfway (including now)? No 01/14/2024 Sex and Gender [...] [address] [facility] [address] [place] [address] Mike Oakley MD [address] [facility] [address] [place] [address] documented as of this encounter Visit Diagnoses Not on filedocumented in this encounter Care Teams Sample Patternmaker Relationship Specialty Start Date End Date Mike Oakley MD [address] [facility] [address] [place] [address] PCP - General Internal Medicine 08/06/22 Mike Oakley MD [address] [place] [address] [place] [address] PCP - ACO Reach 08/14/22Thursday, CHRISTINE Feliz [address] [place] [address] Licensed Practical Nurse Family Medicine 01/13/24 04/29/24 Jaimie Mooney, RN [address] [place] [address] Licensed Practical Nurse Family Medicine 04/29/24 06/10/24 Alissa Marina LPN 112 [facility] 110 [place] [address] 06/10/24 documented as of this encounter
--- OUTSIDE RECORDS SUMMARY | 2024-10-02 07:47 | XMS_ITS | Encounter Summary ---
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 110 [place] [address] Mike Oakley MD 112 [facility] 110 [place] [address] Social History Tobacco Use Types [...] and Family Not on file 01/14/2024 Attends Bahai Services Not on file 01/13 Active Member [...] and heating? Not hard at all 01/14/2024 [facility] [place] of Occupat ional Health - Occupational Stress [...] any time in the past [address] [facility], were you homeless or living in a [...] FM [address] [facility] [address] [place] [address] Mike Oakley MD [address] [facility] [address] [place] [address] documented as of this encounter Visit Diagnoses Not on filedocumented in this encounter Care Teams Oil Paint Shader Relationship Specialty Start Date End Date Mike Oakley MD [address] [facility] [address] [place] [address] PCP - General Internal Medicine 08/06/22 Mike Oakley MD [address] [facility] [address] [place] [address] PCP - ACO Reach 08/14/22Thursday, CHRISTINE Feliz [address] [place] [address] Licensed Practical Nurse Family Medicine 01/13/24 04/29/24 Jaimie Mooney, RN [address] [place] [address] Licensed Practical Nurse Family Medicine 04/29/24 06/10/24 Alissa Marina LPN 112 [facility] 110 [place] [address] 06/10/24 documented as of this encounter
--- NOTE | 2024-10-02 08:02 | PC.NURSE ---
per squad, they were concerned for pt and pt's in their living conditions when they picked pt up. Per EMS staff, they were going to be calling [facility]
--- NOTE | 2024-10-02 08:09 | XR_ITS ---
The [address] [address] Patient Name: SALVADOR BARRIENTOS MRN: [id number] date: 1940 Sex: M Assigned Patient Location: ED.MAIN Current Patient Location: ED.MAIN Accession/Order Number: [id number] Exam Date: 10/02/2024 10:09 Report Date: 10/02/2024 10:10 At the request of: MAYA CONNELL MD Procedure: XR knee LT 4V XR knee LT 4V 10/02/2024 8:32 AM SIGNS AND SYMPTOMS: Left knee pain PROTOCOL: Frontal, lateral, and oblique radiographs of the left knee COMPARISON: None FINDINGS: There is total left knee arthroplasty hardware. There is no evidence of fracture or hardware complication. There is diffuse soft tissue swelling of the knee. XR/XR knee LT 4V IMPRESSION: Uncomplicated total left knee arthroplasty. No acute bony injury. Diffuse soft tissue swelling is noted. Impression dictated by: Bowen Balderas M.D. 10/02/2024 10:10 AM Dictation Location[facility] Electronically authenticated by: [id number] Date: 10/02/2024 10:10
[2024-10-02 08:12] LABS: Hematocrit 36.7 % (42.0-54.0); Hemoglobin 11.7 g/dL (14.0-18.0); Immature Granulocytes Abs Auto 0.09 10^3/uL (0.00-0.03); Immature Granulocytes Pct Auto 0.7 % (0.0-0.5); Lymphocytes Absolute Auto 0.5 10^3/uL (1.2-3.8); Mean Corpuscular HGB Conc 31.9 g/dL (29.9-35.2); Mean Corpuscular Hemoglobin 32.2 pg (25.9-34.0); Mean Corpuscular Volume 101.1 fL (80.0-94.0); Platelet Count 326 10^3/uL (150-450); Red Blood Count 3.63 10^6/uL (4.70-6.10); White Blood Count 13.2 10^3/uL (4.0-11.0)
[2024-10-02 08:29] LABS: Alanine Aminotransferase 13 U/L (16-63); Albumin Globulin Ratio 0.8; Albumin Level 3.1 g/dL (3.4-5.0); Alkaline Phosphatase 104 U/L (46-116); Anion Gap 10.3; Aspartate Amino Transferase 21 U/L (15-37); Blood Urea Nitrogen 13.0 mg/dL (7.0-18.0); Calcium 9.5 mg/dL (8.5-10.1); Carbon Dioxide 34.5 mmol/L (21.0-32.0); Chloride 96 mmol/L (98-107); Estimated GFR (African America >60 (>=60 mL/min/1.73m^2); Estimated GFR (Non-African Ame >60 (>=60 mL/min/1.73m^2); Globulin 3.7 g/dL; Glucose 152 mg/dL (74-106); Potassium 4.8 mmol/L (3.5-5.1); Sodium 136 mmol/L (136-145); Total Protein 6.8 g/dL (6.4-8.2)
[2024-10-02 09:38] LABS: Glucose Urine UA NEGATIVE (NEGATIVE)
[2024-10-02 09:48] LABS: Cast Seen? SEEN #/LPF (NONE SEEN); Crystals Seen? None Seen #/HPF (None Seen); Urine Culture Indicated NO
--- NOTE | 2024-10-02 10:23 | ED.GENADUL1 ---
HPI HPI - General Adult General Chief complaint: Extremity Injury, Lower Stated complaint: FALL WEAKENSS Time Seen by Provider: 10/02/24 07:44 Source: patient Mode of arrival: ambulance Limitations: no limitations History of Present Illness HPI narrative: The patient is 84-year-old male is coming to the ER after he had a fall at home, EMS called for possible fall and when they got there they found that the patient just beside his chair apparently he fell to the floor and he is morbidly obese he could not stand up, complaining of left knee pain and he have a history of bilateral knee replacement, the patient denies any other complaint no nausea no vomiting , he have no abdominal pain and he does not look disheveled the patient is morbidly obese with bilateral leg edema that is mostly chronic The patient mentioned that he does not have any issue at home he have been living with his and they are able to manage their daily activities Related Data Home Medications ?Medication ?Instructions ?Recorded ?Confirmed simvastatin 40 mg tablet 40 mg PO Q24H 01/06/23 01/07/24 lisinopril 20 mg tablet 40 mg PO DAILY 01/07/24 01/07/24 Previous Rx's ?Medication ?Instructions ?Recorded sodium chloride 1,000 mg soluble 1,000 mg PO TID #90 tabs 10/22/23 tablet cefuroxime axetil 500 mg tablet 500 mg PO Q12H #10 tabs 01/09/24 cephalexin 500 mg capsule 500 mg PO Q12H 7 days #14 caps 01/14/24 phenazopyridine 200 mg tablet 200 mg PO Q8H PRN burning 6 doses 01/14/24 (Pyridium) #6 tabs Allergies Allergy/AdvReac Type Severity Reaction Status Date / Time No Known Drug Allergies Allergy Verified 10/02/24 07:40 Opioid HPI Opioid Management Most Recent Opioid Data: Last Pain Scale 3 01/09/24, 14:00 Last ORT Total Score 0 01/07/24, 18:28 Last ORT Risk Category Low Risk 01/07/24, 18:28 Review of Systems ROS Status of ROS 10 or more systems reviewed and unremarkable except as noted in history and below 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 - Other specified cardiac arrhythmias (ICD-10) Fluid overload ?E87.70 - Fluid overload, unspecified (ICD-10) Hypoxemia ?R09.02 - Hypoxemia (ICD-10) Pneumonia ?J18.9 - Pneumonia, unspecified organism (ICD-10) CAP (community acquired pneumonia) ?J18.9 - Pneumonia, unspecified organism (ICD-10) Hyponatremia ?E87.1 - Hypo-osmolality and hyponatremia (ICD-10) HTN (hypertension) ?I10 - Essential (primary) hypertension (ICD-10) OAB (overactive bladder) ?N32.81 - Overactive bladder (ICD-10) Hyperlipidemia ?E78.5 - Hyperlipidemia, unspecified (ICD-10) Hematuria ?R31.9 - Hematuria, unspecified (ICD-10) History of urinary retention ?Z87.898 - Personal history of other specified conditions (ICD-10) Difficulty urinating ?R39.198 - Other difficulties with micturition (ICD-10) Surgical History (Updated 01/07/24 @ 18:43 by Shikha Sanabria RN) H/O hernia repair ?Z98.890 - Other specified postprocedural states (ICD-10) ?Z87.19 - Personal history of other diseases of the digestive system (ICD-10) History of knee surgery ?Z98.890 - Other specified postprocedural states (ICD-10) Social History (Updated 01/07/24 @ 18:45 by Shikha Sanabria RN) Within the past year, how often did you have a drink containing alcohol: 2-3 times a week Smoking status: Never smoker Second hand tobacco smoke exposure: No Non-prescribed substance use: denies use 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 Known occupational exposures/hazards: No Highest level of school completed/degree received: high school graduate Do you want help with school or training: No Are you now , , , , never or living with a partner: In a typical week, how many times do you talk on the telephone with family, friends, or neighbors: twice per week How often do you get together with friends or relatives: twice per week How often do you attend tenriism or spiritism services: never Do you belong to any clubs or organizations such as tenriism groups unions, fraternal or athletic groups, or school groups: no Total score: 2 Score interpretation: A score of greater than or equal to 2 indicates the lowest level of social isolation. Little interest or pleasure in doing things: not at all Feeling down, depressed, or hopeless: not at all Feel stressed/tense/nervous/anxious/difficulty sleeping: not at all Due to disability, difficulty making decisions: No Do you think of yourself as: straight/heterosexual Gender Identity: male Exam Narrative Exam Narrative: Nurses notes and vital signs reviewed and patient is not hypoxic. General: Well-appearing and in no apparent distress. Skin: Warm, dry, no pallor noted. No rash. Head: Normocephalic, atraumatic. Neck: Supple, non-tender. Eye: Pupils are equal, round and EOMI. No scleral icterus. Ears, Nose, Mouth, and Throat: TM are clear, no nasal mucosal hypertrophy. Oral mucosa is moist, no posterior oropharynx erythema, uvula is mid-line Cardiovascular: Regular Rate and Rhythm without murmur, gallop or rub. Respiratory: No accessory muscle use or respiratory distress. Lungs are clear to auscultation, no wheezing, rales or rhonchi Chest Wall: no tenderness Back: No midline thoracic or lumbar vertebral tenderness. No CVA tenderness Musculoskeletal: normal ROM, no calf or popliteal tenderness, bilateral chronic leg edema noted no vascular injury detected, patient have left knee pain although is not tender or swollen on exam GI: Abdomen is soft, non-distended. Normal bowel sounds. No masses appreciated. No tenderness to palpation. No rebound, guarding, or rigidity noted. Neurological: A&O x4. No cranial nerve dysfunction observed. No truncal ataxia. Moves all extremities. Sensation intact. Psychiatric: Cooperative and interactive. Normal mood and affect. Constitutional Vital Signs, click to edit/add: Last Vital Signs Temp 99.1 F 10/02/24 07:40 Pulse 115 H 10/02/24 10:10 Resp 26 H 10/02/24 10:10 BP 128/61 10/02/24 10:01 Pulse Ox 96 10/02/24 10:10 O2 Del Method Nasal Cannula 10/02/24 07:40 O2 Flow Rate 4 10/02/24 07:40 Course Vital Signs Vital signs: Vital Signs Temperature 99.1 F 10/02/24 07:40 Pulse Rate 87 10/02/24 07:40 Respiratory Rate 18 10/02/24 07:40 Blood Pressure 131/76 10/02/24 07:40 Pulse Oximetry 93 L 10/02/24 07:40 Oxygen Delivery Method Nasal Cannula 10/02/24 07:40 Oxygen Delivery Flow Rate 4 10/02/24 07:40 Temperature 99.1 F 10/02/24 07:40 Pulse Rate 115 H 10/02/24 10:10 Respiratory Rate 26 H 10/02/24 10:10 Blood Pressure 128/61 10/02/24 10:01 Pulse Oximetry 96 10/02/24 10:10 Oxygen Delivery Method Nasal Cannula 10/02/24 07:40 Oxygen Delivery Flow Rate 4 10/02/24 07:40 Medical Decision Making MDM Narrative Medical decision making narrative: The patient EKG showing A-fib with a heart rate of [address] elevation or depression The patient was cooperative in the ER he is oriented x 3 he does not look disheveled and I did notice that initially the EMS mentioned that he had some issues of hygiene in his home but according to the patient he is able to take care of himself and move around with no difficulty he usually does not even use a walker We did a blood workup. CBC and chemistry that showed no acute significant pathology except for some leukocytosis with no source of infection The patient x-ray of the left knee showed no acute pathology he was able to ambulate here with no difficulty Patient was discharged to follow-up with his primary care doctor as outpatient he was able to ambulate in the ER with no difficulty and he did not even need the walker Patient is oriented x 3 is able to take care of himself and is competent to make his own decision The patient is to follow up with primary care physician in next 2-3 days or to return to the emergency department should any of the signs or symptoms worsen or new symptoms develop. The patient agrees with the following Diagnosis and Treatment plan and the patient will be discharged home. Lab Data Labs: Lab Results 10/02/24 10/02/24 Range/Units 08:06 09:20 WBC 13.2 H (4.0-11.0) 10^3/uL RBC 3.63 L (4.70-6.10) 10^6/uL Hgb 11.7 L (14.0-18.0) g/dL Hct 36.7 L (42.0-54.0) % MCV 101.1 H (80.0-94.0) fL MCH 32.2 (25.9-34.0) pg MCHC 31.9 (29.9-35.2) g/dL RDW 14.4 (11.0-15.0) % Plt Count 326 (150-450) 10^3/uL MPV 9.6 (9.5-13.5) fL Neut % (Auto) 81.2 H (43.0-75.0) % Lymph % (Auto) 3.9 L (20.5-60.0) % Reeves % (Auto) 13.0 H (1.7-12.0) % Eos % (Auto) 0.9 (0.9-7.0) % Baso % (Auto) 0.3 (0.2-2.0) % Neut # (Auto) 10.8 H (1.4-6.5) 10^3/uL Lymph # (Auto) 0.5 L (1.2-3.8) 10^3/uL Reeves # (Auto) 1.7 H (0.3-0.8) 10^3/uL Eos # (Auto) 0.1 (0.0-0.7) 10^3/uL Baso # (Auto) 0.0 (0.0-0.1) 10^3/uL Abs Immat Gran (auto) 0.09 H (0.00-0.03) 10^3/uL Imm/Tot Granulo (auto) 0.7 H (0.0-0.5) % Sodium 136 (136-145) mmol/L Potassium 4.8 (3.5-5.1) mmol/L Chloride 96 L (98-107) mmol/L Carbon Dioxide 34.5 H (21.0-32.0) mmol/L Anion Gap 10.3 BUN 13.0 (7.0-18.0) mg/dL Creatinine 0.73 (0.70-1.30) mg/dL Est GFR ( Amer) >60 (>=60 mL/min/1.73m^2) Est GFR (Non-Af Amer) >60 (>=60 mL/min/1.73m^2) BUN/Creatinine Ratio 17.8 Glucose 152 H (74-106) mg/dL Calcium 9.5 (8.5-10.1) mg/dL Total Bilirubin 0.4 (0.2-1.0) mg/dL AST 21 (15-37) U/L ALT 13 L (16-63) U/L Alkaline Phosphatase 104 (46-116) U/L Troponin I High Sens 18.8 (4.0-76.1) pg/mL Total Protein 6.8 (6.4-8.2) g/dL Albumin 3.1 L (3.4-5.0) g/dL Globulin 3.7 g/dL Albumin/Globulin Ratio 0.8 Urine Color Yellow (YELLOW) Urine Clarity Clear (CLEAR) Urine pH 7.0 (5.0-9.0) Ur Specific [place] 1.015 (1.005-1.025) Urine Protein 30 A (NEG/TRACE) mg/dL Urine Glucose (UA) Negative (NEGATIVE) mg/dL Urine Ketones Trace A (NEGATIVE) mg/dL Urine Occult Blood Negative (NEGATIVE) Urine Nitrite Negative (NEGATIVE) Urine Bilirubin Negative (NEGATIVE) Urine Urobilinogen 1.0 (0.2-1.0) EU/dL Ur Leukocyte Esterase Negative (NEGATIVE) Urine RBC 0-2 (0-2) #/HPF Urine WBC 0-2 A (NONE SEEN) #/HPF Ur Squamous Epith Cells Rare (NONE/RARE) #/LPF Urine Crystals None seen (None Seen) #/HPF Urine Bacteria Trace A (NONE SEEN) #/HPF Urine Casts Seen A (NONE SEEN) #/LPF Hyaline Casts Rare Urine Mucus Small A (NONE SEEN) Ur Culture Indicated? No Discharge Plan Discharge Chief Complaint: Extremity Injury, Lower Clinical Impression: Osteoarthritis Patient Disposition: Home, Self-Care Time of Disposition Decision: 10:24 Condition: Good Mode of Transportation: Private Vehicle Prescriptions / Home Meds: No Action sodium chloride 1,000 mg tablet,soluble 1,000 mg PO TID Qty: 90 0RF simvastatin 40 mg tablet 40 mg PO Q24H lisinopril 20 mg tablet 40 mg PO DAILY cefuroxime axetil 500 mg tablet 500 mg PO Q12H Qty: 10 0RF cephalexin 500 mg capsule 500 mg PO Q12H 7 Days Qty: 14 0RF phenazopyridine [Pyridium] 200 mg tablet 200 mg PO Q8H PRN (Reason: burning ) Qty: 6 0RF Print Language: Omani Instructions: Osteoarthritis (DC) Referrals: ALEX LYMAN [Primary Care Provider, Internal Medicine] - 1 week Discharge Date/Time: 10/02/24 11:00
== END 2024-10-02 11:00 | disposition home or self-care (01) ==
PROVIDERS: Emergency Provider Emergency Medicine; PCP Internal Medicine
DX: M19.90 Unspecified osteoarthritis, unspecified site (principal); E66.01 Morbid (severe) obesity due to excess calories; Z96.653 Presence of artificial knee joint, bilateral; Z68.42 Body mass index [BMI] 45.0-49.9, adult
CPT/HCPCS: 36415; 73564; 80053; 81001; 84484; 85025; 93005; 99285